=== PATIENT | female | born 1950 | race Caucasian/White ===

== ENCOUNTER 2022-03-30 19:01 | Emergency (ER) | payer MEDICARE, MEDICAID, SELFPAY ==
[2022-03-30] VITALS (11 sets, daily range): BP systolic 102–116; BP diastolic 63–74; PULSE 84–96; RESP 12–20; TEMP 36.5; O2SAT 94–96
--- NOTE | ~2022-03-30 | XR_ITS ---
EXAMINATION: XR chest 1V portable Exam Date/Time: 03/30/2022 19:50 CUSTOMER SERVICE SECURITY OFFICER HISTORY: weakness, seizure Comparison: None available. RESULT: Lines, tubes, and devices: Intact DIRECTOR INSTRUCTIONAL MATERIAL shunt tubing. Lumbar fusion hardware. Surgical clips over the G E junction. Loop recorder. An external electronic device projects over the left chest. Lungs and pleura: Moderate left costophrenic angle blunting with hazy graded left lower lobe opacity . Cardiomediastinal silhouette: Unremarkable. Other: No acute osseous or upper abdominal finding. IMPRESSION: Moderate left pleural effusion with adjacent compressive atelectasis. Infection is not excluded. Reviewed, dictated and finalized at location K. OMER SERVICE SECURITY OFFICER
--- NOTE | ~2022-03-30 | CT_ITS ---
EXAMINATION: CT brain wo con DATE: 03/30/2022 19:54 INDICATION: seizure . TECHNIQUE: Computed tomography (CT) of the head was performed without intravenous contrast. The mA wa s adjusted according to patient size. Iterative reconstruction technique was employed. The dose-lengt h product was 529.67 mGy-cm. COMPARISON: None FINDINGS: No acute intracranial hemorrhage or extra-axial fluid collection. No hydrocephalus, mass, or herniation. No acute ischemic infarct. Unremarkable dural venous sinus attenuation. No acute osseous abnormality. Multiple brennen holes. Prior left frontotemporal craniotomy with fixation hardware. No osseous fusion along the posterior margin of the craniotomy flap. Left parietal approac h INDEPENDENT TRADER shunt, terminating in the left lateral ventricle. The aerated spaces are clear. Moderate atrophy and chronic white matter change. Right frontotemporal encephalomalacia. Mild ex vacu o dilation of the right lateral ventricle. 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 Atheroscl erotic intracranial calcification. IMPRESSION: No definite acute intracranial process. Subtle change in ventricular dilation or early infarct change s within the areas of the right frontotemporal encephalomalacia cannot be excluded without comparison studies. Reviewed, dictated and finalized at location K. PRESIDENT OF NEWS IMPRESSION: No definite acute intracranial process. Subtle change in ventricular dilation o r early infarct changes within the areas of the right frontotemporal encephalom alacia cannot be excluded without comparison studies.
--- NOTE | ~2022-03-30 | US_ITS ---
EXAMINATION: US venous doppler [facility] DATE: 03/30/2022 20:37 INDICATION: pain and swelling . TECHNIQUE: Grayscale images without and with compression and Doppler images of the left lower extremi ty veins were obtained. COMPARISON: None FINDINGS: Acute thrombosis in the left common femoral vein The left profunda femoral vein, femoral vein, poplit eal vein, peroneal vein, posterior tibial veins, gastrocnemius vein, and greater saphenous vein are p atent. IMPRESSION: Acute left common femoral vein thrombosis. Results reported telephonically to Dr. Rivera by Dr. Kern at 9:07 PM on 03/30/2022. Reviewed, dictated and finalized at location K. CARE ASSISTANT IMPRESSION: Acute left common femoral vein thrombosis. Results reported telephonically to Dr. Rivera by Dr. Kern at 9:07 PM on .
--- NOTE | 2022-03-30 19:18 | ECG_ITS ---
Measurements Intervals [place] Rate: 92 P: MS: 0 QRS: 15 QRSD: 90 T: 77 QT: 326 QTc: 405 Interpretive Statements LIKELY SINUS RHYTHM LOW QRS VOLTAGE IN EXTREMITY LEADS [QRS DEFLECTION < 0.5 mV IN LIMB LEADS] ABNORMAL RHYTHM ECG NO PREVIOUS ECG AVAILABLE FOR COMPARISON Electronically Signed On 03-31-2022 14:51:45 ASSEMBLY LINE WORKER by Lucy Posadas M.D.
--- NOTE | 2022-03-30 19:54 | PC.NURSE ---
Pt to U/S and XRAY via stretcher at this time.
[2022-03-30 21:10] LABS: Appearance Urine Clear (Clear); Bilirubin Urine Negative (Negative); Blood Urine Negative (Negative); Color Urine Yellow (Yellow); Glucose Urine UA Negative (Negative); Ketones Urine Negative (Negative); Leukocyte Esterase Ur Negative LEU/UL (Negative); Nitrate Urine Negative (Negative); Protein Urine Negative (Negative); Specific Grav Ur 1.015 (1.001-1.035); Urobilinogen Urine 0.2 mg/dL (<2.0); pH Urine 5.5 (5.0-9.0)
[2022-03-30 21:11] LABS: Basophils Percent Auto 0.3 % (0.2-1.2); Eosinophils Percent Auto 0.1 % (0-4.4); Hematocrit 31.4 % (37.0-47.0); Hemoglobin 10.1 g/dL (12.0-15.0); Immature Granulocyte Absolute 0.05 K/mm3 (0.00-0.031); Immature Granulocyte Percent A 0.7 % (0-0.5); Immature Platelet Fraction Pct 6.7 % (0.9-11.2); Lymphocytes Absolute Auto 1.19 K/mm3 (0.9-3.2); Lymphocytes Percent Auto 15.5 % (18.3-44.2); Mean Corpuscular HGB Conc 32.2 g/dl (32-36); Mean Corpuscular Hemoglobin 29.6 pg (26-34); Mean Corpuscular Volume 92.1 fl (80-100); Monocytes Absolute Auto 0.6 K/mm3 (0.1-0.6); Monocytes Percent Auto 7.4 % (2.6-8.5); Neutrophils Absolute Auto 5.8 K/mm3 (1.3-6.7); Platelet Count Result 192 k/mm3 (150-375); Red Blood Count 3.41 M/mm3 (4.2-5.4); Red Cell Distribution Width 16.6 % (11.5-14.5); White Blood Count 7.7 K/mm3 (4.5-10.0)
[2022-03-30 21:16] LABS: Add Urine Microscopic? NO
[2022-03-30 21:19] LABS: Alanine Aminotransferase 21 U/L (6-35); Albumin Level 2.2 g/dL (3.5-5.1); Alkaline Phosphatase 165 U/L (38-126); Anion Gap 0 mmol/L (8-16); Aspartate Amino Transferase 28 U/L (14-36); Bilirubin,Total 0.3 mg/dL (0.2-1.3); Blood Urea Nitrogen 25 mg/dL (7-17); Calcium 7.3 mg/dL (8.4-10.2); Carbon Dioxide 33 mmol/L (22-30); Chloride 104 mmol/L (98-107); Estimated CRCL calculation 49 ml/min; Estimated Glomerular Filt Rate > 60; Glucose 97 mg/dL (65-110); Lipase 16 U/L (23-300); Potassium 3.1 mmol/L (3.4-5.0); Sodium 137 mmol/L (137-145)
[2022-03-30 21:31] LABS: NT Pro B Type Natriuretic Pept 1070 pg/mL (5-100); Ovalocytes 1+ (NORMAL); Platelet Estimate Adequate (Adequate); Schistocytes None Seen (NORMAL); Troponin I < 0.012 ng/mL (0.000-0.034)
[2022-03-30 21:44] LABS: Influenza A QL RT-PCR Negative (Negative); Influenza B QL RT-PCR Negative (Negative); SARS-CoV-2 RNA PCR Negative
[2022-03-30 22:36] LABS: Procalcitonin 0.1 ng/mL
[2022-03-30 23:17] LABS: Lactic Acid Reflex 1.2 mmol/L (0.7-2.0)
[2022-03-30 23:28] LABS: Troponin I < 0.012 ng/mL (0.000-0.034)
--- NOTE | 2022-03-30 23:48 | ED.GENADULT ---
HPI - General Adult General Chief complaint: Seizure Stated complaint: AMS, POSS SEIZURE ACTIVITY Time Seen by Provider: 03/30/22 19:18 History of Present Illness HPI narrative: Patient is 71-year-old female that presents the emergency department with chief complaint of possible seizure. Patient has prior history of seizures and takes Keppra was recently discharged from [facility] after she had had a stroke and also had electrolyte abnormalities. Per the retirement staff she possibly had a seizure but they are not too familiar with her. The patient currently has no complaints Related Data Allergies Allergy/AdvReac Type Severity Reaction Status Date / Time No Known Allergies Allergy Mild Unverified 01/01/13 07:30 Review of Systems Review of Systems: A 10 system review of systems was completed on the patient and is negative except for what is stated in the HPI. Nursing and ancillary documentation was reviewed. Exam Narrative: GENERAL: Well-appearing, well-nourished, and in no acute distress. HEAD: Normocephalic, atraumatic. EYES: PERRLA and EOMI. ENT: Nares clear, no rhinorrhea or epistaxis. Mucous membranes moist. NECK: Supple. CHEST: Clear to auscultation. No respiratory distress. HEART: Regular rate and rhythm. No murmur heard. Normal peripheral pulses. ABDOMEN: Soft, nontender, nondistended, normal active bowel sounds. EXTREMITIES: Normal range of motion. No edema. SKIN: Warm, dry, no rash. NEURO: No focal deficits. Alert and oriented x2. PSYCH: Normal mood and affect. Course Course Emergency Course: CT head showed evidence of no acute intercranial pathology. The patient does have evidence of a DVT in her left lower extremity but is currently already on anticoagulants. Chest x-ray showed evidence of a pleural effusion patient is currently not hypoxic and not showing signs of infectious pathology. Vital Signs Vital signs: Vital Signs Temperature 36.5 C 03/30/22 19:06 Pulse Rate 96 03/30/22 19:06 Respiratory Rate 20 03/30/22 19:06 Blood Pressure 102/63 03/30/22 19:06 Pulse Oximetry 96 03/30/22 19:06 Oxygen Delivery Room Air 03/30/22 19:06 Temperature 36.5 C 03/30/22 19:06 Pulse Rate 85 03/30/22 22:30 Respiratory Rate 17 03/30/22 22:30 Blood Pressure 115/73 03/30/22 22:30 Pulse Oximetry 95 03/30/22 22:30 Oxygen Delivery Room Air 03/30/22 19:06 Medical Decision Making Vital Signs Vital Signs: Vital Signs Temperature 36.5 C 03/30/22 19:06 Pulse Rate 96 03/30/22 19:06 Respiratory Rate 20 03/30/22 19:06 Blood Pressure 102/63 03/30/22 19:06 Pulse Oximetry 96 03/30/22 19:06 Oxygen Delivery Room Air 03/30/22 19:06 Temperature 36.5 C 03/30/22 19:06 Pulse Rate 85 03/30/22 22:30 Respiratory Rate 17 03/30/22 22:30 Blood Pressure 115/73 03/30/22 22:30 Pulse Oximetry 95 03/30/22 22:30 Oxygen Delivery Room Air 03/30/22 19:06 Lab Data 03/30/22 20:59 03/30/22 20:59 Labs: Lab Results 03/30/22 03/30/22 03/30/22 Range/Units 20:59 20:59 20:59 WBC 7.7 (4.5-10.0) K/mm3 RBC 3.41 L (4.2-5.4) M/mm3 Hgb 10.1 L (12.0-15.0) g/dL Hct 31.4 L (37.0-47.0) % MCV 92.1 (80-100) fl MCH 29.6 (26-34) pg MCHC 32.2 (32-36) g/dl RDW 16.6 H (11.5-14.5) % Plt Count 192 (150-375) k/mm3 MPV 11.0 H (7.4-10.4) fl Immature Gran % (Auto) 0.7 H (0-0.5) % Neut % (Auto) 76.0 H (45.5-73.1) % Lymph % (Auto) 15.5 L (18.3-44.2) % [place] % (Auto) 7.4 (2.6-8.5) % Eos % (Auto) 0.1 (0-4.4) % Baso % (Auto) 0.3 (0.2-1.2) % Lymph # (Auto) 1.19 (0.9-3.2) K/mm3 [place] # (Auto) 0.6 (0.1-0.6) K/mm3 Eos # (Auto) 0.0 (0-0.3) K/mm3 Baso # (Auto) 0.0 (0.0-0.1) K/mm3 Abs Immat Gran (auto) 0.05 H (0.00-0.031) K/mm3 Absolute Neuts (auto) 5.8 (1.3-6.7) K/mm3 Absolute Nucleated RBC 0.0 (0.0-0.012) K/mm3 Nucleated R
[2022-03-31] VITALS (9 sets, daily range): BP systolic 114–123; BP diastolic 62–73; PULSE 84–86; RESP 13–21; O2SAT 94–96
== END 2022-03-31 01:28 ==
PROVIDERS: Emergency Medicine; Emergency Provider Emergency Medicine
DX: R56.9 Unspecified convulsions (principal); I82.412 Acute embolism and thrombosis of left femoral vein; Z20.822 Contact with and (suspected) exposure to COVID-19; Z86.73 Personal history of transient ischemic attack (TIA), and cerebral infarction without residual deficits; Z79.01 Long term (current) use of anticoagulants; R91.8 Other nonspecific abnormal finding of lung field; R94.31 Abnormal electrocardiogram [ECG] [EKG]
CPT/HCPCS: 36415; 51701; 70450; 71045; 80053; 81003; 83605; 83690; 83735; 83880; 84145; 84484; 85025; 85055; 87636; 93005; 93971; 99284

== ENCOUNTER 2022-03-31 18:38 | Inpatient (IN) | payer MEDICARE, MEDICAID, SELFPAY ==
--- NOTE | ~2022-03-31 | XR_ITS ---
EXAMINATION: XR chest 1V portable Exam Date/Time: 03/31/2022 19:50 ANESTHESIOLOGY MEDICAL DOCTOR HISTORY: Weakness, HX OF SEIZURES Comparison: 03/30/2022. RESULT: Lines, tubes, and devices: Unchanged Loop recorder, left upper quadrant surgical clips, IMMIGRATION INVESTIGATOR shunt tub ing, and spinal fusion hardware. Lungs and pleura: Stable moderate left angle blunting and left lower lung opacity. Cardiomediastinal silhouette: Stable. Other: No acute osseous or upper abdominal finding. IMPRESSION: Moderate left pleural effusion with adjacent compressive atelectasis. No significant interval change. Reviewed, dictated and finalized at location K. THESIOLOGY MEDICAL DOCTOR IMPRESSION: Moderate left pleural effusion with adjacent compressive atelectasis. No signif icant interval change.
--- NOTE | ~2022-03-31 | CT_ITS ---
EXAMINATION: CT brain wo con DATE: 03/31/2022 20:08 INDICATION: AMS . TECHNIQUE: Computed tomography (CT) of the head was performed without intravenous contrast. The mA wa s adjusted according to patient size. Iterative reconstruction technique was employed. The dose-lengt h product was 681.00 mGy-cm. COMPARISON: 03/30/2022 FINDINGS: No acute intracranial hemorrhage or extra-axial fluid collection. No hydrocephalus, mass, or herniation. No acute ischemic infarct. Unremarkable dural venous sinus attenuation. No acute osseous abnormality. The aerated spaces are clear. Right frontotemporal craniotomy. Left parietal approach PRIMARY SCHOOL TEACHER shunt terminating in the left lateral vent ricle. Right frontotemporal encephalomalacia and ex vacuo dilation of the right lateral ventricle. An eurysm clips. Bilateral prominent extra-axial spaces as can be seen with chronic subdurals and cystic hygromas. Moderate atrophy and chronic white matter change. Atherosclerotic intracranial calcificati ons. IMPRESSION: No acute intracranial process. Reviewed, dictated and finalized at location K. E STOCK ASSOCIATE
--- NOTE | ~2022-03-31 | XR_ITS ---
XR chest 2V 04/02/2022 16:00 Indication: Shortness of breath Procedure: 2 view chest Comparison: 03/31/2022 Findings: There is a left-sided catheter, likely ventriculoperitoneal shunt. There are bilateral pleu ral effusions, left greater than right. There is left basilar compressive atelectasis. No pneumothora x. Osteopenia. No acute osseous abnormality. Impression: 1: Bilateral pleural effusions, left greater than right. No significant change from prior study allow ing for differences of technique. Reviewed, dictated and finalized at location A. RNATIONAL STUDENT ADVISOR Impression: 1: Bilateral pleural effusions, left greater than right. No significant change from prior study allowing for differences of technique.
[2022-03-31 18:43] VITALS: BP 112/60; PULSE 85; RESP 14; TEMP 37.2; O2SAT 95
[2022-03-31 18:56] VITALS: O2SAT 95
--- NOTE | 2022-03-31 19:40 | ED.GENADULT ---
HPI - General Adult General Chief complaint: Seizure Stated complaint: focal sz? Time Seen by Provider: 03/31/22 19:00 History of Present Illness HPI narrative: This is a 71-year-old female who is A&O x1 at baseline who [facility]. Patient herself can tell me her name can provide no other information. She has no complaints at this time. Per provider reports the patient has been having focal seizures where she stares off into space. She has not been feeding herself. She has had decreased urine output. Patient has been receiving her daily Keppra dose. I spoke with the patient's daughter and the patient typically can tell you her name and social security number and address and have some sort of interaction with you. She is not able to do that at this time. PADMINI (Daughter) [phone] Related Data Allergies Allergy/AdvReac Type Severity Reaction Status Date / Time No Known Allergies Allergy Mild Unverified 01/01/13 07:30 Review of Systems Review of Systems: ROS unobtainable: Yes unobtainable due to medical condition [facility] Past Medical History Medical History (Updated 03/31/22 @ 23:56 by Aashish Prabhakar MD) Seizure Exam Narrative: APPEARANCE: Patient appears chronically unwell and older than her stated age. A&Ox1 Head: Temporal wasting EYES: EOMI, NOSE: Atraumatic NECK: Trachea midline RESPIRATORY: No increased rate of breathing, clear to auscultation CARDIOVASCULAR: regular rate, ABDOMINAL: Non-distended, no guarding or rebound MUSCULOSKELETAl: No obvious deformities NEURO: Alert. Moving 4/4 extremities SKIN:: Warm, dry. Normal color PSYCHIATRIC: patient is A&O x1 and essentially nonverbal Course Vital Signs Vital signs: Vital Signs Temperature 99 F 03/31/22 18:43 Pulse Rate 85 03/31/22 18:43 Respiratory Rate 14 03/31/22 18:43 Blood Pressure 112/60 03/31/22 18:43 Pulse Oximetry 95 03/31/22 18:43 Oxygen Delivery Room Air 03/31/22 18:43 Temperature 99 F 03/31/22 18:43 Pulse Rate 82 03/31/22 22:56 Respiratory Rate 16 03/31/22 22:56 Blood Pressure 113/59 L 03/31/22 22:56 Pulse Oximetry 98 03/31/22 22:56 Oxygen Delivery Room Air 12/07/22 18:56 Medical Decision Making MDM Narrative Medical decision making narrative: This is a 71-year-old female presenting ED for possibly focal seizures but also decreased appetite and decreased urine output. differential includes sepsis, subclinical seizures, viral syndrome, dehydration. Since it sounds like patient has failure to thrive. A broad workup has been pursued. Labwork, Urine, EKG, Chest xray and CT head have been ordered. Patient will be given a dose of keppra and 1 L of fluid. EKG interpretation: Rhythm svt, Rate 83, [place] -[normal], [place] -unable to see due to poor baseline, QRS [narrow], QTC [normal], T waves -[negative for concerning inversions], ST Segments - [Negative for concerning elevations] Final interpretations: normal sinus rhytm lab works within normal limits no significant changes from her workup yesterday. Fluid COVID were negative. Chest x-ray shows the pleural effusion. Head CT does not show any acute findings. I spoke with the patient's daughter over the phone who says that the patient can typically hold a conversation with you at her baseline. She is unable to do that at this time. Patient will be admitted for further evaluation and neurology consult. Vital Signs Vital Signs: Vital Signs Temperature 99 F 03/31/22 18:43 Pulse Rate 85 03/31/22 18:43 Respiratory Rate 14 03/31/22 18:43 Blood Pressure 112/60 03/31/22 18:43 Pulse Oximetry 95 03/31/22 18:43 Oxygen Delivery Room Air 03/31/22 18:43 Temperature 99 F 03/31/22 18:43 Pulse Rate 82 03/31/22 22:56 Respiratory Rate 16 03/31/22 22:56 Blood Pressure 113/59 L 03/31/22 22:56 Pulse Oximetry 98 03/31/22 22:56 Oxygen Delivery Room Air
--- NOTE | 2022-03-31 19:49 | ECG_ITS ---
Measurements Intervals [place] Rate: 83 P: [place]: 0 QRS: 42 QRSD: 96 T: -33 QT: 364 QTc: 428 Interpretive Statements REDUCED ECG QUALITY BECAUSE OF BASELINE ARTIFACT SUPRAVENTRICULAR RHYTHM LOW QRS VOLTAGE IN EXTREMITY LEADS [QRS DEFLECTION < 0.5 mV IN LIMB LEADS] COMPARED TO ECG 03/30/2022 19:20:53 NO SIGNIFICANT CHANGE Electronically Signed On 04-02-2022 7:21:31 YARD CRANE OPERATOR by Jose Thomas M.D.
[2022-03-31] MEDS: SODIUM CHLORIDE 0.9% IV 1,000 ML 999 ML IV CONT (21:14)
[2022-03-31 21:52] LABS: Influenza A QL RT-PCR Negative (Negative); Influenza B QL RT-PCR Negative (Negative); SARS-CoV-2 RNA PCR Negative
[2022-03-31 22:03] LABS: Basophils Percent Auto 0.4 % (0.2-1.2); Eosinophils Percent Auto 0.2 % (0-4.4); Hematocrit 26.8 % (37.0-47.0); Hemoglobin 8.3 g/dL (12.0-15.0); Immature Granulocyte Absolute 0.03 K/mm3 (0.00-0.031); Immature Granulocyte Percent A 0.4 % (0-0.5); Lymphocytes Absolute Auto 1.38 K/mm3 (0.9-3.2); Lymphocytes Percent Auto 17.1 % (18.3-44.2); Mean Corpuscular Hemoglobin 29.4 pg (26-34); Mean Platelet Volume 10.5 fl (7.4-10.4); Monocytes Absolute Auto 0.7 K/mm3 (0.1-0.6); Monocytes Percent Auto 8.8 % (2.6-8.5); Neutrophils Absolute Auto 5.9 K/mm3 (1.3-6.7); Neutrophils Percent Auto 73.1 % (45.5-73.1); Platelet Count Result 402 k/mm3 (150-375); Red Blood Count 2.82 M/mm3 (4.2-5.4); Red Cell Distribution Width 16.6 % (11.5-14.5); White Blood Count 8.1 K/mm3 (4.5-10.0)
[2022-03-31 22:14] LABS: INR 2.7; Prothrombin Time 27.4 Seconds (11.1-14.7)
[2022-03-31 22:15] LABS: Partial Thromboplastin Time 47.9 SECONDS (22.3-36.8)
[2022-03-31 22:22] LABS: Alanine Aminotransferase 21 U/L (6-35); Albumin Level 2.3 g/dL (3.5-5.1); Alkaline Phosphatase 157 U/L (38-126); Anion Gap -1 mmol/L (8-16); Aspartate Amino Transferase 39 U/L (14-36); Bilirubin,Total 0.7 mg/dL (0.2-1.3); Blood Urea Nitrogen 26 mg/dL (7-17); Calcium 7.3 mg/dL (8.4-10.2); Carbon Dioxide 36 mmol/L (22-30); Chloride 104 mmol/L (98-107); Estimated Glomerular Filt Rate > 60; Glucose 106 mg/dL (65-110); Phosphorus 3.7 mg/dL (2.5-4.5); Potassium 3.7 mmol/L (3.4-5.0); Sodium 139 mmol/L (137-145)
[2022-03-31 22:24] LABS: Troponin I < 0.012 ng/mL (0.000-0.034)
[2022-03-31 22:56] VITALS: BP 113/59; PULSE 82; RESP 16; O2SAT 98
[2022-03-31 22:56] LABS: Lipase < 10 U/L (23-300)
[2022-04-01] VITALS (8 sets, daily range): BP systolic 103–122; BP diastolic 43–72; PULSE 79–85; RESP 12–18; TEMP 36.3–36.7; O2SAT 94–100; BMI 18.3
[2022-04-01] MEDS: LACTATED RINGERS 1,000 ML 125 ML IV CONT ×3 (00:45→16:53)
--- NOTE | 2022-04-01 01:23 | PM.IMHP ---
H&P: HPI History of Present Illness Date/Time: 04/01/22 01:23 Chief Complaint: altered mental status Narrative: This is a 71-year-old female with past medical history significant for atrial fibrillation rate controlled anticoagulated, seizure disorder. patient is brought for a 2nd time to the emergency room for evaluation of altered mental status has been staring into a space and nonresponsive or minimally responsive at the time of my visit patient was awake and alert staring into the space oriented times once to person, according to records she is oriented x 1-2. patient was loaded with Keppra and a sepsis workup was done which was low yielding, a TSH was elevated at 16,300, tested negative for influenza A and B and COVID-19. Patient is been admitted for further evaluation management and treatment. Review of Systems Review of Systems: ROS unobtainable: Yes unobtainable due to mental status ( Dementia) PMFSH Past Medical History Medical History (Updated 04/01/22 @ 04:16 by Mario Nolasco MD) Seizure Family History Family History (Updated 04/01/22 @ 03:20 by Anastasiya Branham RN) Other Unknown family medical history Social History Social History Smoking status: Unknown if ever smoked Alcohol intake: unknown Spiritual care concerns: No Meds Home Medications and Allergies Home Medications Medication Instructions Recorded Confirmed Type Adults Multivitamin 1 tablet PO DAILY 04/01/22 04/01/22 History acetaminophen 650 mg tablet 650 mg PO Q6H PRN Pain (Scale 04/01/22 04/01/22 History Score 1-3) albuterol sulfate 90 mcg/actuation 2 puff inhalation Q6H PRN 04/01/22 04/01/22 History aerosol inhaler Shortness Of Breath amiodarone 200 mg tablet 200 mg PO DAILY 04/01/22 04/01/22 History apixaban 5 mg tablet (Eliquis) 5 mg PO BID 04/01/22 04/01/22 History ascorbic acid (vitamin C) 500 mg PO DAILY 04/01/22 04/01/22 History bisacodyl 10 mg rectal suppository 10 mg RECTAL DAILY PRN Constipation 04/01/22 04/01/22 History calcium carbonate 600 mg PO BID 04/01/22 04/01/22 History collagenase clostridium histo. 250 1 applic topical DAILY 04/01/22 04/01/22 History unit/gram topical ointment (Santyl) ergocalciferol (vitamin D2) 1,250 mcg PO WEEKLY 04/01/22 04/01/22 History famotidine 20 mg PO DAILY 04/01/22 04/01/22 History furosemide 20 mg PO BID 04/01/22 04/01/22 History gabapentin 100 mg capsule 100 mg PO TID 04/01/22 04/01/22 History latanoprost 0.005 % eye drops 1 drp EACH EYE HS 04/01/22 04/01/22 History levetiracetam 750 mg tablet 750 mg PO BID 04/01/22 04/01/22 History mirtazapine 15 mg tablet 15 mg PO HS 04/01/22 04/01/22 History pantoprazole 40 mg tablet,delayed 40 mg PO DAILY 04/01/22 04/01/22 History release polyethylene glycol 3350 17 17 g PO DAILY 04/01/22 04/01/22 History gram/dose oral powder (Miralax) Allergies Allergy/AdvReac Type Severity Reaction Status Date / Time No Known Allergies Allergy Mild Verified 04/01/22 02:47 Vital Signs Vital Signs - 24 hr 03/31/22 18:43 03/31/22 18:56 03/31/22 22:56 Temperature 99 F Pulse Rate 85 82 Respiratory Rate 14 16 Blood Pressure 112/60 113/59 L Pulse Oximetry 95 95 98 Oxygen Delivery Room Air Room Air 04/01/22 00:22 Temperature Pulse Rate 79 Respiratory Rate 18 Blood Pressure 103/72 Pulse Oximetry 100 Oxygen Delivery Exam Narrative: patient is laying in a stretcher Const: General: comfortable, no acute distress, well developed, alert, awake and average body habitus Nutritional Appearance: average body habitus Orientation/consciousness: oriented to person and Other orientation findings ( patient is staring into space, does not follow commands) Limitations: altered mental status HENMT: Head: normal to inspection, normocephalic and atraumatic Ears: hearing grossly normal bilaterally Face/Nose/Sinus: normal facial exam Face and sinus: norm
--- NOTE | 2022-04-01 01:41 | PC.NURSE ---
patient turned, cleaned and changed depends at 0125
--- NOTE | 2022-04-01 02:35 | ADMGEN ---
This patient, Babs Felton, was admitted to 3 [facility] Surg Room 317-01. Patient/family oriented to hospital policies and general routines including ID bracelet, bed and alarms, visiting hours, pain management, procedures, bathroom and other care routines, personal items, smoking policy, room service/diet, and visiting hours. Information on how to activate the Rapid Response Team has been discussed. Patient/Family are encouraged to report perceived risks to care and to ask questions if they do not understand what they are told or what they should do.
[2022-04-01 03:47] LABS: Free T4 Free Thyroxine Reflex 2.46 ng/dL (0.78-2.19)
--- NOTE | 2022-04-01 08:41 | PM.IMPN ---
Progress Note: A&P Assessment and Plan (1) Altered mental status: Code(s): R41.82 - Altered mental status, unspecified Status: Acute Assessment and Plan: Neurology consult pending, brain MRI ordered, likely multifactorial Could be secondary to elevated TSH? Levothyroxine ordered Will check B12, folate, homocystine, and vitamin D (2) Elevated TSH: Code(s): R79.89 - Other specified abnormal findings of blood chemistry Status: Acute Assessment and Plan: Hold amiodarone for now, start levothyroxine (3) Focal seizure: Code(s): R56.9 - Unspecified convulsions Status: Acute Assessment and Plan: Continue Keppra, received IV loading dose in the ER, transitioned to IV patient does not pass swallow study today (4) Anemia: Code(s): D64.9 - Anemia, unspecified Status: Acute Assessment and Plan: Check fecal occult, continue to monitor (5) Atrial fibrillation: Code(s): I48.91 - Unspecified atrial fibrillation Status: Acute Assessment and Plan: Continue Eliquis for now, if hemoglobin drops again would discontinue Monitor rate closely as amiodarone is being held (6) Dementia: Code(s): F03.90 - Unspecified dementia, unspecified severity, without behavioral disturbance, psychotic disturbance, mood disturbance, and anxiety Status: Acute Assessment and Plan: continue mirtazapine (7) Hypothyroid: Code(s): E03.9 - Hypothyroidism, unspecified Status: Acute Assessment and Plan: Start levothyroxine 25 mcg IV Plan DVT prophylaxis with Eliquis GI prophylaxis with PPI Code status full code Subjective Date/time seen: 04/01/22 08:41 Interval history: No overnight events noted. No chest pain or shortness of breath. No nausea, vomiting or diarrhea. No fevers or chills. 95% on room air Review of Systems Review of Systems: 12 point review of systems was assessed and was negative except as noted in the HPI Exam Narrative: General: No acute distress, alert and oriented per baseline HEENT: Atraumatic, normocephalic, mucous membranes moist CV: Regular rate and rhythm, S1, S2 Lungs: Clear to auscultation bilaterally, no rales or crackles noted, no wheezes, good air entry Abdomen: Soft, nontender, nondistended Extremities: Normal to inspection Skin: No rashes noted, no lesions or wounds seen Psych: Euthymic, normal affect Objective Data Vital Signs Vital Signs: Vital Signs - 24 hr 03/31/22 18:43 03/31/22 18:56 03/31/22 22:56 Temperature 99 F Pulse Rate 85 82 Respiratory Rate 14 16 Blood Pressure 112/60 113/59 L Pulse Oximetry 95 95 98 Oxygen Delivery Room Air Room Air 04/01/22 00:22 04/01/22 01:44 04/01/22 03:09 Temperature 97.6 F Pulse Rate 79 85 82 Respiratory Rate 18 16 14 Blood Pressure 103/72 111/43 L 112/51 L Pulse Oximetry 100 96 95 Oxygen Delivery 04/01/22 05:32 04/01/22 06:00 Temperature 97.3 F L Pulse Rate 82 79 Respiratory Rate 14 14 Blood Pressure 114/67 Pulse Oximetry 95 94 Oxygen Delivery Room Air Intake/Output Intake/Output: Intake & Output 03/29/22 03/30/22 03/31/22 04/01/22 23:59 23:59 23:59 23:59 Intake Total 1115 Balance 1115 Meds/Results Medications: Active Medications Generic Name Dose Route Start Last Admin Trade Name Freq PRN Reason Stop Dose Admin Acetaminophen 650 mg 04/01/22 04:12 Acetaminophen 325 Mg Tablet PO Q6H PRN Pain (Scale Score 1-3) Albuterol 2 puff 04/01/22 04:12 Albuterol Sulfate (*Sp) Aerosol 1 Puff INHALATION Q6H PRN Shortness Of Breath Apixaban 5 mg 04/01/22 09:00 Apixaban 5 Mg Tablet PO BID [facility] Ascorbic Acid 500 mg 04/01/22 09:00 Ascorbic Acid 500 Mg Tablet PO QAM [facility] Bisacodyl 10 mg 04/01/22 04:12 Bisacodyl 10 Mg Suppository RECTAL DAILY PRN Constipation Calcium Carbonate 500 mg 04/01/22 09:00 Calci
[2022-04-01] MEDS: COLLAGENASE OINT 30 GM TUBE 1 APPLIC TOPICAL (09:45)
--- NOTE | 2022-04-01 09:50 | WPDNEURCNPN ---
Assessment and Plan Assessment and plan (1) Altered mental status: Code(s): R41.82 - Altered mental status, unspecified Status: Acute (2) Elevated TSH: Code(s): R79.89 - Other specified abnormal findings of blood chemistry Status: Acute (3) Seizure: Code(s): R56.9 - Unspecified convulsions Status: Acute (4) Dementia: Code(s): F03.90 - Unspecified dementia, unspecified severity, without behavioral disturbance, psychotic disturbance, mood disturbance, and anxiety Status: Acute (5) Atrial fibrillation: Code(s): I48.91 - Unspecified atrial fibrillation Status: Acute Plan Ms. Felton is a 71 year old female with a history of seizure disorder, dementia, and atrial fibrillation presenting due to altered mental status. Concern for occult seizures. Altered mentation could also be related to hypothyroidism. - MRI brain w/o contrast - Obtain routine EEG - Continue Keppra 750mg BID Consult date: 04/01/22 HPI: Babs Felton is a 71 year old female with a history of seizures, dementia, atrial fibrillation who presented from a her alf due to altered mental status. Patient is unable to provide history and is AOx1 at baseline. jail staff report that patient stares off at times. She was recently evaluated at [facility] for stroke (records not available). Per patient's daughter patient can tell her name, social security number, and address, but presently she is non-verbal. She had a CT head done in the ED which was unremarkable. Labs were mostly reassuring except for elevated TSH (16.3). She was not on levothyroxine. Her UA was normal. Vitamin B12, folate, and homocysteine levels were ordered and are pending. Patient reportedly has a history of seizures, but further details regarding this is not available. She does take Keppra 750mg BID. She received a dose while in the ED. She also takes Eliquis for atrial fibrillation. Patient was admitted for further work-up of encephalopathy. Review of Systems Review of Systems: ROS unobtainable: Yes unobtainable due to medical condition and unobtainable due to mental status PMFSH Past Medical History Medical History Seizure Family History Family History Other Unknown family medical history Social History Social History Smoking status: Unknown if ever smoked Alcohol intake: unknown Spiritual care concerns: No Meds Home Medications and Allergies Home Medications Medication Instructions Recorded Confirmed Type Adults Multivitamin 1 tablet PO DAILY 04/01/22 04/01/22 History acetaminophen 650 mg tablet 650 mg PO Q6H PRN Pain (Scale 04/01/22 04/01/22 History Score 1-3) albuterol sulfate 90 mcg/actuation 2 puff inhalation Q6H PRN 04/01/22 04/01/22 History aerosol inhaler Shortness Of Breath amiodarone 200 mg tablet 200 mg PO DAILY 04/01/22 04/01/22 History apixaban 5 mg tablet (Eliquis) 5 mg PO BID 04/01/22 04/01/22 History ascorbic acid (vitamin C) 500 mg PO DAILY 04/01/22 04/01/22 History bisacodyl 10 mg rectal suppository 10 mg RECTAL DAILY PRN Constipation 04/01/22 04/01/22 History calcium carbonate 600 mg PO BID 04/01/22 04/01/22 History collagenase clostridium histo. 250 1 applic topical DAILY 04/01/22 04/01/22 History unit/gram topical ointment (Santyl) ergocalciferol (vitamin D2) 1,250 mcg PO WEEKLY 04/01/22 04/01/22 History famotidine 20 mg PO DAILY 04/01/22 04/01/22 History furosemide 20 mg PO BID 04/01/22 04/01/22 History gabapentin 100 mg capsule 100 mg PO TID 04/01/22 04/01/22 History latanoprost 0.005 % eye drops 1 drp EACH EYE HS 04/01/22 04/01/22 History levetiracetam 750 mg tablet 750 mg PO BID 04/01/22 04/01/22 History mirtazapine 15 mg tablet 15 mg PO HS 04/01/22 04/01/22 History pantoprazole 40 mg tablet,delayed 40 mg PO ANGI
--- NOTE | 2022-04-01 10:09 | PCSTNOTE ---
Please refer to the Bedside Swallow Evaluation in the EMR. Please note, silent aspiration cannot be ruled out at bedside.
[2022-04-01 10:46] LABS: Vitamin D 25 Hydroxy 19.9 ng/mL
[2022-04-01 11:13] LABS: Folic Acid 6.5 ng/mL (2.76->20)
[2022-04-01 12:18] LABS: IFOB Positive Control Positive; Immunochemical Fecal Occult Bl Positive (N)
[2022-04-01] MEDS: LEVOTHYROXINE SODIUM INJ 100 MCG/5 ML VIAL 25 MCG IV PUSH (14:00)
[2022-04-01] MEDS: CALCIUM CARBONATE (OSCAL) 500 MG TABLET PO (16:55)
[2022-04-01] MEDS: levETIRAcetam 250 MG TABLET 750 MG PO (16:55)
[2022-04-01] MEDS: GABAPENTIN 100 MG CAPSULE PO (16:55)
[2022-04-01] MEDS: APIXABAN 5 MG TABLET PO (16:55)
[2022-04-01] MEDS: FUROSEMIDE 20 MG TABLET PO (16:55)
[2022-04-01] MEDS: LATANOPROST 0.005% OP SOLN 2.5 ML BTL 1 DROP EACH EYE (21:01)
[2022-04-01] MEDS: MIRTAZAPINE 15 MG TABLET PO (21:01)
[2022-04-02] MEDS: LACTATED RINGERS 1,000 ML 125 ML IV CONT ×3 (00:41→17:22)
[2022-04-02 06:00] VITALS: BP 114/60; PULSE 87; RESP 13; TEMP 36.6; O2SAT 91
[2022-04-02] MEDS: LEVOTHYROXINE SODIUM INJ 100 MCG/5 ML VIAL 25 MCG IV PUSH (06:23)
[2022-04-02 07:11] LABS: Basophils Percent Auto 0.3 % (0.2-1.2); Eosinophils Absolute Auto 0.1 K/mm3 (0-0.3); Eosinophils Percent Auto 0.9 % (0-4.4); Hemoglobin 8.4 g/dL (12.0-15.0); Immature Granulocyte Absolute 0.06 K/mm3 (0.00-0.031); Immature Granulocyte Percent A 0.5 % (0-0.5); Lymphocytes Absolute Auto 1.06 K/mm3 (0.9-3.2); Lymphocytes Percent Auto 9.5 % (18.3-44.2); Mean Corpuscular HGB Conc 31.1 g/dl (32-36); Mean Corpuscular Hemoglobin 29.9 pg (26-34); Mean Corpuscular Volume 96.1 fl (80-100); Mean Platelet Volume 10.4 fl (7.4-10.4); Monocytes Absolute Auto 0.8 K/mm3 (0.1-0.6); Monocytes Percent Auto 7.2 % (2.6-8.5); Neutrophils Absolute Auto 9.1 K/mm3 (1.3-6.7); Neutrophils Percent Auto 81.6 % (45.5-73.1); Platelet Count Result 421 k/mm3 (150-375); Red Blood Count 2.81 M/mm3 (4.2-5.4); Red Cell Distribution Width 16.2 % (11.5-14.5); White Blood Count 11.2 K/mm3 (4.5-10.0)
[2022-04-02 07:39] LABS: Alanine Aminotransferase 16 U/L (6-35); Albumin Level 1.9 g/dL (3.5-5.1); Alkaline Phosphatase 136 U/L (38-126); Anion Gap -1 mmol/L (8-16); Aspartate Amino Transferase 22 U/L (14-36); Bilirubin,Total 0.3 mg/dL (0.2-1.3); Blood Urea Nitrogen 15 mg/dL (7-17); Carbon Dioxide 35 mmol/L (22-30); Chloride 101 mmol/L (98-107); Estimated CRCL calculation 69 ml/min; Estimated Glomerular Filt Rate > 60; Glucose 74 mg/dL (65-110); Potassium 2.8 mmol/L (3.4-5.0); Sodium 135 mmol/L (137-145)
--- NOTE | 2022-04-02 08:19 | PM.IMPN ---
Progress Note: A&P Assessment and Plan (1) Altered mental status: Code(s): R41.82 - Altered mental status, unspecified Status: Acute Assessment and Plan: MRI pending, appreciate neuro consult, concern for breakthrough seizures, keppra increased Appears post ictal today, much more somnolent and confused B12, folate WNL Vit D somewhat low, will replace over the next few days, then weekly F/u homocysteine F/u TSH 4-6 weeks outpatient (2) Elevated TSH: Code(s): R79.89 - Other specified abnormal findings of blood chemistry Status: Acute Assessment and Plan: Hold amiodarone for now Levothyroxine started (3) Leukocytosis: Code(s): D72.829 - Elevated white blood cell count, unspecified Status: Acute Assessment and Plan: Leukocytosis noted of uncertain significance Check blood, urinalysis WNL Check CXR Hold off on abx as no source noted, AFVSS, could be reactive? (4) Focal seizure: Code(s): R56.9 - Unspecified convulsions Status: Acute Assessment and Plan: Continue Keppra, received IV loading dose in the ER, transitioned to IV, increased dose today per neuro for suspected breakthrough seizure activity (5) Anemia: Code(s): D64.9 - Anemia, unspecified Status: Acute Assessment and Plan: FOBT+, hgb stable, hold eliquis, monitor (6) Atrial fibrillation: Code(s): I48.91 - Unspecified atrial fibrillation Status: Acute Assessment and Plan: Hold eliquis, FOBT+ Monitor heart rate closely as amiodarone is being held (7) Dementia: Code(s): F03.90 - Unspecified dementia, unspecified severity, without behavioral disturbance, psychotic disturbance, mood disturbance, and anxiety Status: Acute Assessment and Plan: continue mirtazapine (8) Hypothyroid: Code(s): E03.9 - Hypothyroidism, unspecified Status: Acute Assessment and Plan: Start levothyroxine 25 mcg IV Plan DVT prophylaxis with Eliquis GI prophylaxis with PPI Code status full code Subjective Date/time seen: 04/02/22 08:19 Interval history: Much more somnolent today, confused, uncommunicative. No overnight events. 95% on room air Exam Narrative: General: Uncommunicative, somnolent, post ictal? HEENT: Atraumatic, normocephalic, mucous membranes moist CV: Regular rate and rhythm, S1, S2 Lungs: Clear to auscultation bilaterally, no rales or crackles noted, no wheezes, good air entry Abdomen: Soft, nontender, nondistended Extremities: Normal to inspection Psych: unable to assess Objective Data Vital Signs Vital Signs: Vital Signs - 24 hr 04/01/22 14:00 04/01/22 20:00 04/01/22 21:35 Temperature 97.3 F L 98.1 F Pulse Rate 85 83 Respiratory Rate 16 12 Blood Pressure 122/48 L 114/68 Pulse Oximetry 96 96 95 Oxygen Delivery Room Air 04/02/22 06:00 Temperature 97.9 F Pulse Rate 87 Respiratory Rate 13 Blood Pressure 114/60 Pulse Oximetry 91 Oxygen Delivery Intake/Output Intake/Output: Intake & Output 03/30/22 03/31/22 04/01/22 04/02/22 23:59 23:59 23:59 23:59 Intake Total 1115 2200 1000 Balance 1115 2200 1000 Meds/Results Medications: Active Medications Generic Name Dose Route Start Last Admin Trade Name Freq PRN Reason Stop Dose Admin Acetaminophen 650 mg 04/01/22 04:12 Acetaminophen 325 Mg Tablet PO Q6H PRN Pain (Scale Score 1-3) Albuterol 2 puff 04/01/22 04:12 Albuterol Sulfate (*Sp) Aerosol 1 Puff INHALATION Q6H PRN Shortness Of Breath Apixaban 5 mg 04/01/22 09:00 04/01/22 16:55 Apixaban 5 Mg Tablet PO 5 mg BID RAFAT Administration Ascorbic Acid 500 mg 04/01/22 09:00 04/01/22 09:00 Ascorbic Acid 500 Mg Tablet PO Not Given QAM RAFAT Bisacodyl 10 mg 04/01/22 04:12 Bisacodyl 10 Mg Suppository RECTAL DAILY PRN Constipation Calcium Carbonate 500 mg 04/01/22 09:00 04/01/22 16:55 Calcium Car
[2022-04-02] MEDS: PANTOPRAZOLE 40 MG TABLET PO (08:58)
[2022-04-02] MEDS: FAMOTIDINE 20 MG TABLET PO (08:58)
[2022-04-02] MEDS: CALCIUM CARBONATE (OSCAL) 500 MG TABLET PO ×2 (08:58→17:24)
[2022-04-02] MEDS: MULTIVITAMINS THERAPEUTIC TAB (*BKC) 1 TABLET PO (08:58)
[2022-04-02] MEDS: FUROSEMIDE 20 MG TABLET PO ×2 (08:58→17:24)
[2022-04-02] MEDS: APIXABAN 5 MG TABLET PO (08:58)
[2022-04-02] MEDS: levETIRAcetam 250 MG TABLET 750 MG PO (08:58)
[2022-04-02] MEDS: ASCORBIC ACID 500 MG TABLET PO (08:58)
[2022-04-02] MEDS: GABAPENTIN 100 MG CAPSULE PO ×3 (08:59→17:24)
[2022-04-02] MEDS: polyethylene glycoL 3350 17 GM POWD.PACK PO (08:59)
[2022-04-02] MEDS: COLLAGENASE OINT 30 GM TUBE 1 APPLIC TOPICAL (08:59)
--- NOTE | 2022-04-02 09:03 | WPDNEUROLOGY ---
Neurology EEG Report General Information Date of Study: 04/01/22 TEST Routine EEG DIAGNOSIS Concern for seizure-like activity CONDITION OF RECORDING Encephalopathic. Significant muscle artifact. EEG NUMBER [id number] CLINICAL HISTORY Patient had a reported seizure while at long term, described as staring off''. She has a history of dementia. EEG DESCRIPTION The recording is continuous. The background consists of mostly theta range activity without any clear posterior dominant rhythm. There is no anterior posterior gradient. The right frontotemporal region consists of slower, delta range activity. Occasional sharp transients noted on the right anterior temporal region (F8). No electrographic seizures were noted. Normal sleep architecture is not observed. Activation procedures were not done. IMPRESSION This is an abnormal EEG due to the presence of: 1. Diffuse slowing, with more pronounced slowing over the right frontotemporal region. This is suggestive of focal superimposed on generalized cerebral dysfunction. 2. Occasional sharp transients over the right anterior temporal region suggestive of a decreased threshold to have seizure from a focal onset mechanism. Clinical correlation recommended
--- NOTE | 2022-04-02 10:47 | WPDNEUROPN ---
Progress Note: A&P Assessment and Plan (1) Altered mental status: Code(s): R41.82 - Altered mental status, unspecified Status: Acute (2) Seizure: Code(s): R56.9 - Unspecified convulsions Status: Acute (3) Elevated TSH: Code(s): R79.89 - Other specified abnormal findings of blood chemistry Status: Acute (4) Atrial fibrillation: Code(s): I48.91 - Unspecified atrial fibrillation Status: Acute (5) Dementia: Code(s): F03.90 - Unspecified dementia, unspecified severity, without behavioral disturbance, psychotic disturbance, mood disturbance, and anxiety Status: Acute Plan Ms. Felton is a 71 year old female with a history of seizure disorder, dementia, and atrial fibrillation presenting due to altered mental status. Concern for breakthrough seizures. EEG is abnormal with sharp transients noted in the R frontotemporal region, as expected given CT findings of encephalomalacia in that distribution. Altered mentation could also be related to hypothyroidism. - MRI brain w/o contrast pending - Increase Keppra to 1000mg BID Subjective Date/time seen: 04/02/22 10:47 Interval history: Babs Felton is a 71 year old female with a history of seizures, dementia, atrial fibrillation who presented from a her shelter due to altered mental status. Patient is unable to provide history and is AOx1 at baseline. skilled nursing staff report that patient stares off at times. She was recently evaluated at [facility] for stroke (records not available). Per patient's daughter patient can tell her name, social security number, and address, but presently she is non-verbal. She had a CT head done in the ED which showed R frontotemporal encephalomalacia. Labs were mostly reassuring except for elevated TSH (16.3). She was not on levothyroxine. Her UA was normal. Vitamin B12, folate, and homocysteine levels were ordered and are pending. Patient reportedly has a history of seizures, but further details regarding this is not available. She does take Keppra 750mg BID. She received a dose while in the ED. She also takes Eliquis for atrial fibrillation. Patient was admitted for further work-up of encephalopathy. EEG done yesterday -- abnormal - focal on generalized slowing in the R frontotemporal region as well as sharp transients in the right anterior temporal region. Review of Systems Review of Systems: ROS unobtainable: Yes unobtainable due to medical condition and unobtainable due to mental status Exam Const: General: comfortable and no acute distress HENMT: Mouth: Yes moist mucous membranes Eyes: Pupils: Equal, round and reactive pupils present Resp: Effort & Inspection: normal respiratory effort Auscultation: clear to auscultation bilaterally Cardio: Rate: regular rate Rhythm: regular rhythm GI: GI Palp: Yes Soft to palpation Auscultation: normal bowel sounds Skin: Other: Bruising of bilateral upper extremities Neuro: Other: awake but did not answer any questions or make any vocalizations, unable to answer any other question, but did follow simple commands. Has antigravity movement with bilateral upper extremities but left hand is notably weaker than the right. No antigravity movement of lower extremities, but able to wiggle toes on the right, but not on the left. Possible left facial droop. Extrem: General: normal to inspection Objective Data Vital Signs Vital Signs: Vital Signs - 24 hr 04/01/22 14:00 04/01/22 20:00 04/01/22 21:35 Temperature 36.3 C L 36.7 C Pulse Rate 85 83 Respiratory Rate 16 12 Blood Pressure 122/48 L 114/68 Pulse Oximetry 96 96 95 Oxygen Delivery Room Air 04/02/22 06:00 Temperature 36.6 C Pulse Rate 87 Respiratory Rate 13 Blood Pressure 114/60 Pulse Oximetry 91 Oxygen Delivery Intake/Output Intake/Output: Intake & Output 03/30/22 03/31/22 04/01/22 04/02/22 23:59 23:59 23:59 23:59 Intake Total 1113 2200 3450 Isak
[2022-04-02 11:46] VITALS: BMI 18.3
[2022-04-02] MEDS: ACETAMINOPHEN 325 MG TABLET 650 MG PO (13:09)
[2022-04-02] MEDS: ERGOCALCIFEROL 50,000 UNITS CAPSULE 50000 UNITS PO (13:10)
[2022-04-02 14:00] VITALS: BP 105/64; PULSE 85; RESP 16; TEMP 36.1; O2SAT 97
[2022-04-02] MEDS: levETIRAcetam 500 MG TABLET 1000 MG PO (17:24)
[2022-04-02] MEDS: POTASSIUM CHLORIDE 20 MEQ TABLET 80 MEQ PO (19:41)
[2022-04-02 20:00] VITALS: PULSE 86; RESP 12; O2SAT 96
[2022-04-02 21:41] VITALS: BP 110/71; PULSE 86; RESP 12; TEMP 36.4; O2SAT 96
[2022-04-02] MEDS: MIRTAZAPINE 15 MG TABLET PO (21:43)
[2022-04-02] MEDS: LATANOPROST 0.005% OP SOLN 2.5 ML BTL 1 DROP EACH EYE (21:43)
[2022-04-03] MEDS: LACTATED RINGERS 1,000 ML 125 ML IV CONT ×3 (00:21→17:24)
[2022-04-03 05:41] VITALS: BP 125/76; PULSE 91; RESP 12; TEMP 36.4; O2SAT 96
[2022-04-03] MEDS: LEVOTHYROXINE SODIUM INJ 100 MCG/5 ML VIAL 25 MCG IV PUSH (05:50)
[2022-04-03 08:38] LABS: Basophils Percent Auto 0.2 % (0.2-1.2); Eosinophils Percent Auto 0.3 % (0-4.4); Hematocrit 31.4 % (37.0-47.0); Hemoglobin 9.7 g/dL (12.0-15.0); Immature Granulocyte Absolute 0.09 K/mm3 (0.00-0.031); Immature Granulocyte Percent A 0.6 % (0-0.5); Lymphocytes Absolute Auto 1.29 K/mm3 (0.9-3.2); Lymphocytes Percent Auto 9.2 % (18.3-44.2); Mean Corpuscular HGB Conc 30.9 g/dl (32-36); Mean Corpuscular Hemoglobin 29.8 pg (26-34); Mean Corpuscular Volume 96.6 fl (80-100); Mean Platelet Volume 10.6 fl (7.4-10.4); Monocytes Absolute Auto 1.1 K/mm3 (0.1-0.6); Monocytes Percent Auto 8.2 % (2.6-8.5); Neutrophils Absolute Auto 11.4 K/mm3 (1.3-6.7); Neutrophils Percent Auto 81.5 % (45.5-73.1); Platelet Count Result 520 k/mm3 (150-375); Red Blood Count 3.25 M/mm3 (4.2-5.4); Red Cell Distribution Width 16.8 % (11.5-14.5)
[2022-04-03 09:04] LABS: Alanine Aminotransferase 18 U/L (6-35); Albumin Level 2.2 g/dL (3.5-5.1); Alkaline Phosphatase 170 U/L (38-126); Anion Gap 0 mmol/L (8-16); Aspartate Amino Transferase 24 U/L (14-36); Bilirubin,Total 0.4 mg/dL (0.2-1.3); Blood Urea Nitrogen 11 mg/dL (7-17); Calcium 7.2 mg/dL (8.4-10.2); Carbon Dioxide 35 mmol/L (22-30); Chloride 105 mmol/L (98-107); Estimated CRCL calculation 69 ml/min; Estimated Glomerular Filt Rate > 60; Glucose 76 mg/dL (65-110); Potassium 4.1 mmol/L (3.4-5.0); Sodium 140 mmol/L (137-145)
[2022-04-03] MEDS: polyethylene glycoL 3350 17 GM POWD.PACK PO (09:31)
[2022-04-03] MEDS: PANTOPRAZOLE 40 MG TABLET PO (09:31)
[2022-04-03] MEDS: GABAPENTIN 100 MG CAPSULE PO ×3 (09:31→16:55)
[2022-04-03] MEDS: CALCIUM CARBONATE (OSCAL) 500 MG TABLET PO ×2 (09:31→16:55)
[2022-04-03] MEDS: levETIRAcetam 500 MG TABLET 1000 MG PO ×2 (09:31→16:55)
[2022-04-03] MEDS: FUROSEMIDE 20 MG TABLET PO ×2 (09:31→16:55)
[2022-04-03] MEDS: MULTIVITAMINS THERAPEUTIC TAB (*BKC) 1 TABLET PO (09:32)
[2022-04-03] MEDS: ASCORBIC ACID 500 MG TABLET PO (09:32)
[2022-04-03] MEDS: COLLAGENASE OINT 30 GM TUBE 1 APPLIC TOPICAL (09:32)
[2022-04-03] MEDS: FAMOTIDINE 20 MG TABLET PO (09:32)
[2022-04-03 13:39] VITALS: BP 118/72; PULSE 93; RESP 20; TEMP 36.2; O2SAT 96
--- NOTE | 2022-04-03 14:31 | PM.IMPN ---
Progress Note: A&P Assessment and Plan (1) Altered mental status: Code(s): R41.82 - Altered mental status, unspecified Status: Acute Assessment and Plan: MRI pending, appreciate neuro consult, concern for breakthrough seizures, keppra increased B12, folate WNL Vit D somewhat low, will replace over the next few days, then weekly F/u homocysteine (2) Leukocytosis: Code(s): D72.829 - Elevated white blood cell count, unspecified Status: Acute Assessment and Plan: Leukocytosis noted of uncertain significance Check blood, urinalysis WNL Check CXR Hold off on abx as no source noted, AFVSS, could be reactive? (3) Focal seizure: Code(s): R56.9 - Unspecified convulsions Status: Acute Assessment and Plan: Continue Keppra, received IV loading dose in the ER, transitioned to IV, increased dose today per neuro for suspected breakthrough seizure activity (4) Anemia: Code(s): D64.9 - Anemia, unspecified Status: Acute Assessment and Plan: FOBT+, hgb stable, hold eliquis, monitor Restart Eliquis in am if h/h stable (5) Atrial fibrillation: Code(s): I48.91 - Unspecified atrial fibrillation Status: Acute Assessment and Plan: Hold eliquis, FOBT+ Monitor heart rate closely as amiodarone is being held (6) Dementia: Code(s): F03.90 - Unspecified dementia, unspecified severity, without behavioral disturbance, psychotic disturbance, mood disturbance, and anxiety Status: Acute Assessment and Plan: continue mirtazapine (7) Hypothyroid: Code(s): E03.9 - Hypothyroidism, unspecified Status: Acute Assessment and Plan: Start levothyroxine 25 mcg IV Plan DVT prophylaxis with Eliquis GI prophylaxis with PPI Code status full code Time Spent With Patient Time with patient: 15 - 25 minutes Subjective Date/time seen: 04/03/22 14:31 Interval history: no new complaint Review of Systems Review of Systems: All systems reviewed & are unremarkable except as noted in HPI and below Exam Narrative: GENERAL: Well appearing, well-nourished, non-toxic, in no acute distress. HEAD: Normocephalic, atraumatic. NECK: Supple. No adenopathy, no masses. RESPIRATORY: Airway patent, respirations nonlabored. Clear to auscultation bilaterally, no rales, rhonchi, wheezing. CARDIOVASCULAR: Regular rate and rhythm without murmurs, rubs, or gallops. Peripheral pulses 2+ and equal bilaterally. ABDOMINAL: Soft, nontender, nondistended, no hepatosplenomegaly. Normoactive BS. MUSCULOSKELETAL: no Epigastric and no hypochondrial tenderness SKIN: Warm, dry, normal color. No rashes. NEURO: A&O X3. Moves all extremities PSYCHIATRIC: Appropriate mood and affect. Normal interaction. Objective Data Vital Signs Vital Signs: Vital Signs - 24 hr 04/02/22 21:41 04/02/22 20:00 04/03/22 05:41 Temperature 36.4 C 36.4 C L Pulse Rate 86 86 91 Respiratory Rate 12 12 Blood Pressure 110/71 125/76 Pulse Oximetry 96 96 96 Oxygen Delivery Room Air 04/03/22 13:39 Temperature 36.2 C L Pulse Rate 93 Respiratory Rate 20 Blood Pressure 118/72 Pulse Oximetry 96 Oxygen Delivery Intake/Output Intake/Output: Intake & Output 03/31/22 04/01/22 04/02/22 04/03/22 23:59 23:59 23:59 23:59 Intake Total 1115 2200 3480 2220 Balance 1115 2200 3480 2220 Meds/Results Medications: Active Medications Generic Name Dose Route Start Last Admin Trade Name Freq PRN Reason Stop Dose Admin Acetaminophen 650 mg 04/01/22 04:12 04/02/22 13:09 Acetaminophen 325 Mg Tablet PO 650 mg Q6H PRN Administration Pain (Scale Score 1-3) Albuterol 2 puff 04/01/22 04:12 Albuterol Sulfate (*Sp) Aerosol 1 Puff INHALATION Q6H PRN Shortness Of Breath Apixaban 5 mg 04/01/22 09:00 04/02/22 08:58 Apixaban 5 Mg Tablet PO 5 mg BID RAFAT Administration Ascorbic Acid 500 mg 04/01/22 09:00 04/03/22 09:32 Ascor
[2022-04-03 20:40] VITALS: PULSE 93; RESP 20; O2SAT 96
[2022-04-03] MEDS: LATANOPROST 0.005% OP SOLN 2.5 ML BTL 1 DROP EACH EYE (21:14)
[2022-04-03] MEDS: MIRTAZAPINE 15 MG TABLET PO (21:14)
[2022-04-03 22:00] VITALS: BP 112/57; PULSE 65; RESP 18; TEMP 36.7; O2SAT 97
[2022-04-04] MEDS: LACTATED RINGERS 1,000 ML 125 ML IV CONT (01:30)
[2022-04-04 06:00] VITALS: BP 139/83; PULSE 85; RESP 20; TEMP 36.1; O2SAT 99
[2022-04-04] MEDS: LEVOTHYROXINE SODIUM INJ 100 MCG/5 ML VIAL 25 MCG IV PUSH (06:52)
[2022-04-04 07:49] LABS: Basophils Percent Auto 0.3 % (0.2-1.2); Eosinophils Absolute Auto 0.1 K/mm3 (0-0.3); Eosinophils Percent Auto 0.6 % (0-4.4); Hematocrit 29.8 % (37.0-47.0); Hemoglobin 9.2 g/dL (12.0-15.0); Immature Granulocyte Percent A 0.7 % (0-0.5); Lymphocytes Absolute Auto 1.61 K/mm3 (0.9-3.2); Lymphocytes Percent Auto 11.1 % (18.3-44.2); Mean Corpuscular HGB Conc 30.9 g/dl (32-36); Mean Corpuscular Hemoglobin 30.1 pg (26-34); Mean Corpuscular Volume 97.4 fl (80-100); Mean Platelet Volume 10.6 fl (7.4-10.4); Monocytes Absolute Auto 1.2 K/mm3 (0.1-0.6); Monocytes Percent Auto 8.3 % (2.6-8.5); Neutrophils Absolute Auto 11.4 K/mm3 (1.3-6.7); Platelet Count Result 486 k/mm3 (150-375); Red Blood Count 3.06 M/mm3 (4.2-5.4); Red Cell Distribution Width 16.9 % (11.5-14.5); White Blood Count 14.5 K/mm3 (4.5-10.0)
[2022-04-04 08:03] LABS: Alanine Aminotransferase 19 U/L (6-35); Alkaline Phosphatase 137 U/L (38-126); Anion Gap -3 mmol/L (8-16); Aspartate Amino Transferase 47 U/L (14-36); Bilirubin,Total 0.8 mg/dL (0.2-1.3); Blood Urea Nitrogen 9 mg/dL (7-17); Calcium 7.1 mg/dL (8.4-10.2); Carbon Dioxide 34 mmol/L (22-30); Chloride 103 mmol/L (98-107); Estimated CRCL calculation 107 ml/min; Estimated Glomerular Filt Rate > 60; Glucose 70 mg/dL (65-110); Potassium 4.2 mmol/L (3.4-5.0); Sodium 134 mmol/L (137-145)
[2022-04-04] MEDS: FAMOTIDINE 20 MG TABLET PO (08:35)
[2022-04-04] MEDS: GABAPENTIN 100 MG CAPSULE PO ×3 (08:35→17:55)
[2022-04-04] MEDS: CALCIUM CARBONATE (OSCAL) 500 MG TABLET PO ×2 (08:35→17:55)
[2022-04-04] MEDS: ASCORBIC ACID 500 MG TABLET PO (08:35)
[2022-04-04] MEDS: polyethylene glycoL 3350 17 GM POWD.PACK PO (08:35)
[2022-04-04] MEDS: FUROSEMIDE 20 MG TABLET PO ×2 (08:35→17:55)
[2022-04-04] MEDS: PANTOPRAZOLE 40 MG TABLET PO (08:35)
[2022-04-04] MEDS: MULTIVITAMINS THERAPEUTIC TAB (*BKC) 1 TABLET PO (08:35)
[2022-04-04] MEDS: levETIRAcetam 500 MG TABLET 1000 MG PO ×2 (08:35→17:55)
[2022-04-04] MEDS: COLLAGENASE OINT 30 GM TUBE 1 APPLIC TOPICAL (08:36)
[2022-04-04 13:45] VITALS: BP 123/87; PULSE 89; RESP 16; TEMP 36.3; O2SAT 94
--- NOTE | 2022-04-04 14:02 | PM.IMPN ---
Progress Note: A&P Assessment and Plan (1) Altered mental status: Code(s): R41.82 - Altered mental status, unspecified Status: Acute Assessment and Plan: MRI pending, appreciate neuro consult, concern for breakthrough seizures, keppra increased B12, folate WNL Vit D somewhat low, will replace over the next few days, then weekly F/u homocysteine (2) Leukocytosis: Code(s): D72.829 - Elevated white blood cell count, unspecified Status: Acute Assessment and Plan: Leukocytosis noted of uncertain significance Check blood, urinalysis WNL Check CXR Hold off on abx as no source noted, AFVSS, could be reactive? (3) Focal seizure: Code(s): R56.9 - Unspecified convulsions Status: Acute Assessment and Plan: Continue Keppra, received IV loading dose in the ER, transitioned to IV, increased dose today per neuro for suspected breakthrough seizure activity (4) Anemia: Code(s): D64.9 - Anemia, unspecified Status: Acute Assessment and Plan: FOBT+, hgb stable, current hemoglobin is 9 2 which is much improved 8.4 Restart Eliquis (5) Atrial fibrillation: Code(s): I48.91 - Unspecified atrial fibrillation Status: Acute Assessment and Plan: eliquis restarted, FOBT+ will monitor H&H Monitor heart rate closely as amiodarone is being held (6) Dementia: Code(s): F03.90 - Unspecified dementia, unspecified severity, without behavioral disturbance, psychotic disturbance, mood disturbance, and anxiety Status: Acute Assessment and Plan: continue mirtazapine (7) Hypothyroid: Code(s): E03.9 - Hypothyroidism, unspecified Status: Acute Assessment and Plan: Start levothyroxine 25 mcg IV Plan DVT prophylaxis with Eliquis GI prophylaxis with PPI Code status full code Time Spent With Patient Time with patient: 15 - 25 minutes Subjective Date/time seen: 04/04/22 14:02 Interval history: no new complaints Review of Systems Review of Systems: All systems reviewed & are unremarkable except as noted in HPI and below Exam Narrative: GENERAL: Well appearing, well-nourished, non-toxic, in no acute distress. HEAD: Normocephalic, atraumatic. NECK: Supple. No adenopathy, no masses. RESPIRATORY: Airway patent, respirations nonlabored. Clear to auscultation bilaterally, no rales, rhonchi, wheezing. CARDIOVASCULAR: Regular rate and rhythm without murmurs, rubs, or gallops. Peripheral pulses 2+ and equal bilaterally. ABDOMINAL: Soft, nontender, nondistended, no hepatosplenomegaly. Normoactive BS. MUSCULOSKELETAL: no Epigastric and no hypochondrial tenderness SKIN: Warm, dry, normal color. No rashes. NEURO: A&O X3. Moves all extremities PSYCHIATRIC: Appropriate mood and affect. Normal interaction. Objective Data Vital Signs Vital Signs: Vital Signs - 24 hr 04/03/22 20:40 04/03/22 22:00 04/04/22 06:00 Temperature 36.7 C 36.1 C L Pulse Rate 93 65 85 Respiratory Rate 20 18 20 Blood Pressure 112/57 L 139/83 Pulse Oximetry 96 97 99 Oxygen Delivery Room Air 04/04/22 08:30 Temperature Pulse Rate Respiratory Rate Blood Pressure Pulse Oximetry Oxygen Delivery Room Air Intake/Output Intake/Output: Intake & Output 04/01/22 04/02/22 04/03/22 04/04/22 23:59 23:59 23:59 23:59 Intake Total 2200 3480 3220 1120 Balance 2200 3480 3220 1120 Meds/Results Medications: Active Medications Generic Name Dose Route Start Last Admin Trade Name Freq PRN Reason Stop Dose Admin Acetaminophen 650 mg 04/01/22 04:12 04/02/22 13:09 Acetaminophen 325 Mg Tablet PO 650 mg Q6H PRN Administration Pain (Scale Score 1-3) Albuterol 2 puff 04/01/22 04:12 Albuterol Sulfate (*Sp) Aerosol 1 Puff INHALATION Q6H PRN Shortness Of Breath Apixaban 5 mg 04/01/22 09:00 04/02/22 08:58 Apixaban 5 Mg Tablet PO 5 mg BID RAFAT Administration Ascorbic Acid 500 mg 04/01/22 09:0
[2022-04-04 15:17] LABS: Hematocrit 30.2 % (37.0-47.0); Hemoglobin 9.4 g/dL (12.0-15.0); Mean Corpuscular HGB Conc 31.1 g/dl (32-36); Mean Corpuscular Hemoglobin 29.4 pg (26-34); Mean Corpuscular Volume 94.4 fl (80-100); Mean Platelet Volume 10.6 fl (7.4-10.4); Platelet Count Result 532 k/mm3 (150-375); Red Cell Distribution Width 16.6 % (11.5-14.5)
[2022-04-04 15:29] LABS: Alanine Aminotransferase 21 U/L (6-35); Albumin Level 2.2 g/dL (3.5-5.1); Alkaline Phosphatase 172 U/L (38-126); Anion Gap 0 mmol/L (8-16); Aspartate Amino Transferase 28 U/L (14-36); Bilirubin,Total 0.4 mg/dL (0.2-1.3); Blood Urea Nitrogen 9 mg/dL (7-17); Calcium 7.2 mg/dL (8.4-10.2); Carbon Dioxide 31 mmol/L (22-30); Chloride 105 mmol/L (98-107); Estimated CRCL calculation 69 ml/min; Estimated Glomerular Filt Rate > 60; Glucose 121 mg/dL (65-110); Potassium 3.6 mmol/L (3.4-5.0); Sodium 136 mmol/L (137-145)
[2022-04-04 20:40] VITALS: PULSE 94; RESP 16; O2SAT 94
[2022-04-04 21:38] VITALS: BP 124/71; PULSE 94; RESP 16; TEMP 36.6; O2SAT 94
[2022-04-04] MEDS: APIXABAN 5 MG TABLET PO (21:39)
[2022-04-04] MEDS: LATANOPROST 0.005% OP SOLN 2.5 ML BTL 1 DROP EACH EYE (21:39)
[2022-04-04] MEDS: MIRTAZAPINE 15 MG TABLET PO (21:41)
[2022-04-05 05:53] VITALS: BP 122/78; PULSE 79; RESP 18; TEMP 36.3; O2SAT 95
[2022-04-05] MEDS: LACTATED RINGERS 1,000 ML 125 ML IV CONT (05:55)
[2022-04-05] MEDS: LEVOTHYROXINE SODIUM INJ 100 MCG/5 ML VIAL 25 MCG IV PUSH (05:57)
[2022-04-05 07:02] LABS: Basophils Absolute Auto 0.1 K/mm3 (0.0-0.1); Basophils Percent Auto 0.4 % (0.2-1.2); Eosinophils Absolute Auto 0.1 K/mm3 (0-0.3); Eosinophils Percent Auto 0.8 % (0-4.4); Hematocrit 27.7 % (37.0-47.0); Hemoglobin 8.5 g/dL (12.0-15.0); Immature Granulocyte Absolute 0.11 K/mm3 (0.00-0.031); Immature Granulocyte Percent A 0.8 % (0-0.5); Lymphocytes Absolute Auto 1.33 K/mm3 (0.9-3.2); Mean Corpuscular HGB Conc 30.7 g/dl (32-36); Mean Corpuscular Hemoglobin 29.9 pg (26-34); Mean Corpuscular Volume 97.5 fl (80-100); Mean Platelet Volume 10.4 fl (7.4-10.4); Monocytes Absolute Auto 1.2 K/mm3 (0.1-0.6); Monocytes Percent Auto 8.7 % (2.6-8.5); Neutrophils Absolute Auto 10.5 K/mm3 (1.3-6.7); Neutrophils Percent Auto 79.3 % (45.5-73.1); Platelet Count Result 474 k/mm3 (150-375); Red Blood Count 2.84 M/mm3 (4.2-5.4); Red Cell Distribution Width 16.6 % (11.5-14.5); White Blood Count 13.3 K/mm3 (4.5-10.0)
[2022-04-05 07:06] LABS: Alanine Aminotransferase 17 U/L (6-35); Albumin Level 1.9 g/dL (3.5-5.1); Alkaline Phosphatase 137 U/L (38-126); Anion Gap -1 mmol/L (8-16); Aspartate Amino Transferase 22 U/L (14-36); Bilirubin,Total 0.3 mg/dL (0.2-1.3); Blood Urea Nitrogen 10 mg/dL (7-17); Calcium 7.2 mg/dL (8.4-10.2); Carbon Dioxide 34 mmol/L (22-30); Chloride 102 mmol/L (98-107); Estimated CRCL calculation 69 ml/min; Estimated Glomerular Filt Rate > 60; Glucose 75 mg/dL (65-110); Potassium 3.1 mmol/L (3.4-5.0); Sodium 135 mmol/L (137-145)
[2022-04-05 10:44] VITALS: BP 119/92; PULSE 86; RESP 14; TEMP 36.4; O2SAT 92
--- NOTE | 2022-04-05 11:25 | PC.NURSE ---
10:38 DR ESTRELLA NOTIFIED THAT PATIENT IS NON VERBAL, DROWSY AND SLEEPY, DIFFICULT TO AROUSE, AROUSE WITH VERBAL STIMULI(OPEN EYES). PO MEDS HOLD RISK OF ASPIRATION AND NOT FOLLOW COMMANDS.
[2022-04-05 11:27] LABS: Appearance Urine Clear (Clear); Bilirubin Urine Negative (Negative); Glucose Urine UA Negative (Negative); Ketones Urine Negative (Negative); Leukocyte Esterase Ur 3+ LEU/UL (NEGATIVE); Nitrate Urine Negative (Negative); Protein Urine Negative (Negative); Urobilinogen Urine 0.2 mg/dL (<2.0); pH Urine 7.5 (5.0-9.0)
[2022-04-05 11:29] LABS: Add Urine Microscopic? YES; Blood Urine Trace-Intact (Negative); Color Urine Light Yellow (Yellow)
[2022-04-05 12:20] LABS: Bacteria Urine Trace /hpf; Mucus Urine Rare /lpf; RBC Urine 0-2 /hpf (0-2); Squamous Epithelial Cell Urine Moderate /hpf (Few); Transitional Epi Cells Urine Rare /hpf (None Seen); WBC Clumps Urine Present /HPF; WBC Urine >75 /hpf (0-3)
--- NOTE | 2022-04-05 13:44 | PM.DS ---
DS: Admitting Diagnosis Discharge Date 04/05/22 Admitting Diagnosis Seizures DS: Discharge Diagnosis Discharge Diagnosis (1) Seizure: Code(s): R56.9 - Unspecified convulsions Status: Acute (2) Elevated TSH: Code(s): R79.89 - Other specified abnormal findings of blood chemistry Status: Acute (3) Altered mental status: Code(s): R41.82 - Altered mental status, unspecified Status: Acute (4) Anemia: Code(s): D64.9 - Anemia, unspecified Status: Acute (5) Cerebral aneurysm: Code(s): I67.1 - Cerebral aneurysm, nonruptured Status: Acute (6) Atrial fibrillation: Code(s): I48.91 - Unspecified atrial fibrillation Status: Acute (7) Dementia: Code(s): F03.90 - Unspecified dementia, unspecified severity, without behavioral disturbance, psychotic disturbance, mood disturbance, and anxiety Status: Acute (8) Hypothyroid: Code(s): E03.9 - Hypothyroidism, unspecified Status: Acute DS: Summary Hospital Course Hospital Course: patient is 71-year-old female with past medical history of atrial fibrillation, seizure disorder. Brought to the emergency room with altered mental status with initial diagnosis of focal seizures. Patient was awake but staring at the ceiling at the time of admission patient was loaded with Keppra patient's TSH was checked which showed 16 patient was negative for flu and COVID. The patient is a poor historian family has been on bedside. Neurology was consulted possible cause of altered mental status workup was noted to be metabolic encephalopathy MRI of the brain was ordered which was not done because of patient's condition patient's amiodarone was hold which could be the cause of thyroid dysfunction. During the hospital stay patient's mental status has improved but patient is more sleepy and poor intake as per family and the nursing staff. Patient was also noted to have a guaiac-positive stool for which Eliquis was held hemoglobin has been stable without that. Had extensive discussion with the daughter and the son Kolby for 35 minutes impression and discussed all options. Family decided to make patient DNR DNI with only medical management also to discontinue Keppra and I will request and also to discontinue Eliquis. Family understands agrees the risks and benefits. Patient high risk for fall. Patient has been on gabapentin before and will stay on that all the home medicines are continue levothyroxine has been started advised to check TSH in about 4-6 weeks. Follow up with Neurology as an outpatient. Patient and family has declined MRI. Patient ready for transfer to a shelter facility today Time spent discussing smoking cessation with patient: more than 10 minutes Status at Discharge Functional status at discharge: bed bound Time Spent with Patient Time attestation: Total time spent providing and/or coordinating discharge services: Time spent: Greater than 30 minutes Exam Const: General: comfortable HENMT: Mouth: Yes moist mucous membranes Eyes: General: appearance normal, both eyes and all related structures Pupils: Equal, round and reactive pupils present Neck: Neck: supple Resp: Effort & Inspection: normal respiratory effort Cardio: Rate: regular rate Rhythm: regular rhythm GI: GI Palp: Yes Soft to palpation Auscultation: normal bowel sounds Skin: General skin exam: normal color Extrem: General: normal to inspection DS: Data Data Completed and Pending Labs on day of discharge: Labs from last 24 hours 04/05/22 04/05/22 04/05/22 09:14 06:29 06:29 WBC 13.3 H RBC 2.84 L Hgb 8.5 L Hct 27.7 L MCV 97.5 MCH 29.9 MCHC 30.7 L RDW 16.6 H Plt Count 474 H MPV 10.4 Immature Gran % (Auto) 0.8 H Neut % (Auto) 79.3 H Lymph % (Auto) 10.0 L [place]erry % (Auto) 8.7 H Eos % (Auto) 0.8 Baso % (Auto) 0.4 Lymph # (Auto) 1.33 Ferry # (Auto) 1.2 H
[2022-04-05 14:00] VITALS: BP 105/40; PULSE 87; RESP 16; TEMP 36.1; O2SAT 93
[2022-04-05 16:53] LABS: EDCOVIDSCREEN Negative (Negative)
[2022-04-06 20:28] LABS: Homocysteine 6.3 umol/L (<10.4)
== END 2022-04-05 19:16 | DRG 100 ==
LOC: ANHED 23:56 → ANH3MEDSUR 04-01 01:39
PROVIDERS: Student in an Organized Health Care Education/Training Program; Admitting Provider Internal Medicine; Emergency Provider Emergency Medicine; PCP Family Medicine; Visit Provider Internal Medicine
DX: G40.909 Epilepsy, unspecified, not intractable, without status epilepticus (principal); G93.41 Metabolic encephalopathy; I48.91 Unspecified atrial fibrillation; D64.9 Anemia, unspecified; F03.90 Unspecified dementia, unspecified severity, without behavioral disturbance, psychotic disturbance, mood disturbance, and anxiety; E03.9 Hypothyroidism, unspecified; Z66 Do not resuscitate; Z20.822 Contact with and (suspected) exposure to COVID-19; Z91.81 History of falling; Z79.01 Long term (current) use of anticoagulants; Z79.51 Long term (current) use of inhaled steroids; Z79.899 Other long term (current) drug therapy
CPT/HCPCS: 36415; 51701; 70450; 71045; 71046; 80053; 81001; 81003; 82274; 82306; 82607; 82746; 83090; 83605; 83690; 83735; 83880; 84100; 84145; 84439; 84443; 84484; 85025; 85027; 85055; 85610; 85730; 87040; 87086; 87088; 87426; 87636; 92610; 93005; 93971; 95816; 96361; 96365; 96375; 99284; 99285; A9270; C9803; G0378; J1953; J7030; J7120

== ENCOUNTER 2022-04-21 12:20 | Inpatient (IN) | payer MEDICARE, MEDICAID, SELFPAY ==
[2022-04-21] VITALS (9 sets, daily range): BP systolic 91–121; BP diastolic 58–73; PULSE 71–98; RESP 13–20; TEMP 36.1–36.6; O2SAT 87–99; BMI 18.8
--- NOTE | ~2022-04-21 | US_ITS ---
EXAMINATION: US thoracentesis DATE: 04/25/2022 15:03 INDICATION: pleural effusion TECHNIQUE: The procedure and its risks, benefits, and alternatives were discussed with the patient's daughter. Potential risks discussed included bleeding, infection, and pneumothorax. She understood th e risks and agreed to proceed. The skin was prepped and draped in sterile fashion. 1% lidocaine was u sed for local anesthesia. Under ultrasound guidance, a 5 Fr catheter with trochar was advanced into t he left pleural effusion. Fluid was aspirated. The catheter was removed, and a dressing was applied. There were no immediate complications. FINDINGS: Ultrasound images demonstrate a left pleural effusion and the catheter within the fluid. The pleural effusion is extensively loculated. IMPRESSION: 1. Successful ultrasound-guided thoracentesis of an extensively loculated left pleural effusion yiel ding 50 mL of turbid, orange-red fluid. Reviewed, dictated and finalized at location E. Y REPAIRER IMPRESSION: 1. Successful ultrasound-guided thoracentesis of an extensively loculated left pleural effusion yielding 50 mL of turbid, orange-red fluid.
--- NOTE | ~2022-04-21 | CT_ITS ---
EXAMINATION:CT diagnostic chest wo con DATE: 04/27/2022 14:39 INDICATION: Left-sided empyema. TECHNIQUE: Computed tomography (CT) of the chest was performed without intravenous contrast. Automate d exposure control and iterative reconstruction technique were employed. The dose-length product (DLP ) was 172.18 mGy-cm. COMPARISON: CT abdomen and pelvis 04/21/2022 FINDINGS: There are groundglass opacities and crazy paving in right upper lobe, right middle lobe, an d superior segment right lower lobe. There are dependent airspace opacities in the lungs bilaterally. Calcified left lung nodules and calcified left hilar lymph nodes are consistent with old granulomato us disease. There are moderate-sized right and large left pleural effusions. The left pleural effusio n is loculated. The heart size is normal. No pericardial effusion. A left upper extremity peripherall y inserted central venous catheter (PICC) is seen with tip in the superior vena cava. There is electr onic implant in left anterior chest wall. There is a small volume of perihepatic ascites. There are c hanges of posterior fusion procedure in thoracic lumbar spine. There is a chronic compression fractur e of T12. There is moderate thoracic spondylosis. There is dextrocurvature of upper thoracic spine. IMPRESSION: 1. Worsened moderate-sized right pleural effusion. Worsened large loculated left pleural effusion. 2. Groundglass opacities and crazy paving in right lung, consistent with pulmonary edema versus pneum onia. Dependent airspace opacities with volume loss in both lungs, consistent with atelectasis. 3. Small volume of perihepatic ascites. Reviewed, dictated and finalized at location A. SYSTEMS ARCHITECT IMPRESSION: 1. Worsened moderate-sized right pleural effusion. Worsened large loculated lef t pleural effusion. 2. Groundglass opacities and crazy paving in right lung, consistent with pulmon sienna edema versus pneumonia. Dependent airspace opacities with volume loss in kedar th lungs, consistent with atelectasis. 3. Small volume of perihepatic ascites.
--- NOTE | ~2022-04-21 | XR_ITS ---
EXAMINATION: XR barium swallow modified DATE: 04/23/2022 09:39 INDICATION: On mechanical soft diet at intermediate TECHNIQUE: The patient was given barium-containing material of multiple consistencies to swallow by lucita kwok speech pathologist while I performed fluoroscopy. Dose-area product was [id number] Gy-cm2. FINDINGS: Oral Stage: Within functional limits Pharyngeal Phase: Reduced laryngeal elevation, reduced tongue base retraction Vallecular residue and piriform sinus residue Pharyngeal wall residue Mild laryngeal penetration with nectar thick fluid with cup Cervical/Esophageal Stage: Within functional limits IMPRESSION: Modified esophagram findings as above. Please refer to the speech therapy report for [facility]. Reviewed, dictated and finalized at Location A. Reviewed, dictated and finalized at location A. OMER SERVICE REP IMPRESSION: Modified esophagram findings as above. Please refer to the speech t herapy report for specific recommendations.
--- NOTE | ~2022-04-21 | XR_ITS ---
EXAMINATION: XR chest 1V portable DATE: 04/26/2022 08:15 INDICATION: Left pleural effusion. TECHNIQUE: A single frontal view of the chest was obtained. COMPARISON: Chest single view 04/25/2022 FINDINGS: There is a large loculated left pleural effusion. Calcified left lung nodules and calcified left hilar lymph nodes are consistent with old granulomatous disease. There are airspace opacities i n all right lung zones with a perihilar predominance. No pneumothorax. The heart size is obscured. Th ere is an electronic implant in left anterior chest wall. A left upper extremity peripherally inserte d central venous catheter (PICC) is seen with tip in the superior vena cava. A ventriculoperitoneal s curtis is noted. There are changes of posterior fusion procedure in thoracolumbar spine. There is a sut ure anchor in left humeral head. IMPRESSION: 1. Stable large loculated left pleural effusion. 2. Stable airspace opacities in right lung with a perihilar predominance, consistent with pulmonary e brandi versus pneumonia. Reviewed, dictated and finalized at location A. POLISHER IMPRESSION: 1. Stable large loculated left pleural effusion. 2. Stable airspace opacities in right lung with a perihilar predominance, consi stent with pulmonary edema versus pneumonia.
--- NOTE | ~2022-04-21 | XR_ITS ---
EXAMINATION: XR chest 1V portable DATE: 04/25/2022 08:06 INDICATION: Left pleural effusion. TECHNIQUE: A single frontal view of the chest was obtained. COMPARISON: Chest single view 04/24/2022, CT abdomen and pelvis 04/21/2022 FINDINGS: There is complete opacification of left hemithorax. Skinfolds overlie right chest. There ar e airspace opacities in right lower lung zone. No right-sided pleural effusion. No pneumothorax. The heart size is obscured. There is an electronic implant in left anterior chest wall. A ventriculoperit koehler shunt is noted. There is a suture anchor in left humeral head. There are changes of posterior f usion procedure in thoracolumbar spine. IMPRESSION: 1. Worsened complete opacification of left hemithorax, likely a combination of large pleural effusion and atelectasis without or with pneumonia. Consider thoracentesis. 2. Airspace opacities in right lower lung zone, consistent with atelectasis versus pneumonia. Reviewed, dictated and finalized at location A. ORT ERECTOR IMPRESSION: 1. Worsened complete opacification of left hemithorax, likely a combination of large pleural effusion and atelectasis without or with pneumonia. Consider thor acentesis. 2. Airspace opacities in right lower lung zone, consistent with atelectasis oxana josey pneumonia.
--- NOTE | ~2022-04-21 | CT_ITS ---
EXAMINATION: CT abdomen pelvis w con DATE: 04/21/2022 16:33 INDICATION: abdominal pain - epigastric/LUQ TECHNIQUE: Computed tomography (CT) of the abdomen and pelvis was performed with 100 mL Omnipaque-350 intravenous contrast. Automated exposure control and iterative reconstruction technique were employe d. The dose-length product was 323.72 mGy-cm. COMPARISON: CT abdomen 03/24/2011. FINDINGS: Exam limited by beam hardening artifact from spinal and left hip hardware and arm positioning. Lower thorax: Homogenously enhancing left lower lobe consolidation, with volume loss. Calcified left lower lobe granuloma. Moderate left pleural fluid collection with pleural enhancement. Small hiatal h ernia. Liver: Normal. Biliary/Gallbladder: Gallbladder is absent. No concerning bile duct dilation. Pancreas: No mass or duct dilation. Fatty infiltration. Spleen: Normal. Adrenals:No mass. Kidneys: No mass, stone, or hydronephrosis. GI tract: Distal esophageal and gastric wall edema. Prior gastric bypass surgery. The rectum is mildl y distended by formed stool. Mild diffuse small bowel and large bowel wall edema. The appendix is not visualized. Diverticulosis without diverticulitis. Mesentery/Peritoneum: No ascites or free air. 4.7 cm circumscribed fluid density structure in the rig ht lower quadrant closely associated with the tip of the cecum and a loop of adjacent sigmoid, possib ly representing an enteric duplication cyst. Retroperitoneum: No mass. Atherosclerotic abdominal aortic and/or arterial calcifications. Pelvis: The bladder is decompressed by a Manzanares catheter. Surgically absent uterus. Intact DENTURE FINISHER shunt tu isra terminates in the left lower quadrant. Soft Tissues: Diffuse body wall edema. Bones: Sacral decubitus ulcer, with fluid and gas contacting the eroded coccyx. Uncomplicated thorac olumbar posterior fusion hardware. Partially visualized uncomplicated left hip arthroplasty. IMPRESSION: Limited exam, as detailed above. 1. Moderate left pleural effusion with pleural enhancement as can be seen with empyema. Left lower lo be atelectasis. 2. Esophagitis/gastritis. 3. Diffuse small and large bowel wall edema as can be seen with enteritis. 4. 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 5. Sacral decub ulcer with coccygeal osteomyelitis. 6. Diffuse body wall edema. Reviewed, dictated and finalized at location K. TMENT GROUNDSKEEPER IMPRESSION: Limited exam, as detailed above. 1. Moderate left pleural effusion with pleural enhancement as can be seen with empyema. Left lower lobe atelectasis. 2. Esophagitis/gastritis. 3. Diffuse small and large bowel wall edema as can be seen with enteritis. 4. 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 5. Sacral decub ulcer with coccygeal osteomyelitis. 6. Diffuse body wall edema.
--- NOTE | ~2022-04-21 | XR_ITS ---
EXAMINATION: XR chest PICC line DATE: 04/25/2022 12:20 INDICATION: Central line placement. TECHNIQUE: A single frontal view of the chest was obtained. COMPARISON: Chest single view at 7:49 AM, 04/24/2022 FINDINGS: There is a large left pleural effusion. Calcified left lung nodules and calcified left hernandez r lymph nodes are consistent with old granulomatous disease. Skinfolds overlie right hemithorax. Ther e are airspace opacities at the lung bases. No pneumothorax. The heart size is obscured. There is an electronic implant in left anterior chest wall. A left upper extremity peripherally inserted central venous catheter (PICC) is seen with tip in the superior vena cava. A ventriculoperitoneal shunt is no kacie. There are changes of posterior fusion procedure in thoracolumbar spine. There are surgical clips in the abdomen. There is a suture anchor in left humeral head. IMPRESSION: 1. PICC tip in superior vena cava. 2. Large left pleural effusion, worsened from 04/24/2022. 3. Improved airspace opacities at the lung bases, likely atelectasis. Reviewed, dictated and finalized at location A. ER BELT SPLICER
--- NOTE | ~2022-04-21 | XR_ITS ---
Portable chest x-ray Comparison: 04/02/2022 Clinical History: Aspiration Findings: Moderate to large left pleural effusion is present. Stable calcified left basilar granulom as noted. Right lung is clear. BONE CHAR OPERATOR shunt present. Cardiomediastinal silhouette is stable. Stable card iac monitoring device. Bones and soft tissues are unremarkable. Impression: Moderate to large left pleural effusion. No definite aspiration of hyperdense oral contrast material identified. Stable cardiac monitoring device and BONE CHAR OPERATOR shunt. Reviewed, dictated and finalized at location . IANCE FIXER Impression: Moderate to large left pleural effusion. No definite aspiration of hyperdense oral contrast material identified. Stable cardiac monitoring device and BONE CHAR OPERATOR shunt.
--- NOTE | ~2022-04-21 | XR_ITS ---
EXAMINATION: XR chest 1V portable DATE: 04/24/2022 06:35 INDICATION: Septic shock. TECHNIQUE: A single frontal view of the chest was obtained. COMPARISON: Chest single view 04/23/2022, CT abdomen and pelvis 04/21/2022 FINDINGS: There is a moderate-sized left pleural effusion. There are airspace opacities in the lungs with a basilar predominance. No pneumothorax. The heart size is normal. A ventriculoperitoneal shunt is noted. There is an electronic implant in left anterior chest wall. There are changes of posterior fusion procedure in thoracic and lumbar spine. There is a suture anchor in left humeral head. IMPRESSION: 1. Stable moderate-sized left pleural effusion. 2. Airspace opacities in the lungs with a basilar predominance with worsening on the right, consisten t with atelectasis or less likely pneumonia. Reviewed, dictated and finalized at location A. FINDER FORMING DEPARTMENT IMPRESSION: 1. Stable moderate-sized left pleural effusion. 2. Airspace opacities in the lungs with a basilar predominance with worsening o n the right, consistent with atelectasis or less likely pneumonia.
--- NOTE | ~2022-04-21 | XR_ITS ---
IMPRESSION: No pneumothorax. Decreased size of the left pleural effusion. Pulmonary opaciti es may reflect increasing pulmonary edema given the short interval change. EXAMINATION: [id number] Exam Date/Time: 04/25/2022 15:50 ANVIL WORKER HISTORY: post thoracentesis Comparison: Same date at 12:13 PM. RESULT: Lines, tubes, and devices: Left upper extremity PICC terminating in the distal SVC. Loop recorder. S lyla fusion hardware. Intact, partially visualized RENEWALS SPECIALIST shunt tubing. Cholecystectomy clips. Left uppe r quadrant surgical clips. Lungs and pleura: Increased hazy bilateral pulmonary opacities. Slightly decreased left pleural effu alfie. Cardiomediastinal silhouette: Stable. Other: No acute osseous or upper abdominal finding. IMPRESSION: No pneumothorax. Decreased size of the left pleural effusion. Pulmonary opacities may reflect increas ing pulmonary edema given the short interval change. Reviewed, dictated and finalized at location K. L WORKER
--- NOTE | 2022-04-21 13:27 | ED.GENADULT ---
HPI - General Adult General Chief complaint: Wound/Laceration Stated complaint: coccyx wound Time Seen by Provider: 04/21/22 12:47 History of Present Illness HPI narrative: Patient is a 71-year-old female with a history of A. fib on Eliquis, hypothyroidism, dementia presenting with sacral wound. Patient was recently discharged from here to a nursing facility several weeks ago. She was noted to have a large sacral wound today so she was brought in for evaluation. Patient is a poor historian due to baseline dementia. She complains that she has a mild headache as well as diffuse abdominal pain. She otherwise denies pain anywhere else. Denies shortness of breath. Related Data Home Medications Medication Instructions Recorded Confirmed Adults Multivitamin 1 tablet PO DAILY 04/01/22 04/21/22 acetaminophen 650 mg tablet 650 mg PO Q6H PRN Pain (Scale 04/01/22 04/21/22 Score 1-3) albuterol sulfate 90 mcg/actuation 2 puff inhalation Q6H PRN 04/01/22 04/21/22 aerosol inhaler Shortness Of Breath amiodarone 200 mg tablet 200 mg PO DAILY 04/01/22 04/21/22 ascorbic acid (vitamin C) 500 mg PO DAILY 04/01/22 04/21/22 bisacodyl 10 mg rectal suppository 10 mg RECTAL DAILY PRN Constipation 04/01/22 04/21/22 calcium carbonate 600 mg PO BID 04/01/22 04/21/22 collagenase clostridium histo. 250 1 applic topical DAILY 04/01/22 04/21/22 unit/gram topical ointment (Santyl) ergocalciferol (vitamin D2) 1,250 mcg PO WEEKLY 04/01/22 04/21/22 famotidine 20 mg PO DAILY 04/01/22 04/21/22 furosemide 20 mg PO BID 04/01/22 04/21/22 gabapentin 100 mg capsule 100 mg PO TID 04/01/22 04/21/22 latanoprost 0.005 % eye drops 1 drp EACH EYE HS 04/01/22 04/21/22 mirtazapine 15 mg tablet 15 mg PO HS 04/01/22 04/21/22 pantoprazole 40 mg tablet,delayed 40 mg PO DAILY 04/01/22 04/21/22 release polyethylene glycol 3350 17 17 g PO DAILY 04/01/22 04/21/22 gram/dose oral powder (Miralax) Allergies Allergy/AdvReac Type Severity Reaction Status Date / Time No Known Allergies Allergy Mild Verified 04/01/22 02:47 Review of Systems Review of Systems: All systems reviewed & are unremarkable except as noted in HPI and below PMFSH Past Medical History Medical History Atrial fibrillation Cerebral aneurysm Dementia DVT (deep venous thrombosis) Hypothyroid Seizure Surgical History Surgical History H/O gastric bypass H/O hand surgery H/O rectocele repair H/O repair of left rotator cuff H/O Spinal surgery H/O: hysterectomy History of bladder surgery Bladder suspension History of tonsillectomy and adenoidectomy S/P COASTAL AND ESTUARY SPECIALIST shunt Family History Family History Other Unknown family medical history Social History Social History Social History: The patient is from [facility]. She is listed as a DNR. The patient tells me that she had 3 children and 1 has . She is . 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 She is listed as . Code status DNR Smoking status: Unknown if ever smoked Alcohol intake: unknown Substance use: never Spiritual care concerns: No Exam Narrative: GENERAL: Frail-appearing elderly female laying in bed HEAD: Normocephalic, atraumatic. EYES: PERRLA and EOMI. ENT: Nares clear, no rhinorrhea or epistaxis. Mucous membranes dry NECK: Supple. CHEST: Clear to auscultation. No respiratory distress. HEART: Regular rate and rhythm. No murmur heard. Normal peripheral pulses. ABDOMEN: Soft, nontender, nondistended, normal active bowel sounds. EXTREMITIES: Normal range of motion. No edema. SKIN: Large necrotic sacral wound, very foul-smelling with evidence of purulence NEURO: Moves all extremities spontaneously PSYCH: Normal mood and affect. Course Vital Signs Vital signs: Suri
--- NOTE | 2022-04-21 14:19 | PC.NURSE ---
Called Pamella for IV placement. Unsuccessful attempt X3 in the ED.
[2022-04-21 14:47] LABS: Influenza A QL RT-PCR Negative (Negative); Influenza B QL RT-PCR Negative (Negative); SARS-CoV-2 RNA PCR Negative
--- NOTE | 2022-04-21 15:09 | PC.NURSE ---
Provider at bedside for femoral central line placement
[2022-04-21] MEDS: SODIUM CHLORIDE 0.9% IV 1,000 ML 999 ML IV CONT ×2 (15:32→17:00)
[2022-04-21 15:48] LABS: Basophils Percent Auto 0.1 % (0.2-1.2); Hematocrit 25.3 % (37.0-47.0); Hemoglobin 7.8 g/dL (12.0-15.0); Immature Granulocyte Absolute 0.18 K/mm3 (0.00-0.031); Immature Granulocyte Percent A 0.8 % (0-0.5); Lymphocytes Absolute Auto 1.46 K/mm3 (0.9-3.2); Lymphocytes Percent Auto 6.6 % (18.3-44.2); Mean Corpuscular HGB Conc 30.8 g/dl (32-36); Mean Corpuscular Hemoglobin 29.2 pg (26-34); Mean Corpuscular Volume 94.8 fl (80-100); Mean Platelet Volume 10.9 fl (7.4-10.4); Monocytes Absolute Auto 0.7 K/mm3 (0.1-0.6); Neutrophils Absolute Auto 19.6 K/mm3 (1.3-6.7); Neutrophils Percent Auto 89.5 % (45.5-73.1); Platelet Count Result 365 k/mm3 (150-375); Red Blood Count 2.67 M/mm3 (4.2-5.4); Red Cell Distribution Width 18.2 % (11.5-14.5)
[2022-04-21] MEDS: FAMOTIDINE 20 MG/2 ML VIAL IV PUSH (15:51)
[2022-04-21 16:03] LABS: Lactic Acid Reflex 1.5 mmol/L (0.7-2.0)
[2022-04-21 16:04] LABS: INR 1.7; Prothrombin Time 19.3 Seconds (11.1-14.7)
[2022-04-21 16:07] LABS: Alanine Aminotransferase 16 U/L (6-35); Alkaline Phosphatase 186 U/L (38-126); Anion Gap 1 mmol/L (8-16); Aspartate Amino Transferase 21 U/L (14-36); Bilirubin,Total 0.5 mg/dL (0.2-1.3); Blood Urea Nitrogen 33 mg/dL (7-17); Calcium 6.7 mg/dL (8.4-10.2); Carbon Dioxide 37 mmol/L (22-30); Chloride 113 mmol/L (98-107); Estimated CRCL calculation 45 ml/min; Estimated Glomerular Filt Rate > 60; Glucose 102 mg/dL (65-110); Potassium < 2.0 mmol/L (3.4-5.0); Sodium 151 mmol/L (137-145)
[2022-04-21 16:14] LABS: Lipase < 10 U/L (23-300)
[2022-04-21 16:32] LABS: Ovalocytes 1+ (NORMAL); Platelet Estimate Adequate (Adequate); Schistocytes None Seen (NORMAL); Target Cells 1+ (NORMAL)
[2022-04-21 16:43] LABS: Add Urine Microscopic? YES; Appearance Urine Cloudy (Clear); Bilirubin Urine Negative (Negative); Blood Urine Trace-Intact (Negative); Color Urine Yellow (Yellow); Glucose Urine UA Negative (Negative); Ketones Urine Trace mg/dL (Negative); Leukocyte Esterase Ur 2+ LEU/UL (Negative); Nitrate Urine Negative (Negative); Protein Urine Trace mg/dL (Negative); Urobilinogen Urine 0.2 mg/dL (<2.0); pH Urine 5.5 (5.0-9.0)
[2022-04-21 16:57] LABS: Bacteria Urine 2+ /hpf; Hyaline Casts Urine 20-29 /lpf; Mucus Urine Heavy /lpf; Squamous Epithelial Cell Urine Moderate /hpf (Few); WBC Clumps Urine Present /HPF; WBC Urine 51-75 /hpf
[2022-04-21] MEDS: KCL 40 MEQ/WATER 100 ML 100 ML 25 ML IVPB ×2 (17:01→21:15)
[2022-04-21 18:18] LABS: Glucose Point of Care 108 mg/dl (65-105)
--- NOTE | 2022-04-21 19:41 | PM.IMHP ---
H&P: HPI History of Present Illness Date/Time: 04/21/22 19:41 Chief Complaint: Coccyx wound Narrative: This is a 71-year-old female patient who has dementia and resides at [facility]. She has a history of AFib and is on Eliquis. The patient presented to the emergency room due to sacral wound. The patient recently was discharged from here to [facility] several weeks ago. She is a poor historian due to her dementia. Her white count was noted to be 22.0. H&H is 7.8 and 25.3. Patient's potassium was less than 2. Sodium was listed at 1:51 a.m. her lactic acid is normal. Magnesium is borderline at 1.6. The patient was positive for UTI. Patient was negative for influenza a B and COVID. The patient was given IV Tylenol, normal saline, Pepcid, Zosyn vancomycin, and IV potassium. Abdominal pelvis CT was read as . Moderate left pleural effusion with pleural enhancement as can be seen with empyema. Left lower lobe atelectasis. 2. Esophagitis/gastritis. 3. Diffuse small and large bowel wall edema as can be seen with enteritis. 4. 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 5. Sacral decub ulcer with coccygeal osteomyelitis. 6. Diffuse body wall edema. The patient is being admitted to inpatient services on the date of service of 04/21/2022 Review of Systems Review of Systems: See HPI All systems reviewed & are unremarkable except as noted in HPI and below Constitutional: Constitutional: Reports as per HPI and Reports no additional constitutional complaints Eyes: Eyes: Reports as per HPI and Reports no additional eye complaints ENT: Reports system reviewed and no additional complaints, except as documented and Reports Normal hearing present Cardiovascular: Cardiovascular: Reports no additional cardiovascular complaints Respiratory: Respiratory: Reports no additional respiratory complaints and Reports no additional respiratory complaints Gastrointestinal: Gastrointestinal: Reports as per HPI and Reports no additional gastrointestinal complaints Musculoskeletal: Musculoskeletal: Reports no additional musculoskeletal complaints Integumentary/Breasts: Skin/Breast: Reports system reviewed and no additional complaints, except as docu and Reports as per HPI Neurologic: Reports system reviewed and no additional complaints, except as documented, Reports as per HPI and Reports Normal hearing present Psychiatric: Psychiatric: Reports no additional psychiatric complaints and Reports as per HPI Endocrine: Endocrine: Reports no additional endocrine complaints Hematologic/Lymphatic: Hematologic/Lymphatic: Reports no additional hematologic/lymphatic complaints Allergic/Immunologic: Allergic/Immunologic: Reports no additional allergic/immunologic complaints [facility] Past Medical History Medical History Atrial fibrillation Cerebral aneurysm Dementia Hypothyroid Seizure Surgical History Surgical History H/O hand surgery H/O rectocele repair H/O repair of left rotator cuff H/O Spinal surgery H/O: hysterectomy History of bladder surgery Bladder suspension History of tonsillectomy and adenoidectomy Family History Family History Other Unknown family medical history Social History Social History (Updated 04/21/22 @ 23:33 by Kamini Fischer NP) Social History: The patient is from [facility]. She is listed as a DNR. The patient tells me that she had 3 children and 1 has . She is . 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 She is listed as . Code status DNR Smoking status: Unknown if ever smoked Alcohol intake: unknown Substance use: never Spiritual care concerns: No Meds Home Medications and Allergies Home Medications Medication Instructions Recorded Confirmed Type Adults Multivitamin 1 tab
[2022-04-21 19:42] LABS: Magnesium 1.6 mg/dL (1.6-2.3)
--- NOTE | 2022-04-21 19:49 | ADMGEN ---
This patient, Babs Felton, was admitted to IMU Room 203-01 at 1916. Patient/family oriented to hospital policies and general routines including ID bracelet, bed and alarms, visiting hours, pain management, procedures, bathroom and other care routines, personal items, smoking policy, room service/diet, and visiting hours. Information on how to activate the Rapid Response Team has been discussed. Patient/Family are encouraged to report perceived risks to care and to ask questions if they do not understand what they are told or what they should do.
[2022-04-21 23:58] LABS: Anion Gap 0 mmol/L (8-16); Blood Urea Nitrogen 27 mg/dL (7-17); Calcium 6.3 mg/dL (8.4-10.2); Carbon Dioxide 33 mmol/L (22-30); Chloride 115 mmol/L (98-107); Estimated CRCL calculation 51 ml/min; Estimated Glomerular Filt Rate > 60; Glucose 80 mg/dL (65-110); Potassium 2.4 mmol/L (3.4-5.0); Sodium 148 mmol/L (137-145)
[2022-04-22] VITALS (32 sets, daily range): BP systolic 76–120; BP diastolic 47–95; PULSE 67–87; RESP 12–26; TEMP 36.1–36.8; O2SAT 94–100
[2022-04-22] MEDS: DEXTROSE 5%/0.45% SOD CHL 1,000 ML 100 ML IV CONT ×3 (00:35→22:17)
[2022-04-22] MEDS: LATANOPROST 0.005% OP SOLN 2.5 ML BTL 1 DROP EACH EYE ×2 (00:36→20:02)
[2022-04-22] MEDS: MAGNESIUM SULF 2 GM/WATER 50ML 2 GM/50 ML BAG IVPB (00:39)
[2022-04-22 06:10] LABS: Basophils Percent Auto 0.1 % (0.2-1.2); Eosinophils Absolute Auto 0.1 K/mm3 (0-0.3); Eosinophils Percent Auto 0.3 % (0-4.4); Immature Granulocyte Percent A 0.5 % (0-0.5); Lymphocytes Absolute Auto 0.88 K/mm3 (0.9-3.2); Lymphocytes Percent Auto 4.8 % (18.3-44.2); Mean Corpuscular Hemoglobin 29.7 pg (26-34); Mean Corpuscular Volume 95.8 fl (80-100); Mean Platelet Volume 11.3 fl (7.4-10.4); Monocytes Absolute Auto 0.5 K/mm3 (0.1-0.6); Monocytes Percent Auto 2.7 % (2.6-8.5); Neutrophils Absolute Auto 16.8 K/mm3 (1.3-6.7); Neutrophils Percent Auto 91.6 % (45.5-73.1); Platelet Count Result 295 k/mm3 (150-375); Red Blood Count 2.12 M/mm3 (4.2-5.4); Red Cell Distribution Width 18.1 % (11.5-14.5); White Blood Count 18.4 K/mm3 (4.5-10.0)
[2022-04-22 06:19] LABS: Lactic Acid Reflex 1.2 mmol/L (0.7-2.0)
[2022-04-22 06:21] LABS: Phosphorus 2.3 mg/dL (2.5-4.5)
[2022-04-22 07:26] LABS: Hematocrit 20.3 % (37.0-47.0); Hemoglobin 6.3 g/dL (12.0-15.0)
[2022-04-22 07:48] LABS: Free T4 Free Thyroxine Reflex 1.33 ng/dL (0.78-2.19)
[2022-04-22 08:31] LABS: Anion Gap 1 mmol/L (8-16); Blood Urea Nitrogen 24 mg/dL (7-17); Calcium 6.3 mg/dL (8.4-10.2); Carbon Dioxide 33 mmol/L (22-30); Chloride 117 mmol/L (98-107); Estimated CRCL calculation 53 ml/min; Estimated Glomerular Filt Rate > 60; Glucose 125 mg/dL (65-110); Sodium 151 mmol/L (137-145)
--- NOTE | 2022-04-22 08:41 | PC.NURSE ---
multiple attempts to call both contact numbers listed. Gena's number goes directly to voice mail for a different number than what we call and [facility] says the number is no longer in service. [facility] verifies that gena's number is the one they have been calling.
[2022-04-22 08:50] LABS: Total Triiodothyronine (T3) 0.39 NG/ML (0.97-1.69)
[2022-04-22] MEDS: ACETAMINOPHEN 325 MG TABLET 650 MG BY MOUTH ×3 (08:50→17:03)
[2022-04-22] MEDS: AMIODARONE HCL 200 MG TABLET PO (08:51)
[2022-04-22] MEDS: GABAPENTIN 100 MG CAPSULE PO ×2 (08:51→13:16)
[2022-04-22] MEDS: PANTOPRAZOLE 40 MG TABLET PO (08:51)
[2022-04-22] MEDS: NEOMYCIN/POLYMYXIN/BACITRACIN OINTMENT 15 GM TUBE 1 APPLIC TOPICAL (09:15)
[2022-04-22] MEDS: POTASSIUM PHOS,M-BASIC-D-BASIC 20 MMOL in SODIUM CHLORIDE 0.9% IV 250 ML 64.17 MMOL IVPB (09:15)
[2022-04-22] MEDS: SOD HYPOCHLORITE 1/4 STRENGTH 473 ML 1 APPLIC TOPICAL ×2 (09:16→20:02)
[2022-04-22] MEDS: SODIUM CHLORIDE 0.9% IV 250 ML 30 ML IV CONT ×2 (10:41→22:17)
[2022-04-22] MEDS: TUBING, BLOOD PLUM PUMP TUBING 1 EACH XX (10:55)
--- NOTE | 2022-04-22 11:46 | PCSTNOTE ---
MBS orders received. On hold due to BP issues.
[2022-04-22] MEDS: SODIUM CHLORIDE 0.9% IV 250 ML 999 ML IV CONT ×2 (11:59→14:18)
--- NOTE | 2022-04-22 12:52 | PM.CNGS ---
Assessment and Plan Assessment and plan (1) Sacral decubitus ulcer, stage IV: Code(s): L89.154 - Pressure ulcer of sacral region, stage 4 Status: Acute Assessment and Plan: Necrotic stage IV sacral decubitus ulcer with bone exposed and evidence of osteomyelitis of the coccyx on CT. There is no purulent drainage or crepitus on exam. Agree with starting local wound care with Dakin's dressing changes and continuing broad-spectrum IV antibiotics. I discussed with the family that this may eventually need surgical debridement depending on how she progresses. This is not urgent and would be more ideal when she is medically optimized. Recommend frequent turning and will order a specialty mattress for pressure reduction. Family has discussed wishes with the patient and together, and currently they are still wanting to continue with full medical treatment. The patient is also incontinent of stool, and we discussed that if she has continued issues with this then they may eventually need to consider a diverting colostomy. Regardless, given the extent of this wound with now osteomyelitis, even under the best circumstances with the best wound care and nutrition, this wound would take at least months to a year or longer to eventually heal if it ever completely heals. (2) Osteomyelitis of coccyx: Code(s): M86.9 - Osteomyelitis, unspecified Status: Acute Assessment and Plan: Continue broad-spectrum IV antibiotics. Trend labs. Discussed with the family that this would likely require at least a 6-week course of IV antibiotics for the osteomyelitis. (3) Leukocytosis: Code(s): D72.829 - Elevated white blood cell count, unspecified Status: Acute Assessment and Plan: WBC 22,000 on admission and down to 18,400 today. She has multiple possible sources of infection, such as the osteomyelitis and sacral decubitus ulcer, urinary source, or GI source. Continue with broad-spectrum IV antibiotics. See plan above for sacral ulcer. She did have blood cx drawn although did not appear septic initially. (4) Esophagitis with gastritis: Code(s): K29.70 - Gastritis, unspecified, without bleeding; K20.90 - Esophagitis, unspecified without bleeding Status: Acute Assessment and Plan: Noted on CT scan. No abdominal pain or tenderness on exam noted. She is currently on IV Protonix daily. Management per Hospitalist. (5) Anemia: Code(s): D64.9 - Anemia, unspecified Status: Acute Assessment and Plan: Hgb 8.5 on discharge on 04/05/22 and was down to 7.8 when admitted. Hgb dropped to 6.3 this morning and she is receiving 1 unit PRBCs now. No melena or hematochezia, positive iFOB earlier this month. Per her son/daughter, her hemoglobin was consistently in the 7's when she was [facility] few months ago. She did receive a blood transfusion at that time but they are not aware of any history of GI bleed. (6) Hypokalemia: Code(s): E87.6 - Hypokalemia Status: Acute Assessment and Plan: Potassium <2.0 on admission and up to 3.0 today after supplementation. Continue to supplement as needed, monitor labs. Being monitored on telemetry in IMU. 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 Per her daughter, this was not the reason for her anticoagulation. (8) DVT (deep venous thrombosis): Code(s): I82.409 - Acute embolism and thrombosis of unspecified deep veins of unspecified lower extremity Status: Acute Assessment and Plan: Hx DVT earlier this year and was placed on Eliquis. Recent Lt lower ext venous doppler on 03/30/22 that showed acute left common femoral vein thrombosis. Eliquis held since her last hospitalization earlier this month due to anemia. (9) Hypernatremia: Code(s): E87.0 - Hyperosmol
[2022-04-22] MEDS: CENTRAL LINE FLUSH 10 ML IV PUSH ×2 (14:18→22:18)
[2022-04-22] MEDS: SODIUM CHLORIDE 0.9% IV 1,000 ML 999 ML IV CONT (14:40)
[2022-04-22] MEDS: ALBUMIN HUMAN 25% 25 GM/100 ML 100 ML IVPB ×2 (15:10→18:11)
[2022-04-22 15:30] LABS: Hemoglobin 7.3 g/dL (12.0-15.0); Mean Corpuscular HGB Conc 31.7 g/dl (32-36); Mean Corpuscular Hemoglobin 29.7 pg (26-34); Mean Corpuscular Volume 93.5 fl (80-100); Mean Platelet Volume 11.2 fl (7.4-10.4); Platelet Count Result 235 k/mm3 (150-375); Red Blood Count 2.46 M/mm3 (4.2-5.4); Red Cell Distribution Width 17.4 % (11.5-14.5); White Blood Count 14.7 K/mm3 (4.5-10.0)
[2022-04-22 15:50] LABS: Anion Gap -1 mmol/L (8-16); Blood Urea Nitrogen 20 mg/dL (7-17); Calcium 5.6 mg/dL (8.4-10.2); Carbon Dioxide 29 mmol/L (22-30); Chloride 119 mmol/L (98-107); Estimated CRCL calculation 63 ml/min; Estimated Glomerular Filt Rate > 60; Glucose 151 mg/dL (65-110); Magnesium 1.8 mg/dL (1.6-2.3); Potassium 2.7 mmol/L (3.4-5.0); Sodium 147 mmol/L (137-145)
[2022-04-22] MEDS: POTASSIUM CHLORIDE INJ 40 MEQ in SODIUM CHLORIDE 0.9% IV 500 ML 130 MEQ IVPB (16:29)
[2022-04-22] MEDS: POTASSIUM CHLORIDE 20 MEQ PACKET (FOR LIQUID) 40 MEQ PO (17:02)
--- NOTE | 2022-04-22 17:16 | WPDGICN ---
Assessment and Plan Assessment and plan (1) Anemia: Code(s): D64.9 - Anemia, unspecified Status: Acute Assessment and Plan: Patient with chronic anemia. Experiences slight decline in hemoglobin this morning. The etiology of this includes the possibility of bleeding. If so the gastritis and esophagitis suggested by CT scan is likely. Stress gastritis suggested. Plan for or patient to be on pantoprazole. Will continue monitor hemoglobin. She is in overall poor condition and endoscopy should be deferred if at all possible. Will would suggest EGD only if active bleeding identified. Additionally decline in hemoglobin potentially related anticoagulation which should be held. She patient does concomitant [place] have a sacral decubitus which could contribute to chronic anemia as well as some acute blood loss and her fluid bolus may contribute to hemodilution and some decline of her hemoglobin. In the interim we will monitor hemoglobin closely maintain her on PPI therapy for now. (2) Esophagitis with gastritis: Code(s): K29.70 - Gastritis, unspecified, without bleeding; K20.90 - Esophagitis, unspecified without bleeding Status: Acute Assessment and Plan: Pantoprazole will be started for potential gastritis and esophagitis as suggested by imaging studies. (3) Osteomyelitis of coccyx: Code(s): M86.9 - Osteomyelitis, unspecified Status: Acute (4) Sacral decubitus ulcer, stage IV: Code(s): L89.154 - Pressure ulcer of sacral region, stage 4 Status: Acute (5) Atrial fibrillation: Code(s): I48.91 - Unspecified atrial fibrillation Status: Acute Assessment and Plan: Hold anticoagulation for now given decline in hemoglobin. (6) Dementia: Code(s): F03.90 - Unspecified dementia, unspecified severity, without behavioral disturbance, psychotic disturbance, mood disturbance, and anxiety Status: Acute GI Consult Note Consult date/time: 04/22/22 17:16 Reason for consult: CT scan results HPI: Babs Felton is a 71 year old female I am asked to see patient consultation is request of the hospitalist service because of unspecified CT scan results. These results apparently show evidence for esophagitis and gastritis. Patient is 71 years old. She has dementia and resides at a [facility]. Patient has a history of atrial fibrillation for which she has been on Eliquis anticoagulation. Patient noted to have decreased potassium level as well as worsening sacral decubitus ulcer and for this reason sent to the hospital. She was identified as having chronic osteomyelitis in the area of the sacral decubitus. Patient has a history of chronic anemia. Today her hemoglobin was noted to be somewhat declined. She received 1unit of blood. Initial hemoglobin is 7.8 decline to approximately 6 3 and improved to 7.3 after transfusion. Patient's IFOB was noted to be positive. Patient also received a significant fluid bolus during the night to raise her blood pressure. Patient is unable to add any useful history given her dementia. A CT scan suggest she may have esophagitis, gastritis. Nursing service reports normal brown stools with no evidence of bleeding evident. She denies abdominal pain. Review of Systems Review of Systems: Review of systems is noncontributory. [facility] Past Medical History Medical History Atrial fibrillation Cerebral aneurysm Dementia DVT (deep venous thrombosis) Hypothyroid Seizure Surgical History Surgical History H/O gastric bypass H/O hand surgery H/O rectocele repair H/O repair of left rotator cuff H/O Spinal surgery H/O: hysterectomy History of bladder surgery Bladder suspension History of tonsillectomy and adenoidectomy S/P [employer]ICK[employer] shunt Family History Family History (Reviewed 04/22/22 @ 13:08 by Ashleigh Ann
--- NOTE | 2022-04-22 18:44 | PM.IMPN ---
Progress Note: A&P Assessment and Plan (1) Osteomyelitis of sacrum: Code(s): M46.28 - Osteomyelitis of vertebra, sacral and sacrococcygeal region Status: Deleted Assessment and Plan: -the patient was started on vancomycin and Zosyn. -patient CT scan shows osteomyelitis of the sacrum -the patient has leukocytosis with white count being 22. -tailor antibiotics to results of cultures. -wound care consult was placed as well. -continue with dressings as per Wound Care nurse. -infectious disease pharmacist has been consulted. 04/22/2022 interval history: patient continue to have low blood pressure patient was given bolus 250 time 2 with continue IV fluid however there was no improvement in the blood pressure discussed with account officer we give the patient 30 mL kg IV fluid and albumin 25 mg IV q.6, patient received 1 L of IV fluid and 2 times albumin without significant improved and the blood pressure, patient also had low hemoglobin and was given 1 unit of pack RBC, discussed with account officer will transfer the patient to ICU start the patient on Levophed and will monitor, appreciate account officer. patient with significant large decubitus ulcer suspicious for osteomyelitis is seen by surgery service patient treated with vancomycin will follow-up wound and blood culture further recommendation to follow. (2) Hypokalemia: Code(s): E87.6 - Hypokalemia Status: Acute Assessment and Plan: -patient's potassium was listen 2. Her magnesium was 1.6. Both potassium and magnesium have been replaced. -hold Lasix for now. (3) Hypernatremia: Code(s): E87.0 - Hyperosmolality and hypernatremia Status: Acute Assessment and Plan: -patient's IV fluids were changed to D5 half-normal saline. -the patient appears to be dehydrated. -a swallow study has been ordered for the patient tomorrow. The patient is typically on a mechanical soft diet and has been eating poorly lately. The patient has a history of dementia. They feel that is appropriate to perform a swallow study. (4) Seizure: Code(s): R56.9 - Unspecified convulsions Status: Acute Assessment and Plan: -continue with home medications. According to her discharge summary her Keppra has been discontinued. (5) Atrial fibrillation: Code(s): I48.91 - Unspecified atrial fibrillation Status: Acute Assessment and Plan: -patient's heart rate is regular at this time. -the patient had been on Eliquis but was on hold due to a GI bleed. (6) Dementia: Code(s): F03.90 - Unspecified dementia, unspecified severity, without behavioral disturbance, psychotic disturbance, mood disturbance, and anxiety Status: Acute Assessment and Plan: -the patient was answering some questions but I am question her clarity and accuracy. (7) Hypothyroid: Code(s): E03.9 - Hypothyroidism, unspecified Status: Acute Assessment and Plan: -most likely secondary to amiodarone usage. -check thyroid level -continue levothyroxine. Subjective Date/time seen: 04/22/22 18:44 Chief Complaint: Coccyx wound HPI-Narrative: This is a 71-year-old female patient who has dementia and resides at [facility].? She has a history of AFib and is on Eliquis.? The patient presented to the emergency room due to sacral wound.? The patient recently was discharged from here to [facility] several weeks ago.? She is a poor historian due to her dementia.? Her white count was noted to be 22.0.? H&H is 7.8 and 25.3.? Patient's potassium was less than 2.? Sodium was listed at 1:51 a.m. her lactic acid is normal.? Magnesium is borderline at 1.6.? The patient was positive for UTI.? Patient was negative for influenza a B and COVID.? The patient was given IV Tylenol, normal saline, Pepcid, Zosyn vancomycin, and IV potassium.? Abdominal pelvis CT was read as?. Moderate left pleural effusion with pleural enhancement as can be seen with empyema. Left l
[2022-04-22] MEDS: NOREPINEPHRINE 8 MG/D5W 250 ML 8 MG/250 ML BAG 9.38 MG IV CONT (19:51)
[2022-04-22] MEDS: HYDROmorphone HCL INJ (*CRX) 1 MG/ML SYR 0.5 MG IV PUSH (19:58)
[2022-04-22] MEDS: MIRTAZAPINE 15 MG TABLET PO (20:02)
[2022-04-22 21:09] LABS: Hematocrit 21.8 % (37.0-47.0); Mean Corpuscular HGB Conc 32.1 g/dl (32-36); Mean Corpuscular Hemoglobin 29.9 pg (26-34); Mean Corpuscular Volume 93.2 fl (80-100); Mean Platelet Volume 11.1 fl (7.4-10.4); Platelet Count Result 221 k/mm3 (150-375); Red Blood Count 2.34 M/mm3 (4.2-5.4); Red Cell Distribution Width 18.2 % (11.5-14.5); White Blood Count 15.2 K/mm3 (4.5-10.0)
[2022-04-22 21:24] LABS: Anion Gap 1 mmol/L (8-16); Blood Urea Nitrogen 18 mg/dL (7-17); Calcium 6.1 mg/dL (8.4-10.2); Carbon Dioxide 28 mmol/L (22-30); Chloride 120 mmol/L (98-107); Estimated CRCL calculation 63 ml/min; Estimated Glomerular Filt Rate > 60; Glucose 149 mg/dL (65-110); Potassium 3.8 mmol/L (3.4-5.0); Sodium 149 mmol/L (137-145)
[2022-04-23] VITALS (29 sets, daily range): BP systolic 75–125; BP diastolic 58–97; PULSE 68–111; RESP 13–21; TEMP 36.3–36.8; O2SAT 81–100; BMI 19.8
--- NOTE | 2022-04-23 | ECHO_ITS ---
Patient Info Name: Babs Felton Age: 71 years : 1950 Gender: Female Ht: 60 in Wt: 101 lbs BSA: 1.39 m2 HR: 80 bpm BP: 125 / 93 mmHg Heart Rhythm: Sinus Rhythm Technical Quality: Good Exam Date: 04/23/2022 12:11 PM Exam Location: [facility] Pulmonary Patient Status: Inpatient Admit Date: 04/21/2022 Staff Ordering Physician: Elicia Doan MD [employer] Reports Developer: Lara Schwartz RDCS Attending Provider: Kerrie Gutiérrez MD Referring Physician: Olimpia ANNE; Exam Type: CA echo doppler color flow Study Info Indications - SEPTIC SHOCK Complete two-dimensional, color flow and Doppler transthoracic echocardiogram is performed. Summary 1. Complete two-dimensional, color flow and Doppler transthoracic echocardiogram is performed. 2. Normal left ventricular size and systolic function. 3. Trivial amount of mitral valve regurgitation. 4. Mildly enlarged aortic root. 5. Mildly sclerotic aortic valve which is not stenotic or regurgitant. Left Ventricle Left ventricular chamber dimension is normal. Left ventricular systolic function is normal, estimated at 60-65%. The left ventricular diastolic function is normal. Right Ventricle Right ventricular chamber dimension is normal. Left Atria Left atrial chamber dimension is normal. Right Atria Right atrial chamber dimension is normal. Aortic Valve The aortic valve is trileaflet. There is mild aortic valve sclerosis. Pulmonic Valve The pulmonic valve is normal. Mitral Valve The mitral valve has normal leaflets. There is trace mitral valve regurgitation. Tricuspid Valve The tricuspid valve leaflets are normal. There is trace tricuspid valve regurgitation. Pericardium/Pleural The pericardium appears normal. Aorta The aortic root size at the sinus of Valsalva is mildly dilated. Left Ventricular Outflow Tract Name Value Normal LVOT 2D LVOT Diameter 2.0 cm Pulmonic Valve Name Value Normal PV Doppler PV Peak Gradient 1 mmHg Mitral Valve Name Value Normal MV Doppler MV Decel Stephenson 444 cm/s2 MV PHT 45 ms MV Area (PHT) 4.9 cm2 4.0-5.0 MV Diastolic Function MV E Peak Velocity 69 cm/s MV A Peak Velocity 47 cm/s MV E/A 1.5 MV Decel Time 156 ms Tricuspid Valve Name Value Normal
[2022-04-23] MEDS: ALBUMIN HUMAN 25% 25 GM/100 ML 100 ML IVPB ×6 (00:01→23:15)
[2022-04-23] MEDS: CENTRAL LINE FLUSH 10 ML IV PUSH ×3 (05:15→23:11)
[2022-04-23] MEDS: LEVOTHYROXINE SODIUM 50 MCG TABLET PO (05:15)
[2022-04-23 06:36] LABS: Hematocrit 25.3 % (37.0-47.0); Mean Corpuscular HGB Conc 31.6 g/dl (32-36); Mean Corpuscular Hemoglobin 28.6 pg (26-34); Mean Corpuscular Volume 90.4 fl (80-100); Mean Platelet Volume 11.1 fl (7.4-10.4); Platelet Count Result 170 k/mm3 (150-375); Red Cell Distribution Width 17.5 % (11.5-14.5); White Blood Count 12.2 K/mm3 (4.5-10.0)
[2022-04-23 06:54] LABS: Anion Gap 3 mmol/L (8-16); Blood Urea Nitrogen 15 mg/dL (7-17); Calcium 6.2 mg/dL (8.4-10.2); Carbon Dioxide 27 mmol/L (22-30); Chloride 114 mmol/L (98-107); Estimated CRCL calculation 76 ml/min; Estimated Glomerular Filt Rate > 60; Glucose 143 mg/dL (65-110); Magnesium 1.6 mg/dL (1.6-2.3); Potassium 3.3 mmol/L (3.4-5.0); Sodium 144 mmol/L (137-145)
[2022-04-23 08:40] LABS: Glucose Point of Care 117 mg/dl (65-105)
[2022-04-23] MEDS: DEXTROSE 5%/0.45% SOD CHL 1,000 ML 75 ML IV CONT (08:40)
[2022-04-23] MEDS: MAGNESIUM SULF 2 GM/WATER 50ML 2 GM/50 ML BAG IVPB (08:42)
[2022-04-23] MEDS: KCL 40 MEQ/WATER 100 ML 100 ML 25 ML IVPB (08:42)
[2022-04-23] MEDS: CALCIUM GLUC 2,000 MG/NS 100ML 2,000 MG/100 ML BAG 100 MG IVPB (08:48)
--- NOTE | 2022-04-23 08:58 | WPDCNINT ---
Assessment and Plan Assessment and plan (1) Septic shock: Code(s): A41.9 - Sepsis, unspecified organism; R65.21 - Severe sepsis with septic shock Status: Acute Assessment and Plan: Patient presented the ED on 04/21 with large sacral decubitus ulcer, CT scan shows osteomyelitis of the coccyx -on 04/22 patient dropped her blood pressures could be related to anemia and hemoglobin dropped and for septic shock from infection -patient was given IV fluid bolus and PRBCs x2 units -was transferred to the ICU on 04/22 and started on Levophed -this morning patient is off Levophed -urine output has been adequate, renal functions are normal, lactic acid is normal -04/21 urine culture: No growth so far -04/21 blood cultures negative x2 so far -will obtain wound culture -continue vancomycin and Zosyn, (04/21) -leukocytosis improving (2) Osteomyelitis of coccyx: Code(s): M86.9 - Osteomyelitis, unspecified Status: Acute Assessment and Plan: Patient has a large sacral decubitus ulcer 9.5 x 9.5 cm 2.5 cm depth with undermining and necrotic tissue -wound care following the patient -appreciate surgery evaluation also CT scan of the abdomen and pelvis on 04/21: moderate left pleural effusion with pleural enhancement as can be seen with empyema, left lower lobe atelectasis. Esophagitis/gastritis, diffuse small and large bowel wall edema as can be seen with enteritis. 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 (3) Sacral decubitus ulcer, stage IV: Code(s): L89.154 - Pressure ulcer of sacral region, stage 4 Status: Acute Assessment and Plan: As above (4) Anemia: Code(s): D64.9 - Anemia, unspecified Status: Acute Assessment and Plan: Patient dropped hemoglobin to 6.3 on 04/22/2022 -was transfused 2 units packed RBCs -hemoglobin has been stable since -will continue to monitor -will switch Protonix to IV q.12 hours -appreciate GI evaluation and recommendations CT scan of the abdomen and pelvis did show esophagitis and gastritis which could be a cause of the anemia (5) Esophagitis with gastritis: Code(s): K29.70 - Gastritis, unspecified, without bleeding; K20.90 - Esophagitis, unspecified without bleeding Status: Acute Assessment and Plan: As above (6) Atrial fibrillation: Code(s): I48.91 - Unspecified atrial fibrillation Status: Acute Assessment and Plan: Patient with history of atrial fibrillation, amiodarone, currently in sinus rhythm -patient was on Eliquis but that has been on hold due to anemia and possible GI bleed (7) Hypothyroid: Code(s): E03.9 - Hypothyroidism, unspecified Status: Acute Assessment and Plan: Continue levothyroxine (8) Electrolyte imbalance: Code(s): E87.8 - Other disorders of electrolyte and fluid balance, not elsewhere classified Status: Acute Assessment and Plan: Will replace potassium, magnesium and calcium -hypernatremia has resolved, most likely related to hypovolemia/dehydration (9) Failure to thrive: Status: Acute Assessment and Plan: Patient failure to thrive, is cachectic, decreased p.o. intake -modified barium swallow test today -if she passes and is able to take oral diet, will add supplements Plan DVT prophylaxis: SCDs Stress ulcer prophylaxis: Protonix IV q.12 hours Nutrition: Modified barium swallow today Code Status: No CPR but okay for intubation and medication Critical Care Time Spent: 48 minutes Due to a high probability of clinically significant, life threatening deterioration, the patient required my highest level of preparedness to intervene emergently and I personally spent this critical care time directly and personally managing the patient. This critical care time included obtaining a history; examining the patient; pulse oximetry;
--- NOTE | 2022-04-23 09:05 | WPDGIPROGNO ---
Progress Note: A&P Assessment and Plan (1) Anemia: Code(s): D64.9 - Anemia, unspecified Status: Acute Assessment and Plan: Patient with chronic anemia. Slight decline noted during hospital stay. no active bleeding noted but stool was occult blood positive. Imaging studies suggest she may have gastritis and esophagitis. Plan to monitor hemoglobin. Would avoid invasive testing at this time. Treat for gastritis and esophagitis as suggested by imaging studies. Follow hemoglobin conservatively. Avoid anticoagulation because of concern over potential blood loss. (2) Esophagitis with gastritis: Code(s): K29.70 - Gastritis, unspecified, without bleeding; K20.90 - Esophagitis, unspecified without bleeding Status: Acute Assessment and Plan: Imaging studies suggest esophagitis and gastritis. Plan for pantoprazole. Avoid invasive testing at this time. No significant active bleeding at this time. (3) Osteomyelitis of coccyx: Code(s): M86.9 - Osteomyelitis, unspecified Status: Acute (4) Sacral decubitus ulcer, stage IV: Code(s): L89.154 - Pressure ulcer of sacral region, stage 4 Status: Acute (5) Atrial fibrillation: Code(s): I48.91 - Unspecified atrial fibrillation Status: Acute Assessment and Plan: Would hold anticoagulation given concern over blood loss. (6) Dementia: Code(s): F03.90 - Unspecified dementia, unspecified severity, without behavioral disturbance, psychotic disturbance, mood disturbance, and anxiety Status: Acute Subjective Date/time seen: 04/23/22 09:05 Patient frail in appearance offers no complaints. No obvious bleeding reported by patient or from nursing service. Exam Narrative: Physical exam reveals patient be frail in appearance. Lying in bed. Currently in the intensive care unit. HEENT exam anicteric. Lungs are clear. Heart without murmur. Abdomen bowel sounds present soft nontender with no organomegaly. She does have a very large decubitus ulcer. Objective Data Vital Signs Vital Signs: Vital Signs - 24 hr 04/22/22 10:46 04/22/22 11:49 04/22/22 11:05 Temperature 97.7 F 98 F 98 F Pulse Rate 86 83 85 Respiratory Rate 16 20 18 Blood Pressure 103/58 L 80/47 L 88/68 L Pulse Oximetry 96 100 98 Oxygen Delivery Oxygen Flow Rate 04/22/22 12:05 04/22/22 11:40 04/22/22 13:05 Temperature 97.6 F 97.7 F Pulse Rate 81 79 Respiratory Rate 13 20 Blood Pressure 102/59 L 76/55 L 101/61 Pulse Oximetry 97 98 Oxygen Delivery Oxygen Flow Rate 04/22/22 13:45 04/22/22 16:00 04/22/22 12:00 Temperature 98 F 96.9 F L Pulse Rate 76 72 83 Respiratory Rate 16 16 Blood Pressure 86/56 L 85/65 L Pulse Oximetry 96 96 Oxygen Delivery Oxygen Flow Rate 04/22/22 16:00 04/22/22 10:00 04/22/22 12:00 Temperature Pulse Rate 72 84 Respiratory Rate Blood Pressure Pulse Oximetry Oxygen Delivery Room Air Oxygen Flow Rate 04/22/22 16:00 04/22/22 14:00 04/22/22 18:00 Temperature Pulse Rate 74 78 Respiratory Rate Blood Pressure Pulse Oximetry Oxygen Delivery Room Air Oxygen Flow Rate 04/22/22 19:51 04/22/22 20:00 04/22/22 20:16 Temperature 97.5 F L Pulse Rate 75 72 71 Respiratory Rate 13 Blood Pressure 79/58 L 96/76 L 108/79 Pulse Oximetry 95 Oxygen Delivery Oxygen Flow Rate 04/22/22 20:00 04/22/22 20:00 04/22/22 20:54 Temperature Pulse Rate 71 67 70 Respiratory Rate 13 Blood Pressure 84/63 L Pulse Oximetry 95 Oxygen Delivery Room Air Oxygen Flow Rate 04/22/22 22:00 04/22/22 22:00 04/22/22 22:24 Temperature 97.2 F L Pulse Rate 83 83 83 Respiratory Rate 12 12 Blood Pressure 110/73 120/85 Pulse Oximetry 96 96 Oxygen Delivery Oxygen Flow Rate 04/22/22 22:16 04/22/22 22:31 04/22/22 22:30 Temperature 97.7 F Pulse Rate 81 84 85 Respiratory Rate 12 Blood Pressure 120/85 1
[2022-04-23] MEDS: PANTOPRAZOLE SODIUM IV 40 MG VIAL IV PUSH ×2 (09:41→20:18)
[2022-04-23] MEDS: NEOMYCIN/POLYMYXIN/BACITRACIN OINTMENT 15 GM TUBE 1 APPLIC TOPICAL (09:42)
[2022-04-23] MEDS: SOD HYPOCHLORITE 1/4 STRENGTH 473 ML 1 APPLIC TOPICAL ×2 (09:42→20:18)
--- NOTE | 2022-04-23 10:28 | PCSTNOTE ---
Please refer to the Modified Barium Swallow Evaluation in the EMR.
[2022-04-23] MEDS: polyethylene glycoL 3350 17 GM POWD.PACK PO (10:55)
[2022-04-23] MEDS: AMIODARONE HCL 200 MG TABLET PO (10:55)
[2022-04-23] MEDS: GABAPENTIN 100 MG CAPSULE PO ×3 (10:55→16:05)
[2022-04-23 11:52] LABS: Glucose Point of Care 87 mg/dl (65-105)
--- NOTE | 2022-04-23 13:17 | PM.PNGS ---
Progress Note: A&P Assessment and Plan (1) Sacral decubitus ulcer, stage IV: Code(s): L89.154 - Pressure ulcer of sacral region, stage 4 Status: Acute Assessment and Plan: no tunneling, drainable pockets, cont local wound care c Dakins' solution (2) Osteomyelitis of coccyx: Code(s): M86.9 - Osteomyelitis, unspecified Status: Acute Assessment and Plan: cont IV abx Subjective Subjective Date/Time Seen: 04/23/22 13:17 transferred to ICU for worsening sepsis, somewhat better today and off pressors Review of Systems Review of Systems: ROS unobtainable: Yes unobtainable due to medical condition and unobtainable due to mental status Exam Const: General: cooperative, no acute distress, ill appearing, cachectic and malnourished Resp: Auscultation: diminished lung sounds Cardio: Rate: regular rate Rhythm: regular rhythm GI: Inspection: normal to inspection Back/Spine/Pelvis: Other: stage 4 sacral ulcer - necrotic bone, tissue at base, no drainage Objective Data Vital Signs Vital Signs: Vital Signs - 24 hr 04/22/22 13:45 04/22/22 16:00 04/22/22 16:00 Temperature 36.6 C 36.1 C L Pulse Rate 76 72 72 Respiratory Rate 16 16 Blood Pressure 86/56 L 85/65 L Pulse Oximetry 96 96 Oxygen Delivery Oxygen Flow Rate 04/22/22 16:00 04/22/22 14:00 04/22/22 18:00 Temperature Pulse Rate 74 78 Respiratory Rate Blood Pressure Pulse Oximetry Oxygen Delivery Room Air Oxygen Flow Rate 04/22/22 19:51 04/22/22 20:00 04/22/22 20:16 Temperature 36.4 C L Pulse Rate 75 72 71 Respiratory Rate 13 Blood Pressure 79/58 L 96/76 L 108/79 Pulse Oximetry 95 Oxygen Delivery Oxygen Flow Rate 04/22/22 20:00 04/22/22 20:00 04/22/22 20:54 Temperature Pulse Rate 71 67 70 Respiratory Rate 13 Blood Pressure 84/63 L Pulse Oximetry 95 Oxygen Delivery Room Air Oxygen Flow Rate 04/22/22 22:00 04/22/22 22:00 04/22/22 22:24 Temperature 36.2 C L Pulse Rate 83 83 83 Respiratory Rate 12 12 Blood Pressure 110/73 120/85 Pulse Oximetry 96 96 Oxygen Delivery Oxygen Flow Rate 04/22/22 22:16 04/22/22 22:31 04/22/22 22:30 Temperature 36.5 C Pulse Rate 81 84 85 Respiratory Rate 12 Blood Pressure 120/85 117/86 117/86 Pulse Oximetry 97 Oxygen Delivery Oxygen Flow Rate 04/22/22 22:45 04/22/22 22:45 04/22/22 23:23 Temperature 36.5 C 36.5 C Pulse Rate 74 75 74 Respiratory Rate 14 15 Blood Pressure 116/90 116/90 112/95 H Pulse Oximetry 98 99 Oxygen Delivery Oxygen Flow Rate 04/22/22 23:24 04/22/22 23:45 04/23/22 00:03 Temperature 36.6 C Pulse Rate 73 72 74 Respiratory Rate 12 Blood Pressure 118/90 111/90 111/97 H Pulse Oximetry 98 Oxygen Delivery Oxygen Flow Rate 04/23/22 00:00 04/23/22 00:00 04/23/22 00:16 Temperature 36.6 C Pulse Rate 74 74 74 Respiratory Rate 14 14 Blood Pressure 111/97 H 106/73 Pulse Oximetry 100 100 Oxygen Delivery Room Air Oxygen Flow Rate 04/23/22 00:30 04/23/22 00:30 04/23/22 00:00 Temperature 36.4 C 36.4 C Pulse Rate 73 74 72 Respiratory Rate 14 14 Blood Pressure 102/85 102/85 Pulse Oximetry 99 97 Oxygen Delivery Oxygen Flow Rate 04/23/22 02:00 04/23/22 02:00 04/23/22 04:00 Temperature 36.4 C Pulse Rate 68 68 68 Respiratory Rate 13 13 Blood Pressure 125/75 Pulse Oximetry 98 98 Oxygen Delivery Room Air Oxygen Flow Rate 04/23/22 04:00 04/23/22 04:00 04/23/22 06:00 Temperature 36.4 C 36.5 C Pulse Rate 71 72 76 Respiratory Rate 16 15 Blood Pressure 101/80 105/70 Pulse Oximetry 100 98 Oxygen Delivery Oxygen Flow Rate 04/23/22 06:00 04/23/22 07:00 04/23/22 07:29 Temperature Pulse Rate 78 68 Respiratory Rate Blood Pressure 75/68 L Pulse Oximetry 81 L Oxygen Delivery Nasal Cannula Oxygen Flow Rate 2 04/23/22 07:01 04/23/22 07:14 04/23/22 07:30 Temper
--- NOTE | 2022-04-23 14:16 | PC.NURSE ---
IV fluids D5 with 1/2 NS stopped at 1033 per MD order.
[2022-04-23] MEDS: ACETAMINOPHEN 325 MG TABLET 650 MG BY MOUTH (15:49)
--- NOTE | 2022-04-23 17:16 | PM.IMPN ---
Progress Note: A&P Assessment and Plan (1) Osteomyelitis of sacrum: Code(s): M46.28 - Osteomyelitis of vertebra, sacral and sacrococcygeal region Status: Deleted Assessment and Plan: -the patient was started on vancomycin and Zosyn. -patient CT scan shows osteomyelitis of the sacrum -the patient has leukocytosis with white count being 22. -tailor antibiotics to results of cultures. -wound care consult was placed as well. -continue with dressings as per Wound Care nurse. -infectious disease pharmacist has been consulted. 04/23/22 17:16 04/23/2022 interval history: on 04/22 patient continued to have low blood pressure patient was given bolus 250 time 2 with continue IV fluid however there was no improvement in the blood pressure discussed with boiler service technician we gave the patient 30 mL kg IV fluid and albumin 25 mg IV q.6, patient received 1 L of IV fluid and 2 times albumin without significant improved and the blood pressure, patient also had low hemoglobin and was given 2 unit of pack RBC, discussed with boiler service technician transferred the patient to ICU started the patient on Levophed and will monitor, today patient is more awake off Levophed her blood pressure is soft but study, patient with significant large decubitus ulcer suspicious for osteomyelitis is seen by surgery service patient treated with vancomycin will follow-up wound and blood culture further recommendation to follow. (2) Hypokalemia: Code(s): E87.6 - Hypokalemia Status: Acute Assessment and Plan: -patient's potassium was listen 2. Her magnesium was 1.6. Both potassium and magnesium have been replaced. -hold Lasix for now. (3) Hypernatremia: Code(s): E87.0 - Hyperosmolality and hypernatremia Status: Acute Assessment and Plan: -patient's IV fluids were changed to D5 half-normal saline. -the patient appears to be dehydrated. -a swallow study has been ordered for the patient tomorrow. The patient is typically on a mechanical soft diet and has been eating poorly lately. The patient has a history of dementia. They feel that is appropriate to perform a swallow study. (4) Seizure: Code(s): R56.9 - Unspecified convulsions Status: Acute Assessment and Plan: -continue with home medications. According to her discharge summary her Keppra has been discontinued. (5) Atrial fibrillation: Code(s): I48.91 - Unspecified atrial fibrillation Status: Acute Assessment and Plan: -patient's heart rate is regular at this time. -the patient had been on Eliquis but was on hold due to a GI bleed. (6) Dementia: Code(s): F03.90 - Unspecified dementia, unspecified severity, without behavioral disturbance, psychotic disturbance, mood disturbance, and anxiety Status: Acute Assessment and Plan: -the patient was answering some questions but I am question her clarity and accuracy. (7) Hypothyroid: Code(s): E03.9 - Hypothyroidism, unspecified Status: Acute Assessment and Plan: -most likely secondary to amiodarone usage. -check thyroid level -continue levothyroxine. Subjective Date/time seen: 04/23/22 17:16 04/23/2022 interval history: on 04/22 patient continued to have low blood pressure patient was given bolus 250 time 2 with continue IV fluid however there was no improvement in the blood pressure discussed with boiler service technician we gave the patient 30 mL kg IV fluid and albumin 25 mg IV q.6, patient received 1 L of IV fluid and 2 times albumin without significant improved and the blood pressure, patient also had low hemoglobin and was given 2 unit of pack RBC, discussed with boiler service technician transferred the patient to ICU started the patient on Levophed and will monitor, today patient is more awake off Levophed her blood pressure is soft but study, patient with significant large decubitus ulcer suspicious for osteomyelitis is seen by surgery service patient treated with vancomycin w
[2022-04-23 19:07] LABS: Glucose Point of Care 91 mg/dl (65-105)
[2022-04-23] MEDS: MORPHINE SULFATE (*CRX) 2 MG/ML INJ 1 MG IV PUSH ×2 (20:17→23:47)
[2022-04-23] MEDS: LATANOPROST 0.005% OP SOLN 2.5 ML BTL 1 DROP EACH EYE (20:18)
[2022-04-23] MEDS: MIRTAZAPINE 15 MG TABLET PO (20:18)
[2022-04-23 21:11] LABS: Vancomycin Trough 11.9 ug/mL (10.0-20.0)
[2022-04-23 21:31] LABS: Toxigenic C. Diff NEGATIVE (NEGATIVE)
[2022-04-24] VITALS (19 sets, daily range): BP systolic 87–117; BP diastolic 62–91; PULSE 75–95; RESP 13–18; TEMP 36.4–37.7; O2SAT 89–100
[2022-04-24 00:21] LABS: Glucose Point of Care 88 mg/dl (65-105)
[2022-04-24] MEDS: MORPHINE SULFATE (*CRX) 2 MG/ML INJ 1 MG IV PUSH ×2 (05:02→09:36)
[2022-04-24] MEDS: CENTRAL LINE FLUSH 10 ML IV PUSH ×3 (05:03→20:32)
[2022-04-24 06:03] LABS: Basophils Percent Auto 0.2 % (0.2-1.2); Eosinophils Absolute Auto 0.1 K/mm3 (0-0.3); Hematocrit 25.7 % (37.0-47.0); Hemoglobin 8.5 g/dL (12.0-15.0); Immature Granulocyte Absolute 0.11 K/mm3 (0.00-0.031); Immature Granulocyte Percent A 0.8 % (0-0.5); Lymphocytes Absolute Auto 1.65 K/mm3 (0.9-3.2); Lymphocytes Percent Auto 12.7 % (18.3-44.2); Mean Corpuscular HGB Conc 33.1 g/dl (32-36); Mean Corpuscular Hemoglobin 29.7 pg (26-34); Mean Corpuscular Volume 89.9 fl (80-100); Mean Platelet Volume 10.9 fl (7.4-10.4); Monocytes Absolute Auto 0.3 K/mm3 (0.1-0.6); Monocytes Percent Auto 2.2 % (2.6-8.5); Neutrophils Absolute Auto 10.8 K/mm3 (1.3-6.7); Neutrophils Percent Auto 83.1 % (45.5-73.1); Platelet Count Result 170 k/mm3 (150-375); Red Blood Count 2.86 M/mm3 (4.2-5.4)
[2022-04-24 06:16] LABS: Lactic Acid Reflex 1.1 mmol/L (0.7-2.0)
[2022-04-24 06:21] LABS: Alanine Aminotransferase 12 U/L (6-35); Albumin Level 3.1 g/dL (3.5-5.1); Alkaline Phosphatase 72 U/L (38-126); Anion Gap 3 mmol/L (8-16); Aspartate Amino Transferase 22 U/L (14-36); Bilirubin,Total 1.8 mg/dL (0.2-1.3); Blood Urea Nitrogen 11 mg/dL (7-17); CRP 6.2 mg/dL (<1.0); Calcium 7.9 mg/dL (8.4-10.2); Carbon Dioxide 26 mmol/L (22-30); Chloride 119 mmol/L (98-107); Estimated CRCL calculation 76 ml/min; Estimated Glomerular Filt Rate > 60; Glucose 79 mg/dL (65-110); Magnesium 2.1 mg/dL (1.6-2.3); Potassium 3.7 mmol/L (3.4-5.0); Sodium 148 mmol/L (137-145)
[2022-04-24 07:05] LABS: Prothrombin Time 30.1 Seconds (11.1-14.7)
[2022-04-24 07:06] LABS: Partial Thromboplastin Time 55.2 SECONDS (22.3-36.8)
[2022-04-24] MEDS: DEXTROSE 50% 25 GM/50 ML SYRINGE IV PUSH ×2 (08:20→16:32)
[2022-04-24] MEDS: NEOMYCIN/POLYMYXIN/BACITRACIN OINTMENT 15 GM TUBE 1 APPLIC TOPICAL (08:40)
[2022-04-24] MEDS: GABAPENTIN 100 MG CAPSULE PO ×3 (08:40→16:57)
[2022-04-24] MEDS: AMIODARONE HCL 200 MG TABLET PO (08:40)
[2022-04-24] MEDS: SOD HYPOCHLORITE 1/4 STRENGTH 473 ML 1 APPLIC TOPICAL ×2 (08:41→20:32)
[2022-04-24] MEDS: POTASSIUM/PHOSPHORUS/SODIUM 1.5 GM PACKET 1 PACKET PO (08:54)
[2022-04-24 12:13] LABS: Glucose Point of Care 74 mg/dl (65-105)
--- NOTE | 2022-04-24 12:48 | WPDINTPN ---
Progress Note: A&P Assessment and Plan (1) Septic shock: Code(s): A41.9 - Sepsis, unspecified organism; R65.21 - Severe sepsis with septic shock Status: Acute Assessment and Plan: Patient presented the ED on 04/21 with large sacral decubitus ulcer, CT scan shows osteomyelitis of the coccyx -on 04/22 patient dropped her blood pressures could be related to anemia and hemoglobin dropped and for septic shock from infection -UTI, pneumonia, empyema -patient was given IV fluid bolus and PRBCs x2 units -was transferred to the ICU on 04/22 and started on Levophed -patient has been off Levophed since 04/23 -urine output has been adequate, renal functions are normal, lactic acid is normal -04/21 urine culture: No growth so far -04/21 blood cultures negative x2 so far -04/23 wound culture growing gram-positive cocci in chains -continue vancomycin and Zosyn, (04/21) -leukocytosis stable (2) Osteomyelitis of coccyx: Code(s): M86.9 - Osteomyelitis, unspecified Status: Acute Assessment and Plan: Patient has a large sacral decubitus ulcer 9.5 x 9.5 cm 2.5 cm depth with undermining and necrotic tissue -wound care following the patient -appreciate surgery evaluation also CT scan of the abdomen and pelvis on 04/21: moderate left pleural effusion with pleural enhancement as can be seen with empyema, left lower lobe atelectasis. Esophagitis/gastritis, diffuse small and large bowel wall edema as can be seen with enteritis. 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 -patient will require thoracentesis on the left side, INR is 3.0 on 04/24, will give 1 unit of FFP and recheck INR in the morning (3) Sacral decubitus ulcer, stage IV: Code(s): L89.154 - Pressure ulcer of sacral region, stage 4 Status: Acute Assessment and Plan: As above (4) Anemia: Code(s): D64.9 - Anemia, unspecified Status: Acute Assessment and Plan: Patient dropped hemoglobin to 6.3 on 04/22/2022 -was transfused 2 units packed RBCs -hemoglobin has been stable since -will continue to monitor -will switch Protonix to IV q.12 hours -appreciate GI evaluation and recommendations CT scan of the abdomen and pelvis did show esophagitis and gastritis which could be a cause of the anemia (5) Esophagitis with gastritis: Code(s): K29.70 - Gastritis, unspecified, without bleeding; K20.90 - Esophagitis, unspecified without bleeding Status: Acute Assessment and Plan: As above (6) Atrial fibrillation: Code(s): I48.91 - Unspecified atrial fibrillation Status: Acute Assessment and Plan: Patient with history of atrial fibrillation, on p.o. amiodarone, currently in sinus rhythm -patient was on Eliquis but that has been on hold due to anemia and possible GI bleed -hemoglobin is stable, if it remains stable tomorrow we may restart Eliquis (7) Hypothyroid: Code(s): E03.9 - Hypothyroidism, unspecified Status: Acute Assessment and Plan: Continue levothyroxine (8) Electrolyte imbalance: Code(s): E87.8 - Other disorders of electrolyte and fluid balance, not elsewhere classified Status: Acute Assessment and Plan: Potassium magnesium and calcium are within normal limits (9) Failure to thrive: Status: Acute Assessment and Plan: Patient failure to thrive, is cachectic, decreased p.o. intake -modified barium swallow test today Patient is on modified diet, pureed with thickened liquids Plan DVT prophylaxis: SCDs Stress ulcer prophylaxis: Protonix IV q.12 hours Nutrition: Continue modified diet as 04/24: Discussed with daughter, updated her with patient's condition and plan of care. Daughter was very adamant about pain medications, there was also discussion overnight with patient's son and daughter regarding transferring patient to an outside hosp
[2022-04-24 14:52] LABS: Glucose Point of Care 46 mg/dl (65-105)
[2022-04-24 14:52] LABS: Glucose Point of Care 81 mg/dl (65-105)
[2022-04-24 14:52] LABS: Glucose Point of Care 96 mg/dl (65-105)
[2022-04-24] MEDS: fentaNYL (*CRX) 12 MCG PATCH TRANSDERM (14:56)
[2022-04-24] MEDS: PANTOPRAZOLE SODIUM IV 40 MG VIAL IV PUSH ×2 (14:59→20:31)
[2022-04-24 17:23] LABS: Glucose Point of Care 62 mg/dl (65-105)
[2022-04-24 17:23] LABS: Glucose Point of Care 105 mg/dl (65-105)
--- NOTE | 2022-04-24 18:21 | PM.IMPN ---
Progress Note: A&P Assessment and Plan (1) Osteomyelitis of sacrum: Code(s): M46.28 - Osteomyelitis of vertebra, sacral and sacrococcygeal region Status: Deleted Assessment and Plan: -the patient was started on vancomycin and Zosyn. -patient CT scan shows osteomyelitis of the sacrum -the patient has leukocytosis with white count being 22. -tailor antibiotics to results of cultures. -wound care consult was placed as well. -continue with dressings as per Wound Care nurse. -infectious disease pharmacist has been consulted. 04/24/2022 interval history: on 04/22 patient continued to have low blood pressure patient was given bolus 250 time 2 with continue IV fluid however there was no improvement in the blood pressure discussed with manager investment banking we gave the patient 30 mL kg IV fluid and albumin 25 mg IV q.6, patient received 1 L of IV fluid and 2 times albumin without significant improved and the blood pressure, patient also had low hemoglobin and was given 2 unit of pack RBC, discussed with manager investment banking transferred the patient to ICU started the patient on Levophed and will monitor, today patient is more awake off Levophed her blood pressure is soft but study, patient with significant large decubitus ulcer suspicious for osteomyelitis is seen by surgery service patient treated with vancomycin will follow-up wound and blood culture further recommendation to follow. today patient loose bowel more C diff is negative and fecal management system is in placed, discussed with manager investment banking will continue present management and monitor appreciate (2) Hypokalemia: Code(s): E87.6 - Hypokalemia Status: Acute Assessment and Plan: -patient's potassium was listen 2. Her magnesium was 1.6. Both potassium and magnesium have been replaced. -hold Lasix for now. (3) Hypernatremia: Code(s): E87.0 - Hyperosmolality and hypernatremia Status: Acute Assessment and Plan: -patient's IV fluids were changed to D5 half-normal saline. -the patient appears to be dehydrated. -a swallow study has been ordered for the patient tomorrow. The patient is typically on a mechanical soft diet and has been eating poorly lately. The patient has a history of dementia. They feel that is appropriate to perform a swallow study. (4) Seizure: Code(s): R56.9 - Unspecified convulsions Status: Acute Assessment and Plan: -continue with home medications. According to her discharge summary her Keppra has been discontinued. (5) Atrial fibrillation: Code(s): I48.91 - Unspecified atrial fibrillation Status: Acute Assessment and Plan: -patient's heart rate is regular at this time. -the patient had been on Eliquis but was on hold due to a GI bleed. (6) Dementia: Code(s): F03.90 - Unspecified dementia, unspecified severity, without behavioral disturbance, psychotic disturbance, mood disturbance, and anxiety Status: Acute Assessment and Plan: -the patient was answering some questions but I am question her clarity and accuracy. (7) Hypothyroid: Code(s): E03.9 - Hypothyroidism, unspecified Status: Acute Assessment and Plan: -most likely secondary to amiodarone usage. -check thyroid level -continue levothyroxine. (8) Anemia: Code(s): D64.9 - Anemia, unspecified Status: Acute (9) Sacral decubitus ulcer, stage IV: Code(s): L89.154 - Pressure ulcer of sacral region, stage 4 Status: Acute (10) Osteomyelitis of coccyx: Code(s): M86.9 - Osteomyelitis, unspecified Status: Acute (11) Esophagitis with gastritis: Code(s): K29.70 - Gastritis, unspecified, without bleeding; K20.90 - Esophagitis, unspecified without bleeding Status: Acute (12) Septic shock: Code(s): A41.9 - Sepsis, unspecified organism; R65.21 - Severe sepsis with septic shock Status: Acute (13) Electrolyte imbalance: Code(s): E87.8 -
[2022-04-24] MEDS: LATANOPROST 0.005% OP SOLN 2.5 ML BTL 1 DROP EACH EYE (20:31)
[2022-04-24] MEDS: MIRTAZAPINE 15 MG TABLET PO (20:31)
[2022-04-24] MEDS: ACETAMINOPHEN 325 MG TABLET 650 MG BY MOUTH (20:41)
[2022-04-25] VITALS (28 sets, daily range): BP systolic 89–145; BP diastolic 65–99; PULSE 70–96; RESP 14–22; TEMP 36.4–37.2; O2SAT 94–100
[2022-04-25] MEDS: CENTRAL LINE FLUSH 10 ML IV PUSH ×5 (03:32→20:41)
[2022-04-25] MEDS: LEVOTHYROXINE SODIUM 50 MCG TABLET PO (03:32)
[2022-04-25] MEDS: MORPHINE SULFATE (*CRX) 2 MG/ML INJ 1 MG IV PUSH (03:32)
[2022-04-25 03:56] LABS: Basophils Percent Auto 0.2 % (0.2-1.2); Eosinophils Absolute Auto 0.1 K/mm3 (0-0.3); Eosinophils Percent Auto 0.6 % (0-4.4); Immature Granulocyte Absolute 0.08 K/mm3 (0.00-0.031); Immature Granulocyte Percent A 0.6 % (0-0.5); Lymphocytes Absolute Auto 1.82 K/mm3 (0.9-3.2); Lymphocytes Percent Auto 13.1 % (18.3-44.2); Mean Corpuscular HGB Conc 32.1 g/dl (32-36); Mean Corpuscular Hemoglobin 28.8 pg (26-34); Mean Corpuscular Volume 89.7 fl (80-100); Mean Platelet Volume 11.4 fl (7.4-10.4); Monocytes Absolute Auto 0.4 K/mm3 (0.1-0.6); Monocytes Percent Auto 2.7 % (2.6-8.5); Neutrophils Absolute Auto 11.5 K/mm3 (1.3-6.7); Neutrophils Percent Auto 82.8 % (45.5-73.1); Platelet Count Result 172 k/mm3 (150-375); Red Blood Count 3.12 M/mm3 (4.2-5.4); Red Cell Distribution Width 17.5 % (11.5-14.5); White Blood Count 13.9 K/mm3 (4.5-10.0)
[2022-04-25 04:10] LABS: Partial Thromboplastin Time 42.8 SECONDS (22.3-36.8)
[2022-04-25 04:17] LABS: Lactic Acid Reflex 1.2 mmol/L (0.7-2.0)
[2022-04-25 04:18] LABS: Alanine Aminotransferase 15 U/L (6-35); Albumin Level 2.8 g/dL (3.5-5.1); Alkaline Phosphatase 93 U/L (38-126); Anion Gap 1 mmol/L (8-16); Aspartate Amino Transferase 19 U/L (14-36); Bilirubin,Total 1.6 mg/dL (0.2-1.3); Blood Urea Nitrogen 9 mg/dL (7-17); Calcium 7.9 mg/dL (8.4-10.2); Carbon Dioxide 27 mmol/L (22-30); Chloride 114 mmol/L (98-107); Estimated CRCL calculation 63 ml/min; Estimated Glomerular Filt Rate > 60; Glucose 71 mg/dL (65-110); Phosphorus 2.7 mg/dL (2.5-4.5); Potassium 3.2 mmol/L (3.4-5.0); Sodium 142 mmol/L (137-145)
[2022-04-25 04:28] LABS: Glucose Point of Care 72 mg/dl (65-105)
[2022-04-25] MEDS: DEXTROSE 50% 25 GM/50 ML SYRINGE IV PUSH (07:32)
[2022-04-25] MEDS: AMIODARONE HCL 200 MG TABLET PO (07:42)
--- NOTE | 2022-04-25 07:53 | PM.IMPN ---
Progress Note: A&P Assessment and Plan (1) Osteomyelitis of sacrum: Code(s): M46.28 - Osteomyelitis of vertebra, sacral and sacrococcygeal region Status: Deleted Assessment and Plan: cont abx, appreciate wound care and ID pharamcist and critical care management pain control is difficult due to hypotension, recently weaned off pressors patient is hospice appropriate, would recommend hospice for better pain control (2) Hypokalemia: Code(s): E87.6 - Hypokalemia Status: Acute Assessment and Plan: still low, replete and recheck, monitor (3) Hypernatremia: Code(s): E87.0 - Hyperosmolality and hypernatremia Status: Acute Assessment and Plan: resolved (4) Seizure: Code(s): R56.9 - Unspecified convulsions Status: Acute Assessment and Plan: monitor, no recent seizures (5) Atrial fibrillation: Code(s): I48.91 - Unspecified atrial fibrillation Status: Acute Assessment and Plan: in sinus, monitor telemetry (6) Dementia: Code(s): F03.90 - Unspecified dementia, unspecified severity, without behavioral disturbance, psychotic disturbance, mood disturbance, and anxiety Status: Acute Assessment and Plan: likely at baseline, discuss with family (7) Hypothyroid: Code(s): E03.9 - Hypothyroidism, unspecified Status: Acute Assessment and Plan: elevated TSH, unsure if she was compliant with levothyroxine, will cont here, would consider increasing the dose and rechecking in 4-6 weeks if she was compliant with current dose at home (8) Anemia: Code(s): D64.9 - Anemia, unspecified Status: Acute Assessment and Plan: monitor, stable, hgb 9 today (9) Sacral decubitus ulcer, stage IV: Code(s): L89.154 - Pressure ulcer of sacral region, stage 4 Status: Acute Assessment and Plan: per wound care and crit care (10) Osteomyelitis of coccyx: Code(s): M86.9 - Osteomyelitis, unspecified Status: Acute Assessment and Plan: as above (11) Esophagitis with gastritis: Code(s): K29.70 - Gastritis, unspecified, without bleeding; K20.90 - Esophagitis, unspecified without bleeding Status: Acute Assessment and Plan: resolved, monitor (12) Septic shock: Code(s): A41.9 - Sepsis, unspecified organism; R65.21 - Severe sepsis with septic shock Status: Acute (13) Electrolyte imbalance: Code(s): E87.8 - Other disorders of electrolyte and fluid balance, not elsewhere classified Status: Acute (14) Failure to thrive: Status: Acute Assessment and Plan: hospice appropriate Plan DVT prophylaxis with SCDs GI prophylaxis with PPI Code status modified, no CPR, okay with intubation Subjective Date/time seen: 04/25/22 07:53 Interval history: patient's eyes track the examiner, but she does not answer questions. no overnight events noted. still hypotensive, off pressors. Review of Systems Review of Systems: ROS unobtainable: Yes unobtainable due to mental status Exam Narrative: General: No acute distress, alert and oriented per baseline HEENT: Atraumatic, normocephalic, mucous membranes dry CV: Regular rate and rhythm, S1, S2 Lungs: Coarse BS throughout, no wheeze or rhonchi noted, moderate air entry Abdomen: Soft, nontender, nondistended Extremities: Normal to inspection, cachectic Objective Data Vital Signs Vital Signs: Vital Signs - 24 hr 04/24/22 08:00 04/24/22 08:40 04/24/22 10:00 Temperature 99.1 F 98.2 F Pulse Rate 87 86 88 Respiratory Rate 17 14 Blood Pressure 98/72 L 87/65 L Pulse Oximetry 96 98 Oxygen Delivery Oxygen Flow Rate 04/24/22 12:48 04/24/22 12:55 04/24/22 12:00 Temperature 99 F 97.6 F 98.8 F Pulse Rate 79 80 80 Respiratory Rate 13 15 13 Blood Pressure 95/74 L 103/66 95/74 L Pulse Oximetry 95 95 91 Oxygen Delivery Oxygen Flow Rate 04/24/22 13:0
[2022-04-25] MEDS: ALBUTEROL SULFATE NEB 2.5 MG/3 ML INH 5 MG INHALATION ×3 (09:17→20:45)
[2022-04-25] MEDS: IPRATROPIUM BR 0.02% INH SOLN 0.5 MG/2.5 ML VIAL INHALATION ×3 (09:17→20:45)
[2022-04-25] MEDS: POTASSIUM CHLORIDE 20 MEQ PACKET (FOR LIQUID) 40 MEQ FEED TUBE (09:43)
[2022-04-25] MEDS: DEXTROSE 10% 1,000 ML 30 ML IV CONT (09:43)
[2022-04-25] MEDS: GABAPENTIN 100 MG CAPSULE PO ×3 (09:44→17:00)
[2022-04-25] MEDS: NEOMYCIN/POLYMYXIN/BACITRACIN OINTMENT 15 GM TUBE 1 APPLIC TOPICAL (09:44)
--- NOTE | 2022-04-25 09:55 | WPDINTPN ---
Progress Note: A&P Assessment and Plan (1) Pleural effusion, left: Code(s): J90 - Pleural effusion, not elsewhere classified Status: Acute Assessment and Plan: 04/24: Moderate left pleural effusion on chest x-ray. -patient's INR was 3.0 so was given 1 unit of FFP -04/25/22: INR is 2.0 -chest x-ray this morning showed complete opacification of left hemithorax -Discussed with radiologist regarding thoracentesis, recommended IV vitamin K, and he will possibly do the thoracentesis today, once vitamin K has been infused -placed orders for ultrasound-guided thoracentesis with pertinent labs on the pleural fluid -started patient on Mucomyst, -added albuterol and Atrovent -will give guaifenesin as a decongestant -CPT with percussion or vest per respiratory therapist -will place and place patient on her right side which is the good lung, to optimize V/Q mismatch (2) Septic shock: Code(s): A41.9 - Sepsis, unspecified organism; R65.21 - Severe sepsis with septic shock Status: Acute Assessment and Plan: Patient presented the ED on 04/21 with large sacral decubitus ulcer, CT scan shows osteomyelitis of the coccyx -on 04/22 patient dropped her blood pressures could be related to anemia and hemoglobin dropped and for septic shock from infection -UTI, pneumonia, empyema -patient was given IV fluid bolus and PRBCs x2 units -was transferred to the ICU on 04/22 and started on Levophed -patient has been off Levophed since 04/23 -urine output has been adequate, renal functions are normal, -04/21 urine culture: No growth so far -04/21 blood cultures negative x2 so far -04/23 wound culture growing gram-positive cocci in chains -continue vancomycin and Zosyn, (04/21) -04/25/2022 leukocytosis increased likely due to complete opacification of the left lung (3) Osteomyelitis of coccyx: Code(s): M86.9 - Osteomyelitis, unspecified Status: Acute Assessment and Plan: Patient has a large sacral decubitus ulcer 9.5 x 9.5 cm 2.5 cm depth with undermining and necrotic tissue -wound care following the patient -appreciate surgery evaluation also CT scan of the abdomen and pelvis on 04/21: moderate left pleural effusion with pleural enhancement as can be seen with empyema, left lower lobe atelectasis. Esophagitis/gastritis, diffuse small and large bowel wall edema as can be seen with enteritis. 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 (4) Sacral decubitus ulcer, stage IV: Code(s): L89.154 - Pressure ulcer of sacral region, stage 4 Status: Acute Assessment and Plan: As above (5) Anemia: Code(s): D64.9 - Anemia, unspecified Status: Acute Assessment and Plan: Patient dropped hemoglobin to 6.3 on 04/22/2022 -was transfused 2 units packed RBCs -hemoglobin has been stable since -will continue to monitor -continue Protonix to IV q.12 hours -appreciate GI evaluation and recommendations CT scan of the abdomen and pelvis did show esophagitis and gastritis which could be a cause of the anemia (6) Esophagitis with gastritis: Code(s): K29.70 - Gastritis, unspecified, without bleeding; K20.90 - Esophagitis, unspecified without bleeding Status: Acute Assessment and Plan: As above (7) Atrial fibrillation: Code(s): I48.91 - Unspecified atrial fibrillation Status: Acute Assessment and Plan: Patient with history of atrial fibrillation, on p.o. amiodarone, currently in sinus rhythm -patient was on Eliquis but that has been on hold due to anemia and possible GI bleed -hemoglobin is stable -will add aspirin ER (8) Hypothyroid: Code(s): E03.9 - Hypothyroidism, unspecified Status: Acute Assessment and Plan: Continue levothyroxine (9) Electrolyte imbalance: Code(s): E87.8 - Other disorders of electrolyte and fluid balance,
[2022-04-25 10:14] LABS: Hematocrit 28.7 % (37.0-47.0); Hemoglobin 9.3 g/dL (12.0-15.0); Mean Corpuscular HGB Conc 32.4 g/dl (32-36); Mean Corpuscular Hemoglobin 29.2 pg (26-34); Mean Corpuscular Volume 90.3 fl (80-100); Mean Platelet Volume 11.7 fl (7.4-10.4); Platelet Count Result 152 k/mm3 (150-375); Red Blood Count 3.18 M/mm3 (4.2-5.4); Red Cell Distribution Width 17.7 % (11.5-14.5); White Blood Count 14.7 K/mm3 (4.5-10.0)
[2022-04-25 10:24] LABS: Anion Gap 4 mmol/L (8-16); Blood Urea Nitrogen 9 mg/dL (7-17); Calcium 7.9 mg/dL (8.4-10.2); Carbon Dioxide 26 mmol/L (22-30); Chloride 113 mmol/L (98-107); Estimated CRCL calculation 76 ml/min; Estimated Glomerular Filt Rate > 60; Glucose 99 mg/dL (65-110); Magnesium 1.9 mg/dL (1.6-2.3); Potassium 3.3 mmol/L (3.4-5.0); Sodium 143 mmol/L (137-145)
[2022-04-25 10:40] LABS: Glucose Point of Care 87 mg/dl (65-105)
[2022-04-25] MEDS: PHYTONADIONE ADULT INJ 10 MG in DEXTROSE 5% IN WATER 50 ML 64 MG IVPB (11:24)
[2022-04-25] MEDS: SOD HYPOCHLORITE 1/4 STRENGTH 473 ML 1 APPLIC TOPICAL ×2 (11:25→20:41)
[2022-04-25] MEDS: PANTOPRAZOLE SODIUM IV 40 MG VIAL IV PUSH ×2 (11:25→20:41)
[2022-04-25 12:27] LABS: Glucose Point of Care 114 mg/dl (65-105)
[2022-04-25] MEDS: guaiFENesin 200 MG/10 ML UDC PO (12:37)
[2022-04-25 13:25] LABS: Glucose Point of Care 132 mg/dl (65-105)
[2022-04-25 13:25] LABS: Glucose Point of Care 58 mg/dl (65-105)
[2022-04-25] MEDS: ACETYLCYSTEINE 20% INHAL SOLN 800 MG/4 ML VIAL 200 MG INHALATION ×2 (14:28→20:52)
[2022-04-25 15:31] LABS: Glucose Point of Care 153 mg/dl (65-105)
[2022-04-25 15:42] LABS: pH Pleural Fluid > 7.500 (7.210-7.500)
[2022-04-25 17:30] LABS: Appearance Pleural Fluid Cloudy (Clear); Color Pleural Fluid Other (Colorless); Pleural fluid source Pleural fluid
[2022-04-25 17:31] LABS: Lymphocytes Pleural Fluid 6 %; Macrophages Pleural Fluid 6 %; Neutrophils Pleural Fluid 88 % (0-25); Nucleated Cell Pleural Fluid 2934 /uL (0-1000); RBC Pleural Fluid 11357 /uL (0-0)
[2022-04-25 18:06] LABS: Glucose Point of Care 123 mg/dl (65-105)
[2022-04-25] MEDS: LATANOPROST 0.005% OP SOLN 2.5 ML BTL 1 DROP EACH EYE (20:41)
[2022-04-25] MEDS: MIRTAZAPINE 15 MG TABLET PO (20:41)
[2022-04-25 21:31] LABS: Glucose Point of Care 94 mg/dl (65-105)
[2022-04-26] VITALS (25 sets, daily range): BP systolic 86–119; BP diastolic 59–87; PULSE 74–99; RESP 13–22; TEMP 35.5–37.1; O2SAT 95–100
[2022-04-26 00:10] LABS: Glucose Point of Care 80 mg/dl (65-105)
[2022-04-26] MEDS: IPRATROPIUM BR 0.02% INH SOLN 0.5 MG/2.5 ML VIAL INHALATION ×3 (02:51→21:02)
[2022-04-26] MEDS: ALBUTEROL SULFATE NEB 2.5 MG/3 ML INH 5 MG INHALATION ×3 (02:52→21:01)
[2022-04-26] MEDS: ACETYLCYSTEINE 20% INHAL SOLN 800 MG/4 ML VIAL 200 MG INHALATION ×3 (02:52→21:02)
[2022-04-26] MEDS: CENTRAL LINE FLUSH 10 ML IV PUSH ×6 (04:34→21:23)
[2022-04-26] MEDS: LEVOTHYROXINE SODIUM 50 MCG TABLET PO (04:34)
[2022-04-26 04:54] LABS: Basophils Percent Auto 0.2 % (0.2-1.2); Eosinophils Absolute Auto 0.1 K/mm3 (0-0.3); Eosinophils Percent Auto 0.6 % (0-4.4); Hematocrit 22.9 % (37.0-47.0); Hemoglobin 7.3 g/dL (12.0-15.0); Immature Granulocyte Absolute 0.07 K/mm3 (0.00-0.031); Immature Granulocyte Percent A 0.6 % (0-0.5); Lymphocytes Absolute Auto 1.17 K/mm3 (0.9-3.2); Lymphocytes Percent Auto 10.4 % (18.3-44.2); Mean Corpuscular HGB Conc 31.9 g/dl (32-36); Mean Corpuscular Hemoglobin 29.2 pg (26-34); Mean Corpuscular Volume 91.6 fl (80-100); Mean Platelet Volume 12.1 fl (7.4-10.4); Monocytes Absolute Auto 0.4 K/mm3 (0.1-0.6); Monocytes Percent Auto 3.2 % (2.6-8.5); Neutrophils Absolute Auto 9.5 K/mm3 (1.3-6.7); Platelet Count Result 132 k/mm3 (150-375); Red Cell Distribution Width 17.4 % (11.5-14.5); White Blood Count 11.2 K/mm3 (4.5-10.0)
[2022-04-26 05:07] LABS: Alanine Aminotransferase 14 U/L (6-35); Albumin Level 2.2 g/dL (3.5-5.1); Alkaline Phosphatase 74 U/L (38-126); Anion Gap 2 mmol/L (8-16); Aspartate Amino Transferase 15 U/L (14-36); Bilirubin,Total 1.3 mg/dL (0.2-1.3); Blood Urea Nitrogen 9 mg/dL (7-17); Calcium 7.3 mg/dL (8.4-10.2); Carbon Dioxide 26 mmol/L (22-30); Chloride 116 mmol/L (98-107); Estimated CRCL calculation 76 ml/min; Estimated Glomerular Filt Rate > 60; Glucose 83 mg/dL (65-110); Magnesium 1.8 mg/dL (1.6-2.3); Phosphorus 2.9 mg/dL (2.5-4.5); Potassium 3.5 mmol/L (3.4-5.0); Sodium 144 mmol/L (137-145)
[2022-04-26 08:13] LABS: Lactate Dehydrogenase 163 U/L (120-246)
[2022-04-26] MEDS: ASPIRIN 325 MG TABLET PO (08:36)
[2022-04-26] MEDS: AMIODARONE HCL 200 MG TABLET PO (08:36)
[2022-04-26] MEDS: PANTOPRAZOLE SODIUM IV 40 MG VIAL IV PUSH ×2 (08:36→21:22)
[2022-04-26] MEDS: GABAPENTIN 100 MG CAPSULE PO ×2 (08:37→17:32)
[2022-04-26] MEDS: guaiFENesin 200 MG/10 ML UDC PO (08:37)
[2022-04-26] MEDS: NEOMYCIN/POLYMYXIN/BACITRACIN OINTMENT 15 GM TUBE 1 APPLIC TOPICAL (08:38)
[2022-04-26] MEDS: SOD HYPOCHLORITE 1/4 STRENGTH 473 ML 1 APPLIC TOPICAL ×2 (08:39→21:23)
--- NOTE | 2022-04-26 09:05 | PM.IMPN ---
Progress Note: A&P Assessment and Plan (1) Osteomyelitis of sacrum: Code(s): M46.28 - Osteomyelitis of vertebra, sacral and sacrococcygeal region Status: Deleted Assessment and Plan: cont abx, appreciate wound care and ID pharamcist and critical care management pain controlled at this time (2) Hypokalemia: Code(s): E87.6 - Hypokalemia Status: Acute Assessment and Plan: resolved, monitor (3) Hypernatremia: Code(s): E87.0 - Hyperosmolality and hypernatremia Status: Acute Assessment and Plan: resolved, monitor (4) Seizure: Code(s): R56.9 - Unspecified convulsions Status: Acute Assessment and Plan: monitor, no recent seizures (5) Atrial fibrillation: Code(s): I48.91 - Unspecified atrial fibrillation Status: Acute Assessment and Plan: in sinus, monitor telemetry (6) Dementia: Code(s): F03.90 - Unspecified dementia, unspecified severity, without behavioral disturbance, psychotic disturbance, mood disturbance, and anxiety Status: Acute Assessment and Plan: at baseline mentation (7) Hypothyroid: Code(s): E03.9 - Hypothyroidism, unspecified Status: Acute Assessment and Plan: elevated TSH, unsure if she was compliant with levothyroxine, will cont here, would consider increasing the dose and rechecking in 4-6 weeks if she was compliant with current dose at home (8) Anemia: Code(s): D64.9 - Anemia, unspecified Status: Acute Assessment and Plan: monitor, stable, hgb 7.3 (9) Sacral decubitus ulcer, stage IV: Code(s): L89.154 - Pressure ulcer of sacral region, stage 4 Status: Acute Assessment and Plan: per wound care and crit care (10) Osteomyelitis of coccyx: Code(s): M86.9 - Osteomyelitis, unspecified Status: Acute Assessment and Plan: as above (11) Esophagitis with gastritis: Code(s): K29.70 - Gastritis, unspecified, without bleeding; K20.90 - Esophagitis, unspecified without bleeding Status: Acute Assessment and Plan: resolved, monitor (12) Septic shock: Code(s): A41.9 - Sepsis, unspecified organism; R65.21 - Severe sepsis with septic shock Status: Acute Assessment and Plan: resolved, cont abx (13) Failure to thrive: Status: Acute Assessment and Plan: hospice appropriate (14) Empyema: Code(s): J86.9 - Pyothorax without fistula Status: Acute Assessment and Plan: Would need to transfer to higher level of care for CT surgery support for possible pleurodesis as the empyema is likely contributing to patient's sepsis picture and cooperation with the osteomyelitis of the sacral decubitus ulcer In light of this worsening clinical picture, will discuss hospice with family today prior to arranging transfer Family interested in assessment by CT surgery for possible further interventions for the empyema and coccygeal osteomyelitis, patient placed on waiting list at [facility] and [facility], 1-2 week wait at both facilities noted (15) Malnourished: Code(s): E46 - Unspecified protein-calorie malnutrition Status: Acute Assessment and Plan: albumin 2.2 Plan 04/26/22: Discussed with family. Patient is on a waiting list at [facility] and [facility]. Empyema has high mortality/morbidity rate, especially left untreated and with comorbid malnutrition and osteomyelitis. Hospice care would be appropriate for the highest quality of life at this time as opposed to transferring for pleuredesis/chest tube/decortication/VATS. DVT prophylaxis with SCDs GI prophylaxis with PPI Code status modified, no CPR, okay with intubation Subjective Date/time seen: 04/26/22 09:05 Interval history: No overnight events, off pressors, resting more comfortably than yesterday without any new complaints. No fevers, chills. No NVD. Review of Systems Review of Systems: ROS unobtainable: Yes unobtain
--- NOTE | 2022-04-26 10:56 | PM.CNPUL ---
Assessment and Plan Assessment and plan (1) Empyema: Code(s): J86.9 - Pyothorax without fistula Status: Acute Assessment and Plan: 04/25/2022 patient had a left ultrasound-guided thoracentesis and the ultrasound demonstrated extensive loculations, 50 mL of turbid orange to red fluid was removed and the Gram stain showed many white blood cells and gram-negative bacilli. The white blood cell count was 2934, neutrophils 88%, lymphocytes 6%, macrophages 6%, pH was greater than 7.50. Of note the patient had a moderate left pleural effusion on 03/30/2022 and on 04/23/2022 her chest x-ray demonstrated a moderate to large left pleural effusion. Prior chest imaging from a thoracic spine CT scan on 01/25/2019 demonstrated no pleural effusions. The patient has a left empyema and will require transfer to higher level of care facility for evaluation by thoracic surgery (not available at [place]) for chest tube placement and or possible VATS unless the family wishes to pursue hospice care. It appears her septic shock has resolved as she is now off Levophed for 2 days and I would continue vancomycin and Zosyn at this time pending trasnfer. Her leukocytosis has improved. Await cultures from the pleural fluid to guide antibiotics. Discussed with Dr. Anaya. Will follow with you History of Present Illness History of Present Illness Consult date: 04/26/22 Chief complaint: Hypokalemia Narrative: 04/26/2022: This is a new pulmonary consultation for empyema. 71-year-old woman with dementia, AFib on Eliquis, cachexia who lives at [facility]. The patient presented to the emergency department on 04/21/2022 with a sacral decubitus and osteomyelitis, UTI, leukocytosis at 22.0, and a CT of the abdomen that demonstrated left pleural effusion with pleural enhancement. Patient was admitted to the hospital and then developed septic shock requiring transfer to the ICU for Levophed. Patient was started on vancomycin and Zosyn. The patient came off of Levophed on 04/23. urine, blood cultures negative. Of note the patient had a moderate left pleural effusion on 03/30/2022 and on 04/23/2022 her chest x-ray demonstrated a moderate to large left pleural effusion. Prior chest imaging from a thoracic spine CT scan on 01/25/2019 demonstrated no pleural effusions. On 04/25/2022 the patient had complete opacification of the left hemithorax with deviation of the trachea to the left and later in the day had a post PICC chest x-ray demonstrating aeration of the upper 40% of the left hemithorax with relief of the tracheal deviation. Later in the day on 04/25/2022 patient had a left ultrasound-guided thoracentesis and the ultrasound demonstrated extensive loculations, 50 mL of turbid orange to red fluid was removed and the Gram stain showed many white blood cells and gram-negative bacilli. The white blood cell count was 2934, neutrophils 88%, lymphocytes 6%, macrophages 6%, pH was greater than 7.50. 04/26/2022 today the patient tells me her name, states she is in [facility], states 1950, is able to name an ink pen, calls the cap the stopper and calls the clip on the cap the thing for your shirt pocket . States that Elbert Cosby is the president. She denies any shortness of breath or cough. She is on 2 L nasal cannula saturations 94%. Her white blood cell count is 11.2, decreased from 14.7 on 04/25/2022. she is frail and cachectic and when I asked her to cough she has an extremely poor cough. Review of Systems Review of Systems: ROS unobtainable: Yes unobtainable due to medical condition and unobtainable due to mental status PMFSH Past Medical History Medical History Atrial fibrillation Cerebral aneurysm Dementia DVT (deep venous thrombosis) Hypothyroid Seizure Surgical History Surgical History H/O gastric bypass
--- NOTE | 2022-04-26 11:29 | PCFNICU ---
ICU Rounding Note: Pt current nutrition is Pureed, level 4, level 3 liquids. Nutrition recommendation: Continue with current plan of care. Last recorded weight is 57.2 kg. Bowel Motility: +BM 04/23 Labs Reviewed: hgb:7.3, HCT:22.9, Alb:2.2, Cr:0.4 Meds Noted: protonix, remeron Skin: stage IV to sacrum Additional Notes: Pt is on a pureed diet, nutritional ice cream, ensure pudding, ensure compact all ordered TID for increased nutrient intake. Intake remains poor. Pt is moved down to IMU status. Recommend BRENNAN BID for wound healing. Monitor intakes, weights, labs, plan of care, wound healing Follow up in 5 days.
--- NOTE | 2022-04-26 11:33 | PCNFU ---
Nutrition Follow-Up Complete: Severe malnutrition related to poor intake and increased needs from sacral pressure injury as evidenced by wound report and pt's family oal:Meet estimated nutritional needs to support wound healing Pt current nutrition is Pureed level 4, level 3 liquids. Nutrition recommendation: Add BRENNAN BID for wound healing Last recorded weight is 57.2 kg. Bowel Motility: +BM 04/23 Labs Reviewed: hgb:7.3, HCT:22.9, Alb:2.2, Cr:0.4 Meds Noted: protonix, remeron Skin: stage IV to sacrum Additional Notes: pt advanced to pureed diet, level 3 liquids. Nutritional ice cream, ensure pudding, ensure compact all in place for additional nutrient intake, pt intake remains poor overall. Pt is now IMU status. Recommend to restart BRENNAN BID for wound healing. Monitor intakes, weights, labs, plan of care, wound healing Follow up in 5 days.
[2022-04-26 11:59] LABS: Glucose Point of Care 110 mg/dl (65-105)
[2022-04-26] MEDS: polyethylene glycoL 3350 17 GM POWD.PACK PO (12:54)
--- NOTE | 2022-04-26 15:47 | PCRCNOTE ---
Window of time for administration has passed. See next scheduled administration.
[2022-04-26] MEDS: LATANOPROST 0.005% OP SOLN 2.5 ML BTL 1 DROP EACH EYE (21:22)
[2022-04-26] MEDS: MIRTAZAPINE 15 MG TABLET PO (21:22)
[2022-04-26] MEDS: SENNA/DOCUSATE SODIUM TABLET 1 TAB PO (21:22)
[2022-04-26 21:45] LABS: Glucose Point of Care 75 mg/dl (65-105)
--- NOTE | 2022-04-26 22:01 | PC.NURSE ---
This patient, Babs Felton, was received from [ICU 10] on 04/26/22 at 2201. Patient/family oriented to unit policies and routines
--- NOTE | 2022-04-26 22:30 | PC.NURSE ---
Addendum entered by Jb Pulido RN 04/26/22 22:31: Roxy Johnson RN receiving Nurse. All Medications including Fentanyl Patch given to Roxy CORDOVA. Report given, patient stable. Original Note: Patient and belongings transferred to room 210. Dorcas Johnson
[2022-04-27] VITALS (24 sets, daily range): BP systolic 90–116; BP diastolic 56–69; PULSE 79–116; RESP 16–22; TEMP 36.4–36.7; O2SAT 92–99
[2022-04-27] MEDS: DEXTROSE 50% 25 GM/50 ML SYRINGE IV PUSH (00:04)
[2022-04-27] MEDS: DEXTROSE 5% 1,000 ML 1,000 ML 100 ML IV CONT ×3 (00:23→22:58)
[2022-04-27 00:30] LABS: Glucose Point of Care 68 mg/dl (65-105)
[2022-04-27 00:31] LABS: Glucose Point of Care 128 mg/dl (65-105)
[2022-04-27 00:40] LABS: SARS-CoV-2 RNA PCR Negative
[2022-04-27] MEDS: ALBUTEROL SULFATE NEB 2.5 MG/3 ML INH 5 MG INHALATION ×4 (02:26→22:00)
[2022-04-27] MEDS: IPRATROPIUM BR 0.02% INH SOLN 0.5 MG/2.5 ML VIAL INHALATION ×4 (02:29→22:00)
[2022-04-27] MEDS: ACETYLCYSTEINE 20% INHAL SOLN 800 MG/4 ML VIAL 200 MG INHALATION ×4 (02:29→22:00)
[2022-04-27 04:43] LABS: Basophils Percent Auto 0.3 % (0.2-1.2); Eosinophils Absolute Auto 0.1 K/mm3 (0-0.3); Hematocrit 22.6 % (37.0-47.0); Hemoglobin 7.3 g/dL (12.0-15.0); Immature Granulocyte Absolute 0.05 K/mm3 (0.00-0.031); Immature Granulocyte Percent A 0.5 % (0-0.5); Lymphocytes Absolute Auto 1.07 K/mm3 (0.9-3.2); Lymphocytes Percent Auto 10.8 % (18.3-44.2); Mean Corpuscular HGB Conc 32.3 g/dl (32-36); Mean Corpuscular Hemoglobin 29.3 pg (26-34); Mean Corpuscular Volume 90.8 fl (80-100); Mean Platelet Volume 12.6 fl (7.4-10.4); Monocytes Absolute Auto 0.4 K/mm3 (0.1-0.6); Monocytes Percent Auto 3.6 % (2.6-8.5); Neutrophils Absolute Auto 8.3 K/mm3 (1.3-6.7); Neutrophils Percent Auto 83.8 % (45.5-73.1); Platelet Count Result 124 k/mm3 (150-375); Red Blood Count 2.49 M/mm3 (4.2-5.4); Red Cell Distribution Width 17.4 % (11.5-14.5); White Blood Count 9.9 K/mm3 (4.5-10.0)
[2022-04-27 04:52] LABS: Alanine Aminotransferase 14 U/L (6-35); Alkaline Phosphatase 80 U/L (38-126); Anion Gap 2 mmol/L (8-16); Aspartate Amino Transferase 16 U/L (14-36); Bilirubin,Total 1.1 mg/dL (0.2-1.3); Blood Urea Nitrogen 8 mg/dL (7-17); Calcium 6.9 mg/dL (8.4-10.2); Carbon Dioxide 26 mmol/L (22-30); Chloride 115 mmol/L (98-107); Estimated CRCL calculation 76 ml/min; Estimated Glomerular Filt Rate > 60; Glucose 104 mg/dL (65-110); Magnesium 1.9 mg/dL (1.6-2.3); Phosphorus 2.5 mg/dL (2.5-4.5); Potassium 2.8 mmol/L (3.4-5.0); Sodium 143 mmol/L (137-145)
[2022-04-27] MEDS: POTASSIUM CHLORIDE 20 MEQ PACKET (FOR LIQUID) 40 MEQ PO (06:05)
[2022-04-27] MEDS: KCL 20 MEQ/SW 100 ML 100 ML 50 MEQ IVPB (06:17)
[2022-04-27] MEDS: CENTRAL LINE FLUSH 10 ML IV PUSH ×5 (06:18→23:03)
[2022-04-27] MEDS: LEVOTHYROXINE SODIUM 50 MCG TABLET PO (06:37)
[2022-04-27 08:33] LABS: Glucose Point of Care 108 mg/dl (65-105)
[2022-04-27] MEDS: AMIODARONE HCL 200 MG TABLET PO (09:30)
[2022-04-27] MEDS: GABAPENTIN 100 MG CAPSULE PO ×3 (09:30→17:17)
[2022-04-27] MEDS: PANTOPRAZOLE SODIUM IV 40 MG VIAL IV PUSH ×2 (09:30→21:00)
[2022-04-27] MEDS: ASPIRIN 325 MG TABLET PO (09:30)
[2022-04-27] MEDS: fentaNYL (*CRX) 12 MCG PATCH TRANSDERM (09:31)
[2022-04-27] MEDS: NEOMYCIN/POLYMYXIN/BACITRACIN OINTMENT 15 GM TUBE 1 APPLIC TOPICAL (09:32)
[2022-04-27] MEDS: SOD HYPOCHLORITE 1/4 STRENGTH 473 ML 1 APPLIC TOPICAL ×2 (09:32→21:07)
[2022-04-27] MEDS: ACETAMINOPHEN 325 MG TABLET 650 MG BY MOUTH (09:41)
[2022-04-27] MEDS: polyethylene glycoL 3350 17 GM POWD.PACK PO (09:55)
--- NOTE | 2022-04-27 10:13 | PM.IMPN ---
Progress Note: A&P Assessment and Plan (1) Osteomyelitis of sacrum: Code(s): M46.28 - Osteomyelitis of vertebra, sacral and sacrococcygeal region Status: Acute Assessment and Plan: cont abx, cont vanc + zosyn, appreciate wound care and ID pharmacist consultations pain controlled at this time (2) Hypokalemia: Code(s): E87.6 - Hypokalemia Status: Acute Assessment and Plan: reurrent, mag 1.9, replete and recheck (3) Hypernatremia: Code(s): E87.0 - Hyperosmolality and hypernatremia Status: Acute Assessment and Plan: resolved, monitor (4) Seizure: Code(s): R56.9 - Unspecified convulsions Status: Acute Assessment and Plan: monitor, no recent seizures (5) Atrial fibrillation: Code(s): I48.91 - Unspecified atrial fibrillation Status: Acute Assessment and Plan: in sinus, monitor telemetry cont amio (6) Dementia: Code(s): F03.90 - Unspecified dementia, unspecified severity, without behavioral disturbance, psychotic disturbance, mood disturbance, and anxiety Status: Acute Assessment and Plan: at baseline mentation (7) Hypothyroid: Code(s): E03.9 - Hypothyroidism, unspecified Status: Acute Assessment and Plan: elevated TSH, unsure if she was compliant with levothyroxine, will cont here, would consider increasing the dose and rechecking in 4-6 weeks if she was compliant with current dose at home (8) Anemia: Code(s): D64.9 - Anemia, unspecified Status: Acute Assessment and Plan: monitor, stable, hgb 7.3 (9) Sacral decubitus ulcer, stage IV: Code(s): L89.154 - Pressure ulcer of sacral region, stage 4 Status: Acute Assessment and Plan: per wound care (10) Osteomyelitis of coccyx: Code(s): M86.9 - Osteomyelitis, unspecified Status: Acute Assessment and Plan: as above (11) Esophagitis with gastritis: Code(s): K29.70 - Gastritis, unspecified, without bleeding; K20.90 - Esophagitis, unspecified without bleeding Status: Acute Assessment and Plan: resolved, monitor (12) Septic shock: Code(s): A41.9 - Sepsis, unspecified organism; R65.21 - Severe sepsis with septic shock Status: Acute Assessment and Plan: resolved, cont abx (13) Failure to thrive: Status: Acute Assessment and Plan: hospice appropriate encourage po intake (14) Empyema: Code(s): J86.9 - Pyothorax without fistula Status: Acute Assessment and Plan: Would need to transfer to higher level of care for CT surgery support for CT placement, possible pleurodesis vs VATS with decortication as the empyema is likely contributing to the patient's original sepsis picture in addition to the osteomyelitis of the sacral decubitus ulcer 04/26/22: Family interested in assessment by CT surgery for possible further interventions for the empyema and continued treatment for the coccygeal osteomyelitis, patient placed on waiting list at [facility] and [facility], 1-2 week wait at both facilities noted. (15) Malnourished: Code(s): E46 - Unspecified protein-calorie malnutrition Status: Acute Assessment and Plan: albumin 2.2 Plan 04/26/22: Discussed with family. Patient is on a waiting list at [facility] and [facility]. Empyema has high mortality/morbidity rate, especially left untreated and with comorbid malnutrition and osteomyelitis. Hospice care would be appropriate for the highest quality of life at this time as opposed to transferring for pleuredesis/chest tube/decortication/VATS. DVT prophylaxis with SCDs GI prophylaxis with PPI Code status modified, no CPR, okay with intubation Subjective Date/time seen: 04/27/22 10:13 Interval history: No overnight events noted. No chest pain or shortness of breath. No nausea, vomiting or diarrhea. No fevers or chills. Patient states she feels better today than yesterday, more alert.
--- NOTE | 2022-04-27 10:21 | PM.PNPUL ---
Progress Note: A&P Assessment and Plan (1) Empyema: Code(s): J86.9 - Pyothorax without fistula Status: Acute Assessment and Plan: 04/25/2022 patient had a left ultrasound-guided thoracentesis and the ultrasound demonstrated extensive loculations, 50 mL of turbid orange to red fluid was removed and the Gram stain showed many white blood cells and gram-negative bacilli. The white blood cell count was 2934, neutrophils 88%, lymphocytes 6%, macrophages 6%, pH was greater than 7.50. Of note the patient had a moderate left pleural effusion on 03/30/2022 and on 04/23/2022 her chest x-ray demonstrated a moderate to large left pleural effusion. Prior chest imaging from a thoracic spine CT scan on 01/25/2019 demonstrated no pleural effusions. The patient has a left empyema and will require transfer to higher level of care facility for evaluation by thoracic surgery (not available at [place]) for chest tube placement and or possible VATS unless the family wishes to pursue hospice care. It appears her septic shock has resolved as she is now off Levophed for 2 days and I would continue vancomycin and Zosyn at this time pending trasnfer. Her leukocytosis has improved. Await cultures from the pleural fluid to guide antibiotics. 04/27/2022 Transferred out of the ICU now. Patient tells me she is not feeling as well as she did yesterday. She is on 1 L nasal cannula saturations 99%. Her white blood cell count is 9.9, creatinine is 0.4. Discussed with Dr. Anaya. Will follow with you Later in the day I had a discussion with the patient's daughter Cassie and the son by speaker phone named Kolby and explain to them that she has a left empyema and the recommended treatment is chest tube drainage and or a VATS procedure which cannot be performed at [facility]. They would like a thoracic surgery consultation rather than hospice care at this time. I explained to them that her treatment options may be limited due to her underlying dementia, debility, cachexia, inability to cough. 04/27/2022 Transferred out of the ICU now. Patient tells me she is not feeling as well as she did yesterday. She is on 1 L nasal cannula saturations 99%. Her white blood cell count is 9.9, creatinine is 0.4. Her white blood cell count has improved on day 7 of vancomycin and Zosyn. I will order CT scan of the chest as previously she only had a CT of the abdomen demonstrating the left empyema. Awaiting transfer to higher level of care facility for thoracic surgery consultation. Continue vancomycin and Zosyn while she is waiting for transfer to higher level of care facility. Discussed with Dr. Anaya, will sign off, call with questions. Subjective Date/time seen: 04/27/22 10:21 Interval history: 04/26/2022:? This is a new pulmonary consultation for empyema. ?71-year-old woman? with dementia, AFib on Eliquis, cachexia who lives at [facility].? The patient presented to the emergency department on 04/21/2022 with a sacral decubitus and osteomyelitis, UTI, leukocytosis at 22.0, and a CT of the abdomen that demonstrated left pleural effusion with pleural enhancement.? Patient was admitted to the hospital and then developed septic shock requiring transfer to the ICU for Levophed. ? Patient was started on vancomycin and Zosyn. ? The patient came off of Levophed on 04/23.? urine, blood cultures negative. Of note the patient had a moderate left pleural effusion on 03/30/2022 and on 04/23/2022 her chest x-ray demonstrated a moderate to large left pleural effusion. Prior chest imaging from a thoracic spine CT scan on 01/25/2019 demonstrated no pleural effusions. On 04/25/2022 the patient had? complete opacification of the left hemithorax with deviation of the trachea? to the left and later? in the day had a post PICC chest x-ray demonstrating aeration of the upper 40% of the left hemithorax with relief of the tracheal deviation. ? Later in the day on
[2022-04-27 11:55] LABS: Glucose Point of Care 96 mg/dl (65-105)
[2022-04-27] MEDS: TOLNAFTATE 1% POWDER 45 GM BTL 1 APPLIC TOPICAL ×2 (12:21→21:05)
[2022-04-27] MEDS: POTASSIUM CHLORIDE 20 MEQ TABLET 40 MEQ PO (12:24)
--- NOTE | 2022-04-27 12:42 | IDPHARM ---
Subjective Pharmacy was consulted by Benhoff. Velez regarding infectious diseases for Babs Felton. Babs Felton is a 71 year old F with concerns regarding osteomyelitis and pleural effusions. Background The patient is currently receiving Vancomycin and Zosyn (day ~7). The patient currently has preliminary pleural fluid cultures from the pleural effusions on 04/25 which are currently NGTD. Continue to follow. The patient also has sacral osteomyelitis which did not grow any specific pathogen, just GPC in chains and Gram-variable rods, and, per the report, did not grow any s. aureus, Beta-hemolytic streptococcus, P. aeruginosa. The patient's WBC is 9.9 and scr is 0.4. Assessment/Recommendation/Discussion Discussed current therapy with current provider. Currently the acuity of the pleural effusions is driving therapy choices. Follow all cultures and will continue to follow up regarding de-escalation. Thank you for the interesting consult. Russel Posadas, PharmD Infectious Disease/Antimicrobial Stewardship Pharmacist 04/27/22; 1815
[2022-04-27 16:19] LABS: Anion Gap 2 mmol/L (8-16); Blood Urea Nitrogen 7 mg/dL (7-17); Calcium 7.1 mg/dL (8.4-10.2); Carbon Dioxide 25 mmol/L (22-30); Chloride 113 mmol/L (98-107); Estimated CRCL calculation 76 ml/min; Estimated Glomerular Filt Rate > 60; Glucose 93 mg/dL (65-110); Potassium 3.8 mmol/L (3.4-5.0); Sodium 140 mmol/L (137-145)
[2022-04-27 16:47] LABS: Glucose Point of Care 123 mg/dl (65-105)
[2022-04-27 19:56] LABS: Glucose Point of Care 133 mg/dl (65-105)
[2022-04-27] MEDS: LATANOPROST 0.005% OP SOLN 2.5 ML BTL 1 DROP EACH EYE (20:58)
[2022-04-27] MEDS: MIRTAZAPINE 15 MG TABLET PO (20:59)
[2022-04-27] MEDS: SENNA/DOCUSATE SODIUM TABLET 1 TAB PO (20:59)
[2022-04-28] VITALS (15 sets, daily range): BP systolic 95–101; BP diastolic 45–53; PULSE 81–115; RESP 18–26; TEMP 35.8–36.6; O2SAT 96–100
[2022-04-28] MEDS: IPRATROPIUM BR 0.02% INH SOLN 0.5 MG/2.5 ML VIAL INHALATION ×3 (02:28→14:42)
[2022-04-28] MEDS: ALBUTEROL SULFATE NEB 2.5 MG/3 ML INH 5 MG INHALATION ×3 (02:28→14:42)
[2022-04-28] MEDS: ACETYLCYSTEINE 20% INHAL SOLN 800 MG/4 ML VIAL 200 MG INHALATION ×3 (02:28→14:42)
[2022-04-28] MEDS: CENTRAL LINE FLUSH 10 ML IV PUSH ×2 (06:21→06:25)
[2022-04-28] MEDS: LEVOTHYROXINE SODIUM 50 MCG TABLET PO (06:33)
[2022-04-28 07:02] LABS: Basophils Percent Auto 0.2 % (0.2-1.2); Eosinophils Absolute Auto 0.1 K/mm3 (0-0.3); Hematocrit 23.5 % (37.0-47.0); Hemoglobin 7.6 g/dL (12.0-15.0); Immature Granulocyte Absolute 0.08 K/mm3 (0.00-0.031); Immature Granulocyte Percent A 0.6 % (0-0.5); Lymphocytes Absolute Auto 1.08 K/mm3 (0.9-3.2); Lymphocytes Percent Auto 8.6 % (18.3-44.2); Mean Corpuscular HGB Conc 32.3 g/dl (32-36); Mean Corpuscular Hemoglobin 28.5 pg (26-34); Mean Platelet Volume 12.6 fl (7.4-10.4); Monocytes Absolute Auto 0.6 K/mm3 (0.1-0.6); Monocytes Percent Auto 4.4 % (2.6-8.5); Neutrophils Absolute Auto 10.7 K/mm3 (1.3-6.7); Neutrophils Percent Auto 85.2 % (45.5-73.1); Platelet Count Result 144 k/mm3 (150-375); Red Blood Count 2.67 M/mm3 (4.2-5.4); Red Cell Distribution Width 17.3 % (11.5-14.5); White Blood Count 12.6 K/mm3 (4.5-10.0)
[2022-04-28 07:16] LABS: Alanine Aminotransferase 16 U/L (6-35); Albumin Level 2.2 g/dL (3.5-5.1); Alkaline Phosphatase 93 U/L (38-126); Anion Gap 1 mmol/L (8-16); Aspartate Amino Transferase 18 U/L (14-36); Blood Urea Nitrogen 7 mg/dL (7-17); Calcium 7.2 mg/dL (8.4-10.2); Carbon Dioxide 24 mmol/L (22-30); Chloride 110 mmol/L (98-107); Estimated CRCL calculation 76 ml/min; Estimated Glomerular Filt Rate > 60; Glucose 88 mg/dL (65-110); Magnesium 1.8 mg/dL (1.6-2.3); Phosphorus 2.3 mg/dL (2.5-4.5); Potassium 3.7 mmol/L (3.4-5.0); Sodium 135 mmol/L (137-145)
[2022-04-28 07:20] LABS: Vancomycin Trough 21.6 ug/mL (10.0-20.0)
[2022-04-28 07:54] LABS: Glucose Point of Care 96 mg/dl (65-105)
[2022-04-28] MEDS: ASPIRIN 325 MG TABLET PO (09:03)
[2022-04-28] MEDS: AMIODARONE HCL 200 MG TABLET PO (09:03)
[2022-04-28] MEDS: GABAPENTIN 100 MG CAPSULE PO ×2 (09:04→12:23)
[2022-04-28] MEDS: PANTOPRAZOLE SODIUM IV 40 MG VIAL IV PUSH (09:04)
[2022-04-28] MEDS: TOLNAFTATE 1% POWDER 45 GM BTL 1 APPLIC TOPICAL (09:05)
[2022-04-28] MEDS: NEOMYCIN/POLYMYXIN/BACITRACIN OINTMENT 15 GM TUBE 1 APPLIC TOPICAL (11:30)
[2022-04-28 12:46] LABS: Glucose Point of Care 70 mg/dl (65-105)
--- NOTE | 2022-04-28 14:34 | PM.IMPN ---
Progress Note: A&P Assessment and Plan (1) Osteomyelitis of sacrum: Code(s): M46.28 - Osteomyelitis of vertebra, sacral and sacrococcygeal region Status: Acute Assessment and Plan: cont abx, cont vanc + zosyn, appreciate wound care and ID pharmacist consultations pain controlled at this time (2) Hypokalemia: Code(s): E87.6 - Hypokalemia Status: Acute Assessment and Plan: reurrent, mag 1.9, replete and recheck (3) Hypernatremia: Code(s): E87.0 - Hyperosmolality and hypernatremia Status: Acute Assessment and Plan: resolved, monitor (4) Seizure: Code(s): R56.9 - Unspecified convulsions Status: Acute Assessment and Plan: monitor, no recent seizures (5) Atrial fibrillation: Code(s): I48.91 - Unspecified atrial fibrillation Status: Acute Assessment and Plan: in sinus, monitor telemetry cont amio (6) Dementia: Code(s): F03.90 - Unspecified dementia, unspecified severity, without behavioral disturbance, psychotic disturbance, mood disturbance, and anxiety Status: Acute Assessment and Plan: at baseline mentation (7) Hypothyroid: Code(s): E03.9 - Hypothyroidism, unspecified Status: Acute Assessment and Plan: elevated TSH, unsure if she was compliant with levothyroxine, will cont here, would consider increasing the dose and rechecking in 4-6 weeks if she was compliant with current dose at home (8) Anemia: Code(s): D64.9 - Anemia, unspecified Status: Acute Assessment and Plan: monitor, stable, hgb 7.3 (9) Sacral decubitus ulcer, stage IV: Code(s): L89.154 - Pressure ulcer of sacral region, stage 4 Status: Acute Assessment and Plan: per wound care (10) Osteomyelitis of coccyx: Code(s): M86.9 - Osteomyelitis, unspecified Status: Acute Assessment and Plan: as above (11) Esophagitis with gastritis: Code(s): K29.70 - Gastritis, unspecified, without bleeding; K20.90 - Esophagitis, unspecified without bleeding Status: Acute Assessment and Plan: resolved, monitor (12) Septic shock: Code(s): A41.9 - Sepsis, unspecified organism; R65.21 - Severe sepsis with septic shock Status: Acute Assessment and Plan: resolved, cont abx (13) Failure to thrive: Status: Acute Assessment and Plan: hospice appropriate encourage po intake (14) Empyema: Code(s): J86.9 - Pyothorax without fistula Status: Acute Assessment and Plan: Would need to transfer to higher level of care for CT surgery support for CT placement, possible pleurodesis vs VATS with decortication as the empyema is likely contributing to the patient's original sepsis picture in addition to the osteomyelitis of the sacral decubitus ulcer 04/26/22: Family interested in assessment by CT surgery for possible further interventions for the empyema and continued treatment for the coccygeal osteomyelitis, patient placed on waiting list at [facility] and [facility], 1-2 week wait at both facilities noted. (15) Malnourished: Code(s): E46 - Unspecified protein-calorie malnutrition Status: Acute Assessment and Plan: albumin 2.2 Plan 04/26/22: Discussed with family. Patient is on a waiting list at [facility] and [facility]. Empyema has high mortality/morbidity rate, especially left untreated and with comorbid malnutrition and osteomyelitis. Hospice care would be appropriate for the highest quality of life at this time as opposed to transferring for pleuredesis/chest tube/decortication/VATS. DVT prophylaxis with SCDs GI prophylaxis with PPI Code status modified, no CPR, okay with intubation Subjective Date/time seen: 04/28/22 14:35 Interval history: No overnight events noted. No chest pain or shortness of breath. No nausea, vomiting or diarrhea. No fevers or chills. Patient states she feels better today than yesterday, more alert.
[2022-04-28 18:46] LABS: Amylase, Pleural Fluid <10 U/L
--- NOTE | 2022-04-28 19:48 | PM.TDS ---
Transfer Discharge Sum: Prov Provider Date of admission: 04/21/22 17:16 Primary care physician: Micheal Giordano MD Admitting clinician: Kerrie Gutiérrez MD Consults: 04/21/22 Wound/ET Consult Routine Reason for Consult:: large unstageable decub on buttock, with dried black gauze that we were unable to remove with saline. and on heels. 04/21/22 23:38 Consult Infectious Disease Pharmacist Routine Comment: 04/22/22 Consult to Physician Routine Comment: left message @[id number](ER,US) Consulting Provider: Dylon Basilio call center trainer/MD group to consult: Reason for consultation: CT results Has provider been notified: Yes Consult to Physician Routine Comment: spoke with office @[id number](ER,US) Consulting Provider: Malissa Dueñas Reason for consultation: decubitus ulcer Has provider been notified: Yes 04/22/22 18:45 Consult to Physician Routine Comment: Consulting Provider: Elicia Doan Reason for consultation: low bp Has provider been notified: Yes 04/25/22 08:12 Consult to Physician Routine Comment: Spoke with the Dr and notified him of consult Consulting Provider: Jose Antonio call center trainer/MD group to consult: Pulmonology Reason for consultation: Left lung collapse, Has provider been notified: Yes DS: Admitting Diagnosis Discharge Date 04/28/22 Admitting Diagnosis Coccyx wound DS: Discharge Diagnosis Discharge Diagnosis (1) Osteomyelitis of sacrum: Code(s): M46.28 - Osteomyelitis of vertebra, sacral and sacrococcygeal region Status: Acute (2) Hypokalemia: Code(s): E87.6 - Hypokalemia Status: Acute (3) Hypernatremia: Code(s): E87.0 - Hyperosmolality and hypernatremia Status: Acute (4) Seizure: Code(s): R56.9 - Unspecified convulsions Status: Acute (5) Atrial fibrillation: Code(s): I48.91 - Unspecified atrial fibrillation Status: Acute (6) Dementia: Code(s): F03.90 - Unspecified dementia, unspecified severity, without behavioral disturbance, psychotic disturbance, mood disturbance, and anxiety Status: Acute (7) Hypothyroid: Code(s): E03.9 - Hypothyroidism, unspecified Status: Acute (8) Anemia: Code(s): D64.9 - Anemia, unspecified Status: Acute (9) Sacral decubitus ulcer, stage IV: Code(s): L89.154 - Pressure ulcer of sacral region, stage 4 Status: Acute (10) Osteomyelitis of coccyx: Code(s): M86.9 - Osteomyelitis, unspecified Status: Acute (11) Esophagitis with gastritis: Code(s): K29.70 - Gastritis, unspecified, without bleeding; K20.90 - Esophagitis, unspecified without bleeding Status: Acute (12) Septic shock: Code(s): A41.9 - Sepsis, unspecified organism; R65.21 - Severe sepsis with septic shock Status: Acute (13) Failure to thrive: Status: Acute (14) Empyema: Code(s): J86.9 - Pyothorax without fistula Status: Acute (15) Malnourished: Code(s): E46 - Unspecified protein-calorie malnutrition Status: Acute Transfer Discharge Sum: Med Medications Active and Home Medications: Home Medications Adults Multivitamin 1 tablet PO DAILY 04/01/22 [History Confirmed 04/21/22] acetaminophen 650 mg tablet 650 mg PO Q6H PRN Pain (Scale Score 1-3) 04/01/22 [History Confirmed 04/21/22] albuterol sulfate 90 mcg/actuation aerosol inhaler 2 puff inhalation Q6H PRN Shortness Of Breath 04/01/22 [History Confirmed 04/21/22] amiodarone 200 mg tablet 200 mg PO DAILY 04/01/22 [History Confirmed 04/21/22] ascorbic acid (vitamin C) 500 mg PO DAILY 04/01/22 [History Confirmed 04/21/22] bisacodyl 10 mg rectal suppository 10 mg RECTAL DAILY PRN Constipation 04/01/22 [History Confirmed 04/21/22] calcium carbonate 600 mg PO BID 04/01/22 [History Confirmed 04/21/22] collagenase clostridium histo. 250 unit/gram topical ointment (Santyl) 1 applic topical DAILY 04/01/22 [History
[2022-04-29 17:11] LABS: LDH Pleural Fluid 1057 U/L; Total Protein Pleural Fluid <3.0 g/dL
[2022-04-29 17:11] LABS: Glucose Pleural Fluid 18 mg/dL
[2022-05-02 07:49] LABS: Albumin Pleural Fluid 0.8 g/dL
== END 2022-04-28 16:21 | disposition short-term general hospital (02) | DRG 871 ==
LOC: ANHED 12:54 → ANHIMU 18:44 → ANHICU 04-22 18:48 → ANHIMU 04-26 22:02
PROVIDERS: Internal Medicine; Nurse Practitioner; Student in an Organized Health Care Education/Training Program; Admitting Provider Family Medicine; Emergency Provider Emergency Medicine; PCP Family Medicine; Visit Provider Internal Medicine
DX: A41.9 Sepsis, unspecified organism (principal); J86.9 Pyothorax without fistula; L89.154 Pressure ulcer of sacral region, stage 4; R65.21 Severe sepsis with septic shock; M46.28 Osteomyelitis of vertebra, sacral and sacrococcygeal region; E46 Unspecified protein-calorie malnutrition; J90 Pleural effusion, not elsewhere classified; E87.0 Hyperosmolality and hypernatremia; I48.91 Unspecified atrial fibrillation; F03.90 Unspecified dementia, unspecified severity, without behavioral disturbance, psychotic disturbance, mood disturbance, and anxiety; E03.9 Hypothyroidism, unspecified; D64.9 Anemia, unspecified; K29.70 Gastritis, unspecified, without bleeding; Z20.822 Contact with and (suspected) exposure to COVID-19; Z79.51 Long term (current) use of inhaled steroids; Z79.899 Other long term (current) drug therapy; Z66 Do not resuscitate; R62.7 Adult failure to thrive; Z68.24 Body mass index [BMI] 24.0-24.9, adult; Z86.718 Personal history of other venous thrombosis and embolism; Z98.84 Bariatric surgery status; E87.6 Hypokalemia
CPT/HCPCS: 32555; 36415; 36430; 36556; 36569; 71045; 71250; 74177; 80048; 80053; 80202; 81001; 82042; 82150; 82945; 82948; 83605; 83615; 83690; 83735; 83986; 84100; 84157; 84311; 84439; 84443; 84478; 84480; 85025; 85027; 85610; 85730; 86140; 86850; 86900; 86901; 86920; 87015; 87040; 87070; 87075; 87077; 87086; 87088; 87102; 87116; 87186; 87205; 87206; 87493; 87636; 88108; 88184; 88305; 89051; 92611; 93306; 94640; 94669; 96365; 96367; 96375; 99285; A9270; C1751; C9113; J0131; J0610; J1170; J2270; J2543; J3370; J3430; J3475; J3480; J7030; J7040; J7050; J7070; P9016; P9017; P9047; Q9967; U0003; U0005

== ENCOUNTER 2023-10-03 10:26 | Emergency (ER) | payer MEDICARE, SELFPAY ==
--- NOTE | ~2023-10-03 | XR_ITS ---
EXAMINATION: XR abdomen gastric tube insert DATE: 10/03/2023 11:10 INDICATION: Gastrostomy tube placement TECHNIQUE: A supine view of the abdomen and lower chest was obtained for evaluation of feeding tube placement. COMPARISON: None. FINDINGS: Gastrostomy tube is outlined by some injected water-soluble contrast which is seen within the body th e stomach. No extraluminal contrast extravasation. Nonobstructive bowel gas pattern. Cholecystectomy clips in the right upper quadrant. Likely ventriculoperitoneal shunt catheter projects across the lef t abdomen with distal tip extending into the right hemipelvis. Additional surgical clips in the left upper quadrant. Likely atelectasis/scarring at the left lung base. Left pectoral implantable library monitor. Partially visualized bipolar type left hip hemiarthroplasty. Thoracolumbar instrumented post erior spinal fusion. IMPRESSION: 1. Percutaneous gastrostomy tube bulb and injected contrast in the body the stomach. Reviewed, dictated and finalized at location A. IMPRESSION: 1. Percutaneous gastrostomy tube bulb and injected contrast in the body the sto mach.
[2023-10-03 10:31] VITALS: BP 144/64; PULSE 91; RESP 16; TEMP 36.7; O2SAT 99
[2023-10-03 10:36] VITALS: RESP 16; O2SAT 100
--- NOTE | 2023-10-03 10:39 | PC.NURSE ---
Pt g-tube with splint in tube noted. Dressing to g-tube site dry & intact. Pt left side paralysis, contractures to left arm & bilateral foot drop.
--- NOTE | 2023-10-03 10:48 | ED.GENADULT ---
HPI - General Adult General Chief complaint: Recheck/Abnormal Lab/Rx Stated complaint: g tube tear Time Seen by Provider: 10/03/23 10:31 History of Present Illness HPI narrative: patient is a 72-year-old female who presents ER with palpation of her G-tube. It was found to be fractured this morning and she cannot receive feeds. No other issues. Related Data Home Medications Medication Instructions Recorded Confirmed Adults Multivitamin 1 tablet PO DAILY 04/01/22 04/21/22 acetaminophen 650 mg tablet 650 mg PO Q6H PRN Pain (Scale 04/01/22 04/21/22 Score 1-3) albuterol sulfate 90 mcg/actuation 2 puff inhalation Q6H PRN 04/01/22 04/21/22 aerosol inhaler Shortness Of Breath amiodarone 200 mg tablet 200 mg PO DAILY 04/01/22 04/21/22 ascorbic acid (vitamin C) 500 mg PO DAILY 04/01/22 04/21/22 bisacodyl 10 mg rectal suppository 10 mg RECTAL DAILY PRN Constipation 04/01/22 04/21/22 calcium carbonate 600 mg PO BID 04/01/22 04/21/22 collagenase clostridium histo. 250 1 applic topical DAILY 04/01/22 04/21/22 unit/gram topical ointment (Santyl) ergocalciferol (vitamin D2) 1,250 mcg PO WEEKLY 04/01/22 04/21/22 famotidine 20 mg PO DAILY 04/01/22 04/21/22 furosemide 20 mg PO BID 04/01/22 04/21/22 gabapentin 100 mg capsule 100 mg PO TID 04/01/22 04/21/22 latanoprost 0.005 % eye drops 1 drp EACH EYE HS 04/01/22 04/21/22 mirtazapine 15 mg tablet 15 mg PO HS 04/01/22 04/21/22 pantoprazole 40 mg tablet,delayed 40 mg PO DAILY 04/01/22 04/21/22 release polyethylene glycol 3350 17 17 g PO DAILY 04/01/22 04/21/22 gram/dose oral powder (Miralax) Allergies Allergy/AdvReac Type Severity Reaction Status Date / Time No Known Allergies Allergy Mild Verified 10/03/23 10:41 Review of Systems Constitutional: Constitutional: Reports no additional constitutional complaints Gastrointestinal: Gastrointestinal: Reports no additional gastrointestinal complaints [facility] Past Medical History Medical History Atrial fibrillation Cerebral aneurysm Dementia DVT (deep venous thrombosis) Hypothyroid Seizure Surgical History Surgical History H/O gastric bypass H/O hand surgery H/O rectocele repair H/O repair of left rotator cuff H/O Spinal surgery H/O: hysterectomy History of bladder surgery Bladder suspension History of tonsillectomy and adenoidectomy S/P ASH WORKER shunt Family History Family History Other Unknown family medical history Social History Social History Social History: The patient is from [facility]. She is listed as a DNR. The patient tells me that she had 3 children and 1 has . She is . 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 She is listed as . Code status DNR Smoking status: Unknown if ever smoked Alcohol intake: unknown Substance use: never Spiritual care concerns: No Exam Narrative: GENERAL: Well-appearing, well-nourished, and in no acute distress. HEAD: Normocephalic, atraumatic. CHEST: Clear to auscultation. No respiratory distress. HEART: Regular rate and rhythm. Normal peripheral pulses. ABDOMEN: Soft, nontender, nondistended. G-tube in left upper quadrant. SKIN: Warm, dry, no rash. NEURO: Alert and oriented x2. PSYCH: Normal mood and affect. Course Course Emergency Course: G-tube exchange. Placement confirmed with imaging. Discharge. Vital Signs Vital signs: Vital Signs Temperature 98.0 F 10/03/23 10:31 Pulse Rate 91 10/03/23 10:31 Respiratory Rate 16 10/03/23 10:31 Blood Pressure 144/64 H 10/03/23 10:31 Pulse Oximetry 99 10/03/23 10:31 Oxygen Delivery Room Air 10/03/23 10:31 Temperature 98.0 F 10/03/23 11:30 Pulse Rate 71 10/03/23 12:02 Respiratory Rate 16 10/03/23 12:02 Blood Pressure
--- NOTE | 2023-10-03 10:51 | PC.NURSE ---
Dr. Clay at bedside, removed damaged G-tube small amount bloody brown drainage noted around site. Dr. Clay replaced G-tube #20F EndoVive with 10ml saline balloon. Gauze dressing applied around site. Pt tolerated well.
[2023-10-03 11:00] VITALS: BP 120/52; PULSE 83; RESP 16; TEMP 36.7; O2SAT 100
[2023-10-03 11:30] VITALS: BP 103/62; PULSE 73; RESP 16; TEMP 36.7; O2SAT 100
[2023-10-03 12:02] VITALS: BP 114/55; PULSE 71; RESP 16; O2SAT 100
--- NOTE | 2023-10-03 12:05 | PC.NURSE ---
RN called Radiology concerning results of abd XR. Tech aware still needs read
== END 2023-10-03 13:16 ==
PROVIDERS: Emergency Provider Emergency Medicine; PCP Family Medicine
DX: K94.23 Gastrostomy malfunction (principal); F03.90 Unspecified dementia, unspecified severity, without behavioral disturbance, psychotic disturbance, mood disturbance, and anxiety; I48.91 Unspecified atrial fibrillation; E03.9 Hypothyroidism, unspecified; Z66 Do not resuscitate; Z98.2 Presence of cerebrospinal fluid drainage device; Z98.84 Bariatric surgery status; Z86.718 Personal history of other venous thrombosis and embolism; Z90.710 Acquired absence of both cervix and uterus; Z79.899 Other long term (current) drug therapy
CPT/HCPCS: 43762; 99283; Q9966

== ENCOUNTER 2023-12-15 16:17 | Inpatient (IN) | payer MEDICARE, SELFPAY ==
[2023-12-15] VITALS (10 sets, daily range): BP systolic 108–135; BP diastolic 69–83; PULSE 124–130; RESP 11–17; TEMP 36.8–37.2; O2SAT 93–100
--- NOTE | ~2023-12-15 | CT_ITS ---
EXAMINATION: CT brain wo con DATE: 12/15/2023 17:48 INDICATION: AMS, hx aneurysm . TECHNIQUE: Computed tomography (CT) of the head was performed without intravenous contrast. The mA wa s adjusted according to patient size. Iterative reconstruction technique was employed. The dose-lengt h product was 605.33 mGy-cm. COMPARISON: 03/31/2022. FINDINGS: No acute intracranial hemorrhage or extra-axial fluid collection. No hydrocephalus, mass, or herniation. No acute ischemic infarct. Unremarkable dural venous sinus attenuation. No acute osseous abnormality. The aerated spaces are clear. Right frontotemporal craniotomy. Left parietal approach REGIONAL CLINICAL DIRECTOR shunt, terminating in the left lateral rebeca tricle. Right frontotemporal encephalomalacia and ex vacuo dilatation of the right lateral ventricle. Aneurysm clips. Bilateral prominent extra-axial spaces, similar in thickness but with slightly incre ased density of the extra-axial collections, greater than CSF density but less dense than cerebral wh ite matter. Moderate atrophy and chronic white matter change. Atherosclerotic intracranial calcificat ions. IMPRESSION: Stable size but slightly increasing density of the bilateral extra-axial collections, suggesting inte rval subdural hemorrhage since the 2021 examination occurring within the existing chronic bilateral s ubdural hematomas/subdural hygromas. Density suggests late subacute or early chronic timing (roughly greater than one week to several weeks). Reviewed, dictated and finalized at location K. IMPRESSION: Stable size but slightly increasing density of the bilateral extra-axial collec tions, suggesting interval subdural hemorrhage since the 2021 examination occur ring within the existing chronic bilateral subdural hematomas/subdural hygromas . Density suggests late subacute or early chronic timing (roughly greater than one week to several weeks).
--- NOTE | ~2023-12-15 | XR_ITS ---
EXAMINATION: XR chest 2V Exam Date/Time: 12/15/2023 18:00 CDT HISTORY: ams, tachycardic Comparison: 04/26/2022, 04/02/2022. RESULT: Lines, tubes, and devices: Thoracolumbar fusion hardware. Cholecystectomy clips. Loop recorder. RIBBON HANKING MACHINE OPERATOR s curtis tubing traverses the left chest. Lungs and pleura: Left hemidiaphragm elevation, a chronic finding. Low volumes in the lateral view. Left basilar scar/atelectasis. No focal consolidation, large pleural effusion, or pneumothorax. Cardiomediastinal silhouette: Stable. Other: No acute osseous or upper abdominal finding. IMPRESSION: No acute cardiopulmonary process. Reviewed, dictated and finalized at location K.
--- NOTE | ~2023-12-15 | US_ITS ---
EXAMINATION: US venous doppler [facility] DATE: 12/19/2023 16:25 INDICATION: Lower limb edema. TECHNIQUE: Grayscale ultrasound images without and with compression and Doppler ultrasound images of the bilateral lower extremity veins were obtained. COMPARISON: None. FINDINGS: The visualized portions of right common femoral vein, profunda (deep) femoral vein, femoral vein, pop liteal vein, peroneal veins, posterior tibial veins, and greater saphenous vein outflow are patent. The visualized portions of left common femoral vein, profunda femoral vein, femoral vein, and greater saphenous vein outflow are patent. There is a left inguinal lymphadenopathy. A node measures 3.4 x 1 .7 cm. The popliteal vein was not evaluated. There is thrombus in left posterior tibial and peroneal veins. IMPRESSION: 1. Deep vein thrombosis involving left posterior tibial and peroneal veins. I called this result to Candelaria Mitchell. 2. Mild left inguinal lymphadenopathy. Reviewed, dictated and finalized at location A.
--- NOTE | ~2023-12-15 | XR_ITS ---
EXAMINATION: XR knee LT 3V DATE: 12/19/2023 15:42 INDICATION: Left knee joint effusion. TECHNIQUE: 4 views of left knee were obtained. COMPARISON: None. FINDINGS: Alignment is normal. No fracture. There is diffuse osteopenia. There is moderate osteoarthr itis of medial and lateral compartments. There is a moderate-sized knee joint effusion. IMPRESSION: 1. Moderate left knee osteoarthritis. 2. Osteopenia, which decreases sensitivity for fracture. 3. Moderate-sized left knee joint effusion. Reviewed, dictated and finalized at location A.
--- NOTE | ~2023-12-15 | CT_ITS ---
EXAMINATION: CT brain wo con DATE: 12/19/2023 21:34 INDICATION: Cerebral aneurysm. TECHNIQUE: Computed tomography (CT) of the head was performed without intravenous contrast. The mA wa s adjusted according to patient size. Iterative reconstruction technique was employed. The dose-lengt h product was 605.33 mGy-cm. COMPARISON: Head CT 12/15/2023 FINDINGS: There is chronic encephalomalacia involving the right frontal and temporal lobes and right insula and right basal ganglia. There is chronic encephalomalacia involving left frontal lobe. Again seen are chronic bilateral subdural hematomas overlying the right frontoparietal region and left fron totemporal parietal region that are hypodense to coates matter with maximum thickness of 5 mm on the ri ght and 5 mm on the left. There is no acute ischemic infarct or abnormal mass lesion. There is ex vac uo dilatation of right lateral ventricle. There is a left temporal parietal shunt catheter with tip i n body of left lateral ventricle. The orbits are normal. The paranasal sinuses are clear. There is a trace right mastoid effusion. There are changes of right-sided craniotomy. There is a aneurysm clip i n the suprasellar cistern on the right. There are old brennen holes in the skull bilaterally. IMPRESSION: 1. Chronic encephalomalacia involving the right frontotemporal region, right insula, right basal gang neyda, and left frontal lobe. 2. Stable chronic bilateral subdural hematomas. 3. Unchanged size of the ventricles with shunt in expected position. Reviewed, dictated and finalized at location A. IMPRESSION: 1. Chronic encephalomalacia involving the right frontotemporal region, right in sula, right basal ganglia, and left frontal lobe. 2. Stable chronic bilateral subdural hematomas. 3. Unchanged size of the ventricles with shunt in expected position.
--- NOTE | ~2023-12-15 | US_ITS ---
EXAMINATION: US soft tissue LE LT DATE: 12/17/2023 13:01 INDICATION: Left knee joint effusion. TECHNIQUE: Multiple grayscale and Doppler ultrasound images of the left lower limb were obtained. COMPARISON: None FINDINGS: There is a large left knee joint effusion. IMPRESSION: 1. Large left knee joint effusion. Reviewed, dictated and finalized at location A.
--- NOTE | 2023-12-15 16:35 | ECG_ITS ---
Test Date: 2023-12-15 16:50:45 Measurements Intervals Dawson Rate: 129 P: 0 MO: 0 QRS: -9 QRSD: 92 T: 58 QT: 306 QTc: 448 Interpretive Statements SUPRAVENTRICULAR TACHYCARDIA LOW QRS VOLTAGE IN EXTREMITY LEADS [QRS DEFLECTION < 0.5 mV IN LIMB LEADS] ABNORMAL RHYTHM ECG No previous ECG available for comparison Electronically Signed On 12-16-2023 12:42:39 CDT by Jose Thomas M.D.
--- NOTE | 2023-12-15 16:55 | ED.RECABL ---
HPI - Recheck/Abnormal Lab/Rx General Chief Complaint: Recheck/Abnormal Lab/Rx <ESA Wray Last Filed: 12/16/23 09:07> Stated Complaint: LOW O2 <ESA Wray Last Filed: 12/16/23 09:07> Time Seen by Provider: 12/15/23 16:37 <ESA Wray Last Filed: 12/16/23 09:07> Source: patient and family <ESA Wray Last Filed: 12/16/23 09:07> Mode of arrival: EMS <ESA Wray Last Filed: 12/16/23 09:07> Limitations: dementia <ESA Wray Last Filed: 12/16/23 09:07> History of Present Illness HPI narrative: Patient is a 73 y/o female, with PMH of aneurysm, G-tube, chronic sacral decubitus ulcer, Manzanares catheter with chronic UTIs, AFIB on eliquis and amiodarone, who presents to the ED via EMS with report of altered mental status. Daughter at bedside assisted in providing information. Patient is resident of [facility]. Is bedbound at baseline. Daughter reports she saw patient today and patient was noted to be confused, staring off into space. States she was not conversing like she normally would. Per records, A&OX2 at baseline. Patient is able to tell me her name in the ED. Denies any pain. Denies cough, nausea, chest pain, dizziness, abdominal pain. <ESA Wray Last Filed: 12/16/23 09:07> Related Data Home Medications: Home Medications Medication Instructions Recorded Confirmed Adults Multivitamin 1 tablet PO DAILY 04/01/22 12/16/23 acetaminophen 650 mg tablet 650 mg PO Q6H PRN TEMP 04/01/22 12/16/23 albuterol sulfate 90 mcg/actuation 2 puff inhalation Q6H PRN 04/01/22 12/16/23 aerosol inhaler Shortness Of Breath amiodarone 200 mg tablet 200 mg PO DAILY 04/01/22 12/16/23 collagenase clostridium histo. 250 1 applic topical DAILY 04/01/22 12/16/23 unit/gram topical ointment (Santyl) ergocalciferol (vitamin D2) 800 units G-tube DAILY 04/01/22 12/16/23 mirtazapine 15 mg tablet 15 mg PO HS 04/01/22 12/16/23 polyethylene glycol 3350 17 17 g PO DAILY PRN Constipation 04/01/22 12/16/23 gram/dose oral powder (Miralax) apixaban 5 mg tablet (Eliquis) 5 mg feeding tube BID 12/16/23 12/16/23 arginine 7 gram-glutamine 7 1 ea PO BID 12/16/23 12/16/23 gram-calcium HMB 1.5 gram oral powder pack (Jose) ferrous sulfate 325 mg (65 mg 325 mg feeding tube BID 12/16/23 12/16/23 iron) tablet hydrocodone 10 mg-acetaminophen 1 tablet feeding tube Q4H PRN Pain 12/16/23 12/16/23 325 mg tablet (Scale Score 4-6) hydrocodone 5 mg-acetaminophen 325 1 tablet feeding tube Q4H PRN Pain 12/16/23 12/16/23 mg tablet (Scale Score 1-3) levetiracetam 1,000 mg tablet 1,000 mg PO BID 12/16/23 12/16/23 lorazepam 0.5 mg tablet 0.5 mg feeding tube Q8H PRN Anxiety 12/16/23 12/16/23 morphine concentrate 5 mg/0.25 mL 5 mg PO Q2H PRN Pain (Scale Score 12/16/23 12/16/23 oral solution 7-10) sennosides 8.6 mg tablet (senna) 8.6 mg feeding tube BID 12/16/23 12/16/23 <Makayla Mccray PA-C - Last Filed: 12/16/23 09:07> Allergies/Adverse Reactions: Allergies Allergy/AdvReac Type Severity Reaction Status Date / Time No Known Allergies Allergy Mild Verified 10/03/23 10:41 <Makayla Mccray PA-C - Last Filed: 12/16/23 09:07> Review of Systems Review of Systems: All systems reviewed & are unremarkable except as noted in HPI. <Makayla Mccray PA-C - Last Filed: 12/16/23 09:07> All systems reviewed & are unremarkable except as noted in HPI and below <Makayla Mccray PA-C - Last Filed: 12/16/23 09:07> [facility] Past Medical History Medical History: Medical History Atrial fibrillation Cerebral aneurysm Dementia DVT (deep venous thrombosis) Hypothyroid Seizure <Makayla Mccray PA-C - Last Filed: 12/16/23 09:07> Surgical History Surgical History: Surgical History (Reviewed 11/24
[2023-12-15 17:42] LABS: Basophils Absolute Auto 0.1 K/mm3 (0.0-0.1); Basophils Percent Auto 0.5 % (0.2-1.2); Eosinophils Absolute Auto 0.3 K/mm3 (0-0.3); Immature Granulocyte Absolute 0.09 K/mm3 (0.00-0.031); Immature Granulocyte Percent A 0.7 % (0-0.5); Lymphocytes Absolute Auto 1.66 K/mm3 (0.9-3.2); Lymphocytes Percent Auto 12.5 % (18.3-44.2); Mean Corpuscular HGB Conc 27.7 g/dl (32-36); Mean Corpuscular Hemoglobin 24.6 pg (26-34); Mean Corpuscular Volume 88.8 fl (80-100); Mean Platelet Volume 9.5 fl (7.4-10.4); Monocytes Absolute Auto 1.3 K/mm3 (0.1-0.6); Monocytes Percent Auto 9.9 % (2.6-8.5); Neutrophils Absolute Auto 9.9 K/mm3 (1.3-6.7); Neutrophils Percent Auto 74.4 % (45.5-73.1); Red Blood Count 2.32 M/mm3 (4.2-5.4); Red Cell Distribution Width 18.2 % (11.5-14.5); White Blood Count 13.3 K/mm3 (4.5-10.0)
[2023-12-15] MEDS: SODIUM CHLORIDE 0.9% IV 1,000 ML 999 ML IV CONT ×2 (17:51→18:43)
[2023-12-15 17:58] LABS: Alanine Aminotransferase 11 U/L (6-35); Albumin Level 3.2 g/dL (3.5-5.1); Alkaline Phosphatase 171 U/L (38-126); Anion Gap 5 mmol/L (4-12); Aspartate Amino Transferase 17 U/L (14-36); Bilirubin,Total 0.2 mg/dL (0.2-1.3); Blood Urea Nitrogen 55 mg/dL (7-17); Calcium 8.6 mg/dL (8.4-10.2); Carbon Dioxide 32 mmol/L (22-30); Chloride 111 mmol/L (98-107); Estimated Glomerular Filt Rate > 60; Glucose 121 mg/dL (65-110); Potassium 4.8 mmol/L (3.4-5.0); Sodium 148 mmol/L (137-145)
[2023-12-15 18:01] LABS: Lactic Acid Reflex 1.5 mmol/L (0.7-2.0)
[2023-12-15 18:17] LABS: Influenza A QL RT-PCR Negative (Negative); Influenza B QL RT-PCR Negative (Negative); RSV RNA, RT-PCR Negative (Negative); SARS-CoV-2 RNA PCR Negative (Negative)
[2023-12-15 18:20] LABS: Hematocrit 20.6 % (37.0-47.0); Hemoglobin 5.7 g/dL (12.0-15.0); Platelet Count Result 1043 k/mm3 (150-375)
[2023-12-15 18:21] LABS: Anisocytosis 1+; Hypochromasia 2+; Macrocytosis 1+ (NORMAL); Platelet Estimate Increased (Adequate); Polychromasia 1+
[2023-12-15 18:22] LABS: Schistocytes None Seen
[2023-12-15 18:42] LABS: Add Urine Microscopic? YES; Appearance Urine Turbid (Clear); Bacteria Urine 4+ /hpf; Bilirubin Urine Negative (Negative); Blood Urine 1+ (Negative); Budding Yeast Urine Present /hpf; Color Urine Orange (Yellow); Glucose Urine UA Negative (Negative); Ketones Urine Negative (Negative); Leukocyte Esterase Ur 3+ LEU/UL (Negative); Mucus Urine Present /lpf; Need Manual Microscopic Reviewed; Nitrate Urine Positive (Negative); Protein Urine 3+ mg/dL (Negative); RBC Urine 51-100 /hpf (0-2); Specific Grav Ur 1.023 (1.001-1.035); Squamous Epithelial Cell Urine Occasional /hpf (Few); Triple Phosphate Crystal Urine Present /hpf; Urobilinogen Urine 0.2 mg/dL (<2.0); WBC Urine 21-50 /hpf (0-3); pH Urine >=9.0 (5.0-9.0)
[2023-12-15 18:47] LABS: Procalcitonin 0.2 ng/mL
--- NOTE | 2023-12-15 19:38 | PC.NURSE ---
Assumed care of pt after receiving bedside report from ART Hackett. [id number]
--- NOTE | 2023-12-15 20:11 | PM.IMHP ---
H&P: HPI History of Present Illness Date/Time: 12/15/23 20:11 Chief Complaint: ams Narrative: This is a 73-year-old female with past medical history significant for brain aneurysm, atrial fibrillation rate controlled deep vein thrombosis, dementia, seizure. Patient is a shelter resident. Brought to the emergency room due to altered mental status. History has been obtained from daughter who is at bedside and medical records. Preliminary workup was significant for CT of the head with subdural hematoma, a urinalysis was significant for numerous WBCs present, patient also found to have a hemoglobin of 5. EXAMINATION: CT brain wo con DATE: 12/15/2023 17:48 INDICATION: AMS, hx aneurysm . TECHNIQUE: Computed tomography (CT) of the head was performed without intravenous contrast. The mA was adjusted according to patient size. Iterative reconstruction technique was employed. The dose-length product was 605.33 mGy-cm. COMPARISON: 03/31/2022. FINDINGS: No acute intracranial hemorrhage or extra-axial fluid collection. No hydrocephalus, mass, or herniation. No acute ischemic infarct. Unremarkable dural venous sinus attenuation. No acute osseous abnormality. The aerated spaces are clear. Right frontotemporal craniotomy. Left parietal approach CERTIFIED DIETARY MANAGER shunt, terminating in the left lateral ventricle. Right frontotemporal encephalomalacia and ex vacuo dilatation of the right lateral ventricle. Aneurysm clips. Bilateral prominent extra-axial spaces, similar in thickness but with slightly increased density of the extra-axial collections, greater than CSF density but less dense than cerebral white matter. Moderate atrophy and chronic white matter change. Atherosclerotic intracranial calcifications. IMPRESSION: Stable size but slightly increasing density of the bilateral extra-axial collections, suggesting interval subdural hemorrhage since the 2021 examination occurring within the existing chronic bilateral subdural hematomas/subdural hygromas. Density suggests late subacute or early chronic timing (roughly greater than one week to several weeks). EXAMINATION: XR chest 2V Exam Date/Time: 12/15/2023 18:00 CDT HISTORY: ams, tachycardic Comparison: 04/26/2022, 04/02/2022. RESULT: Lines, tubes, and devices: Thoracolumbar fusion hardware. Cholecystectomy clips. Loop recorder. CERTIFIED DIETARY MANAGER shunt tubing traverses the left chest. Lungs and pleura: Left hemidiaphragm elevation, a chronic finding. Low volumes in the lateral view. Left basilar scar/atelectasis. No focal consolidation, large pleural effusion, or pneumothorax. Cardiomediastinal silhouette: Stable. Other: No acute osseous or upper abdominal finding. IMPRESSION: No acute cardiopulmonary process. [facility] Past Medical History Medical History Atrial fibrillation Cerebral aneurysm Dementia DVT (deep venous thrombosis) Hypothyroid Seizure Surgical History Surgical History H/O gastric bypass H/O hand surgery H/O rectocele repair H/O repair of left rotator cuff H/O Spinal surgery H/O: hysterectomy History of bladder surgery Bladder suspension History of tonsillectomy and adenoidectomy S/P CERTIFIED DIETARY MANAGER shunt Family History Family History Other Unknown family medical history Social History Social History Social History: The patient is from [facility]. She is listed as a DNR. The patient tells me that she had 3 children and 1 has . She is . 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 She is listed as . Code status DNR Smoking status: Unknown if ever smoked Alcohol intake: never Substance use: never Do You Feel Safe in your Home?: Yes Lack of Transportation: No Lack of Food:
[2023-12-15] MEDS: SODIUM CHLORIDE 0.9% IV 250 ML 30 ML IV CONT (20:59)
[2023-12-15] MEDS: TUBING, BLOOD SET 1 EACH XX (21:00)
[2023-12-15] MEDS: MEROPENEM 500 MG/NS 100 ML 500 MG/100 ML BAG 200 MG IVPB (23:15)
--- NOTE | 2023-12-15 23:26 | PC.NURSE ---
D[place]TON from Dr. Rivera, pt is to received 2nd unit of blood after admission.
[2023-12-16] VITALS (14 sets, daily range): BP systolic 116–143; BP diastolic 58–69; PULSE 79–126; RESP 16–20; TEMP 36.1–36.9; O2SAT 96–98; BMI 21.9
[2023-12-16] MEDS: SODIUM CHLORIDE 0.9% IV 250 ML 30 ML (00:30)
--- NOTE | 2023-12-16 00:32 | ADMGEN ---
This patient, Babs Felton, was admitted to Medical Room 248-01. Patient/family oriented to hospital policies and general routines including ID bracelet, bed and alarms, visiting hours, pain management, procedures, bathroom and other care routines, personal items, smoking policy, room service/diet, and visiting hours. Information on how to activate the Rapid Response Team has been discussed. Patient/Family are encouraged to report perceived risks to care and to ask questions if they do not understand what they are told or what they should do.
[2023-12-16] MEDS: ACETAMINOPHEN 325 MG TABLET 650 MG PO (00:49)
[2023-12-16] MEDS: MEROPENEM 500 MG/NS 100 ML 500 MG/100 ML BAG 200 MG IVPB ×3 (05:53→21:57)
[2023-12-16] MEDS: LEVOTHYROXINE SODIUM 50 MCG TABLET FEED TUBE (06:42)
--- NOTE | 2023-12-16 09:19 | PM.IMPN ---
Progress Note: A&P Assessment and Plan (1) Sepsis: Qualifiers: Sepsis acute organ dysfunction status: unspecified Sepsis type: sepsis due to unspecified organism Qualified Code(s): A41.9 - Sepsis, unspecified organism Code(s): A41.9 - Sepsis, unspecified organism Status: Acute Assessment and Plan: Meets SIRS criteria: WBC, HR, suspected source UTI vs possible ONLINE TRADER shunt infection - lactic acid: 1.5 - suspected source: urinary tract infection vs possible ONLINE TRADER shunt infection - antibiotics: meropenem - blood cultures drawn on 12/14: pending - UA: oragne color with turbid appearance, 3+ protein, 1+ blood, positive nitrates, 3+ leukocytes, 51-100 RBC, 21-50 WBC, triple phos crystals presents, 4+ bacteria, yeast present - Urine culture collected on 12/14: pending - Viral panel negative - CXR: no acute cardiopulmonary process - Head CT: Stable size but slightly increasing density of the bilateral extra-axial collections, suggesting interval subdural hemorrhage since the 2021 examination occurring within the existing chronic bilateral subdural hematomas/subdural hygromas. Density suggests late subacute or early chronic timing (roughly greater than one week to several weeks). - Neurology consulted (2) UTI (urinary tract infection): Qualifiers: Encounter type: initial encounter Indwelling urinary catheter type: indwelling urethral catheter Urinary tract infection type: catheter-associated UTI Qualified Code(s): T83.511A - Infection and inflammatory reaction due to indwelling urethral catheter, initial encounter; N39.0 - Urinary tract infection, site not specified Code(s): N39.0 - Urinary tract infection, site not specified Status: Acute Assessment and Plan: - UA: oragne color with turbid appearance, 3+ protein, 1+ blood, positive nitrates, 3+ leukocytes, 51-100 RBC, 21-50 WBC, triple phos crystals presents, 4+ bacteria, yeast present - Urine culture collected on 12/14: pending - No previous micro to be reviewed - started on meropenem (3) Hypernatremia: Code(s): E87.0 - Hyperosmolality and hypernatremia Status: Acute Assessment and Plan: Na 148 on admission. - Started on 100 ml q4 free water flushes - Monitor (4) Anemia: Code(s): D64.9 - Anemia, unspecified Status: Acute Assessment and Plan: H/H 5.7/20.6 on admission with platelet count of 1043. - s/p blood transfusion on 12/14 - occult negative, no hematuria - B12 and Folate WNL - Iron panel: 33 iron, 194 TIBC, 17% saturation - remains on iron supplementation Time Spent With Patient Time with patient: 25 - 35 minutes Subjective Date/time seen: 12/16/23 09:19 Interval history: 73 year old female with past medical history of aneurysm, G-tube, chronic sacral decubitus ulcer, Manzanares catheter with chronic UTIs, AFIB on eliquis and amiodarone, hypothyroidism, seizure history, dementia (baseline AOx2) presents to the hospital for altered mental status. Patient is pleasant lying in bed. She is AOx2 (person and place) on assessment but remains slow to answer questions. She denies pain, but then stopped replying to questions. Urine culture is pending. Patient has history of ONLINE TRADER shunt and CT is showing slightly increasing density of the bilateral extra-axial collections, suggesting interval subdural hemorrhage since the 2021 examination occurring within the existing chronic bilateral subdural hematomas/subdural hygromas. Neurology was consulted. She remains on meropenem at this time. Patient also has mild hypernatremia of 148. Started on free water flushes. Will continue to monitor. Patient was evaluated by wound care for a chronic pressure ulcer to her gluteal region. No recommendations at this time. Review of Systems Review of Systems: ROS unobtainable: Yes unobtainable due to mental status Exam Narrative: AF HR 94 RR 18 SpO2 97 BP 135/67 General: female in no acute respiratory di
[2023-12-16 10:11] LABS: Basophils Absolute Auto 0.1 K/mm3 (0.0-0.1); Basophils Percent Auto 0.5 % (0.2-1.2); Eosinophils Absolute Auto 0.2 K/mm3 (0-0.3); Eosinophils Percent Auto 1.2 % (0-4.4); Hematocrit 23.3 % (37.0-47.0); Hemoglobin 7.1 g/dL (12.0-15.0); Immature Granulocyte Absolute 0.09 K/mm3 (0.00-0.031); Immature Granulocyte Percent A 0.7 % (0-0.5); Lymphocytes Absolute Auto 1.42 K/mm3 (0.9-3.2); Mean Corpuscular HGB Conc 30.5 g/dl (32-36); Mean Corpuscular Hemoglobin 26.6 pg (26-34); Mean Corpuscular Volume 87.3 fl (80-100); Mean Platelet Volume 9.4 fl (7.4-10.4); Monocytes Percent Auto 7.6 % (2.6-8.5); Neutrophils Absolute Auto 10.2 K/mm3 (1.3-6.7); Platelet Count Result 789 k/mm3 (150-375); Red Blood Count 2.67 M/mm3 (4.2-5.4); White Blood Count 12.9 K/mm3 (4.5-10.0)
[2023-12-16 10:29] LABS: Chloride 118 mmol/L (98-107)
[2023-12-16 10:33] LABS: Alanine Aminotransferase 11 U/L (6-35); Albumin Level 2.9 g/dL (3.5-5.1); Alkaline Phosphatase 158 U/L (38-126); Anion Gap 7 mmol/L (4-12); Aspartate Amino Transferase 18 U/L (14-36); Bilirubin,Total 0.3 mg/dL (0.2-1.3); Blood Urea Nitrogen 39 mg/dL (7-17); Calcium 8.2 mg/dL (8.4-10.2); Carbon Dioxide 23 mmol/L (22-30); Estimated CRCL calculation 67 ml/min; Estimated Glomerular Filt Rate > 60; Glucose 143 mg/dL (65-110); Sodium 148 mmol/L (137-145)
[2023-12-16] MEDS: FERROUS SULFATE LIQUID 325 MG/7.4 ML ELIXIR 324 MG FEED TUBE ×2 (11:11→17:14)
[2023-12-16] MEDS: levETIRAcetam ORAL SOL 500 MG/5 ML UDC 1000 MG FEED TUBE ×2 (11:11→20:36)
[2023-12-16] MEDS: AMIODARONE HCL 200 MG TABLET FEED TUBE (11:12)
[2023-12-16] MEDS: CHOLECALCIFEROL 400 UNITS TABLET (VIT D) 800 UNITS FEED TUBE (11:12)
[2023-12-16] MEDS: SENNOSIDES 8.6 MG TABLET FEED TUBE ×2 (11:12→17:13)
[2023-12-16] MEDS: MULTIVITAMINS THERAPEUTIC TAB (*BKC) 1 TABLET FEED TUBE (11:13)
[2023-12-16] MEDS: COLLAGENASE OINT 30 GM TUBE 1 APPLIC TOPICAL (11:13)
[2023-12-16 11:37] LABS: Folic Acid 10.9 ng/mL (2.76->20); Vitamin B12 > 1000.0 pg/mL (239-931)
[2023-12-16 13:38] LABS: Iron 33 ug/dL (37-170)
[2023-12-16 13:47] LABS: Percent Iron Saturation 17 % (20-50)
[2023-12-16] MEDS: HYDROcodone/acetaminophen (*CRX) 5-325 MG TABLET 1 TAB FEED TUBE (14:29)
[2023-12-16] MEDS: polyethylene glycoL 3350 17 GM POWD.PACK FEED TUBE (17:13)
[2023-12-16] MEDS: ACETAMINOPHEN 325 MG TABLET 650 MG FEED TUBE (17:13)
[2023-12-16] MEDS: MIRTAZAPINE 15 MG TABLET FEED TUBE (20:36)
[2023-12-17] VITALS (18 sets, daily range): BP systolic 134–147; BP diastolic 65–92; PULSE 80–88; RESP 18–22; TEMP 35.8–36.8; O2SAT 96–100
[2023-12-17 05:40] LABS: Basophils Absolute Auto 0.1 K/mm3 (0.0-0.1); Basophils Percent Auto 0.5 % (0.2-1.2); Eosinophils Absolute Auto 0.3 K/mm3 (0-0.3); Eosinophils Percent Auto 2.9 % (0-4.4); Hematocrit 22.8 % (37.0-47.0); Immature Granulocyte Absolute 0.11 K/mm3 (0.00-0.031); Lymphocytes Absolute Auto 1.52 K/mm3 (0.9-3.2); Mean Corpuscular HGB Conc 28.9 g/dl (32-36); Mean Corpuscular Hemoglobin 25.5 pg (26-34); Mean Platelet Volume 9.4 fl (7.4-10.4); Monocytes Percent Auto 9.1 % (2.6-8.5); Neutrophils Absolute Auto 7.9 K/mm3 (1.3-6.7); Neutrophils Percent Auto 72.5 % (45.5-73.1); Platelet Count Result 713 k/mm3 (150-375); Red Blood Count 2.59 M/mm3 (4.2-5.4); Red Cell Distribution Width 17.5 % (11.5-14.5); White Blood Count 10.9 K/mm3 (4.5-10.0)
[2023-12-17 05:51] LABS: Alanine Aminotransferase 9 U/L (6-35); Albumin Level 2.6 g/dL (3.5-5.1); Alkaline Phosphatase 139 U/L (38-126); Anion Gap 6 mmol/L (4-12); Aspartate Amino Transferase 17 U/L (14-36); Bilirubin,Total 0.2 mg/dL (0.2-1.3); Blood Urea Nitrogen 35 mg/dL (7-17); Calcium 8.3 mg/dL (8.4-10.2); Carbon Dioxide 23 mmol/L (22-30); Chloride 114 mmol/L (98-107); Estimated CRCL calculation 79 ml/min; Estimated Glomerular Filt Rate > 60; Glucose 120 mg/dL (65-110); Potassium 3.7 mmol/L (3.4-5.0); Sodium 143 mmol/L (137-145)
[2023-12-17] MEDS: MEROPENEM 500 MG/NS 100 ML 500 MG/100 ML BAG 200 MG IVPB ×3 (05:53→21:34)
[2023-12-17] MEDS: LEVOTHYROXINE SODIUM 50 MCG TABLET FEED TUBE (05:54)
[2023-12-17 07:07] LABS: Hemoglobin 6.6 g/dL (12.0-15.0)
[2023-12-17 07:08] LABS: Anisocytosis 1+; Hypochromasia 1+; Platelet Estimate Increased (Adequate)
[2023-12-17 07:09] LABS: Schistocytes None Seen
--- NOTE | 2023-12-17 07:25 | PM.IMPN ---
Progress Note: A&P Assessment and Plan (1) Sepsis: Qualifiers: Sepsis acute organ dysfunction status: unspecified Sepsis type: sepsis due to unspecified organism Qualified Code(s): A41.9 - Sepsis, unspecified organism Code(s): A41.9 - Sepsis, unspecified organism Status: Acute Assessment and Plan: Meets SIRS criteria: WBC, HR, suspected source UTI vs possible TRUST OFFICER shunt infection - lactic acid: 1.5 - suspected source: urinary tract infection vs possible TRUST OFFICER shunt infection - antibiotics: meropenem - blood cultures drawn on 12/14: pending - UA: oragne color with turbid appearance, 3+ protein, 1+ blood, positive nitrates, 3+ leukocytes, 51-100 RBC, 21-50 WBC, triple phos crystals presents, 4+ bacteria, yeast present - Urine culture collected on 12/14: negative - Viral panel negative - CXR: no acute cardiopulmonary process - Head CT: Stable size but slightly increasing density of the bilateral extra-axial collections, suggesting interval subdural hemorrhage since the 2021 examination occurring within the existing chronic bilateral subdural hematomas/subdural hygromas. Density suggests late subacute or early chronic timing (roughly greater than one week to several weeks). - Neurology consulted (2) UTI (urinary tract infection): Qualifiers: Encounter type: initial encounter Indwelling urinary catheter type: indwelling urethral catheter Urinary tract infection type: catheter-associated UTI Qualified Code(s): T83.511A - Infection and inflammatory reaction due to indwelling urethral catheter, initial encounter; N39.0 - Urinary tract infection, site not specified Code(s): N39.0 - Urinary tract infection, site not specified Status: Acute Assessment and Plan: - UA: oragne color with turbid appearance, 3+ protein, 1+ blood, positive nitrates, 3+ leukocytes, 51-100 RBC, 21-50 WBC, triple phos crystals presents, 4+ bacteria, yeast present - Urine culture collected on 12/14: negative - No previous micro to be reviewed - started on meropenem (3) Anemia: Code(s): D64.9 - Anemia, unspecified Status: Acute Assessment and Plan: H/H 5.7/20.6 on admission with platelet count of 1043. - s/p blood transfusion on 12/14 - occult negative, no hematuria - B12 and Folate WNL - Iron panel: 33 iron, 194 TIBC, 17% saturation - remains on iron supplementation 12/16: H/H 6.6/22.8 on am labs. Platelets remain elevated at 713. - s/p pRBC transfusion on 12/16 - heme consulted (4) Hypernatremia: Code(s): E87.0 - Hyperosmolality and hypernatremia Status: Acute Assessment and Plan: Na 148 on admission. - Started on 100 ml q4 free water flushes - Monitor 12/16: Na 143 on am labs. Continue to monitor. (5) Atrial fibrillation: Code(s): I48.91 - Unspecified atrial fibrillation Status: Acute Assessment and Plan: Chronic, patients heart rate remains controlled at this time. - Continue amiodarone 200 mg daily - Holding eliquis at this time due to patients low hemoglobin and her requirement for blood transfusions (6) Hypothyroid: Code(s): E03.9 - Hypothyroidism, unspecified Status: Acute Assessment and Plan: Chronic, continue home medication. - Levothyroxine 50 mcg daily - TSH ordered Time Spent With Patient Time with patient: 25 - 35 minutes Subjective Date/time seen: 12/17/23 07:25 Interval history: 73 year old female with past medical history of aneurysm, G-tube, chronic sacral decubitus ulcer, Manzanares catheter with chronic UTIs, AFIB on eliquis and amiodarone, hypothyroidism, seizure history, dementia (baseline AOx2) presents to the hospital for altered mental status. Patient is pleasant lying comfortably in bed. She remains AOx2. Patient was noted to have a low H/H on am labs and receieved a unit of pRBC. There is no signs of active bleeding, no hematuria and per ER note the guiac was negative. Will order an
--- NOTE | 2023-12-17 07:53 | PC.NURSE ---
Blood transfusion ended on 0750, transfusion was started 35 hours ago on a prior shift. Amount given unknown, Vital signs at end of infusion unknown.
--- NOTE | 2023-12-17 09:35 | PC.NURSE ---
Ended/completed previous shift. unk end time and intake. Ended to start next unit. Provider updated.
[2023-12-17] MEDS: FERROUS SULFATE LIQUID 325 MG/7.4 ML ELIXIR 324 MG FEED TUBE ×2 (09:45→17:31)
[2023-12-17] MEDS: levETIRAcetam ORAL SOL 500 MG/5 ML UDC 1000 MG FEED TUBE (09:45)
[2023-12-17] MEDS: AMIODARONE HCL 200 MG TABLET FEED TUBE (09:46)
[2023-12-17] MEDS: SENNOSIDES 8.6 MG TABLET FEED TUBE ×2 (09:46→17:31)
[2023-12-17] MEDS: COLLAGENASE OINT 30 GM TUBE 1 APPLIC TOPICAL (09:47)
[2023-12-17] MEDS: CHOLECALCIFEROL 400 UNITS TABLET (VIT D) 800 UNITS FEED TUBE (09:47)
[2023-12-17] MEDS: MULTIVITAMINS THERAPEUTIC TAB (*BKC) 1 TABLET FEED TUBE (09:47)
[2023-12-17] MEDS: SODIUM CHLORIDE 0.9% IV 250 ML 30 ML IV CONT (09:48)
--- NOTE | 2023-12-17 16:33 | WPDNEURCNPN ---
Assessment and Plan Assessment and plan (1) Chronic subdural hematoma: Code(s): I62.03 - Nontraumatic chronic subdural hemorrhage Status: Acute (2) Atrial fibrillation: Code(s): I48.91 - Unspecified atrial fibrillation Status: Acute (3) Cerebral aneurysm: Code(s): I67.1 - Cerebral aneurysm, nonruptured Status: Acute (4) Complex partial seizures: Code(s): G40.209 - Localization-related (focal) (partial) symptomatic epilepsy and epileptic syndromes with complex partial seizures, not intractable, without status epilepticus Status: Acute Plan 1. With regard to the subdural hematoma and recent Bleeding and the fact that hemoglobin of 5.7 and she has a platelet count of 1047 on admission I agree with holding of anticoagulation. Have should also defer antiplatelets. I realize she has atrial fibrillation the does pose a risk of further stroke but given her overall quality of life, saving a from the complications of bleeding is a important. Hence I agree with her decision. 2. With regard to the staring spells it is possible that she might have had a few more seizures. Check her Keppra level. We should continue to monitor if she has any further spells of seizures. Increase the dose of Keppra further to 1250 mg twice a day. Of course if she has any metabolic problem or infection that can also be considered in the differential diagnosis of staring spells such as was described. These are being managed with antibiotics at this time. Hence at this time I would suggest continue follow-up. Consult date: 12/17/23 HPI: Babs Felton is a 73 year old female admitted to the hospital with a change in mental status and staring blankly. The patient has history of cerebral aneurysm and a shunt on the left side of the head and she has had surgery in relation to cerebral aneurysm in the past. I do not have the details of these however patient has been bed-bound. She has a very supportive family. She is currently on Keppra 2 g a day. Her CT scan of the brain has shown subdural hematoma with some increase in the size of the hematoma with recent bleed. White cell count was high and hemoglobin is low at 5.7 the platelet count was 1 3047. She was on Eliquis which has not been stopped. She is also thought to have urinary tract infection. The patient does talk and tells me that she came in because he was having some spells . CT scan of brain also shown some area of infarcts in the right frontal area besides subdural hematoma. The patient denies any headache nausea vomiting. She has not had any fever. it was noted that she has a craniotomy on the right side. She has a have a NANOTECHNOLOGY TECHNICIAN shunt on the left side. Review of Systems Review of Systems: All systems reviewed & are unremarkable except as noted in HPI and below PMFSH Past Medical History Medical History (Updated 12/17/23 @ 16:40 by Jordon Martinez MD) Atrial fibrillation Cerebral aneurysm Complex partial seizures Dementia DVT (deep venous thrombosis) Hypothyroid Seizure Surgical History Surgical History H/O gastric bypass H/O hand surgery H/O rectocele repair H/O repair of left rotator cuff H/O Spinal surgery H/O: hysterectomy History of bladder surgery Bladder suspension History of tonsillectomy and adenoidectomy S/P NANOTECHNOLOGY TECHNICIAN shunt Family History Family History Other Unknown family medical history Social History Social History Social History: The patient is from [facility]. She is listed as a DNR. The patient tells me that she had 3 children and 1 has . She is . 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 She is listed as . Code status DNR Smoking status: Unknown if ever smoked Alcohol intake: never Substance use: never Do You Feel
[2023-12-17 19:37] LABS: IFOB Positive Control Positive; Immunochemical Fecal Occult Bl Negative (N)
[2023-12-17] MEDS: levETIRAcetam ORAL SOL 500 MG/5 ML UDC 1250 MG FEED TUBE (21:33)
[2023-12-17] MEDS: MIRTAZAPINE 15 MG TABLET FEED TUBE (21:33)
[2023-12-18] VITALS (10 sets, daily range): BP systolic 136–151; BP diastolic 58–76; PULSE 77–91; RESP 14–24; TEMP 36.2–36.7; O2SAT 97–100
[2023-12-18 05:26] LABS: Basophils Percent Auto 0.4 % (0.2-1.2); Eosinophils Absolute Auto 0.2 K/mm3 (0-0.3); Eosinophils Percent Auto 1.3 % (0-4.4); Hematocrit 28.4 % (37.0-47.0); Hemoglobin 8.7 g/dL (12.0-15.0); Immature Granulocyte Absolute 0.08 K/mm3 (0.00-0.031); Immature Granulocyte Percent A 0.7 % (0-0.5); Lymphocytes Absolute Auto 1.35 K/mm3 (0.9-3.2); Mean Corpuscular HGB Conc 30.6 g/dl (32-36); Mean Corpuscular Volume 88.2 fl (80-100); Mean Platelet Volume 9.8 fl (7.4-10.4); Neutrophils Absolute Auto 8.6 K/mm3 (1.3-6.7); Neutrophils Percent Auto 76.6 % (45.5-73.1); Platelet Count Result 682 k/mm3 (150-375); Red Blood Count 3.22 M/mm3 (4.2-5.4); Red Cell Distribution Width 17.3 % (11.5-14.5); White Blood Count 11.2 K/mm3 (4.5-10.0)
[2023-12-18 05:40] LABS: Alanine Aminotransferase 10 U/L (6-35); Albumin Level 2.8 g/dL (3.5-5.1); Alkaline Phosphatase 135 U/L (38-126); Anion Gap 9 mmol/L (4-12); Aspartate Amino Transferase 20 U/L (14-36); Bilirubin,Total 0.3 mg/dL (0.2-1.3); Blood Urea Nitrogen 28 mg/dL (7-17); Calcium 8.2 mg/dL (8.4-10.2); Carbon Dioxide 23 mmol/L (22-30); Chloride 109 mmol/L (98-107); Estimated CRCL calculation 97 ml/min; Estimated Glomerular Filt Rate > 60; Glucose 119 mg/dL (65-110); Potassium 3.5 mmol/L (3.4-5.0); Sodium 141 mmol/L (137-145)
[2023-12-18] MEDS: MEROPENEM 500 MG/NS 100 ML 500 MG/100 ML BAG 100 MG IVPB ×3 (05:46→21:03)
[2023-12-18] MEDS: LEVOTHYROXINE SODIUM 50 MCG TABLET FEED TUBE (05:46)
[2023-12-18] MEDS: levETIRAcetam ORAL SOL 500 MG/5 ML UDC 1250 MG FEED TUBE ×2 (10:07→21:03)
[2023-12-18] MEDS: MULTIVITAMINS THERAPEUTIC TAB (*BKC) 1 TABLET FEED TUBE (10:07)
[2023-12-18] MEDS: CHOLECALCIFEROL 400 UNITS TABLET (VIT D) 800 UNITS FEED TUBE (10:07)
[2023-12-18] MEDS: COLLAGENASE OINT 30 GM TUBE 1 APPLIC TOPICAL (10:08)
[2023-12-18] MEDS: AMIODARONE HCL 200 MG TABLET FEED TUBE (10:08)
[2023-12-18] MEDS: FERROUS SULFATE LIQUID 325 MG/7.4 ML ELIXIR 324 MG FEED TUBE ×2 (10:08→18:39)
--- NOTE | 2023-12-18 12:09 | PM.IMPN ---
Progress Note: A&P Assessment and Plan (1) Sepsis: Qualifiers: Sepsis acute organ dysfunction status: unspecified Sepsis type: sepsis due to unspecified organism Qualified Code(s): A41.9 - Sepsis, unspecified organism Code(s): A41.9 - Sepsis, unspecified organism Status: Acute Assessment and Plan: Meets SIRS criteria: WBC, HR, suspected source UTI vs possible BUILDING CUSTODIAL SUPERVISOR shunt infection - lactic acid: 1.5 - suspected source: urinary tract infection vs possible BUILDING CUSTODIAL SUPERVISOR shunt infection - antibiotics: meropenem - blood cultures drawn on 12/14: pending - UA: oragne color with turbid appearance, 3+ protein, 1+ blood, positive nitrates, 3+ leukocytes, 51-100 RBC, 21-50 WBC, triple phos crystals presents, 4+ bacteria, yeast present - Urine culture collected on 12/14: negative - Viral panel negative - CXR: no acute cardiopulmonary process - Head CT: Stable size but slightly increasing density of the bilateral extra-axial collections, suggesting interval subdural hemorrhage since the 2021 examination occurring within the existing chronic bilateral subdural hematomas/subdural hygromas. Density suggests late subacute or early chronic timing (roughly greater than one week to several weeks). - Neurology consulted (2) UTI (urinary tract infection): Qualifiers: Encounter type: initial encounter Indwelling urinary catheter type: indwelling urethral catheter Urinary tract infection type: catheter-associated UTI Qualified Code(s): T83.511A - Infection and inflammatory reaction due to indwelling urethral catheter, initial encounter; N39.0 - Urinary tract infection, site not specified Code(s): N39.0 - Urinary tract infection, site not specified Status: Acute Assessment and Plan: - UA: oragne color with turbid appearance, 3+ protein, 1+ blood, positive nitrates, 3+ leukocytes, 51-100 RBC, 21-50 WBC, triple phos crystals presents, 4+ bacteria, yeast present - Urine culture collected on 12/14: negative - No previous micro to be reviewed - started on meropenem (3) Anemia: Code(s): D64.9 - Anemia, unspecified Status: Acute Assessment and Plan: H/H 5.7/20.6 on admission with platelet count of 1043. - s/p blood transfusion on 12/14 - occult negative, no hematuria - B12 and Folate WNL - Iron panel: 33 iron, 194 TIBC, 17% saturation - remains on iron supplementation 12/16: H/H 6.6/22.8 on am labs. Platelets remain elevated at 713. - s/p pRBC transfusion on 12/16 - heme consulted 12/17: H/H 8.7/28.4 on am labs. Platelets remain elevated at 682. - heme consulted (4) Hypernatremia: Code(s): E87.0 - Hyperosmolality and hypernatremia Status: Acute Assessment and Plan: Na 148 on admission. - Started on 100 ml q4 free water flushes - Monitor 12/16: Na 143 on am labs. Continue to monitor. 12/17: Na 141 on am labs. Continue to monitor. (5) Atrial fibrillation: Code(s): I48.91 - Unspecified atrial fibrillation Status: Acute Assessment and Plan: Chronic, patients heart rate remains controlled at this time. - Continue amiodarone 200 mg daily - Holding eliquis at this time due to patients low hemoglobin and her requirement for blood transfusions (6) Hypothyroid: Code(s): E03.9 - Hypothyroidism, unspecified Status: Acute Assessment and Plan: Chronic, continue home medication. - Levothyroxine 50 mcg daily, increased to 62.5 mcg daily on 12/17 - TSH 30.500 - T3 and T4 ordered Time Spent With Patient Time with patient: Greater than 35 minutes Subjective Date/time seen: 12/18/23 12:09 Interval history: 73 year old female with past medical history of aneurysm, G-tube, chronic sacral decubitus ulcer, Manzanares catheter with chronic UTIs, AFIB on eliquis and amiodarone, hypothyroidism, seizure history, dementia (baseline AOx2) presents to the hospital for altered mental status. Patient is lying in bed. On initial assessment pat
[2023-12-18 18:32] LABS: INR 1.5; Prothrombin Time 18.1 Seconds (11.1-14.7)
[2023-12-18 18:33] LABS: Fibrinogen 621 mg/dl (215-510)
[2023-12-18 18:34] LABS: Partial Thromboplastin Time 42.1 Seconds (22.3-36.8)
[2023-12-18] MEDS: MIRTAZAPINE 15 MG TABLET FEED TUBE (21:03)
[2023-12-19] VITALS (10 sets, daily range): BP systolic 132–149; BP diastolic 65–86; PULSE 76–85; RESP 14–16; TEMP 36.4–36.6; O2SAT 96–100
[2023-12-19 06:13] LABS: Basophils Percent Auto 0.4 % (0.2-1.2); Eosinophils Absolute Auto 0.3 K/mm3 (0-0.3); Eosinophils Percent Auto 2.9 % (0-4.4); Hematocrit 25.8 % (37.0-47.0); Hemoglobin 7.9 g/dL (12.0-15.0); Immature Granulocyte Absolute 0.06 K/mm3 (0.00-0.031); Immature Granulocyte Percent A 0.6 % (0-0.5); Lymphocytes Absolute Auto 1.59 K/mm3 (0.9-3.2); Lymphocytes Percent Auto 16.6 % (18.3-44.2); Mean Corpuscular HGB Conc 30.6 g/dl (32-36); Mean Corpuscular Hemoglobin 26.3 pg (26-34); Mean Platelet Volume 9.4 fl (7.4-10.4); Monocytes Absolute Auto 0.8 K/mm3 (0.1-0.6); Monocytes Percent Auto 8.4 % (2.6-8.5); Neutrophils Absolute Auto 6.8 K/mm3 (1.3-6.7); Neutrophils Percent Auto 71.1 % (45.5-73.1); Platelet Count Result 617 k/mm3 (150-375); Red Cell Distribution Width 17.5 % (11.5-14.5); White Blood Count 9.6 K/mm3 (4.5-10.0)
[2023-12-19] MEDS: LEVOTHYROXINE SODIUM 50 MCG TABLET FEED TUBE (06:15)
[2023-12-19] MEDS: MEROPENEM 500 MG/NS 100 ML 500 MG/100 ML BAG 100 MG IVPB (06:15)
[2023-12-19] MEDS: LEVOTHYROXINE SODIUM 12.5 MCG TABLET FEED TUBE (06:16)
[2023-12-19 06:35] LABS: Alanine Aminotransferase 9 U/L (6-35); Albumin Level 2.6 g/dL (3.5-5.1); Alkaline Phosphatase 125 U/L (38-126); Anion Gap 5 mmol/L (4-12); Aspartate Amino Transferase 18 U/L (14-36); Bilirubin,Total 0.2 mg/dL (0.2-1.3); Blood Urea Nitrogen 27 mg/dL (7-17); Calcium 8.2 mg/dL (8.4-10.2); Carbon Dioxide 27 mmol/L (22-30); Chloride 108 mmol/L (98-107); Estimated CRCL calculation 97 ml/min; Estimated Glomerular Filt Rate > 60; Glucose 134 mg/dL (65-110); Potassium 3.9 mmol/L (3.4-5.0); Sodium 140 mmol/L (137-145)
[2023-12-19 06:57] LABS: T4 Thyroxine 2.54 ug/dL (5.53-11.0)
--- NOTE | 2023-12-19 07:01 | PM.IMPN ---
Progress Note: A&P Assessment and Plan (1) Sepsis: Qualifiers: Sepsis acute organ dysfunction status: unspecified Sepsis type: sepsis due to unspecified organism Qualified Code(s): A41.9 - Sepsis, unspecified organism Code(s): A41.9 - Sepsis, unspecified organism Status: Acute Assessment and Plan: Meets SIRS criteria: WBC, HR, suspected source UTI vs possible CLINICAL SAFETY MANAGER shunt infection - lactic acid: 1.5 - suspected source: urinary tract infection vs possible CLINICAL SAFETY MANAGER shunt infection - antibiotics: meropenem - blood cultures drawn on 12/14: staph epidermidis in one bottle, likely a contaminant - UA: orange color with turbid appearance, 3+ protein, 1+ blood, positive nitrates, 3+ leukocytes, 51-100 RBC, 21-50 WBC, triple phos crystals presents, 4+ bacteria, yeast present - Urine culture collected on 12/14: negative - Viral panel negative - CXR: no acute cardiopulmonary process - Head CT: Stable size but slightly increasing density of the bilateral extra-axial collections, suggesting interval subdural hemorrhage since the 2021 examination occurring within the existing chronic bilateral subdural hematomas/subdural hygromas. Density suggests late subacute or early chronic timing (roughly greater than one week to several weeks). - Neurology consulted see #2 and 3 (2) Complex partial seizures: Code(s): G40.209 - Localization-related (focal) (partial) symptomatic epilepsy and epileptic syndromes with complex partial seizures, not intractable, without status epilepticus Status: Acute Assessment and Plan: Patient is having staring spells that are concerning for possible seizures. - Neurology consulted Keppra level pending Keppra dose increased to 1250 mg BID (3) Chronic subdural hematoma: Code(s): I62.03 - Nontraumatic chronic subdural hemorrhage Status: Acute Assessment and Plan: - Head CT: Stable size but slightly increasing density of the bilateral extra-axial collections, suggesting interval subdural hemorrhage since the 2021 examination occurring within the existing chronic bilateral subdural hematomas/subdural hygromas. Density suggests late subacute or early chronic timing (roughly greater than one week to several weeks). - Neurology consulted Continue holding anticoagulation (4) UTI (urinary tract infection): Qualifiers: Encounter type: initial encounter Indwelling urinary catheter type: indwelling urethral catheter Urinary tract infection type: catheter-associated UTI Qualified Code(s): T83.511A - Infection and inflammatory reaction due to indwelling urethral catheter, initial encounter; N39.0 - Urinary tract infection, site not specified Code(s): N39.0 - Urinary tract infection, site not specified Status: Acute Assessment and Plan: - UA: oragne color with turbid appearance, 3+ protein, 1+ blood, positive nitrates, 3+ leukocytes, 51-100 RBC, 21-50 WBC, triple phos crystals presents, 4+ bacteria, yeast present - Urine culture collected on 12/14: negative - No previous micro to be reviewed - started on meropenem, discontinued on 12/18 (5) Anemia: Code(s): D64.9 - Anemia, unspecified Status: Acute Assessment and Plan: H/H 5.7/20.6 on admission with platelet count of 1043. - s/p blood transfusion on 12/14 - occult negative, no hematuria - B12 and Folate WNL - Iron panel: 33 iron, 194 TIBC, 17% saturation - remains on iron supplementation 12/16: H/H 6.6/22.8 on am labs. Platelets remain elevated at 713. - s/p pRBC transfusion on 12/16 - heme consulted 12/17: H/H 8.7/28.4 on am labs. Platelets remain elevated at 682. - heme consulted 12/18: H/H 7.9/25.8 on am labs. Platelets 617. Fibrinogen 621 PTT 42.1 PT/INR 18.1/1.5 Factor VIII pending (6) Hypernatremia: Code(s): E87.0 - Hyperosmolality and hypernatremia Status: Acute Assessment and Plan: Na 148 on admission. - Started on 100 ml q4 free water flu
[2023-12-19] MEDS: MULTIVITAMINS THERAPEUTIC TAB (*BKC) 1 TABLET FEED TUBE (08:34)
[2023-12-19] MEDS: AMIODARONE HCL 200 MG TABLET FEED TUBE (08:34)
[2023-12-19] MEDS: CHOLECALCIFEROL 400 UNITS TABLET (VIT D) 800 UNITS FEED TUBE (08:34)
[2023-12-19] MEDS: levETIRAcetam ORAL SOL 500 MG/5 ML UDC 1250 MG FEED TUBE ×2 (08:35→21:34)
[2023-12-19] MEDS: FERROUS SULFATE LIQUID 325 MG/7.4 ML ELIXIR 324 MG FEED TUBE ×2 (08:36→17:31)
[2023-12-19] MEDS: COLLAGENASE OINT 30 GM TUBE 1 APPLIC TOPICAL (08:37)
[2023-12-19] MEDS: SULFAMETHOXAZOLE/TRIMETHOPRIM 800/160 MG DS TABLET 1 TAB PO ×2 (14:12→21:34)
[2023-12-19 14:59] LABS: Levetiracetam Keppra 34.4 mcg/mL (6.0-46.0)
--- NOTE | 2023-12-19 18:37 | PDONCCN ---
HPI - Date of Consult Date/Time: 12/19/23 18:37 Requesting Physician: Candelaria Mitchell PA-C Primary Care Provider: Andrew Kee, - Consult Narrative Reason for consult: Thrombocythemia Narrative: Babs Felton is a 73 year old female with history of brain aneurysm, stroke, atrial fibrillation, DVT, dementia and seizure who is a [place] resident brought into the ER with altered mental status. Patient is a poor historian. CT head showed no acute intracranial hemorrhage. No acute ischemic infarction. Stable slightly increased density of the bilateral extra-axial collection suggesting interval subdural hemorrhage since 2021 examination within existing chronic bilateral subdural hematoma and subdural hygromas. Density suggesting late subacute or early chronic timing. Doppler studies was performed due to lower limb edema showed DVT involving left posterior tibial and peroneal veins. There was mild left inguinal lymphadenopathy. Labs showed initial platelet count of with more than 1,000,000 with hemoglobin of 5.7. There was no evidence of bleeding. Iron was low at 33. Iron saturation was 17%. INR was 1.5 and PTT was 42.1. Factor 8 level is pending. Fibrinogen was 621. Eliquis was placed on hold. Patient was started on iron twice a day through the PEG tube. Review of Systems - Review of Systems All systems reviewed & are unremarkable except as noted in [facility] and [facility] Medical History: Medical History (Last Updated 12/17/23 @ 16:40 by Jordon Martinez MD) Atrial fibrillation Cerebral aneurysm Complex partial seizures Dementia DVT (deep venous thrombosis) Hypothyroid Seizure Surgical History: Surgical History (Last Reviewed 12/17/23 @ 16:35 by Jordon Martinez MD) H/O gastric bypass H/O hand surgery H/O rectocele repair H/O repair of left rotator cuff H/O Spinal surgery H/O: hysterectomy History of bladder surgery Bladder suspension History of tonsillectomy and adenoidectomy S/P AT RISK PARAPROFESSIONAL shunt Family History: Family History (Last Reviewed 12/17/23 @ 16:35 by Jordon Martinez MD) Other Unknown family medical history - Social History Social History: Social History (Last Reviewed 12/17/23 @ 16:35 by Jordon Martinez MD) Alcohol Use: Alcohol intake: never Substance Use: Substance use: never Others: Spiritual care concerns: No Smoking Status: Smoking status: Unknown if ever smoked Social Determinants of Health: Do You Feel Safe in your Home?: Yes Has the Lack of Transportation Kept You From Medical Appointments or From Getting Medications?: No Within the Past 12 Months, Were You Worried Whether Your Food Would Run Out Before You Got Money to Buy More?: Never True What is Your Housing Situation Today?: I Have Housing Are You Worried That in the Next 2 Months, You May Not Have Your Own Housing to Live In?: No Do You Have Trouble Paying Your Heating Or Electricity Bill?: No Do You Have Trouble Paying For Medicines?: No Are You Currently Unemployed and Looking for Work?: No Highest Level of Education Completed: High School Diploma/GED Do You Have Trouble With Childcare or the Care of a Family Member?: No Exam - Vital Signs Vital Signs - 24 hr 12/18/23 21:26 12/18/23 20:00 12/19/23 04:00 Temperature 36.4 C L Pulse Rate 78 77 85 Respiratory Rate 14 Blood Pressure 143/58 H Pulse Oximetry 100 Oxygen Delivery 12/19/23 06:59 12/19/23 08:32 12/19/23 08:34 Temperature 36.6 C Pulse Rate 80 77 77 Respiratory Rate 14 Blood Pressure 149/76 H 135/86 Pulse Oximetry 97 96 Oxygen Delivery 12/19/23 08:00 12/19/23 08:30 12/19/23 12:00 Temperature Pulse Rate 77 79 Respiratory Rate Blood Pressure Pulse Oximetry Oxygen Delivery Room Air 12/19/23 14:00 12/19/23 16:00 Temperature 36.4 C Pulse Rate 76 80 Respiratory Rate 16 Blood Pressure 132/82 Pulse O
[2023-12-19] MEDS: MIRTAZAPINE 15 MG TABLET FEED TUBE (21:34)
[2023-12-20] VITALS (10 sets, daily range): BP systolic 128–158; BP diastolic 58–86; PULSE 76–87; RESP 14–16; TEMP 36.6–36.8; O2SAT 94–99
[2023-12-20] MEDS: LEVOTHYROXINE SODIUM 50 MCG TABLET FEED TUBE (05:39)
[2023-12-20] MEDS: LEVOTHYROXINE SODIUM 12.5 MCG TABLET FEED TUBE (05:39)
[2023-12-20 06:02] LABS: Basophils Percent Auto 0.3 % (0.2-1.2); Eosinophils Absolute Auto 0.3 K/mm3 (0-0.3); Eosinophils Percent Auto 2.8 % (0-4.4); Hematocrit 26.3 % (37.0-47.0); Hemoglobin 8.2 g/dL (12.0-15.0); Immature Granulocyte Absolute 0.05 K/mm3 (0.00-0.031); Immature Granulocyte Percent A 0.5 % (0-0.5); Lymphocytes Percent Auto 14.4 % (18.3-44.2); Mean Corpuscular HGB Conc 31.2 g/dl (32-36); Mean Corpuscular Volume 86.5 fl (80-100); Mean Platelet Volume 9.1 fl (7.4-10.4); Monocytes Absolute Auto 0.9 K/mm3 (0.1-0.6); Monocytes Percent Auto 9.1 % (2.6-8.5); Neutrophils Absolute Auto 7.1 K/mm3 (1.3-6.7); Neutrophils Percent Auto 72.9 % (45.5-73.1); Platelet Count Result 552 k/mm3 (150-375); Red Blood Count 3.04 M/mm3 (4.2-5.4); Red Cell Distribution Width 17.3 % (11.5-14.5); White Blood Count 9.7 K/mm3 (4.5-10.0)
[2023-12-20 06:13] LABS: Iron 25 ug/dL (37-170)
[2023-12-20 06:14] LABS: Lactate Dehydrogenase 151 U/L (120-246)
[2023-12-20 06:15] LABS: Alanine Aminotransferase 11 U/L (6-35); Albumin Level 2.7 g/dL (3.5-5.1); Alkaline Phosphatase 124 U/L (38-126); Anion Gap 9 mmol/L (4-12); Aspartate Amino Transferase 20 U/L (14-36); Bilirubin,Total 0.2 mg/dL (0.2-1.3); Blood Urea Nitrogen 27 mg/dL (7-17); Calcium 8.1 mg/dL (8.4-10.2); Carbon Dioxide 26 mmol/L (22-30); Chloride 105 mmol/L (98-107); Estimated CRCL calculation 97 ml/min; Estimated Glomerular Filt Rate > 60; Glucose 117 mg/dL (65-110); Potassium 4.1 mmol/L (3.4-5.0); Sodium 140 mmol/L (137-145)
[2023-12-20 06:22] LABS: Percent Iron Saturation 13 % (20-50)
--- NOTE | 2023-12-20 07:40 | PM.IMPN ---
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 - lactic acid: 1.5 - suspected source: urinary tract infection vs possible SOLID WASTE [employer]ACILITY SUPERVISOR shunt infection - antibiotics: meropenem 12/14, transitioned to bactrim given that patient was septic on admission to complete the antibiotic course given that symptoms improved with treatment - blood cultures drawn on 12/14: staph epidermidis in one bottle, likely a contaminant - UA: orange color with turbid appearance, 3+ protein, 1+ blood, positive nitrates, 3+ leukocytes, 51-100 RBC, 21-50 WBC, triple phos crystals presents, 4+ bacteria, yeast present - Urine culture collected on 12/14: negative - Viral panel negative - CXR: no acute cardiopulmonary process - Head CT: Stable size but slightly increasing density of the bilateral extra-axial collections, suggesting interval subdural hemorrhage since the 2021 examination occurring within the existing chronic bilateral subdural hematomas/subdural hygromas. Density suggests late subacute or early chronic timing (roughly greater than one week to several weeks). - Neurology consulted see #2 and 3 (2) Complex partial seizures: Code(s): G40.209 - Localization-related (focal) (partial) symptomatic epilepsy and epileptic syndromes with complex partial seizures, not intractable, without status epilepticus Status: Acute Assessment and Plan: Patient is having staring spells that are concerning for possible seizures. - Neurology consulted Keppra level WNL Keppra dose increased to 1250 mg BID (3) Chronic subdural hematoma: Code(s): I62.03 - Nontraumatic chronic subdural hemorrhage Status: Acute Assessment and Plan: - Head CT 12/14: Stable size but slightly increasing density of the bilateral extra-axial collections, suggesting interval subdural hemorrhage since the 2021 examination occurring within the existing chronic bilateral subdural hematomas/subdural hygromas. Density suggests late subacute or early chronic timing (roughly greater than one week to several weeks). Head CT 12/18: Chronic encephalomalacia involving the right frontotemporal region, right insula, right basal ganglia, and left frontal lobe.Stable chronic bilateral subdural hematomas. Unchanged size of the ventricles with shunt in expected position. - Neurology consulted Continue holding anticoagulation (4) Anemia: Code(s): D64.9 - Anemia, unspecified Status: Acute Assessment and Plan: H/H 5.7/20.6 on admission with platelet count of 1043. - s/p blood transfusion on 12/14 - occult negative, no hematuria - B12 and Folate WNL - Iron panel: 33 iron, 194 TIBC, 17% saturation - remains on iron supplementation 12/16: H/H 6.6/22.8 on am labs. Platelets remain elevated at 713. - s/p pRBC transfusion on 12/16 - heme consulted 12/17: H/H 8.7/28.4 on am labs. Platelets remain elevated at 682. - heme consulted 12/18: H/H 7.9/25.8 on am labs. Platelets 617. Fibrinogen 621 PTT 42.1 PT/INR 18.1/1.5 Factor VIII pending 12/19: H/H 8.2/26.3 on am labs. Platelets improving at 552. - Iron replacement has been started. Continue oral iron supplements. - JAK2 mutation testing for essential thrombocythemia. - Per heme, patient is a poor candidate for bone marrow biopsy. (5) Effusion, left knee: Code(s): M25.462 - Effusion, left knee Status: Acute Assessment and Plan: Soft tissue US: Large left knee joint effusion. Knee XR: Moderate left knee osteoarthritis. Osteopenia, which decreases sensitivity for fracture. Moderate-sized left knee joint effusion. Patient reports pain with palpation, worse
[2023-12-20] MEDS: MULTIVITAMINS THERAPEUTIC TAB (*BKC) 1 TABLET FEED TUBE (10:37)
[2023-12-20] MEDS: SULFAMETHOXAZOLE/TRIMETHOPRIM 800/160 MG DS TABLET 1 TAB PO ×2 (10:37→20:15)
[2023-12-20] MEDS: AMIODARONE HCL 200 MG TABLET FEED TUBE (10:37)
[2023-12-20] MEDS: FERROUS SULFATE LIQUID 325 MG/7.4 ML ELIXIR 324 MG FEED TUBE ×2 (10:38→16:32)
[2023-12-20] MEDS: levETIRAcetam ORAL SOL 500 MG/5 ML UDC 1250 MG FEED TUBE ×2 (10:38→20:14)
[2023-12-20] MEDS: CHOLECALCIFEROL 400 UNITS TABLET (VIT D) 800 UNITS FEED TUBE (10:38)
[2023-12-20] MEDS: COLLAGENASE OINT 30 GM TUBE 1 APPLIC TOPICAL (10:39)
--- NOTE | 2023-12-20 11:01 | PCNFU ---
Nutrition Follow-Up Complete: Increased protein needs as related to wounds as evidenced by pressure ulcers reported. goal: Meet estimated nutritional needs. Patient is meeting goal. We will continue current goal. Pt current nutrition is Jevity 1.5 at 45 ml/hr with Pureed, Level 4/Mildly Thick,Level 2 diet. Last recorded weight is 61.5 kg, no new weight to report. Bowel Motility: Last reported BM 12/19 Labs Reviewed:Glu 117, Alb 2.7,Hct 26.3,Hgb 8.2 Meds Noted:Synthroid, Remeron, Miralax, Vit D Skin: Stage III-sacrum/ischium. Additional Notes: Patient is tolerating tube feedings well of Jevity 1.5 at 45 ml/hr, providing 1485 kcal/63 gm protein/752 ml water. Flush 100 ml q 4 hours. Oral intake 0-40% reported. Tube feedings are meeting caloric needs. Jose BID for wound healing being flushed for additional 160 kcals/5 gm protein/ 14 gm arginine and glutamine. Surgery consult for IVC filter. If surgery plans to proceed patient will be NPO after midnight. Agree with diet orders. Will monitor weight ,meds, labs, skin, oral intake and tube feeding tolerance every Tuesday and Tuesday.
--- NOTE | 2023-12-20 12:53 | PM.CNOR ---
Assessment and Plan Assessment and plan (1) Effusion, left knee: Code(s): M25.462 - Effusion, left knee Status: Acute Plan Left knee effusion. I attempted an aspiration but did not retrieve any fluid. The effusion appears to be quite small. Some of the fluid around the knee is in the soft tissues with edematous changes. No definite signs of joint sepsis. DVT discovered on ultrasound. No further treatment for the knee required. Thank you for the consultation. History of Present Illness HPI Consult date: 12/20/23 Chief complaint: Sepsis, Anemia, Hypernatremia, UTI Narrative: 73-year-old female with left leg swelling and pain. Fluid was noted on ultrasound of the lower extremity concern for significant knee effusion. The patient is nonambulatory and nonverbal. No recent history of trauma. 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 She is listed as a DNR. The patient tells me that she had 3 children and 1 has . She is . 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 She is listed as . Code status DNR Smoking status: Unknown if ever smoked Alcohol intake: never Substance use: never Do You Feel Safe in your Home?: Yes Lack of Transportation: No Lack of Food: Never True Current Housing: I Have Housing Concerned About Future Housing: No Difficulty Paying Gas/Electric Bills: No Difficulty Paying for Meds: No Currently Unemployed: No Education: High School Diploma/GED Difficulty w/ Childcare or Family Care: No Spiritual care concerns: No Meds Home Medications and Allergies Home Medications Medication Instructions Recorded Confirmed Type Adults Multivitamin 1 tablet PO DAILY 04/01/22 12/16/23 History acetaminophen 650 mg tablet 650 mg PO Q6H PRN TEMP 04/01/22 12/16/23 History albuterol sulfate 90 mcg/actuation 2 puff inhalation Q6H PRN 04/01/22 12/16/23 History aerosol inhaler Shortness Of Breath amiodarone 200 mg tablet 200 mg PO DAILY 04/01/22 12/16/23 History collagenase clostridium histo. 250 1 applic topical DAILY 04/01/22 12/16/23 History unit/gram topical ointment (Santyl) ergocalciferol (vitamin D2) 800 units G-tube DAILY 04/01/22 12/16/23 History mirtazapine 15 mg tablet 15 mg PO HS 04/01/22 12/16/23 History polyethylene glycol 3350 17 17 g PO DAILY PRN Constipation 04/01/22 12/16/23 History gram/dose oral powder (Miralax) levothyroxine 50 mcg capsule 50 mcg PO DAILY 30 days #30 caps 04/05/22 12/16/23 Rx apixaban 5 mg tablet (Eliquis) 5 mg feeding tube BID 12/16/23 12/16/23 History arginine 7 gram-glutamine 7 1 ea PO BID 12/16/23 12/16/23 History gram-calcium HMB 1.5 gram oral powder pack (Jose) ferrous sulfate 325 mg (65 mg 325 mg feeding tube BID 12/16/23 12/16/23 History iron) tablet hydrocodone 10 mg-acetaminophen 1 tablet feeding tube Q4H PRN Pain 12/16/23 12/16/23 History 325 mg tablet (Scale Score 4-6) hydrocodone 5 mg-acetaminophen 325 1 tablet feeding tube Q4H PRN Pain 12/16/23 12/16/23 History mg tablet (Scale Score 1-3) levetiracetam 1,000 mg tablet 1
--- NOTE | 2023-12-20 12:56 | W.PM.PROC2 ---
Procedure Note - Detailed Date of Procedure 12/19/23 Pre-op Diagnosis Sepsis, Anemia, Hypernatremia, UTI Post-op Diagnosis Same Procedure Performed Attempted aspiration at the bedside, left knee. Surgeon Orion Anaya MD Anesthesia None Indications Left knee effusion and pain. Findings A few drops of blood were obtained. No purulence or significant effusion identified. It was felt that the soft tissue swelling about the leg was edematous changes, possibly a Mcnair cyst, and not a significant collection of intra-articular fluid. Description of Procedure The knee was prepped and draped in the usual sterile fashion about the proximal lateral portion of the patella. Chlorhexidine and Betadine were used. An 18 gauge needle was inserted on a 60 mL syringe. A few drops of blood were obtained. Repeated attempts at moving the needle were performed but there did not appear to be any substantial fluid collection. The patient tolerated the procedure well. Adhesive bandage was placed. Estimated Blood Loss 1 Urine Output 500 Pathology None sent Complications None Condition Stable [facility] Billing Surgery - Charge Forward: Surgery Billing (aspiration. 1 mL sanguineous fluid.)
--- NOTE | 2023-12-20 17:32 | PM.CNGS ---
Assessment and Plan Assessment and plan (1) DVT (deep venous thrombosis): Qualifiers: DVT location: lower extremity Affected thrombotic vein of extremity: tibial Chronicity: acute Laterality: left Qualified Code(s): I82.442 - Acute embolism and thrombosis of left tibial vein Code(s): I82.409 - Acute embolism and thrombosis of unspecified deep veins of unspecified lower extremity Status: Acute (2) Atrial fibrillation: Code(s): I48.91 - Unspecified atrial fibrillation Status: Acute (3) Sacral decubitus ulcer, stage IV: Code(s): L89.154 - Pressure ulcer of sacral region, stage 4 Status: Acute (4) Chronic subdural hematoma: Code(s): I62.03 - Nontraumatic chronic subdural hemorrhage Status: Acute (5) Hypernatremia: Code(s): E87.0 - Hyperosmolality and hypernatremia Status: Acute (6) Anemia: Qualifiers: Anemia type: unspecified type Qualified Code(s): D64.9 - Anemia, unspecified Code(s): D64.9 - Anemia, unspecified Status: Acute Plan I have reviewed the imaging findings and had a thorough discussion with the patient's daughter over the phone. She has a left lower extremity DVT and is currently not a candidate for continued anticoagulation. She has been seen by Hematology and IVC filter placement was recommended. I have discussed the typical process for this procedure as well as some risks that can be associated with that including IVC thrombosis or other bleeding complications. I discussed that this is meant to prevent large clots from propagating to the heart and lungs but will not do anything to actually treat the current DVT. Patient's daughter would like to proceed with IVC filter placement to prevent any risk of clot propagation causing a pulmonary embolus. 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 History of Present Illness Consult details Consult date: 12/20/23 Reason for consult: other (DVT) Requesting physician: Aroldo Warren MD Narrative: This is a 73-year-old woman who I am asked to see for possible IVC filter placement. 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 She is able to answer some simple yes or no answers but it is difficult to obtain full history from the patient. History is obtained from the chart and from discussions with patient's daughter. She presented to the hospital with swelling of her left lower extremity and was found to have a left posterior tibial and peroneal DVT. She was also having some mental status changes and CT showed evidence of a subacute or chronic subdural hematoma. She was also noted to be very anemic when she 1st presented to the emergency department. Patient does not show any signs of active bleeding but has not undergone any further endoscopic workup to rule out any active bleeding. She was on Eliquis 5 mg twice daily prior to arriving here at the hospital. Patient is currently bed ridden and has a G-tube for enteral feedings. I had a thorough discussion with the patient's daughter and she stated multiple times that she wants to continue with treatment and does not want to risk her mother having a pulmonary embolus. Review of Systems Review of Systems: ROS unobtainable: Yes unobtainable due to medical condition and unobtainable due to mental status PMFSH Past Medical History Medical History Atrial fibrillation Cerebral aneurysm Complex partial seizures Dementia DVT (deep venous thrombosis) Hypothyroid Seizure Surgical History Surgical History H/O gastric bypass H/O hand surgery H/O rectocele repair H/O repair of left rotator cuff H/O Spinal surgery H/O: hysterectomy History of bladder surgery Bladder suspension History of tonsillectomy and estrella
[2023-12-20] MEDS: MIRTAZAPINE 15 MG TABLET FEED TUBE (20:15)
[2023-12-21] VITALS (8 sets, daily range): BP systolic 149–173; BP diastolic 72–89; PULSE 80–87; RESP 12–16; TEMP 36.3–37.1; O2SAT 97–98
[2023-12-21] MEDS: LEVOTHYROXINE SODIUM 50 MCG TABLET FEED TUBE (05:32)
[2023-12-21] MEDS: LEVOTHYROXINE SODIUM 12.5 MCG TABLET FEED TUBE (05:32)
[2023-12-21 05:48] LABS: Basophils Percent Auto 0.2 % (0.2-1.2); Eosinophils Absolute Auto 0.3 K/mm3 (0-0.3); Eosinophils Percent Auto 2.7 % (0-4.4); Hematocrit 28.4 % (37.0-47.0); Hemoglobin 8.5 g/dL (12.0-15.0); Immature Granulocyte Absolute 0.06 K/mm3 (0.00-0.031); Immature Granulocyte Percent A 0.5 % (0-0.5); Lymphocytes Absolute Auto 1.66 K/mm3 (0.9-3.2); Lymphocytes Percent Auto 13.6 % (18.3-44.2); Mean Corpuscular HGB Conc 29.9 g/dl (32-36); Mean Corpuscular Hemoglobin 25.9 pg (26-34); Mean Corpuscular Volume 86.6 fl (80-100); Mean Platelet Volume 9.5 fl (7.4-10.4); Monocytes Percent Auto 7.8 % (2.6-8.5); Neutrophils Absolute Auto 9.2 K/mm3 (1.3-6.7); Neutrophils Percent Auto 75.2 % (45.5-73.1); Platelet Count Result 601 k/mm3 (150-375); Red Blood Count 3.28 M/mm3 (4.2-5.4); Red Cell Distribution Width 17.4 % (11.5-14.5); White Blood Count 12.3 K/mm3 (4.5-10.0)
[2023-12-21 06:00] LABS: Alanine Aminotransferase 13 U/L (6-35); Albumin Level 2.9 g/dL (3.5-5.1); Alkaline Phosphatase 131 U/L (38-126); Anion Gap 9 mmol/L (4-12); Aspartate Amino Transferase 23 U/L (14-36); Bilirubin,Total 0.2 mg/dL (0.2-1.3); Blood Urea Nitrogen 28 mg/dL (7-17); Calcium 8.2 mg/dL (8.4-10.2); Carbon Dioxide 25 mmol/L (22-30); Chloride 102 mmol/L (98-107); Estimated CRCL calculation 79 ml/min; Estimated Glomerular Filt Rate > 60; Glucose 120 mg/dL (65-110); Potassium 4.5 mmol/L (3.4-5.0); Sodium 136 mmol/L (137-145)
[2023-12-21 06:31] LABS: Hypochromasia 1+; Platelet Estimate Increased (Adequate); Schistocytes None Seen
--- NOTE | 2023-12-21 08:57 | PM.IMPN ---
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 infection - lactic acid: 1.5 - suspected source: urinary tract infection vs possible ADULT BASIC EDUCATION INSTRUCTOR shunt infection - antibiotics: meropenem 12/14, transitioned to bactrim given that patient was septic on admission to complete the antibiotic course given that symptoms improved with treatment - blood cultures drawn on 12/14: staph epidermidis in one bottle, likely a contaminant - UA: orange color with turbid appearance, 3+ protein, 1+ blood, positive nitrates, 3+ leukocytes, 51-100 RBC, 21-50 WBC, triple phos crystals presents, 4+ bacteria, yeast present - Urine culture collected on 12/14: negative - Viral panel negative - CXR: no acute cardiopulmonary process - Head CT: Stable size but slightly increasing density of the bilateral extra-axial collections, suggesting interval subdural hemorrhage since the 2021 examination occurring within the existing chronic bilateral subdural hematomas/subdural hygromas. Density suggests late subacute or early chronic timing (roughly greater than one week to several weeks). - Neurology consulted see #2 and 3 (2) Complex partial seizures: Code(s): G40.209 - Localization-related (focal) (partial) symptomatic epilepsy and epileptic syndromes with complex partial seizures, not intractable, without status epilepticus Status: Acute Assessment and Plan: Patient is having staring spells that are concerning for possible seizures. - Neurology consulted Keppra level WNL Keppra dose increased to 1250 mg BID (3) Chronic subdural hematoma: Code(s): I62.03 - Nontraumatic chronic subdural hemorrhage Status: Acute Assessment and Plan: - Head CT 12/14: Stable size but slightly increasing density of the bilateral extra-axial collections, suggesting interval subdural hemorrhage since the 2021 examination occurring within the existing chronic bilateral subdural hematomas/subdural hygromas. Density suggests late subacute or early chronic timing (roughly greater than one week to several weeks). Head CT 12/18: Chronic encephalomalacia involving the right frontotemporal region, right insula, right basal ganglia, and left frontal lobe.Stable chronic bilateral subdural hematomas. Unchanged size of the ventricles with shunt in expected position. - Neurology consulted Continue holding anticoagulation (4) Anemia: Code(s): D64.9 - Anemia, unspecified Status: Acute Assessment and Plan: H/H 5.7/20.6 on admission with platelet count of 1043. - s/p blood transfusion on 12/14 - occult negative, no hematuria - B12 and Folate WNL - Iron panel: 33 iron, 194 TIBC, 17% saturation - remains on iron supplementation 12/16: H/H 6.6/22.8 on am labs. Platelets remain elevated at 713. - s/p pRBC transfusion on 12/16 - heme consulted 12/17: H/H 8.7/28.4 on am labs. Platelets remain elevated at 682. - heme consulted 12/18: H/H 7.9/25.8 on am labs. Platelets 617. Fibrinogen 621 PTT 42.1 PT/INR 18.1/1.5 Factor VIII pending 12/19: H/H 8.2/26.3 on am labs. Platelets improving at 552. - Iron replacement has been started. Continue oral iron supplements. - JAK2 mutation testing for essential thrombocythemia. - Per heme, patient is a poor candidate for bone marrow biopsy. 12/20- stable (5) Effusion, left knee: Code(s): M25.462 - Effusion, left knee Status: Acute Assessment and Plan: Soft tissue US: Large left knee joint effusion. Knee XR: Moderate left knee osteoarthritis. Osteopenia, which decreases sensitivity for fracture. Moderate-sized left knee joint effusion. Patient reports pain with
--- NOTE | 2023-12-21 12:02 | WPDNEUROPN ---
Subjective Date/time seen: 12/21/23 12:02 Interval history: 73 years old right-handed female admitted to the hospital for the complaints of change in the mental status with blank staring, in addition to the history of cerebral aneurysm and shunt on the left side of the head and with information that she had the surgery in relation to the cerebral aneurysm, at the time of initial evaluation she was taking Keppra 2g per day, CT of the brain was positive for subdural hematoma with some increase in size of the hematoma with recent bleed, patient had been on Eliquis in addition she was found to have UTI,CT scan of the head documented right frontal area infarct along with the subdural hematoma, patient also have a history of atrial fibrillation ,complex partial seizures, dementia ,hypothyroidism and has undergone multiple surgeries she was initially seen by 1 decision was made to hold the anticoagulation as well as antiplatelets because of the underlying concern about the quality of the life ,consideration was also given to the possibility of the partial seizures and Keppra was continued as such. she has remained unchanged no further neurological intervention is being done Objective Data Vital Signs Vital Signs: Vital Signs - 24 hr 12/20/23 14:00 12/20/23 16:00 12/20/23 20:19 Temperature 36.8 C 36.8 C Pulse Rate 84 84 85 Respiratory Rate 14 16 Blood Pressure 128/58 L 158/86 H Pulse Oximetry 94 99 12/20/23 20:00 12/21/23 00:00 12/21/23 04:00 Temperature Pulse Rate 82 82 87 Respiratory Rate Blood Pressure Pulse Oximetry 12/21/23 06:00 Temperature 37.1 C Pulse Rate 85 Respiratory Rate 16 Blood Pressure 163/81 H Pulse Oximetry 98 Intake/Output Intake/Output: Intake & Output 12/18/23 12/19/23 12/20/23 12/21/23 23:59 23:59 23:59 23:59 Intake Total 1605 280 940 Output Total 2550 9942 1150 1625 [facility]945 -1220 -210 -1600 Meds/Results Medications: Active Medications Generic Name Dose Route Start Last Admin Trade Name Freq PRN Reason Stop Dose Admin Acetaminophen 650 mg 12/16/23 09:01 12/16/23 17:13 Acetaminophen 325 Mg Tablet FEED TUBE 650 mg Q6H PRN Administration Fever > 100.4 Hydrocodone Bitart/Acetaminophen 1 tab 12/16/23 06:24 12/16/23 14:29 Hydrocodone/Acetaminophen (*Crx) 5-325 Mg Tablet FEED TUBE 1 tab Q4H PRN Administration Pain Rated 1-3 Hydrocodone Bitart/Acetaminophen 1 tab 12/16/23 06:25 Hydrocodone/Acetaminophen (*Crx) 10-325 Mg Tablet FEED TUBE Q4H PRN Pain Rated 4-6 Albuterol 2 puff 12/16/23 05:10 Albuterol Sulfate (*Sp) Aerosol 1 Puff INHALATION Q6H PRN Shortness Of Breath Amiodarone HCl 200 mg 12/16/23 09:05 12/20/23 10:37 Amiodarone Hcl 200 Mg Tablet FEED TUBE 200 mg DAILY@0800 RAFAT Administration Collagenase 1 applic 12/16/23 09:00 12/20/23 10:39 Collagenase Oint 30 Gm Tube TOPICAL 1 applic DAILY RAFAT Administration Ferrous Sulfate 324 mg 12/16/23 09:05 12/20/23 16:32 Ferrous Sulfate Liquid 325 Mg/7.4 Ml Elixir FEED TUBE 324 mg BID RAFAT Administration Levetiracetam 1,250 mg 12/17/23 21:00 12/20/23 20:14 Levetiracetam Oral Cammy 500 Mg/5 Ml Udc FEED TUBE 1,250 mg Q12HR RAFAT Administration Levothyroxine Sodium 50 mcg 12/16/23 06:35 12/21/23 05:32 Levothyroxine Sodium 50 Mcg Tablet FEED TUBE 01/17/24 23:59 50 mcg DAILY@0630 RAFAT Administration Levothyroxine Sodium 12.5 mcg 12/19/23 06:30 12/21/23 05:32 Levothyroxine Sodium 12.5 Mcg Tablet FEED TUBE 12.5 mcg DAILY@0630 RAFAT Administration Mirtazapine 15 mg 12/16/23 21:00 12/20/23 20:15 Mirtazapine 15 Mg Tablet FEED TUBE 15 mg HS RAFAT Administration Morphine Sulfate 5 mg 12/16/23 09:07 Morphine Sulfate Oral Conc Cammy (*Crx) 10 Mg/0.5 Ml Syringe FEED TUBE Q2H PRN Pain (Scale Score 7-10) Multivitamins Therapeutic 1 tablet 12/16/23 09:10 12/20/23 10:37 Multivi
--- NOTE | 2023-12-21 12:07 | P.OP_ITS ---
Procedure Note - Detailed Date of Procedure 12/21/23 Pre-op Diagnosis LLE DVT, Anemia, subdural hematoma Post-op Diagnosis Same Procedure Performed IVC filter placement using ultrasound and fluoroscopic guidance Surgeon Jose Stafford, DO Anesthesia Local (1% Lidocaine) Indications This is a 73-year-old woman who presented with left lower extremity swelling and was found to have a DVT. She also presented very anemic and was evaluated by Hematology. She is not a good candidate for anticoagulation therefore decision was made to proceed with IVC filter placement. Findings Sinosite ultrasound was used to identify the right femoral vein. This was visualized as a compressible vessel just medial to the pulsatile femoral artery. The 18 gauge introducer needle was advanced under ultrasound guidance. Fluoroscopy was then used to guide advancement of the guidewire followed by the dilator and sheath. Final fluoroscopic images demonstrated the filter in proper position at the level of the L3 vertebral body. Description of Procedure Patient was brought back to superintendent geophysical laboratory suite. She was placed supine superintendent geophysical laboratory table. Time-out was done to confirm patient procedure. her right groin was prepped and draped in sterile fashion using chlorhexidine prep. SonoSite ultrasound was used to identify the right femoral vein. This was visualized as a compressible vessel just medial to the right femoral artery. 1% lidocaine was infiltrated directly over this area. An 18 gauge introducer needle was then advanced under ultrasound guidance directly into the lumen of the right femoral vein. Dark nonpulsatile blood was aspirated. A 0.035 in guidewire was advanced through the needle under fluoroscopic guidance. The guidewire advanced smoothly and was visualized advancing up into the inferior vena cava. The needle was withdrawn leaving the guidewire in place. A small tamar incision was made at the insertion site using an 11 blade scalpel. The 8French dilator and sheath were then advanced over the guidewire under fluoroscopic guidance. The sheath was advanced up to the L3 vertebral body, and then once the sheath was at the upper portion of the L3 vertebral body, the dilator and guidewire were removed. The IVC filter was then inserted into the end of the sheath and then the plunger was used to carefully advanced the filter up the length of the sheath. Once the filter was visualized under fluoroscopy at the tip of the sheath, the sheath was slowly withdrawn to allow the filter to deploy. Once the filter was completely expanded, the sheath was removed and pressure was applied at the insertion site. One final fluoroscopic image was obtained visualizing the IVC filter and proper orientation overlying the L3 vertebral body. After holding pressure for 5 minutes, there is no further blood loss and a sterile dressing was applied. Implants [place] IVC Filter Estimated Blood Loss 1 Urine Output 1,600 Complications No immediate complications Condition Stable Disposition Floor [facility] Billing Surgery - Charge Forward: Surgery Billing
[2023-12-21] MEDS: levETIRAcetam ORAL SOL 500 MG/5 ML UDC 1250 MG FEED TUBE ×2 (12:38→20:16)
[2023-12-21] MEDS: FERROUS SULFATE LIQUID 325 MG/7.4 ML ELIXIR 324 MG FEED TUBE ×2 (12:38→18:09)
[2023-12-21] MEDS: AMIODARONE HCL 200 MG TABLET FEED TUBE (12:39)
[2023-12-21] MEDS: MULTIVITAMINS THERAPEUTIC TAB (*BKC) 1 TABLET FEED TUBE (12:39)
[2023-12-21] MEDS: SULFAMETHOXAZOLE/TRIMETHOPRIM 800/160 MG DS TABLET 1 TAB PO ×2 (12:39→20:17)
[2023-12-21] MEDS: CHOLECALCIFEROL 400 UNITS TABLET (VIT D) 800 UNITS FEED TUBE (12:39)
[2023-12-21] MEDS: SENNOSIDES 8.6 MG TABLET FEED TUBE ×2 (12:39→18:10)
[2023-12-21] MEDS: COLLAGENASE OINT 30 GM TUBE 1 APPLIC TOPICAL (12:40)
[2023-12-21 18:54] LABS: Factor VIII Activity 48 % normal (50-180)
[2023-12-21] MEDS: MIRTAZAPINE 15 MG TABLET FEED TUBE (20:17)
[2023-12-22] VITALS (10 sets, daily range): BP systolic 126–163; BP diastolic 64–85; PULSE 83–90; RESP 16; TEMP 36.4–37.4; O2SAT 92–97
[2023-12-22] MEDS: LEVOTHYROXINE SODIUM 50 MCG TABLET FEED TUBE (05:31)
[2023-12-22] MEDS: LEVOTHYROXINE SODIUM 12.5 MCG TABLET FEED TUBE (05:31)
[2023-12-22 05:47] LABS: Basophils Percent Auto 0.3 % (0.2-1.2); Eosinophils Absolute Auto 0.4 K/mm3 (0-0.3); Eosinophils Percent Auto 3.2 % (0-4.4); Hematocrit 28.1 % (37.0-47.0); Hemoglobin 8.7 g/dL (12.0-15.0); Immature Granulocyte Absolute 0.07 K/mm3 (0.00-0.031); Immature Granulocyte Percent A 0.6 % (0-0.5); Lymphocytes Absolute Auto 1.63 K/mm3 (0.9-3.2); Lymphocytes Percent Auto 14.9 % (18.3-44.2); Mean Corpuscular Hemoglobin 26.4 pg (26-34); Mean Corpuscular Volume 85.4 fl (80-100); Mean Platelet Volume 9.7 fl (7.4-10.4); Monocytes Percent Auto 9.3 % (2.6-8.5); Neutrophils Absolute Auto 7.8 K/mm3 (1.3-6.7); Neutrophils Percent Auto 71.7 % (45.5-73.1); Platelet Count Result 568 k/mm3 (150-375); Red Blood Count 3.29 M/mm3 (4.2-5.4); Red Cell Distribution Width 17.5 % (11.5-14.5); White Blood Count 10.9 K/mm3 (4.5-10.0)
[2023-12-22 06:02] LABS: Alanine Aminotransferase 15 U/L (6-35); Alkaline Phosphatase 150 U/L (38-126); Anion Gap 9 mmol/L (4-12); Aspartate Amino Transferase 25 U/L (14-36); Bilirubin,Total 0.2 mg/dL (0.2-1.3); Blood Urea Nitrogen 22 mg/dL (7-17); Calcium 8.4 mg/dL (8.4-10.2); Carbon Dioxide 25 mmol/L (22-30); Chloride 102 mmol/L (98-107); Estimated CRCL calculation 67 ml/min; Estimated Glomerular Filt Rate > 60; Glucose 103 mg/dL (65-110); Potassium 4.8 mmol/L (3.4-5.0); Sodium 136 mmol/L (137-145)
--- NOTE | 2023-12-22 08:31 | PM.IMPN ---
Progress Note: A&P Assessment and Plan (1) Sepsis: Qualifiers: Sepsis acute organ dysfunction status: unspecified Sepsis type: sepsis due to unspecified organism Qualified Code(s): A41.9 - Sepsis, unspecified organism Code(s): A41.9 - Sepsis, unspecified organism Status: Acute Assessment and Plan: Meets SIRS criteria: WBC, HR, suspected source UTI vs possible RESIDENCE MANAGER shunt infection - lactic acid: 1.5 - suspected source: urinary tract infection vs possible RESIDENCE MANAGER shunt infection - antibiotics: meropenem 12/14, transitioned to bactrim given that patient was septic on admission to complete the antibiotic course given that symptoms improved with treatment - blood cultures drawn on 12/14: staph epidermidis in one bottle, likely a contaminant - UA: orange color with turbid appearance, 3+ protein, 1+ blood, positive nitrates, 3+ leukocytes, 51-100 RBC, 21-50 WBC, triple phos crystals presents, 4+ bacteria, yeast present - Urine culture collected on 12/14: negative - Viral panel negative - CXR: no acute cardiopulmonary process - Head CT: Stable size but slightly increasing density of the bilateral extra-axial collections, suggesting interval subdural hemorrhage since the 2021 examination occurring within the existing chronic bilateral subdural hematomas/subdural hygromas. Density suggests late subacute or early chronic timing (roughly greater than one week to several weeks). - Neurology consulted see #2 and 3 (2) Complex partial seizures: Code(s): G40.209 - Localization-related (focal) (partial) symptomatic epilepsy and epileptic syndromes with complex partial seizures, not intractable, without status epilepticus Status: Acute Assessment and Plan: Patient is having staring spells that are concerning for possible seizures. - Neurology consulted Keppra level WNL Keppra dose increased to 1250 mg BID (3) Chronic subdural hematoma: Code(s): I62.03 - Nontraumatic chronic subdural hemorrhage Status: Acute Assessment and Plan: - Head CT 12/14: Stable size but slightly increasing density of the bilateral extra-axial collections, suggesting interval subdural hemorrhage since the 2021 examination occurring within the existing chronic bilateral subdural hematomas/subdural hygromas. Density suggests late subacute or early chronic timing (roughly greater than one week to several weeks). Head CT 12/18: Chronic encephalomalacia involving the right frontotemporal region, right insula, right basal ganglia, and left frontal lobe.Stable chronic bilateral subdural hematomas. Unchanged size of the ventricles with shunt in expected position. - Neurology consulted Continue holding anticoagulation (4) Anemia: Code(s): D64.9 - Anemia, unspecified Status: Acute Assessment and Plan: H/H 5.7/20.6 on admission with platelet count of 1043. - s/p blood transfusion on 12/14 - occult negative, no hematuria - B12 and Folate WNL - Iron panel: 33 iron, 194 TIBC, 17% saturation - remains on iron supplementation 12/16: H/H 6.6/22.8 on am labs. Platelets remain elevated at 713. - s/p pRBC transfusion on 12/16 - heme consulted 12/17: H/H 8.7/28.4 on am labs. Platelets remain elevated at 682. - heme consulted 12/18: H/H 7.9/25.8 on am labs. Platelets 617. Fibrinogen 621 PTT 42.1 PT/INR 18.1/1.5 Factor VIII pending 12/19: H/H 8.2/26.3 on am labs. Platelets improving at 552. - Iron replacement has been started. Continue oral iron supplements. - JAK2 mutation testing for essential thrombocythemia. - Per heme, patient is a poor candidate for bone marrow biopsy. 12/20- stable 12/21- hg/hct 8.7/28.1 today- stable recheck tomorrow- if stable will discuss with family about eliquis if stable overnight and hg remains stable and improving- will anticipate discharge tomorrow (5) Effusion, left knee: Code(s): M25.462 - Effusion, left knee Status: Acute Assessment and Plan: Soft tissue US: L
[2023-12-22] MEDS: SULFAMETHOXAZOLE/TRIMETHOPRIM 800/160 MG DS TABLET 1 TAB PO ×2 (08:45→21:45)
[2023-12-22] MEDS: AMIODARONE HCL 200 MG TABLET FEED TUBE (08:46)
[2023-12-22] MEDS: CHOLECALCIFEROL 400 UNITS TABLET (VIT D) 800 UNITS FEED TUBE (08:46)
[2023-12-22] MEDS: MULTIVITAMINS THERAPEUTIC TAB (*BKC) 1 TABLET FEED TUBE (08:50)
[2023-12-22] MEDS: FERROUS SULFATE LIQUID 325 MG/7.4 ML ELIXIR 324 MG FEED TUBE ×2 (08:50→17:10)
[2023-12-22] MEDS: levETIRAcetam ORAL SOL 500 MG/5 ML UDC 1250 MG FEED TUBE ×2 (08:51→21:44)
[2023-12-22] MEDS: COLLAGENASE OINT 30 GM TUBE 1 APPLIC TOPICAL (08:52)
[2023-12-22 11:59] LABS: Haptoglobin 474 mg/dL (43-212)
[2023-12-22] MEDS: TOLNAFTATE 1% POWDER 45 GM BTL 1 APPLIC TOPICAL ×2 (17:10→21:45)
[2023-12-22] MEDS: MIRTAZAPINE 15 MG TABLET FEED TUBE (21:45)
[2023-12-23] VITALS (11 sets, daily range): BP systolic 117–155; BP diastolic 72–81; PULSE 82–88; RESP 12–16; TEMP 36.5–37.1; O2SAT 92–98
[2023-12-23] MEDS: LEVOTHYROXINE SODIUM 50 MCG TABLET FEED TUBE (05:33)
[2023-12-23] MEDS: LEVOTHYROXINE SODIUM 12.5 MCG TABLET FEED TUBE (05:33)
--- NOTE | 2023-12-23 08:15 | PM.IMPN ---
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 TESTER HELPER shunt infection - lactic acid: 1.5 - suspected source: urinary tract infection vs possible ELECTRIC METER TESTER HELPER shunt infection - antibiotics: meropenem 12/14, transitioned to bactrim given that patient was septic on admission to complete the antibiotic course given that symptoms improved with treatment - blood cultures drawn on 12/14: staph epidermidis in one bottle, likely a contaminant - UA: orange color with turbid appearance, 3+ protein, 1+ blood, positive nitrates, 3+ leukocytes, 51-100 RBC, 21-50 WBC, triple phos crystals presents, 4+ bacteria, yeast present - Urine culture collected on 12/14: negative - Viral panel negative - CXR: no acute cardiopulmonary process - Head CT: Stable size but slightly increasing density of the bilateral extra-axial collections, suggesting interval subdural hemorrhage since the 2021 examination occurring within the existing chronic bilateral subdural hematomas/subdural hygromas. Density suggests late subacute or early chronic timing (roughly greater than one week to several weeks). - Neurology consulted see #2 and 3 (2) Complex partial seizures: Code(s): G40.209 - Localization-related (focal) (partial) symptomatic epilepsy and epileptic syndromes with complex partial seizures, not intractable, without status epilepticus Status: Acute Assessment and Plan: Patient is having staring spells that are concerning for possible seizures. - Neurology consulted Keppra level WNL Keppra dose increased to 1250 mg BID (3) Chronic subdural hematoma: Code(s): I62.03 - Nontraumatic chronic subdural hemorrhage Status: Acute Assessment and Plan: - Head CT 12/14: Stable size but slightly increasing density of the bilateral extra-axial collections, suggesting interval subdural hemorrhage since the 2021 examination occurring within the existing chronic bilateral subdural hematomas/subdural hygromas. Density suggests late subacute or early chronic timing (roughly greater than one week to several weeks). Head CT 12/18: Chronic encephalomalacia involving the right frontotemporal region, right insula, right basal ganglia, and left frontal lobe.Stable chronic bilateral subdural hematomas. Unchanged size of the ventricles with shunt in expected position. - Neurology consulted Continue holding anticoagulation (4) Anemia: Code(s): D64.9 - Anemia, unspecified Status: Acute Assessment and Plan: H/H 5.7/20.6 on admission with platelet count of 1043. - s/p blood transfusion on 12/14 - occult negative, no hematuria - B12 and Folate WNL - Iron panel: 33 iron, 194 TIBC, 17% saturation - remains on iron supplementation 12/16: H/H 6.6/22.8 on am labs. Platelets remain elevated at 713. - s/p pRBC transfusion on 12/16 - heme consulted 12/17: H/H 8.7/28.4 on am labs. Platelets remain elevated at 682. - heme consulted 12/18: H/H 7.9/25.8 on am labs. Platelets 617. Fibrinogen 621 PTT 42.1 PT/INR 18.1/1.5 Factor VIII pending 12/19: H/H 8.2/26.3 on am labs. Platelets improving at 552. - Iron replacement has been started. Continue oral iron supplements. - JAK2 mutation testing for essential thrombocythemia. - Per heme, patient is a poor candidate for bone marrow biopsy. 12/20- stable 12/21- hg/hct 8.7/28.1 today- stable recheck tomorrow- if stable will discuss with family about eliquis if stable overnight and hg remains stable and improving- will anticipate discharge tomorrow - postpone discharge til Tuesday for daughter to talk to hematology and neurology as she wants to hear their opinions about eliquis befor
[2023-12-23 08:57] LABS: Hematocrit 27.8 % (37.0-47.0); Hemoglobin 8.4 g/dL (12.0-15.0); Mean Corpuscular HGB Conc 30.2 g/dl (32-36); Mean Corpuscular Volume 86.1 fl (80-100); Mean Platelet Volume 9.7 fl (7.4-10.4); Platelet Count Result 549 k/mm3 (150-375); Red Blood Count 3.23 M/mm3 (4.2-5.4); Red Cell Distribution Width 17.4 % (11.5-14.5); White Blood Count 10.7 K/mm3 (4.5-10.0)
[2023-12-23 09:31] LABS: Anion Gap 8 mmol/L (4-12); Blood Urea Nitrogen 29 mg/dL (7-17); Calcium 8.4 mg/dL (8.4-10.2); Carbon Dioxide 25 mmol/L (22-30); Chloride 100 mmol/L (98-107); Estimated CRCL calculation 67 ml/min; Estimated Glomerular Filt Rate > 60; Glucose 117 mg/dL (65-110); Potassium 5.2 mmol/L (3.4-5.0); Sodium 133 mmol/L (137-145)
[2023-12-23] MEDS: CHOLECALCIFEROL 400 UNITS TABLET (VIT D) 800 UNITS FEED TUBE (09:45)
[2023-12-23] MEDS: levETIRAcetam ORAL SOL 500 MG/5 ML UDC 1250 MG FEED TUBE ×2 (09:46→22:29)
[2023-12-23] MEDS: MULTIVITAMINS THERAPEUTIC TAB (*BKC) 1 TABLET FEED TUBE (09:46)
[2023-12-23] MEDS: SENNOSIDES 8.6 MG TABLET FEED TUBE ×2 (09:46→17:44)
[2023-12-23] MEDS: AMIODARONE HCL 200 MG TABLET FEED TUBE (09:46)
[2023-12-23] MEDS: FERROUS SULFATE LIQUID 325 MG/7.4 ML ELIXIR 324 MG FEED TUBE ×2 (09:47→17:44)
[2023-12-23] MEDS: COLLAGENASE OINT 30 GM TUBE 1 APPLIC TOPICAL (09:47)
[2023-12-23] MEDS: TOLNAFTATE 1% POWDER 45 GM BTL 1 APPLIC TOPICAL ×2 (09:47→22:29)
--- NOTE | 2023-12-23 11:09 | PCNFU ---
Nutrition Follow-Up Complete: Increased protein needs as related to wounds as evidenced by pressure ulcers reported. Goal: Meet estimated nutritional needs. Patient is meeting goal. No new goal. Pt current nutrition is Pureed, Level 4 with Mild Thick liquids, Level 2 with G tube feedings of Jevity 1.5 at 45 ml/hr. Last recorded weight is 61.5 kg, no new weight to report. Recommend new weight. Bowel Motility: +BM reported 12/21 Labs Reviewed:Cr 0.6,BUN 22, Na 136, Hct 28.1,Hgb 8.7 Meds Noted:Remeron, Keppra, Miralax, Vit D Skin:Stage III-sacrum/ischium. Additional Notes: Patient remains on G tube feedings of Jevity 1.5 at 45 ml/hr. Tolerating per nursing. Tube feedings providing 1485 kcal/63 gm protein/752 ml water. Flush 100 ml q 4 hours. Protein Modular of Jose BID being flush providing an additional 160 kcal/ 14 gm glutamine/14 gm arginine/ 5 gm protein. Patient is able to eat oral diet of Pureed, Level 4 with Mild Thick liquids, Level 2. Oral Intake has been minimal. Agree with diet orders. Will monitor weight ,meds, labs, skin, oral intake and tube feeding tolerance every Tuesday and Tuesday
--- NOTE | 2023-12-23 17:49 | PC.NURSE ---
Tube feeding volume cumulative from several shifts. Pump cleared @ 1742.
[2023-12-23] MEDS: MIRTAZAPINE 15 MG TABLET FEED TUBE (22:29)
[2023-12-24] VITALS (11 sets, daily range): BP systolic 131–154; BP diastolic 70–79; PULSE 75–91; RESP 14–20; TEMP 36.7–36.9; O2SAT 96–98
[2023-12-24] MEDS: LEVOTHYROXINE SODIUM 50 MCG TABLET FEED TUBE (05:45)
[2023-12-24] MEDS: LEVOTHYROXINE SODIUM 12.5 MCG TABLET FEED TUBE (05:45)
--- NOTE | 2023-12-24 08:12 | PM.IMPN ---
Progress Note: A&P Assessment and Plan (1) Sepsis: Qualifiers: Sepsis acute organ dysfunction status: unspecified Sepsis type: sepsis due to unspecified organism Qualified Code(s): A41.9 - Sepsis, unspecified organism Code(s): A41.9 - Sepsis, unspecified organism Status: Acute Assessment and Plan: Meets SIRS criteria: WBC, HR, suspected source UTI vs possible PHYSICALLY IMPAIRED TEACHER shunt infection - lactic acid: 1.5 - suspected source: urinary tract infection vs possible PHYSICALLY IMPAIRED TEACHER shunt infection - antibiotics: meropenem 12/14, transitioned to bactrim given that patient was septic on admission to complete the antibiotic course given that symptoms improved with treatment - blood cultures drawn on 12/14: staph epidermidis in one bottle, likely a contaminant - UA: orange color with turbid appearance, 3+ protein, 1+ blood, positive nitrates, 3+ leukocytes, 51-100 RBC, 21-50 WBC, triple phos crystals presents, 4+ bacteria, yeast present - Urine culture collected on 12/14: negative - Viral panel negative - CXR: no acute cardiopulmonary process - Head CT: Stable size but slightly increasing density of the bilateral extra-axial collections, suggesting interval subdural hemorrhage since the 2021 examination occurring within the existing chronic bilateral subdural hematomas/subdural hygromas. Density suggests late subacute or early chronic timing (roughly greater than one week to several weeks). - Neurology consulted see #2 and 3 12/23 remains afebrile, WBC trending down (2) Complex partial seizures: Code(s): G40.209 - Localization-related (focal) (partial) symptomatic epilepsy and epileptic syndromes with complex partial seizures, not intractable, without status epilepticus Status: Acute Assessment and Plan: Patient is having staring spells that are concerning for possible seizures. - Neurology consulted Keppra level WNL Keppra dose increased to 1250 mg BID (3) Chronic subdural hematoma: Code(s): I62.03 - Nontraumatic chronic subdural hemorrhage Status: Acute Assessment and Plan: - Head CT 12/14: Stable size but slightly increasing density of the bilateral extra-axial collections, suggesting interval subdural hemorrhage since the 2021 examination occurring within the existing chronic bilateral subdural hematomas/subdural hygromas. Density suggests late subacute or early chronic timing (roughly greater than one week to several weeks). Head CT 12/18: Chronic encephalomalacia involving the right frontotemporal region, right insula, right basal ganglia, and left frontal lobe.Stable chronic bilateral subdural hematomas. Unchanged size of the ventricles with shunt in expected position. - Neurology consulted Continue holding anticoagulation (4) Anemia: Code(s): D64.9 - Anemia, unspecified Status: Acute Assessment and Plan: H/H 5.7/20.6 on admission with platelet count of 1043. - s/p blood transfusion on 12/14 - occult negative, no hematuria - B12 and Folate WNL - Iron panel: 33 iron, 194 TIBC, 17% saturation - remains on iron supplementation 12/16: H/H 6.6/22.8 on am labs. Platelets remain elevated at 713. - s/p pRBC transfusion on 12/16 - heme consulted 12/17: H/H 8.7/28.4 on am labs. Platelets remain elevated at 682. - heme consulted 12/18: H/H 7.9/25.8 on am labs. Platelets 617. Fibrinogen 621 PTT 42.1 PT/INR 18.1/1.5 Factor VIII pending 12/19: H/H 8.2/26.3 on am labs. Platelets improving at 552. - Iron replacement has been started. Continue oral iron supplements. - JAK2 mutation testing for essential thrombocythemia. - Per heme, patient is a poor candidate for bone marrow biopsy. 12/20- stable 12/21- hg/hct 8.7/28.1 today- stable recheck tomorrow- if stable will discuss with family about elisallieis if stable overnight and hg remains stable and improving- will anticipate discharge tomorrow - postpone discharge til Tuesday for daughter to talk to hematology and neurology as she want
[2023-12-24 09:04] LABS: Hematocrit 27.5 % (37.0-47.0); Hemoglobin 8.6 g/dL (12.0-15.0); Mean Corpuscular HGB Conc 31.3 g/dl (32-36); Mean Corpuscular Hemoglobin 27.1 pg (26-34); Mean Corpuscular Volume 86.8 fl (80-100); Mean Platelet Volume 9.8 fl (7.4-10.4); Platelet Count Result 538 k/mm3 (150-375); Red Blood Count 3.17 M/mm3 (4.2-5.4); Red Cell Distribution Width 17.5 % (11.5-14.5); White Blood Count 7.9 K/mm3 (4.5-10.0)
[2023-12-24 09:15] LABS: Anion Gap 7 mmol/L (4-12); Blood Urea Nitrogen 31 mg/dL (7-17); Calcium 8.3 mg/dL (8.4-10.2); Carbon Dioxide 23 mmol/L (22-30); Chloride 103 mmol/L (98-107); Estimated CRCL calculation 67 ml/min; Estimated Glomerular Filt Rate > 60; Glucose 118 mg/dL (65-110); Potassium 5.2 mmol/L (3.4-5.0); Sodium 133 mmol/L (137-145)
[2023-12-24] MEDS: levETIRAcetam ORAL SOL 500 MG/5 ML UDC 1250 MG FEED TUBE ×2 (09:40→21:43)
[2023-12-24] MEDS: FERROUS SULFATE LIQUID 325 MG/7.4 ML ELIXIR 324 MG FEED TUBE ×2 (09:40→16:49)
[2023-12-24] MEDS: AMIODARONE HCL 200 MG TABLET FEED TUBE (09:41)
[2023-12-24] MEDS: CHOLECALCIFEROL 400 UNITS TABLET (VIT D) 800 UNITS FEED TUBE (09:41)
[2023-12-24] MEDS: SENNOSIDES 8.6 MG TABLET FEED TUBE ×2 (09:41→16:49)
[2023-12-24] MEDS: COLLAGENASE OINT 30 GM TUBE 1 APPLIC TOPICAL (09:41)
[2023-12-24] MEDS: TOLNAFTATE 1% POWDER 45 GM BTL 1 APPLIC TOPICAL ×2 (15:37→21:43)
[2023-12-24] MEDS: MIRTAZAPINE 15 MG TABLET FEED TUBE (21:43)
[2023-12-25] VITALS (7 sets, daily range): BP systolic 134–151; BP diastolic 73–84; PULSE 81–95; RESP 12–20; TEMP 36.5–36.9; O2SAT 91–97
[2023-12-25 00:44] LABS: Glucose Point of Care 149 mg/dl (65-105)
[2023-12-25 05:39] LABS: Glucose Point of Care 124 mg/dl (65-105)
[2023-12-25] MEDS: LEVOTHYROXINE SODIUM 12.5 MCG TABLET FEED TUBE (06:18)
[2023-12-25] MEDS: LEVOTHYROXINE SODIUM 50 MCG TABLET FEED TUBE (06:19)
[2023-12-25 06:35] LABS: Hematocrit 27.9 % (37.0-47.0); Hemoglobin 8.5 g/dL (12.0-15.0); Mean Corpuscular HGB Conc 30.5 g/dl (32-36); Mean Corpuscular Hemoglobin 26.6 pg (26-34); Mean Corpuscular Volume 87.2 fl (80-100); Mean Platelet Volume 9.5 fl (7.4-10.4); Platelet Count Result 542 k/mm3 (150-375); Red Cell Distribution Width 17.4 % (11.5-14.5); White Blood Count 9.2 K/mm3 (4.5-10.0)
[2023-12-25 06:53] LABS: Anion Gap 10 mmol/L (4-12); Blood Urea Nitrogen 33 mg/dL (7-17); Calcium 8.4 mg/dL (8.4-10.2); Carbon Dioxide 22 mmol/L (22-30); Chloride 101 mmol/L (98-107); Estimated CRCL calculation 67 ml/min; Estimated Glomerular Filt Rate > 60; Glucose 130 mg/dL (65-110); Potassium 4.8 mmol/L (3.4-5.0); Sodium 133 mmol/L (137-145)
--- NOTE | 2023-12-25 08:19 | PM.IMPN ---
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 shunt infection - lactic acid: 1.5 - suspected source: urinary tract infection vs possible COMPOSITION ROLL MAKER AND CUTTER shunt infection - antibiotics: meropenem 12/14, transitioned to bactrim given that patient was septic on admission to complete the antibiotic course given that symptoms improved with treatment - blood cultures drawn on 12/14: staph epidermidis in one bottle, likely a contaminant - UA: orange color with turbid appearance, 3+ protein, 1+ blood, positive nitrates, 3+ leukocytes, 51-100 RBC, 21-50 WBC, triple phos crystals presents, 4+ bacteria, yeast present - Urine culture collected on 12/14: negative - Viral panel negative - CXR: no acute cardiopulmonary process - Head CT: Stable size but slightly increasing density of the bilateral extra-axial collections, suggesting interval subdural hemorrhage since the 2021 examination occurring within the existing chronic bilateral subdural hematomas/subdural hygromas. Density suggests late subacute or early chronic timing (roughly greater than one week to several weeks). - Neurology consulted see #2 and 3 12/23 remains afebrile, WBC trending down 12/24- WBC wnl today,afebrile, vs stable (2) Complex partial seizures: Code(s): G40.209 - Localization-related (focal) (partial) symptomatic epilepsy and epileptic syndromes with complex partial seizures, not intractable, without status epilepticus Status: Acute Assessment and Plan: Patient is having staring spells that are concerning for possible seizures. - Neurology consulted Keppra level WNL Keppra dose increased to 1250 mg BID - no seizure like activities- monitor - neurology is following (3) Chronic subdural hematoma: Code(s): I62.03 - Nontraumatic chronic subdural hemorrhage Status: Acute Assessment and Plan: - Head CT 12/14: Stable size but slightly increasing density of the bilateral extra-axial collections, suggesting interval subdural hemorrhage since the 2021 examination occurring within the existing chronic bilateral subdural hematomas/subdural hygromas. Density suggests late subacute or early chronic timing (roughly greater than one week to several weeks). Head CT 12/18: Chronic encephalomalacia involving the right frontotemporal region, right insula, right basal ganglia, and left frontal lobe.Stable chronic bilateral subdural hematomas. Unchanged size of the ventricles with shunt in expected position. - Neurology consulted Continue holding anticoagulation - stable- continue to monitor neuro status - neurology is following (4) Anemia: Code(s): D64.9 - Anemia, unspecified Status: Acute Assessment and Plan: H/H 5.7/20.6 on admission with platelet count of 1043. - s/p blood transfusion on 12/14 - occult negative, no hematuria - B12 and Folate WNL - Iron panel: 33 iron, 194 TIBC, 17% saturation - remains on iron supplementation 12/16: H/H 6.6/22.8 on am labs. Platelets remain elevated at 713. - s/p pRBC transfusion on 12/16 - heme consulted 12/17: H/H 8.7/28.4 on am labs. Platelets remain elevated at 682. - heme consulted 12/18: H/H 7.9/25.8 on am labs. Platelets 617. Fibrinogen 621 PTT 42.1 PT/INR 18.1/1.5 Factor VIII pending 12/19: H/H 8.2/26.3 on am labs. Platelets improving at 552. - Iron replacement has been started. Continue oral iron supplements. - JAK2 mutation testing for essential thrombocythemia. - Per heme, patient is a poor candidate for bone marrow biopsy. 12/20- stable 12/21- hg/hct 8.7/28.1 today- stable recheck tomorrow- if stable will discuss with family about eliquis if stable o
[2023-12-25] MEDS: SENNOSIDES 8.6 MG TABLET FEED TUBE ×2 (09:28→17:37)
[2023-12-25] MEDS: CHOLECALCIFEROL 400 UNITS TABLET (VIT D) 800 UNITS FEED TUBE (09:28)
[2023-12-25] MEDS: AMIODARONE HCL 200 MG TABLET FEED TUBE (09:28)
[2023-12-25] MEDS: FERROUS SULFATE LIQUID 325 MG/7.4 ML ELIXIR 324 MG FEED TUBE ×2 (09:29→17:37)
[2023-12-25] MEDS: COLLAGENASE OINT 30 GM TUBE 1 APPLIC TOPICAL (09:29)
[2023-12-25] MEDS: levETIRAcetam ORAL SOL 500 MG/5 ML UDC 1250 MG FEED TUBE ×2 (09:29→21:32)
[2023-12-25] MEDS: TOLNAFTATE 1% POWDER 45 GM BTL 1 APPLIC TOPICAL ×2 (09:29→21:44)
[2023-12-25] MEDS: MIRTAZAPINE 15 MG TABLET FEED TUBE (21:33)
[2023-12-26 00:04] LABS: Glucose Point of Care 116 mg/dl (65-105)
[2023-12-26 05:58] VITALS: BP 141/46; PULSE 91; RESP 20; TEMP 36.3; O2SAT 98
[2023-12-26 06:11] LABS: Glucose Point of Care 121 mg/dl (65-105)
[2023-12-26] MEDS: LEVOTHYROXINE SODIUM 50 MCG TABLET FEED TUBE (06:21)
[2023-12-26] MEDS: LEVOTHYROXINE SODIUM 12.5 MCG TABLET FEED TUBE (06:21)
[2023-12-26 07:15] LABS: Hematocrit 27.7 % (37.0-47.0); Hemoglobin 8.7 g/dL (12.0-15.0); Mean Corpuscular HGB Conc 31.4 g/dl (32-36); Mean Corpuscular Hemoglobin 26.9 pg (26-34); Mean Corpuscular Volume 85.5 fl (80-100); Mean Platelet Volume 9.4 fl (7.4-10.4); Platelet Count Result 510 k/mm3 (150-375); Red Blood Count 3.24 M/mm3 (4.2-5.4); Red Cell Distribution Width 17.4 % (11.5-14.5)
--- NOTE | 2023-12-26 07:16 | PM.IMPN ---
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 DESIGN INSTRUCTOR shunt infection - lactic acid: 1.5 - suspected source: urinary tract infection vs possible GAME DESIGN INSTRUCTOR shunt infection - antibiotics: meropenem 12/14, transitioned to bactrim given that patient was septic on admission to complete the antibiotic course given that symptoms improved with treatment - blood cultures drawn on 12/14: staph epidermidis in one bottle, likely a contaminant - UA: orange color with turbid appearance, 3+ protein, 1+ blood, positive nitrates, 3+ leukocytes, 51-100 RBC, 21-50 WBC, triple phos crystals presents, 4+ bacteria, yeast present - Urine culture collected on 12/14: negative - Viral panel negative - CXR: no acute cardiopulmonary process - Head CT: Stable size but slightly increasing density of the bilateral extra-axial collections, suggesting interval subdural hemorrhage since the 2021 examination occurring within the existing chronic bilateral subdural hematomas/subdural hygromas. Density suggests late subacute or early chronic timing (roughly greater than one week to several weeks). - Neurology consulted see #2 and 3 12/23 remains afebrile, WBC trending down 12/24- WBC wnl today,afebrile, vs stable 12/25- stable, monitor (2) Complex partial seizures: Code(s): G40.209 - Localization-related (focal) (partial) symptomatic epilepsy and epileptic syndromes with complex partial seizures, not intractable, without status epilepticus Status: Acute Assessment and Plan: Patient is having staring spells that are concerning for possible seizures. - Neurology consulted Keppra level WNL Keppra dose increased to 1250 mg BID - no seizure like activities- monitor - neurology is following (3) Chronic subdural hematoma: Code(s): I62.03 - Nontraumatic chronic subdural hemorrhage Status: Acute Assessment and Plan: - Head CT 12/14: Stable size but slightly increasing density of the bilateral extra-axial collections, suggesting interval subdural hemorrhage since the 2021 examination occurring within the existing chronic bilateral subdural hematomas/subdural hygromas. Density suggests late subacute or early chronic timing (roughly greater than one week to several weeks). Head CT 12/18: Chronic encephalomalacia involving the right frontotemporal region, right insula, right basal ganglia, and left frontal lobe.Stable chronic bilateral subdural hematomas. Unchanged size of the ventricles with shunt in expected position. - Neurology consulted Continue holding anticoagulation - stable- continue to monitor neuro status - neurology is following (4) Anemia: Code(s): D64.9 - Anemia, unspecified Status: Acute Assessment and Plan: H/H 5.7/20.6 on admission with platelet count of 1043. - s/p blood transfusion on 12/14 - occult negative, no hematuria - B12 and Folate WNL - Iron panel: 33 iron, 194 TIBC, 17% saturation - remains on iron supplementation 12/16: H/H 6.6/22.8 on am labs. Platelets remain elevated at 713. - s/p pRBC transfusion on 12/16 - heme consulted 12/17: H/H 8.7/28.4 on am labs. Platelets remain elevated at 682. - heme consulted 12/18: H/H 7.9/25.8 on am labs. Platelets 617. Fibrinogen 621 PTT 42.1 PT/INR 18.1/1.5 Factor VIII pending 12/19: H/H 8.2/26.3 on am labs. Platelets improving at 552. - Iron replacement has been started. Continue oral iron supplements. - JAK2 mutation testing for essential thrombocythemia. - Per heme, patient is a poor candidate for bone marrow biopsy. 12/20- stable 12/21- hg/hct 8.7/28.1 today- stable recheck tomorrow- if stable will discuss with family abou
[2023-12-26 07:22] LABS: Anion Gap 7 mmol/L (4-12); Blood Urea Nitrogen 39 mg/dL (7-17); Calcium 8.3 mg/dL (8.4-10.2); Carbon Dioxide 24 mmol/L (22-30); Chloride 102 mmol/L (98-107); Estimated CRCL calculation 67 ml/min; Estimated Glomerular Filt Rate > 60; Glucose 128 mg/dL (65-110); Potassium 4.5 mmol/L (3.4-5.0); Sodium 133 mmol/L (137-145)
[2023-12-26 08:58] VITALS: PULSE 86
[2023-12-26] MEDS: CHOLECALCIFEROL 400 UNITS TABLET (VIT D) 800 UNITS FEED TUBE (08:58)
[2023-12-26] MEDS: AMIODARONE HCL 200 MG TABLET FEED TUBE (08:58)
[2023-12-26] MEDS: levETIRAcetam ORAL SOL 500 MG/5 ML UDC 1250 MG FEED TUBE ×2 (09:00→21:59)
[2023-12-26] MEDS: TOLNAFTATE 1% POWDER 45 GM BTL 1 APPLIC TOPICAL ×2 (09:00→21:59)
[2023-12-26] MEDS: COLLAGENASE OINT 30 GM TUBE 1 APPLIC TOPICAL (09:00)
[2023-12-26] MEDS: FERROUS SULFATE LIQUID 325 MG/7.4 ML ELIXIR 324 MG FEED TUBE ×2 (09:00→16:51)
[2023-12-26 11:18] LABS: Soluble Transferrin Receptor 1.72 mg/L (0.76-1.76)
[2023-12-26 12:00] LABS: Glucose Point of Care 116 mg/dl (65-105)
[2023-12-26 14:00] VITALS: BP 129/66; PULSE 85; RESP 12; TEMP 36.3; O2SAT 95
[2023-12-26 17:31] LABS: Glucose Point of Care 126 mg/dl (65-105)
[2023-12-26 19:13] VITALS: BP 116/77; PULSE 86; RESP 18; TEMP 36.5; O2SAT 99
[2023-12-26] MEDS: MIRTAZAPINE 15 MG TABLET FEED TUBE (21:59)
[2023-12-27 01:05] LABS: Glucose Point of Care 113 mg/dl (65-105)
[2023-12-27 04:16] VITALS: BP 149/78; PULSE 76; RESP 18; TEMP 36.5; O2SAT 97
[2023-12-27] MEDS: LEVOTHYROXINE SODIUM 12.5 MCG TABLET FEED TUBE (05:48)
[2023-12-27] MEDS: LEVOTHYROXINE SODIUM 50 MCG TABLET FEED TUBE (05:48)
[2023-12-27 06:35] LABS: Glucose Point of Care 102 mg/dl (65-105)
[2023-12-27 06:42] LABS: Hematocrit 28.6 % (37.0-47.0); Hemoglobin 8.7 g/dL (12.0-15.0); Mean Corpuscular HGB Conc 30.4 g/dl (32-36); Mean Corpuscular Hemoglobin 26.8 pg (26-34); Mean Platelet Volume 10.4 fl (7.4-10.4); Platelet Count Result 481 k/mm3 (150-375); Red Blood Count 3.25 M/mm3 (4.2-5.4); Red Cell Distribution Width 17.4 % (11.5-14.5); White Blood Count 8.6 K/mm3 (4.5-10.0)
[2023-12-27 06:48] LABS: Anion Gap 9 mmol/L (4-12); Blood Urea Nitrogen 39 mg/dL (7-17); Calcium 8.3 mg/dL (8.4-10.2); Carbon Dioxide 26 mmol/L (22-30); Chloride 98 mmol/L (98-107); Estimated CRCL calculation 79 ml/min; Estimated Glomerular Filt Rate > 60; Glucose 124 mg/dL (65-110); Potassium 4.4 mmol/L (3.4-5.0); Sodium 133 mmol/L (137-145)
[2023-12-27 08:54] VITALS: PULSE 76
[2023-12-27] MEDS: levETIRAcetam ORAL SOL 500 MG/5 ML UDC 1250 MG FEED TUBE ×2 (08:54→20:42)
[2023-12-27] MEDS: SENNOSIDES 8.6 MG TABLET FEED TUBE ×2 (08:54→17:25)
[2023-12-27] MEDS: CHOLECALCIFEROL 400 UNITS TABLET (VIT D) 800 UNITS FEED TUBE (08:54)
[2023-12-27] MEDS: COLLAGENASE OINT 30 GM TUBE 1 APPLIC TOPICAL (08:54)
[2023-12-27] MEDS: FERROUS SULFATE LIQUID 325 MG/7.4 ML ELIXIR 324 MG FEED TUBE ×2 (08:54→17:25)
[2023-12-27] MEDS: AMIODARONE HCL 200 MG TABLET FEED TUBE (08:54)
[2023-12-27] MEDS: TOLNAFTATE 1% POWDER 45 GM BTL 1 APPLIC TOPICAL ×2 (08:55→20:42)
--- NOTE | 2023-12-27 11:13 | PCNFU ---
Nutrition Follow-Up Complete: Increased protein needs as related to wounds as evidenced by pressure ulcers reported. goal: Meet estimated nutritional needs. Patient is meeting goal. No new goal. Pt current nutrition is Jevity 1.5 at 45 ml/hr with Pureed,Level 4 diet with Mild Thick liquids, Level 2. Last recorded weight is 61.5 kg, no new weight to report. Recommend new weight. Bowel Motility: +BM reported 12/25 Labs Reviewed: Cr 0.6,BUN 22, Na 136, Hct 28.1,Hgb 8.7 Meds Noted: Keppra, Remeron, Miralax, Vit D, Senokot. Skin: Stage III pressure ulcer-sacrum and ischium. Additional Notes: Patient remains on G tube feedings of Jevity 1.5 at 45 ml/hr and tolerating per nursing. Tube feedings are providing 1485 kcal/63 gm protein/752 ml water. Flush 100 ml q 4 hours. Protein Modular of Jose BID providing an additional 160 kcal/5 gm protein/14 gm arginine/14 gm glutamine. Agree with diet orders. Will monitor weight ,meds, labs, skin, oral intake and tube feeding tolerance every Tuesday and Tuesday
[2023-12-27 11:50] LABS: Glucose Point of Care 121 mg/dl (65-105)
--- NOTE | 2023-12-27 12:49 | P.PNIM_ITS ---
Progress Note: A&P Assessment and Plan (1) Sepsis: Qualifiers: Sepsis acute organ dysfunction status: unspecified Sepsis type: sepsis due to unspecified organism Qualified Code(s): A41.9 - Sepsis, unspecified o rganism Code(s): A41.9 - Sepsis, unspecified organism Status: Acute Assessment and Plan: Meets SIRS criteria: WBC, HR, suspected source UTI vs possible RESEARCH AND EVALUATION ANALYST shunt infection - lactic acid: 1.5 - suspected source: urinary tract infection vs possible RESEARCH AND EVALUATION ANALYST shunt infection - antibiotics: meropenem 12/14, transitioned to bactrim given that patient was septic on admission to complete the antibiotic course given that symptoms improved with treatment - blood cultures drawn on 12/14: staph epidermidis in one bottle, likely a contaminant - UA: orange color with turbid appearance, 3+ protein, 1+ blood, positive nitrates, 3+ leukocytes, 51-100 RBC, 21-50 WBC, triple phos crystals presents, 4+ bacteria, yeast present - Urine culture collected on 12/14: negative - Viral panel negative - CXR: no acute cardiopulmonary process - Head CT: Stable size but slightly increasing density of the bilateral extra- axial collections, suggesting interval subdural hemorrhage since the 2021 examination occurring within the existing chronic bilateral subdural hematomas/subdural hygromas. Density suggests late subacute or early chronic timing (roughly greater than one week to several weeks). - Neurology consulted see #2 and 3 12/23 remains afebrile, WBC trending down 12/24- WBC wnl today,afebrile, vs stable 12/25- stable, monitor (2) Complex partial seizures: Code(s): G40.209 - Localization-related (focal) (partial) symptomatic epilepsy and epileptic syndromes with complex partial seizures, not intractable, without status epilepticus Status: Acute Assessment and Plan: Patient is having staring spells that are concerning for possible seizures. - Neurology consulted Keppra level WNL Keppra dose increased to 1250 mg BID - no seizure like activities- monitor - neurology is following (3) Chronic subdural hematoma: Code(s): I62.03 - Nontraumatic chronic subdural hemorrhage Status: Acute Assessment and Plan: - Head CT 12/14: Stable size but slightly increasing density of the bilateral extra-axial collections, suggesting interval subdural hemorrhage since the 2021 examination occurring within the existing chronic bilateral subdural hematomas /subdural hygromas. Density suggests late subacute or early chronic timing (roughly greater than one week to several weeks). Head CT 12/18: Chronic encephalomalacia involving the right frontotemporal r egion, right insula, right basal ganglia, and left frontal lobe.Stable chronic bilateral subdural hematomas. Unchanged size of the ventricles with shunt in expected position. - Neurology consulted Continue holding anticoagulation - stable- continue to monitor neuro status - neurology is following (4) Anemia: Code(s): D64.9 - Anemia, unspecified Status: Acute Assessment and Plan: H/H 5.7/20.6 on admission with platelet count of 1043. - s/p blood transfusion on 12/14 - occult negative, no hematuria - B12 and Folate WNL - Iron panel: 33 iron, 194 TIBC, 17% saturation - remains on iron supplementation 12/16: H/H 6.6/22.8 on am labs. Platelets remain elevated at 713. - s/p pRBC transfusion on 12/16 - heme consulted 12/17: H/H 8.7/28.4 on am labs. Platelets remain elevated at 682. - heme consulted 12/18: H/H 7.9/25.8 on am labs. Platelets 617. Fibrinogen 621 PTT 42.1 PT/INR 18.1/1.5 Factor
--- NOTE | 2023-12-27 13:28 | PM.DS ---
DS: Discharge Diagnosis Discharge Diagnosis (1) Sepsis: Qualifiers: Sepsis acute organ dysfunction status: unspecified Sepsis type: sepsis due to unspecified organism Qualified Code(s): A41.9 - Sepsis, unspecified organism Code(s): A41.9 - Sepsis, unspecified organism Status: Acute Assessment and Plan: Meets SIRS criteria: WBC, HR, suspected source UTI vs possible HOSPICE MANAGER shunt infection - lactic acid: 1.5 - suspected source: urinary tract infection vs possible HOSPICE MANAGER shunt infection - antibiotics: meropenem 12/14, transitioned to bactrim given that patient was septic on admission to complete the antibiotic course given that symptoms improved with treatment - blood cultures drawn on 12/14: staph epidermidis in one bottle, likely a contaminant - UA: orange color with turbid appearance, 3+ protein, 1+ blood, positive nitrates, 3+ leukocytes, 51-100 RBC, 21-50 WBC, triple phos crystals presents, 4+ bacteria, yeast present - Urine culture collected on 12/14: negative - Viral panel negative - CXR: no acute cardiopulmonary process - Head CT: Stable size but slightly increasing density of the bilateral extra-axial collections, suggesting interval subdural hemorrhage since the 2021 examination occurring within the existing chronic bilateral subdural hematomas/subdural hygromas. Density suggests late subacute or early chronic timing (roughly greater than one week to several weeks). - Neurology consulted see #2 and 3 12/23 remains afebrile, WBC trending down 12/24- WBC wnl today,afebrile, vs stable 12/25- stable, monitor (2) Complex partial seizures: Code(s): G40.209 - Localization-related (focal) (partial) symptomatic epilepsy and epileptic syndromes with complex partial seizures, not intractable, without status epilepticus Status: Acute Assessment and Plan: Patient is having staring spells that are concerning for possible seizures. - Neurology consulted Keppra level WNL Keppra dose increased to 1250 mg BID - no seizure like activities- monitor - neurology is following (3) Chronic subdural hematoma: Code(s): I62.03 - Nontraumatic chronic subdural hemorrhage Status: Acute Assessment and Plan: - Head CT 12/14: Stable size but slightly increasing density of the bilateral extra-axial collections, suggesting interval subdural hemorrhage since the 2021 examination occurring within the existing chronic bilateral subdural hematomas/subdural hygromas. Density suggests late subacute or early chronic timing (roughly greater than one week to several weeks). Head CT 12/18: Chronic encephalomalacia involving the right frontotemporal region, right insula, right basal ganglia, and left frontal lobe.Stable chronic bilateral subdural hematomas. Unchanged size of the ventricles with shunt in expected position. - Neurology consulted Continue holding anticoagulation - stable- continue to monitor neuro status - neurology is following (4) Anemia: Code(s): D64.9 - Anemia, unspecified Status: Acute Assessment and Plan: H/H 5.7/20.6 on admission with platelet count of 1043. - s/p blood transfusion on 12/14 - occult negative, no hematuria - B12 and Folate WNL - Iron panel: 33 iron, 194 TIBC, 17% saturation - remains on iron supplementation 12/16: H/H 6.6/22.8 on am labs. Platelets remain elevated at 713. - s/p pRBC transfusion on 12/16 - heme consulted 12/17: H/H 8.7/28.4 on am labs. Platelets remain elevated at 682. - heme consulted 12/18: H/H 7.9/25.8 on am labs. Platelets 617. Fibrinogen 621 PTT 42.1 PT/INR 18.1/1.5 Factor VIII pending 12/19: H/H 8.2/26.3 on am labs. Platelets improving at 552. - Iron replacement has been started. Continue oral iron supplements. - JAK2 mutation testing for essential thrombocythemia. - Per heme, patient is a poor candidate for bone marrow biopsy. 12/20- stable 12/21- hg/hct 8.7/28.1 today- stable recheck tomorrow- if stable will discuss with family
[2023-12-27 13:58] VITALS: BP 136/73; PULSE 87; RESP 22; TEMP 36.7; O2SAT 97
--- NOTE | 2023-12-27 15:16 | PC.NURSE ---
On 12/27/23, the student, [Flako Streeter], provided care and completed [facility] documentation on this patient. I have reviewed the student's documentation and agree with the findings.
[2023-12-27 17:47] LABS: Glucose Point of Care 124 mg/dl (65-105)
--- NOTE | 2023-12-27 18:41 | WPDONCPN ---
Progress Note: A/P - Additional Plan Reactive thrombocytosis. Platelet count has been improving. Iron deficiency anemia. Hemoglobin stable at 8.7. Continue iron replacement. We expect further improvement in platelet count with improvement in iron deficiency anemia. Left lower extremity DVT status post IVC filter placement. Nontraumatic chronic subdural hemorrhage. CT scan finding suggest late subacute or early chronic subdural hemorrhage. Given the risk of further thromboembolic events with elevated platelet count and recent DVT If okay with Neurology I would suggest low-dose Eliquis 2.5 mg twice a day with close monitoring of her neurological status and labs. Sepsis and UTI. Status post antibiotic treatment with improvement in her symptoms. - Time Spent With Patient Total time spent is greater than 50% in coordination of care (as documented) at patient's floor/unit and/or counseling patient: 15 - 25 minutes Subjective Interval history: Thrombocythemia Iron deficiency anemia Left lower extremity DVT History of stroke Review of Systems - Review of Systems Patient clinical status remains unchanged. She seems to be quite comfortable. - Neurologic Reports confusion Exam Vital signs: Temp Pulse Resp BP Pulse Ox O2 Del Method 36.7 C 87 22 H 136/73 97 Room Air 12/27/23 13:58 12/27/23 13:58 12/27/23 13:58 12/27/23 13:58 12/27/23 13:58 12/27/23 11:27 Narrative: Lungs are clear to auscultation bilaterally Cardiovascular regular rate rhythm no murmurs Abdomen soft nontender nondistended bowel sounds positive Extremities no edema PN: Objective Data - Labs CBC & Chem 7: 12/27/23 05:33 12/27/23 05:33 Labs: Laboratory Results - last 24 hr 12/26/23 12/27/23 12/27/23 23:54 05:33 06:22 WBC 8.6 RBC 3.25 L Hgb 8.7 L Hct 28.6 L MCV 88.0 MCH 26.8 MCHC 30.4 L RDW 17.4 H Plt Count 481 H MPV 10.4 Sodium 133 L Potassium 4.4 Chloride 98 Carbon Dioxide 26 Anion Gap 9 BUN 39 H Creatinine 0.50 L Estim Creat Clear Calc 79 Estimated GFR > 60 Glucose 124 H POC Capillary Glucose 113 H 102 Calcium 8.3 L 12/27/23 12/27/23 11:46 17:40 WBC RBC Hgb Hct MCV MCH MCHC RDW Plt Count MPV Sodium Potassium Chloride Carbon Dioxide Anion Gap BUN Creatinine Estim Creat Clear Calc Estimated GFR Glucose POC Capillary Glucose 121 H 124 H Calcium
[2023-12-27] MEDS: MIRTAZAPINE 15 MG TABLET FEED TUBE (20:42)
[2023-12-27 22:00] VITALS: BP 115/62; PULSE 87; RESP 18; TEMP 36.4; O2SAT 98
[2023-12-28 01:59] LABS: Glucose Point of Care 102 mg/dl (65-105)
[2023-12-28] MEDS: LEVOTHYROXINE SODIUM 50 MCG TABLET FEED TUBE (05:33)
[2023-12-28] MEDS: LEVOTHYROXINE SODIUM 12.5 MCG TABLET FEED TUBE (05:34)
[2023-12-28 06:00] VITALS: BP 112/62; PULSE 83; RESP 18; TEMP 36.7; O2SAT 99
[2023-12-28 06:59] LABS: Glucose Point of Care 110 mg/dl (65-105)
[2023-12-28 09:12] LABS: Basophils Absolute Auto 0.1 K/mm3 (0.0-0.1); Basophils Percent Auto 0.8 % (0.2-1.2); Eosinophils Absolute Auto 0.4 K/mm3 (0-0.3); Eosinophils Percent Auto 5.2 % (0-4.4); Hematocrit 26.7 % (37.0-47.0); Hemoglobin 8.2 g/dL (12.0-15.0); Immature Granulocyte Absolute 0.04 K/mm3 (0.00-0.031); Immature Granulocyte Percent A 0.5 % (0-0.5); Lymphocytes Absolute Auto 1.75 K/mm3 (0.9-3.2); Lymphocytes Percent Auto 22.6 % (18.3-44.2); Mean Corpuscular HGB Conc 30.7 g/dl (32-36); Mean Corpuscular Hemoglobin 26.6 pg (26-34); Mean Corpuscular Volume 86.7 fl (80-100); Mean Platelet Volume 9.2 fl (7.4-10.4); Monocytes Absolute Auto 0.9 K/mm3 (0.1-0.6); Monocytes Percent Auto 11.3 % (2.6-8.5); Neutrophils Absolute Auto 4.6 K/mm3 (1.3-6.7); Neutrophils Percent Auto 59.6 % (45.5-73.1); Platelet Count Result 501 k/mm3 (150-375); Red Blood Count 3.08 M/mm3 (4.2-5.4); Red Cell Distribution Width 17.8 % (11.5-14.5); White Blood Count 7.8 K/mm3 (4.5-10.0)
[2023-12-28 09:34] VITALS: PULSE 83
[2023-12-28] MEDS: AMIODARONE HCL 200 MG TABLET FEED TUBE (09:34)
[2023-12-28] MEDS: SENNOSIDES 8.6 MG TABLET FEED TUBE (09:34)
[2023-12-28] MEDS: CHOLECALCIFEROL 400 UNITS TABLET (VIT D) 800 UNITS FEED TUBE (09:34)
[2023-12-28 09:36] LABS: Alanine Aminotransferase 16 U/L (6-35); Alkaline Phosphatase 153 U/L (38-126); Anion Gap 8 mmol/L (4-12); Aspartate Amino Transferase 22 U/L (14-36); Bilirubin,Total 0.2 mg/dL (0.2-1.3); Blood Urea Nitrogen 41 mg/dL (7-17); Calcium 8.3 mg/dL (8.4-10.2); Carbon Dioxide 28 mmol/L (22-30); Chloride 98 mmol/L (98-107); Estimated CRCL calculation 67 ml/min; Estimated Glomerular Filt Rate > 60; Glucose 107 mg/dL (65-110); Potassium 4.6 mmol/L (3.4-5.0); Sodium 134 mmol/L (137-145)
[2023-12-28] MEDS: COLLAGENASE OINT 30 GM TUBE 1 APPLIC TOPICAL (09:37)
[2023-12-28] MEDS: FERROUS SULFATE LIQUID 325 MG/7.4 ML ELIXIR 324 MG FEED TUBE (09:37)
[2023-12-28] MEDS: TOLNAFTATE 1% POWDER 45 GM BTL 1 APPLIC TOPICAL (09:37)
[2023-12-28] MEDS: levETIRAcetam ORAL SOL 500 MG/5 ML UDC 1250 MG FEED TUBE (09:37)
[2023-12-28 12:31] LABS: Glucose Point of Care 117 mg/dl (65-105)
--- NOTE | 2023-12-28 13:37 | PM.DS ---
DS: Admitting Diagnosis Discharge Date 12/28/23 Admitting Diagnosis Altered mental status DS: Discharge Diagnosis Discharge Diagnosis (1) Sepsis: Qualifiers: Sepsis acute organ dysfunction status: unspecified Sepsis type: sepsis due to unspecified organism Qualified Code(s): A41.9 - Sepsis, unspecified organism Code(s): A41.9 - Sepsis, unspecified organism Status: Acute Assessment and Plan: Meets SIRS criteria: WBC, HR, suspected source UTI vs possible INSIDE WIREMAN shunt infection - lactic acid: 1.5 - suspected source: urinary tract infection vs possible INSIDE WIREMAN shunt infection - antibiotics: meropenem 12/14, transitioned to bactrim given that patient was septic on admission to complete the antibiotic course given that symptoms improved with treatment - blood cultures drawn on 12/14: staph epidermidis in one bottle, likely a contaminant - UA: orange color with turbid appearance, 3+ protein, 1+ blood, positive nitrates, 3+ leukocytes, 51-100 RBC, 21-50 WBC, triple phos crystals presents, 4+ bacteria, yeast present - Urine culture collected on 12/14: negative - Viral panel negative - CXR: no acute cardiopulmonary process - Head CT: Stable size but slightly increasing density of the bilateral extra-axial collections, suggesting interval subdural hemorrhage since the 2021 examination occurring within the existing chronic bilateral subdural hematomas/subdural hygromas. Density suggests late subacute or early chronic timing (roughly greater than one week to several weeks). - Neurology consulted see #2 and 3 12/23 remains afebrile, WBC trending down 12/24- WBC wnl today,afebrile, vs stable 12/25- stable, monitor (2) Complex partial seizures: Code(s): G40.209 - Localization-related (focal) (partial) symptomatic epilepsy and epileptic syndromes with complex partial seizures, not intractable, without status epilepticus Status: Acute Assessment and Plan: Patient is having staring spells that are concerning for possible seizures. - Neurology consulted Keppra level WNL Keppra dose increased to 1250 mg BID - no seizure like activities- monitor - neurology is following (3) Chronic subdural hematoma: Code(s): I62.03 - Nontraumatic chronic subdural hemorrhage Status: Acute Assessment and Plan: - Head CT 12/14: Stable size but slightly increasing density of the bilateral extra-axial collections, suggesting interval subdural hemorrhage since the 2021 examination occurring within the existing chronic bilateral subdural hematomas/subdural hygromas. Density suggests late subacute or early chronic timing (roughly greater than one week to several weeks). Head CT 12/18: Chronic encephalomalacia involving the right frontotemporal region, right insula, right basal ganglia, and left frontal lobe.Stable chronic bilateral subdural hematomas. Unchanged size of the ventricles with shunt in expected position. - Neurology consulted Continue holding anticoagulation - stable- continue to monitor neuro status - neurology is following (4) Anemia: Code(s): D64.9 - Anemia, unspecified Status: Acute Assessment and Plan: H/H 5.7/20.6 on admission with platelet count of 1043. - s/p blood transfusion on 12/14 - occult negative, no hematuria - B12 and Folate WNL - Iron panel: 33 iron, 194 TIBC, 17% saturation - remains on iron supplementation 12/16: H/H 6.6/22.8 on am labs. Platelets remain elevated at 713. - s/p pRBC transfusion on 12/16 - heme consulted 12/17: H/H 8.7/28.4 on am labs. Platelets remain elevated at 682. - heme consulted 12/18: H/H 7.9/25.8 on am labs. Platelets 617. Fibrinogen 621 PTT 42.1 PT/INR 18.1/1.5 Factor VIII pending 12/19: H/H 8.2/26.3 on am labs. Platelets improving at 552. - Iron replacement has been started. Continue oral iron supplements. - JAK2 mutation testing for essential thrombocythemia. - Per heme, patient is a poor candidate for bone marrow biopsy. 12/20- s
[2023-12-28 14:00] VITALS: BP 147/71; PULSE 83; RESP 16; TEMP 36.3; O2SAT 96
== END 2023-12-28 16:20 | DRG 698 ==
LOC: ANHED 19:24 → ANH2MED 23:36
PROVIDERS: Nurse Practitioner; Nurse Practitioner Family; Psychiatry & Neurology Neurology; Student in an Organized Health Care Education/Training Program; Surgery; Admitting Provider Internal Medicine; Emergency Provider Physician Assistant; PCP Internal Medicine; Visit Provider Nurse Practitioner Acute Care
PROC: 06H03DZ Insertion of Intraluminal Device into Inferior Vena Cava, Percutaneous Approach (ICD-10-PCS; principal; 2023-12-21 11:30)
DX: T83.511A Infection and inflammatory reaction due to indwelling urethral catheter, initial encounter (principal); A41.9 Sepsis, unspecified organism; L89.154 Pressure ulcer of sacral region, stage 4; I62.03 Nontraumatic chronic subdural hemorrhage; G40.209 Localization-related (focal) (partial) symptomatic epilepsy and epileptic syndromes with complex partial seizures, not intractable, without status epilepticus; E87.0 Hyperosmolality and hypernatremia; I82.452 Acute embolism and thrombosis of left peroneal vein; I82.442 Acute embolism and thrombosis of left tibial vein; N39.0 Urinary tract infection, site not specified; I48.91 Unspecified atrial fibrillation; I67.1 Cerebral aneurysm, nonruptured; F03.90 Unspecified dementia, unspecified severity, without behavioral disturbance, psychotic disturbance, mood disturbance, and anxiety; Y84.6 Urinary catheterization as the cause of abnormal reaction of the patient, or of later complication, without mention of misadventure at the time of the procedure; Z66 Do not resuscitate; E03.9 Hypothyroidism, unspecified; D64.9 Anemia, unspecified; M25.462 Effusion, left knee; D47.3 Essential (hemorrhagic) thrombocythemia; Z79.01 Long term (current) use of anticoagulants; Z86.718 Personal history of other venous thrombosis and embolism; Z93.1 Gastrostomy status; Z74.01 Bed confinement status; Z98.2 Presence of cerebrospinal fluid drainage device
CPT/HCPCS: 36415; 36430; 37191; 70450; 71046; 73562; 76882; 80048; 80053; 80177; 81001; 82274; 82607; 82728; 82746; 82948; 83010; 83540; 83550; 83605; 83615; 84145; 84238; 84436; 84439; 84443; 84480; 85025; 85027; 85240; 85384; 85610; 85730; 86850; 86880; 86900; 86901; 86923; 87040; 87077; 87086; 87088; 87181; 87637; 93005; 93970; 96361; 96365; 96367; 99285; A9270; C1880; G0378; J0696; J1644; J2185; J7030; J7050; P9016

== ENCOUNTER 2024-01-26 13:43 | Inpatient (IN) | payer MEDICARE, SELFPAY ==
[2024-01-26] VITALS (14 sets, daily range): BP systolic 98–131; BP diastolic 48–83; PULSE 89–98; RESP 17–22; TEMP 36.6–36.7; O2SAT 97–100; BMI 22.1
--- NOTE | ~2024-01-26 | XR_ITS ---
EXAMINATION: XR foot RT 2V DATE: 01/27/2024 15:01 INDICATION: Right foot ulcers. TECHNIQUE: 2 views of right foot were obtained. COMPARISON: None. FINDINGS: Pes cavus is noted. There is hyperextension of the ankle joint. No fracture. There is diffu se osteopenia. There is mild osteoarthritis of first metatarsophalangeal joint. IMPRESSION: 1. No evidence of osteomyelitis. Sensitivity is decreased by osteopenia and the small number of views . Reviewed, dictated and finalized at location A. IMPRESSION: 1. No evidence of osteomyelitis. Sensitivity is decreased by osteopenia and the small number of views.
--- NOTE | ~2024-01-26 | CT_ITS ---
EXAMINATION: CT hip LT w con DATE: 01/30/2024 09:23 INDICATION: Abscess of left hip adductor muscle. TECHNIQUE: Computed tomography (CT) of the left hip was performed with 100 mL Omnipaque 350 intraveno us contrast. Automated exposure control and iterative reconstruction technique were employed. The dos e-length product was 356.68 mGy-cm. COMPARISON: CT abdomen and pelvis 01/26/2024 FINDINGS: The bladder is decompressed by a Manzanares catheter. There are erosions of the pubic symphysis with soft tissue swelling. There is ill-defined low attenuation in the left hip adductor muscles luca uring 4.8 x 2.8 cm. There is a bipolar left hip hemiarthroplasty. There is sacral decubitus ulcers wi th chronic bone volume loss and sclerosis involving the sacrum and coccyx and left ischium. There is a ventriculoperitoneal shunt. There is mild left inguinal lymphadenopathy, likely reactive. Subcutane ous edema is noted. IMPRESSION: 1. Erosions of the pubic symphysis, likely osteomyelitis. 2. Ill-defined low attenuation in the left hip adductor muscles measuring 4.8 x 2.8 cm, consistent wi th abscess. It is not clear if this finding would be liquid enough to be drainable. 3. Chronic osteomyelitis involving the sacrum and coccyx and left ischium. 4. Mild left inguinal lymphadenopathy, likely reactive. Reviewed, dictated and finalized at location A. IMPRESSION: 1. Erosions of the pubic symphysis, likely osteomyelitis. 2. Ill-defined low attenuation in the left hip adductor muscles measuring 4.8 x 2.8 cm, consistent with abscess. It is not clear if this finding would be liqu id enough to be drainable. 3. Chronic osteomyelitis involving the sacrum and coccyx and left ischium. 4. Mild left inguinal lymphadenopathy, likely reactive.
--- NOTE | ~2024-01-26 | CT_ITS ---
EXAMINATION: 1. CT guide absc cath placement 2. CT guided needle placement DATE: 01/30/2024 14:54 INDICATION: Left hip adductor muscle abscess. TECHNIQUE: The skin overlying the left pelvis was prepped and draped in usual sterile fashion. Anest hetic was administered with 1% lidocaine subcutaneously. An 18 gauge trochar needle was inserted into the left hip adductor muscle abscess with CT guidance. The needle was exchanged over a wire for 6 Fr ench and 8 Slovak dilators and then for an 8.5 Slovak pigtail catheter. The catheter was stitched to the skin, and a sterile dressing was applied. The skin overlying the left hip was prepped and draped in usual sterile fashion. Anesthetic was admin istered with 1% lidocaine subcutaneously. An 18-gauge needle was inserted into the left hip joint und er CT guidance. No fluid could be aspirated. The mA was adjusted according to patient size. Iterative reconstruction technique was employed. The dose-length product was 227.39 mGy-cm. There were no imme diate complications. FINDINGS: CT images demonstrate the catheter within the left hip adductor muscle abscess. 22 mL opaqu e, edwards fluid was aspirated. CT images demonstrate the needle in the left hip joint. There is a bipola r left hip hemiarthroplasty. IMPRESSION: 1. Successful CT-guided left hip adductor muscle abscess drainage. 2. Opaque, edwards fluid was sent for aerobic and anaerobic cultures. 3. CT-guided left hip joint aspiration yielding no fluid. Reviewed, dictated and finalized at location A. IMPRESSION: 1. Successful CT-guided left hip adductor muscle abscess drainage. 2. Opaque, edwards fluid was sent for aerobic and anaerobic cultures. 3. CT-guided left hip joint aspiration yielding no fluid.
--- NOTE | ~2024-01-26 | CT_ITS ---
EXAMINATION: CT abdomen pelvis w con DATE: 01/26/2024 17:32 INDICATION: Hematuria. Chronic sacral wound. TECHNIQUE: Computed tomography (CT) of the abdomen and pelvis was performed with 100 mL Omnipaque 350 intravenous contrast. Automated exposure control and iterative reconstruction technique were employe d. The dose-length product was 500.77 mGy-cm. COMPARISON: CT abdomen and pelvis 04/13/2022 FINDINGS: The visualized portions of the lung bases demonstrate mild atelectasis. Calcified left lung nodules are consistent with old granulomatous disease. No pleural effusion. The heart size is normal . No pericardial effusion. There is a small sliding hiatal hernia. There are changes of gastric bypas s procedure. There is a gastrostomy tube in the body of the stomach. The liver is normal. Calcificati ons in the spleen are consistent with old granulomatous disease. The pancreas and adrenal glands are normal. There are cysts in the kidneys measuring up to 6 mm on the left. There is a filter in the inf erior vena cava. There is a ventriculoperitoneal shunt. The bladder is compressed by a Manzanares catheter . There is diverticulosis of the colon without evidence of diverticulitis. There is a chronic 4.1 cm cyst in right ovary. There are is a left hip arthroplasty. There are decubitus ulcers extending to th e ischia bilaterally. There is sclerosis of the ischia bilaterally. There is an old healed fracture o f left inferior pubic ramus. There are erosions of the pubic symphysis with soft tissue swelling. The re is enlargement and low-attenuation involving the left hip adductor muscles with adjacent fat stran ding. There is volume loss and sclerosis involving the sacrococcygeal region with overlying soft tiss ue thinning. There are changes of posterior fusion procedure from T11 to L1 with pedicle screws. Ther e is chronic height loss of multiple vertebral bodies. There is severe lumbar spondylosis. IMPRESSION: 1. Erosions of the pubic symphysis, likely osteomyelitis. Myositis involving the left hip adductor mu scles. 2. Chronic osteomyelitis involving the sacrum and coccyx and bilateral ischia. 3. Chronic 4.1 cm cyst in right ovary, likely benign. Pelvis ultrasound is recommended in one year. Reviewed, dictated and finalized at location A. IMPRESSION: 1. Erosions of the pubic symphysis, likely osteomyelitis. Myositis involving th e left hip adductor muscles. 2. Chronic osteomyelitis involving the sacrum and coccyx and bilateral ischia. 3. Chronic 4.1 cm cyst in right ovary, likely benign. Pelvis ultrasound is maddison mmended in one year.
--- NOTE | ~2024-01-26 | XR_ITS ---
EXAM: XR hip LT 2V w AP pelvis DATE: 01/29/2024 20:35 HISTORY: Osteomyelitis pubis, iisch tuberosity and poss hip . COMPARISON: CT abdomen and pelvis 01/26/2024. FINDINGS: Osteopenia. Lumbar degenerative disc disease. Partially visualized IVC filter. ANESTHESIOLOGY PHYSICIAN ASSISTANT shunt tu isra, terminating in the right lower quadrant. Partially visualized left hip bipolar arthroplasty. St able pubic symphysis diastases. Stable sclerosis on both sides of the pubic symphysis. Stable bilater al ischial tuberosity sclerosis with overlying soft tissue ulcers. IMPRESSION: Unchanged bilateral ischial tuberosity and pubic symphysis osteomyelitis. No definite abn ormality detected in the left hip or with the left hip hardware. Reviewed, dictated and finalized at location K. IMPRESSION: Unchanged bilateral ischial tuberosity and pubic symphysis osteomye litis. No definite abnormality detected in the left hip or with the left hip lyons rdware.
--- NOTE | ~2024-01-26 | XR_ITS ---
EXAMINATION: XR chest 1V DATE: 01/26/2024 15:40 INDICATION: Syncope. TECHNIQUE: A single frontal view of the chest was obtained. COMPARISON: Chest 2 views 12/15/2023 FINDINGS: There is no pneumonia, pleural effusion, or pneumothorax. The heart size is normal. A left- sided ventriculoperitoneal shunt is noted. There is an electronic implant overlying left chest wall. There are changes of posterior fusion procedure in thoracolumbar spine. There is a filter in the infe rior vena cava. There are surgical clips in the abdomen. There is a suture anchor in left humeral hea d. IMPRESSION: 1. No acute cardiopulmonary disease. Reviewed, dictated and finalized at location A.
--- NOTE | ~2024-01-26 | CT_ITS ---
EXAMINATION: CT brain wo con DATE: 01/26/2024 15:37 INDICATION: Syncope TECHNIQUE: Computed tomography (CT) of the head was performed without intravenous contrast. Sagittal and coronal reconstructions were performed. The mA was adjusted according to patient size. Iterative reconstruction technique was employed. The dose-length product was 832.33 mGy-cm. COMPARISON: head CT dated 12/19/2023 FINDINGS: Unchanged left ventricular drainage catheter extends through a left parieto-occipital brennen hole and w ith distal tip at the body of the left lateral ventricle. Chronic encephalomalacia involving the righ t frontal and temporal lobes in the intervening insula and portions of the right basal ganglia. There is associated ex vacuo dilation of the anterior and temporal horns of the right lateral ventricle. T here is underlying right frontotemporal craniotomy with plate and screw fixation. There is a second s mall region of encephalomalacia in the left frontal lobe underlying an additional brennen hole. In addit ion there are chronic brennen hole is at the right frontal and right parietal occipital regions. No sign ificant interval change in chronic bilateral subdural hematomas overlying the right frontoparietal re gion in the left frontal, temporal and parietal regions which are slightly higher attenuation in the underlying CSF space. The left subdural hematoma slightly larger measuring up to 11 mm thickness and measuring up to 8 mm in thickness on the right. No acute intracranial hemorrhage, or acute infarction . The ventricles are unchanged. No mass/mass effect. The visualized portion of the orbits, paranasal sinuses and mastoid air cells are normal. IMPRESSION: 1. Chronic encephalomalacia involving the right frontotemporal region, right insula, right basal gang neyda and left frontal lobe which could represent sequela of prior infarct or trauma. No acute intracra nial process. 2. Stable chronic bilateral subdural hematomas. 3. Stable size of the ventricles with expected dilation frontal and temporal horns of the ventricle a nd with unchanged ventricular drainage catheter in the left lateral ventricle. Reviewed, dictated and finalized at location A. IMPRESSION: 1. Chronic encephalomalacia involving the right frontotemporal region, right in sula, right basal ganglia and left frontal lobe which could represent sequela o f prior infarct or trauma. No acute intracranial process. 2. Stable chronic bilateral subdural hematomas. 3. Stable size of the ventricles with expected dilation frontal and temporal ho rns of the ventricle and with unchanged ventricular drainage catheter in the le ft lateral ventricle.
--- NOTE | 2024-01-26 14:34 | ECG_ITS ---
Test Date: 2024-01-26 16:22:26 Measurements Intervals [place] Rate: 92 P: 68 AK: 206 QRS: 25 QRSD: 92 T: 72 QT: 358 QTc: 444 Interpretive Statements SINUS RHYTHM ST ELEVATION, CONSIDER INFERIOR INJURY [MARKED ST ELEVATION W/O NORMALLY INFLECTED T WAVE IN II/aVF] ACUTE [place] Compared to ECG 12/15/2023 16:50:45 ST (T wave) deviation now present Myocardial infarct finding now present Supraventricular tachycardia no longer present Electronically Signed On 01-27-2024 10:36:55 CDT by Bladimir Ritchie M.D.
[2024-01-26 15:17] LABS: Fractional Inspired Oxygen 21 %; HCO3 VBG 29.3 mEq/l (24.0-30.0); PCO2 VBG 43.2 mmHg (42.0-48.0)
[2024-01-26 15:19] LABS: PO2 VBG < 27.0 mmHg (35.0-45.0); pH VBG 7.449 (7.300-7.400)
[2024-01-26 15:22] LABS: Device ROOM AIR
--- NOTE | 2024-01-26 15:22 | ED.GENADULT ---
HPI - General Adult General Chief complaint: Altered Mental Status <Aashish Prabhakar MD - Last Filed: 01/26/24 15:23> Stated complaint: AMS <Aashish Prabhakar MD - Last Filed: 01/26/24 15:23> Time Seen by Provider: 01/26/24 14:20 <Aashish Prabhakar MD - Last Filed: 01/26/24 15:23> History of Present Illness HPI narrative: This is a 73-year-old female presenting for a brief period of unresponsiveness. She was speaking with her daughter at the alf when she stopped talking. Her eyes rolled back into her head. They were unable to wake her by shaking her and they found her blood pressure to be 60/40. She eventually returned to her baseline mental status which is A&O x1. Patient can tell me her name but she cannot provide any information to help guide the workup. She denies any pain Daughter is at bedside. Patient is DNR DNI but medications are okay. <Aashish Prabhakar MD - Last Filed: 01/26/24 15:23> Related Data Home medications: Home Medications Medication Instructions Recorded Confirmed Adults Multivitamin 1 tablet feeding tube DAILY 04/01/22 01/26/24 acetaminophen 650 mg tablet 650 mg PO Q6H PRN Fever Or Pain 04/01/22 01/26/24 albuterol sulfate 90 mcg/actuation 2 puff inhalation Q6H 04/01/22 01/26/24 aerosol inhaler amiodarone 200 mg tablet 200 mg PO DAILY 04/01/22 01/26/24 collagenase clostridium histo. 250 1 applic topical DAILY 04/01/22 01/26/24 unit/gram topical ointment (Santyl) ergocalciferol (vitamin D2) 800 units G-tube DAILY 04/01/22 01/26/24 mirtazapine 15 mg tablet 15 mg PO HS 04/01/22 01/26/24 polyethylene glycol 3350 17 17 g PO DAILY PRN Constipation 04/01/22 01/26/24 gram/dose oral powder (Miralax) arginine 7 gram-glutamine 7 1 ea PO BID 12/16/23 01/26/24 gram-calcium HMB 1.5 gram oral powder pack (Jose) ferrous sulfate 325 mg (65 mg 325 mg feeding tube BID 12/16/23 01/26/24 iron) tablet povidone-iodine 10 % vaginal 15 ml vaginal DAILY 01/26/24 01/26/24 solution <Aashish Prabhakar MD - Last Filed: 01/26/24 15:23> Allergies/adverse reactions: Allergies Allergy/AdvReac Type Severity Reaction Status Date / Time No Known Allergies Allergy Mild Verified 10/03/23 10:41 <Aashish Prabhakar MD - Last Filed: 01/26/24 15:23> [facility] Past Medical History Medical History: Medical History Atrial fibrillation Cerebral aneurysm Complex partial seizures Dementia DVT (deep venous thrombosis) Hypothyroid Seizure <Aashish Prabhakar MD - Last Filed: 01/26/24 15:23> Surgical History Surgical History: Surgical History H/O gastric bypass H/O hand surgery H/O rectocele repair H/O repair of left rotator cuff H/O Spinal surgery H/O: hysterectomy History of bladder surgery Bladder suspension History of tonsillectomy and adenoidectomy S/P BILLING COLLECTIONS SPECIALIST shunt <Aashish Prabhakar MD - Last Filed: 01/26/24 15:23> Family History Family History: Family History Other Unknown family medical history <Aashish Prabhakar MD - Last Filed: 01/26/24 15:23> Social History Social History: Social History Social History: The patient is from [facility]. She is listed as a DNR. The patient tells me that she had 3 children and 1 has . She is . 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 She is listed as . Code status DNR Smoking status: Unknown if ever smoked Alcohol intake: never Substance use: never Do You Feel Safe in your Home?: Yes Lack of Transportation: No Lack of Food: Never True Current Housing: I Have Housing Concerned About Future Housing: No Difficulty Paying Gas/Electric Bills: No Difficulty Paying for Meds: No Currently Unemployed: No Education: High School Diploma
--- NOTE | 2024-01-26 15:24 | PCRCNOTE ---
HAD TO WAIT 25 MINUTES TO HAVE THE VBG DRAWN DUE TO DIFFICULT STICK.
[2024-01-26 15:26] LABS: Basophils Percent Auto 0.3 % (0.2-1.2); Eosinophils Absolute Auto 0.1 K/mm3 (0-0.3); Eosinophils Percent Auto 0.7 % (0-4.4); Hematocrit 23.7 % (37.0-47.0); Hemoglobin 7.3 g/dL (12.0-15.0); Immature Granulocyte Absolute 0.08 K/mm3 (0.00-0.031); Immature Granulocyte Percent A 0.6 % (0-0.5); Lymphocytes Absolute Auto 1.44 K/mm3 (0.9-3.2); Lymphocytes Percent Auto 10.7 % (18.3-44.2); Mean Corpuscular HGB Conc 30.8 g/dl (32-36); Mean Corpuscular Hemoglobin 26.7 pg (26-34); Mean Corpuscular Volume 86.8 fl (80-100); Mean Platelet Volume 9.4 fl (7.4-10.4); Monocytes Absolute Auto 1.2 K/mm3 (0.1-0.6); Monocytes Percent Auto 8.6 % (2.6-8.5); Neutrophils Absolute Auto 10.6 K/mm3 (1.3-6.7); Neutrophils Percent Auto 79.1 % (45.5-73.1); Platelet Count Result 490 k/mm3 (150-375); Red Blood Count 2.73 M/mm3 (4.2-5.4); Red Cell Distribution Width 18.3 % (11.5-14.5); White Blood Count 13.5 K/mm3 (4.5-10.0)
[2024-01-26] MEDS: SODIUM CHLORIDE 0.9% IV 2,000 ML 999 ML IV CONT (15:30)
[2024-01-26 15:36] LABS: Alanine Aminotransferase 26 U/L (6-35); Alkaline Phosphatase 299 U/L (38-126); Anion Gap 5 mmol/L (4-12); Aspartate Amino Transferase 28 U/L (14-36); Bilirubin,Total 0.3 mg/dL (0.2-1.3); Blood Urea Nitrogen 59 mg/dL (7-17); Calcium 8.2 mg/dL (8.4-10.2); Carbon Dioxide 32 mmol/L (22-30); Chloride 99 mmol/L (98-107); Estimated Glomerular Filt Rate > 60; Glucose 106 mg/dL (65-110); INR 1.5; Lipase 43 U/L (23-300); Magnesium 2.5 mg/dL (1.6-2.3); Phosphorus 2.2 mg/dL (2.5-4.5); Potassium 4.3 mmol/L (3.4-5.0); Prothrombin Time 18.8 Seconds (11.1-14.7); Sodium 136 mmol/L (137-145)
[2024-01-26 15:37] LABS: Partial Thromboplastin Time 34.1 Seconds (22.3-36.8)
[2024-01-26 15:44] LABS: NT Pro B Type Natriuretic Pept 1980 pg/mL (19.9-100)
[2024-01-26 15:47] LABS: Troponin I < 0.012 ng/mL (0.000-0.034)
[2024-01-26 16:04] LABS: Influenza A QL RT-PCR Negative (Negative); Influenza B QL RT-PCR Negative (Negative); RSV RNA, RT-PCR Negative (Negative); SARS-CoV-2 RNA PCR Positive (Negative)
--- NOTE | 2024-01-26 16:29 | ECG_ITS ---
Test Date: 2024-01-26 16:29:39 Measurements Intervals [place] Rate: 90 P: 40 ID: 185 QRS: 8 QRSD: 94 T: 64 QT: 373 QTc: 458 Interpretive Statements SINUS RHYTHM LOW QRS VOLTAGE IN EXTREMITY LEADS [QRS DEFLECTION < 0.5 mV IN LIMB LEADS] Compared to ECG 01/26/2024 16:22:26 Low QRS voltage now present ST (T wave) deviation no longer present Myocardial infarct finding no longer present Electronically Signed On 01-27-2024 13:13:32 CDT by Bladimir Ritchie M.D.
[2024-01-26 16:30] LABS: Bacteria Urine 4+ /hpf; Need Manual Microscopic Reviewed; Non Pathogenic Casts >20; Squamous Epithelial Cell Urine Few /hpf (Few); Triple Phosphate Crystal Urine Present /hpf
[2024-01-26 16:32] LABS: Add Urine Microscopic? YES; Appearance Urine Turbid (Clear); Bilirubin Urine Negative (Negative); Blood Urine Negative (Negative); Glucose Urine UA 1+ mg/dL (Negative); Ketones Urine Negative (Negative); Leukocyte Esterase Ur 2+ LEU/UL (Negative); Nitrate Urine Positive (Negative); Protein Urine 4+ mg/dL (Negative); Specific Grav Ur 1.016 (1.001-1.035); pH Urine >=9.0 (5.0-9.0)
[2024-01-26 16:33] LABS: Amorphous Sediment Urine Moderate; Color Urine Dark Yellow (Yellow)
--- NOTE | 2024-01-26 17:00 | PC.NURSE ---
Pt cleaned up and repositioned. Linens changed. Old soiled Mepilex removed from 3 sores. New Mepilex applied to all 3 sores. Pt daughter states she is treated by wound care nurse daily and was just seen today right prior to this event happening. 20F crump catheter with 30 ml bulb was removed. Lots of purulent drainage noted after removal of catheter. Blood noted prior to insertion of new catheter. EDP at bedside to assess bleeding. Watkins-sized area of chux pad saturated with blood and small clot noted upon log rolling patient. EDP at bedside and aware. EDP okay with new crump catheter being placed. After cleaning and changing chux pad no further bleeding noted. 16F catheter replaced by underwriting technician. Initially blood tinged urine returned. Urine then changed to yellow in color. no further bleeding noted.
[2024-01-26 17:06] LABS: Free T4 Free Thyroxine Reflex 0.92 ng/dL (0.78-2.19)
[2024-01-26 17:48] LABS: Total Triiodothyronine (T3) 1.05 NG/ML (0.97-1.69)
[2024-01-26] MEDS: SODIUM CHLORIDE 0.9% IV 1,000 ML 999 ML IV CONT (18:02)
[2024-01-26] MEDS: CEFEPIME 1 GM/NS 50 ML 1 GM/50 ML BAG IVPB (18:03)
--- NOTE | 2024-01-26 18:08 | PC.NURSE ---
This RN attempted x 2 to obtain outstanding labs without success. EDP Dr. Cerda aware
[2024-01-26] MEDS: VANCOMYCIN 1,500 MG/NS 500 ML 1,500 MG/500 ML BAG 250 MG IVPB (18:55)
--- NOTE | 2024-01-26 19:00 | PC.NURSE ---
Report given to ART Donohue
--- NOTE | 2024-01-26 20:05 | ADMGEN ---
This patient, Babs Felton, was admitted to 2 Medical Room 256-01. Patient/family oriented to hospital policies and general routines including ID bracelet, bed and alarms, visiting hours, pain management, procedures, bathroom and other care routines, personal items, smoking policy, room service/diet, and visiting hours. Information on how to activate the Rapid Response Team has been discussed. Patient/Family are encouraged to report perceived risks to care and to ask questions if they do not understand what they are told or what they should do.
--- NOTE | 2024-01-26 20:39 | PM.IMHP ---
H&P: HPI History of Present Illness Date/Time: 01/26/24 20:39 Chief Complaint: Altered mental status Narrative: This is a 73-year-old female [facility] resident, past medical history significant for atrial fibrillation, osteomyelitis of the pubis, chronic decubitus ulcer, DVT, dementia, seizure disorder. patient was brought to the emergency room for evaluation due to brief episode of unresponsiveness. Patient is unable to give any meaningful history. Has been placed in observation for further evaluation management and treatment. EXAMINATION: CT brain wo con DATE: 01/26/2024 15:37 INDICATION: Syncope TECHNIQUE: Computed tomography (CT) of the head was performed without intravenous contrast. Sagittal and coronal reconstructions were performed. The mA was adjusted according to patient size. Iterative reconstruction technique was employed. The dose-length product was 832.33 mGy-cm. COMPARISON: head CT dated 12/19/2023 FINDINGS: Unchanged left ventricular drainage catheter extends through a left parieto-occipital brennen hole and with distal tip at the body of the left lateral ventricle. Chronic encephalomalacia involving the right frontal and temporal lobes in the intervening insula and portions of the right basal ganglia. There is associated ex vacuo dilation of the anterior and temporal horns of the right lateral ventricle. There is underlying right frontotemporal craniotomy with plate and screw fixation. There is a second small region of encephalomalacia in the left frontal lobe underlying an additional brennen hole. In addition there are chronic brennen hole is at the right frontal and right parietal occipital regions. No significant interval change in chronic bilateral subdural hematomas overlying the right frontoparietal region in the left frontal, temporal and parietal regions which are slightly higher attenuation in the underlying CSF space. The left subdural hematoma slightly larger measuring up to 11 mm thickness and measuring up to 8 mm in thickness on the right. No acute intracranial hemorrhage, or acute infarction. The ventricles are unchanged. No mass/mass effect. The visualized portion of the orbits, paranasal sinuses and mastoid air cells are normal. IMPRESSION: 1. Chronic encephalomalacia involving the right frontotemporal region, right insula, right basal ganglia and left frontal lobe which could represent sequela of prior infarct or trauma. No acute intracranial process. 2. Stable chronic bilateral subdural hematomas. 3. Stable size of the ventricles with expected dilation frontal and temporal horns of the ventricle and with unchanged ventricular drainage catheter in the left lateral ventricle. EXAMINATION: XR chest 1V DATE: 01/26/2024 15:40 INDICATION: Syncope. TECHNIQUE: A single frontal view of the chest was obtained. COMPARISON: Chest 2 views 12/15/2023 FINDINGS: There is no pneumonia, pleural effusion, or pneumothorax. The heart size is normal. A left-sided ventriculoperitoneal shunt is noted. There is an electronic implant overlying left chest wall. There are changes of posterior fusion procedure in thoracolumbar spine. There is a filter in the inferior vena cava. There are surgical clips in the abdomen. There is a suture anchor in left humeral head. IMPRESSION: 1. No acute cardiopulmonary disease. EXAMINATION: CT abdomen pelvis w con DATE: 01/26/2024 17:32 INDICATION: Hematuria. Chronic sacral wound. TECHNIQUE: Computed tomography (CT) of the abdomen and pelvis was performed with 100 mL Omnipaque 350 intravenous contrast. Automated exposure control and iterative reconstruction technique were employed. The dose-length product was 500.77 mGy-cm. COMPARISON: CT abdomen and pelvis 04/13/2022 FINDINGS: The visualized portions of the lung bases demonstrate mild atelectasis. Calcified left lung nodules are consistent with old granulomatous disease. No pleural effusion. The heart size is normal. No pericardial effusion.
[2024-01-26 20:41] LABS: Lactic Acid Reflex 1.1 mmol/L (0.7-2.0)
[2024-01-26 20:58] LABS: Troponin I < 0.012 ng/mL (0.000-0.034)
--- NOTE | 2024-01-26 21:11 | PC.NURSE ---
Spoke with son Kolby who stated that pt had covid 2 and 1/2 weeks ago and was asymptomatic.
[2024-01-26] MEDS: metroNIDAZOLE 500 MG/ISO 100ML 500 MG/100 ML BAG 100 MG IVPB (21:43)
[2024-01-27] VITALS (14 sets, daily range): BP systolic 102–125; BP diastolic 52–78; PULSE 81–95; RESP 16–18; TEMP 36.1–36.6; O2SAT 97–99; BMI 22.1
[2024-01-27 05:39] LABS: Estimated CRCL calculation 93 ml/min; Estimated Glomerular Filt Rate > 60
[2024-01-27] MEDS: LEVOTHYROXINE SODIUM 50 MCG TABLET PO (06:15)
[2024-01-27] MEDS: VANCOMYCIN 1,250 MG/NS 250 ML 1,250 MG/250 ML BAG 166.67 MG IVPB ×2 (09:02→23:07)
[2024-01-27] MEDS: CHOLECALCIFEROL 400 UNITS TABLET (VIT D) 800 UNITS FEED TUBE (09:03)
[2024-01-27] MEDS: FERROUS SULFATE 325 MG TABLET DR XX ×2 (09:03→16:10)
[2024-01-27] MEDS: AMIODARONE HCL 200 MG TABLET PO (09:03)
[2024-01-27] MEDS: POVIDONE-IODINE 10% SOLUTION 118 ML BOTTLE 15 ML TOPICAL (09:04)
[2024-01-27] MEDS: COLLAGENASE OINT 30 GM TUBE 1 APPLIC TOPICAL (09:04)
--- NOTE | 2024-01-27 09:28 | PM.IMPN ---
Progress Note: A&P Assessment and Plan (1) Osteomyelitis of sacrum: Code(s): M46.28 - Osteomyelitis of vertebra, sacral and sacrococcygeal region Status: Acute Assessment and Plan: Patient has a chronic, known sacral pressure ulcer. CT abdomen and pelvis show erosions of the pubic symphysis, likely osteomyelitis and myositis involving the left hip and abductor muscles; chronic osteomyelitis involving the sacrum, coccyx, and bilateral ischia. Wound care consulted for local wound care, recs appreciated Looking at the photos taken on admission, wound does not appear acutely infected to me Continue with turning and repositioning every 2 hours, offloading bony prominences (2) Osteomyelitis of symphysis pubis: Code(s): M86.9 - Osteomyelitis, unspecified Status: Acute Assessment and Plan: CT imaging indicates a more acute osteomyelitis of symphysis pubis compared to her chronic sacral osteo. She does have a leukocytosis on arrival of 13.5, normal lactic 1.1. Blood pressures are soft but not hypotensive, no tachycardia, afebrile. Add ESR and CRP Started on Cefepime, Flagyl, and Vancomycin Blood cultures pending Tylenol as needed for fever greater than 101.4 Calcium 8.2, Phosphorus 2.2 Wound consulted. I spoke with Dr. Gonzalez with General surgery regarding chronic osteomyelitis of sacrum. Sacral wounds do not appear acutely infected. In regard to her erosion of the pubic symphysis (likely osteomyelitis) and myositis involving the left hip adductor muscle, I spoke with Dr. Hogue with orthopedics who feels that this could warrant aspiration (although no fluid collection noted on CT) and possible ID consult as outside facility. Shared decision making will be discussed with the patient's daughter as she is not a great candidate for surgery. This may be best managed with IV antibiotics. (3) UTI (urinary tract infection): Code(s): N39.0 - Urinary tract infection, site not specified Status: Acute Assessment and Plan: Patient with chronic Manzanares catheter given her sacral wounds and immobility. U/A on admission is concerning for infection. Ensure Manzanares catheter was exchanged in the ED Urine culture pending, blood culture pending Started on Cefepime, Vancomycin (4) Complex partial seizures: Code(s): G40.209 - Localization-related (focal) (partial) symptomatic epilepsy and epileptic syndromes with complex partial seizures, not intractable, without status epilepticus Status: Acute Assessment and Plan: History of complex seizure. Last admission was on Keppra 1250 mg per tube BID. Blank starring and AMS could be from partial seizure Resume Keppra. Patient was not receiving this at her outside facility for some reason. It was listed as a discharge medication when she discharged from this facility 12/27. Head CT showed chronic encephalomalacia involving the right frontotemporal region, right insulin, right basal ganglia, and left front lobe from previous stroke, stable chronic subdural hematomas (left subdural hemorrhage is slightly larger measuring up to 11 mm thickness, 8 mm in thickness on the right). Would continue to hold Eliquis. Seizure precautions (5) Atrial fibrillation: Code(s): I48.91 - Unspecified atrial fibrillation Status: Acute Assessment and Plan: History of a-fib on amiodarone 200 mg daily cardiac telemetry monitoring resume rate control agent not on anticoagulation after subdural hematoma last month. IVC filter was placed. Risks and benefits of anticoagulation were discussed with family and it was decided to for go Eliquis. SCD for DVT prophylaxis (6) Elevated TSH: Code(s): R79.89 - Other specified abnormal findings of blood chemistry Status: Acute Assessment and Plan: TSH 30.500, T4 2.54 on 12/18/23. Levothyroxine was increased to 25 mcg at that time. TSH on admission is 35.100. T4 pending Increased
[2024-01-27 10:09] LABS: Erythrocyte Sedimentation Rate > 140 mm/hr (0-20)
[2024-01-27] MEDS: CEFEPIME 2 GM/NS 50 ML 2 GM/50 ML BAG IVPB ×2 (10:46→22:18)
[2024-01-27 11:59] LABS: T4 Thyroxine 2.68 ug/dL (5.53-11.0)
[2024-01-27] MEDS: metroNIDAZOLE 500 MG TABLET PO ×2 (13:51→22:34)
[2024-01-27 19:05] LABS: Basophils Percent Auto 0.3 % (0.2-1.2); Eosinophils Absolute Auto 0.1 K/mm3 (0-0.3); Eosinophils Percent Auto 0.7 % (0-4.4); Hematocrit 21.7 % (37.0-47.0); Immature Granulocyte Absolute 0.11 K/mm3 (0.00-0.031); Immature Granulocyte Percent A 0.7 % (0-0.5); Lymphocytes Absolute Auto 1.11 K/mm3 (0.9-3.2); Lymphocytes Percent Auto 7.5 % (18.3-44.2); Mean Corpuscular HGB Conc 30.4 g/dl (32-36); Mean Corpuscular Hemoglobin 27.7 pg (26-34); Mean Corpuscular Volume 91.2 fl (80-100); Mean Platelet Volume 9.6 fl (7.4-10.4); Monocytes Percent Auto 6.9 % (2.6-8.5); Neutrophils Absolute Auto 12.5 K/mm3 (1.3-6.7); Neutrophils Percent Auto 83.9 % (45.5-73.1); Platelet Count Result 444 k/mm3 (150-375); Red Blood Count 2.38 M/mm3 (4.2-5.4); Red Cell Distribution Width 18.8 % (11.5-14.5); White Blood Count 14.8 K/mm3 (4.5-10.0)
[2024-01-27 19:10] LABS: Hemoglobin 6.6 g/dL (12.0-15.0)
[2024-01-27 19:11] LABS: Alanine Aminotransferase 19 U/L (6-35); Albumin Level 2.4 g/dL (3.5-5.1); Alkaline Phosphatase 212 U/L (38-126); Anion Gap 6 mmol/L (4-12); Aspartate Amino Transferase 32 U/L (14-36); Bilirubin,Total 0.3 mg/dL (0.2-1.3); Blood Urea Nitrogen 32 mg/dL (7-17); Calcium 7.8 mg/dL (8.4-10.2); Carbon Dioxide 22 mmol/L (22-30); Chloride 110 mmol/L (98-107); Estimated CRCL calculation 93 ml/min; Estimated Glomerular Filt Rate > 60; Glucose 84 mg/dL (65-110); Potassium 3.8 mmol/L (3.4-5.0); Sodium 138 mmol/L (137-145)
[2024-01-27] MEDS: levETIRAcetam ORAL SOL 500 MG/5 ML UDC 1250 MG FEED TUBE (22:33)
[2024-01-27] MEDS: MIRTAZAPINE 15 MG TABLET PO (22:34)
[2024-01-27] MEDS: SODIUM CHLORIDE 0.9% IV 250 ML 30 ML IV CONT (23:07)
[2024-01-28] VITALS (15 sets, daily range): BP systolic 122–135; BP diastolic 55–63; PULSE 82–94; RESP 16–20; TEMP 36.4–37; O2SAT 98–99
[2024-01-28 03:53] LABS: Hematocrit 27.2 % (37.0-47.0); Hemoglobin 8.5 g/dL (12.0-15.0); Mean Corpuscular HGB Conc 31.3 g/dl (32-36); Mean Corpuscular Hemoglobin 27.5 pg (26-34); Mean Platelet Volume 9.2 fl (7.4-10.4); Platelet Count Result 428 k/mm3 (150-375); Red Blood Count 3.09 M/mm3 (4.2-5.4); White Blood Count 13.5 K/mm3 (4.5-10.0)
[2024-01-28] MEDS: metroNIDAZOLE 500 MG TABLET PO (06:18)
[2024-01-28] MEDS: LEVOTHYROXINE SODIUM 75 MCG TABLET PO (06:18)
[2024-01-28 07:12] LABS: Basophils Absolute Auto 0.1 K/mm3 (0.0-0.1); Basophils Percent Auto 0.3 % (0.2-1.2); Eosinophils Absolute Auto 0.2 K/mm3 (0-0.3); Eosinophils Percent Auto 1.4 % (0-4.4); Hematocrit 25.3 % (37.0-47.0); Hemoglobin 7.8 g/dL (12.0-15.0); Immature Granulocyte Absolute 0.11 K/mm3 (0.00-0.031); Immature Granulocyte Percent A 0.7 % (0-0.5); Lymphocytes Absolute Auto 1.24 K/mm3 (0.9-3.2); Lymphocytes Percent Auto 7.9 % (18.3-44.2); Mean Corpuscular HGB Conc 30.8 g/dl (32-36); Mean Corpuscular Hemoglobin 26.8 pg (26-34); Mean Corpuscular Volume 86.9 fl (80-100); Mean Platelet Volume 9.4 fl (7.4-10.4); Monocytes Absolute Auto 1.3 K/mm3 (0.1-0.6); Monocytes Percent Auto 8.2 % (2.6-8.5); Neutrophils Absolute Auto 12.9 K/mm3 (1.3-6.7); Neutrophils Percent Auto 81.5 % (45.5-73.1); Platelet Count Result 437 k/mm3 (150-375); Red Blood Count 2.91 M/mm3 (4.2-5.4); White Blood Count 15.8 K/mm3 (4.5-10.0)
[2024-01-28 07:23] LABS: Alanine Aminotransferase 17 U/L (6-35); Albumin Level 2.5 g/dL (3.5-5.1); Alkaline Phosphatase 201 U/L (38-126); Anion Gap 7 mmol/L (4-12); Aspartate Amino Transferase 19 U/L (14-36); Bilirubin,Total 0.4 mg/dL (0.2-1.3); Blood Urea Nitrogen 24 mg/dL (7-17); Calcium 7.9 mg/dL (8.4-10.2); Carbon Dioxide 23 mmol/L (22-30); Chloride 110 mmol/L (98-107); Estimated CRCL calculation 93 ml/min; Estimated Glomerular Filt Rate > 60; Glucose 131 mg/dL (65-110); Potassium 3.7 mmol/L (3.4-5.0); Sodium 140 mmol/L (137-145)
[2024-01-28 07:47] LABS: Vancomycin Trough 21.2 ug/mL (10.0-20.0)
--- NOTE | 2024-01-28 08:14 | PM.IMPN ---
Progress Note: A&P Assessment and Plan (1) Osteomyelitis of symphysis pubis: Code(s): M86.9 - Osteomyelitis, unspecified Status: Acute (2) Osteomyelitis of sacrum: Code(s): M46.28 - Osteomyelitis of vertebra, sacral and sacrococcygeal region Status: Acute Plan This is a 73-year-old female [facility] resident, past medical history significant for atrial fibrillation, osteomyelitis of the pubis, chronic decubitus ulcer, DVT, dementia, seizure disorder. patient was brought to the emergency room for evaluation due to brief episode of unresponsiveness. Patient is unable to give any meaningful history. Has been placed in observation for further evaluation management and treatment. Osteomyelitis of sacrum: Code(s): M46.28 - Osteomyelitis of vertebra, sacral and sacrococcygeal region Status: Acute Assessment and Plan: Patient has a chronic, known sacral pressure ulcer. CT abdomen and pelvis show erosions of the pubic symphysis, likely osteomyelitis and myositis involving the left hip and abductor muscles; chronic osteomyelitis involving the sacrum, coccyx, and bilateral ischia. Wound care consulted for local wound care, recs appreciated Looking at the photos taken on admission, wound does not appear acutely infected to me Continue with turning and repositioning every 2 hours, offloading bony prominences Osteomyelitis of symphysis pubis, and .myositis involving the left hip adductor muscles. Code(s): M86.9 - Osteomyelitis, unspecified Status: Acute Assessment and Plan: CT imaging indicates a more acute osteomyelitis of symphysis pubis compared to her chronic sacral osteo. She does have a leukocytosis on arrival of 13.5, normal lactic 1.1. Blood pressures are soft but not hypotensive, no tachycardia, afebrile. Add ESR and CRP Started on Cefepime, Flagyl, and Vancomycin Blood cultures pending Tylenol as needed for fever greater than 101.4 Calcium 8.2, Phosphorus 2.[address] Gonzalez with General surgery regarding chronic osteomyelitis of sacrum. Sacral wounds do not appear acutely infected. In regard to her erosion of the pubic symphysis (likely osteomyelitis) and myositis involving the left hip adductor muscle, consulted Dr. Hogue with orthopedics who feels that this could warrant aspiration (although no fluid collection noted on CT) and possible ID consult as outside facility. Tiffany also shared decision making will be discussed with the patient's daughter as she is not a great candidate for surgery. they agress with abx managements leukocytosis is trending, patient is afebrile over the night, blood pressure stable, c/w with vancomycin, cefepime IV, switch from Flagyl p.o. to clindamycin IV 900 mg q.8 hour bacteremia 1 of the 2 tubes of blood culture on January 25 grows Gram-positive cocci repeat blood culture multiple chronic ulcers involving sacral, bilateral buttock, right back, toes of right foot consult wound care UTI (urinary tract infection): Code(s): N39.0 - Urinary tract infection, site not specified Status: Acute Assessment and Plan: Patient with chronic Manzanares catheter given her sacral wounds and immobility. U/A on admission is concerning for infection. Ensure Manzanares catheter was exchanged in the ED Urine culture: Mixed genital khoi isolated abx see above dehydration elevated BUN creatinine ratio 32/0.4, continue normal saline IV 100 mL/hour follow-up BMP Complex partial seizures: Code(s): G40.209 - Localization-related (focal) (partial) symptomatic epilepsy and epileptic syndromes with complex partial seizures, not intractable, without status epilepticus Status: Acute Assessment and Plan: History of complex seizure. Last admission was on Keppra 1250 mg per tube BID. Blank starring and AMS could be from partial seizure Resume Keppra. Patient was not recei
[2024-01-28] MEDS: AMIODARONE HCL 200 MG TABLET PO (09:43)
[2024-01-28] MEDS: FERROUS SULFATE 325 MG TABLET DR XX ×2 (09:43→18:03)
[2024-01-28] MEDS: CLINDAMYCIN 900 MG/D5W 50 ML 900 MG/50 ML PIGGYBACK 50 MG IVPB ×3 (09:44→22:35)
[2024-01-28] MEDS: CEFEPIME 2 GM/NS 50 ML 2 GM/50 ML BAG IVPB ×2 (09:44→21:41)
[2024-01-28] MEDS: CHOLECALCIFEROL 400 UNITS TABLET (VIT D) 800 UNITS FEED TUBE (09:44)
[2024-01-28] MEDS: levETIRAcetam ORAL SOL 500 MG/5 ML UDC 1250 MG FEED TUBE ×2 (09:45→21:40)
[2024-01-28] MEDS: SODIUM CHLORIDE 0.9% IV 1,000 ML 100 ML IV CONT ×2 (09:51→22:30)
[2024-01-28 20:49] LABS: Glucose Point of Care 128 mg/dl (65-105)
[2024-01-28] MEDS: MIRTAZAPINE 15 MG TABLET PO (21:41)
[2024-01-29] VITALS (12 sets, daily range): BP systolic 116–137; BP diastolic 53–66; PULSE 72–96; RESP 16–18; TEMP 36.6–36.8; O2SAT 96–98
[2024-01-29 03:14] LABS: Glucose Point of Care 126 mg/dl (65-105)
[2024-01-29 05:09] LABS: Basophils Absolute Auto 0.1 K/mm3 (0.0-0.1); Basophils Percent Auto 0.3 % (0.2-1.2); Eosinophils Absolute Auto 0.2 K/mm3 (0-0.3); Eosinophils Percent Auto 1.1 % (0-4.4); Hematocrit 25.9 % (37.0-47.0); Hemoglobin 7.5 g/dL (12.0-15.0); Immature Granulocyte Absolute 0.18 K/mm3 (0.00-0.031); Immature Platelet Fraction Pct 3.9 % (0.9-11.2); Lymphocytes Percent Auto 7.2 % (18.3-44.2); Mean Corpuscular Hemoglobin 26.6 pg (26-34); Mean Corpuscular Volume 91.8 fl (80-100); Mean Platelet Volume 10.5 fl (7.4-10.4); Monocytes Absolute Auto 1.4 K/mm3 (0.1-0.6); Neutrophils Absolute Auto 14.8 K/mm3 (1.3-6.7); Neutrophils Percent Auto 82.4 % (45.5-73.1); Platelet Count Result 382 k/mm3 (150-375); Red Blood Count 2.82 M/mm3 (4.2-5.4); Red Cell Distribution Width 18.7 % (11.5-14.5)
[2024-01-29 05:24] LABS: Alanine Aminotransferase 13 U/L (6-35); Albumin Level 2.4 g/dL (3.5-5.1); Alkaline Phosphatase 174 U/L (38-126); Anion Gap 6 mmol/L (4-12); Aspartate Amino Transferase 16 U/L (14-36); Bilirubin,Total 0.4 mg/dL (0.2-1.3); Blood Urea Nitrogen 18 mg/dL (7-17); Calcium 7.4 mg/dL (8.4-10.2); Carbon Dioxide 23 mmol/L (22-30); Chloride 110 mmol/L (98-107); Estimated CRCL calculation 93 ml/min; Estimated Glomerular Filt Rate > 60; Glucose 120 mg/dL (65-110); Sodium 139 mmol/L (137-145)
[2024-01-29] MEDS: LEVOTHYROXINE SODIUM 75 MCG TABLET PO (05:54)
[2024-01-29] MEDS: CLINDAMYCIN 900 MG/D5W 50 ML 900 MG/50 ML PIGGYBACK 50 MG IVPB ×3 (05:59→22:14)
--- NOTE | 2024-01-29 08:16 | PM.IMPN ---
Progress Note: A&P Assessment and Plan (1) Osteomyelitis of symphysis pubis: Code(s): M86.9 - Osteomyelitis, unspecified Status: Acute (2) Osteomyelitis of sacrum: Code(s): M46.28 - Osteomyelitis of vertebra, sacral and sacrococcygeal region Status: Acute Plan This is a 73-year-old female senior care resident, past medical history significant for atrial fibrillation, osteomyelitis of the pubis, chronic decubitus ulcer, DVT, dementia, seizure disorder. patient was brought to the emergency room for evaluation due to brief episode of unresponsiveness. Patient is unable to give any meaningful history. Has been placed in observation for further evaluation management and treatment. Osteomyelitis of sacrum: Code(s): M46.28 - Osteomyelitis of vertebra, sacral and sacrococcygeal region Status: Acute Assessment and Plan: Patient has a chronic, known sacral pressure ulcer. CT abdomen and pelvis show erosions of the pubic symphysis, likely osteomyelitis and myositis involving the left hip and abductor muscles; chronic osteomyelitis involving the sacrum, coccyx, and bilateral ischia. Wound care consulted for local wound care, recs appreciated Continue with turning and repositioning every 2 hours, offloading bony prominences Osteomyelitis of symphysis pubis, and .myositis involving the left hip adductor muscles. Code(s): M86.9 - Osteomyelitis, unspecified Status: Acute Assessment and Plan: CT imaging indicates a more acute osteomyelitis of symphysis pubis compared to her chronic sacral osteo. She does have a leukocytosis on arrival of 13.5, normal lactic 1.1. Blood pressures are soft but not hypotensive, no tachycardia, afebrile. Add ESR and CRP Started on Cefepime, Flagyl, and Vancomycin Blood cultures pending Tylenol as needed for fever greater than 101.4 Calcium 8.2, Phosphorus 2.2 Wound consulted. Tiffany consulted Dr. Gonzalez with General surgery regarding chronic osteomyelitis of sacrum. Sacral wounds do not appear acutely infected. In regard to her erosion of the pubic symphysis (likely osteomyelitis) and myositis involving the left hip adductor muscle, Tiffany consulted Dr. Hogue with orthopedics who feels that this could warrant aspiration (although no fluid collection noted on CT) and possible ID consult as outside facility. Tiffany also shared decision making will be discussed with the patient's daughter as she is not a great candidate for surgery. they agress with abx managements leukocytosis is trending up, patient is afebrile over the night, blood pressure stable, c/w with vancomycin, cefepime IV, switch from Flagyl p.o. to clindamycin IV 900 mg q.8 hour 01/27 01/28 white blood cell is trending up, patient is afebrile, c/w the abx f/u CRP, consulted the general surgeon and also orthopedic surgeon, follow recommendation regarding sacral osteomyelitis anddecubital ulcer and mass ascites of left hip abductor muscle and pubic safe is osteomyelitis. may need bone biopsy for culture to guide antibiotics selection bacteremia 1 of the 2 tubes of blood culture on January 25 grows Gram-positive cocci, pending report repeated blood culture 01/27 pending result multiple chronic ulcers involving sacral, bilateral buttock, right back, toes of right foot may change the abx based on the culture consult wound care UTI (urinary tract infection): Code(s): N39.0 - Urinary tract infection, site not specified Status: Acute Assessment and Plan: Patient with chronic Manzanares catheter given her sacral wounds and immobility. U/A on admission is concerning for infection. Ensure Manzanares catheter was exchanged in the ED Urine culture: Mixed genital khoi isolated abx see above dehydration elevated BUN creatinine ratio 32/0.4, continue normal saline IV 100 mL/hour follow-up BMP Complex partial seizures: Code(s): G40.209 - Localization
[2024-01-29 09:27] LABS: CRP 14.7 mg/dL (<1.0)
[2024-01-29] MEDS: SODIUM CHLORIDE 0.9% IV 1,000 ML 100 ML IV CONT (10:14)
[2024-01-29] MEDS: AMIODARONE HCL 200 MG TABLET PO (10:14)
[2024-01-29] MEDS: CHOLECALCIFEROL 400 UNITS TABLET (VIT D) 800 UNITS FEED TUBE (10:15)
[2024-01-29] MEDS: FERROUS SULFATE 325 MG TABLET DR XX ×2 (10:15→17:23)
[2024-01-29] MEDS: levETIRAcetam ORAL SOL 500 MG/5 ML UDC 1250 MG FEED TUBE ×2 (10:15→21:39)
[2024-01-29] MEDS: CEFEPIME 2 GM/NS 50 ML 2 GM/50 ML BAG IVPB ×2 (10:15→21:38)
[2024-01-29] MEDS: VANCOMYCIN 1,500 MG/NS 500 ML 1,500 MG/500 ML BAG 250 MG IVPB (12:10)
--- NOTE | 2024-01-29 17:47 | PM.CNOR ---
Assessment and Plan Assessment and plan (1) History of partial replacement of left hip joint using bipolar prosthesis: Code(s): Z96.642 - Presence of left artificial hip joint Status: Acute (2) Osteomyelitis of symphysis pubis: Code(s): M86.9 - Osteomyelitis, unspecified Status: Acute (3) Osteomyelitis of sacrum: Code(s): M46.28 - Osteomyelitis of vertebra, sacral and sacrococcygeal region Status: Acute (4) Sacral decubitus ulcer, stage IV: Code(s): L89.154 - Pressure ulcer of sacral region, stage 4 Status: Acute History of Present Illness HPI Consult date: 01/29/24 Chief complaint: Osteomyelitis of pubic symphsis Narrative: I am asked to see this patient for evaluation of osteomyelitis of the sacrum associated with stage IV chronic ulceration, osteomyelitis of the ischial tuberosities which appears more chronic and now there is erosive change at the symphysis pubis suggesting continue was infection in that location. They did a CT scan on 01/26/2024 abdomen pelvis and there is a cemented bipolar hemiarthroplasty left hip present and evidence of probable infection in the abductor muscle of the left hip The adductor would be contiguous with the ischial tuberosity prominent lytic lesion suggesting rather advanced osteomyelitis at that location. The hairmasters manager film of the CT scan shows this well and there is evidence of fracture of the inferior and superior pubic rami on the left. There is severe osteopenia of the inferior pubic ramus on the right that is more nonspecific. Gin Inspector film shows a cemented bipolar hemiarthroplasty. She appears to have severe osteopenia which limits detection of more subtle periprosthetic bone lesions. She was admitted on 01/26 2024 and [place] [address]. The next day she had sedimentation rate greater than 140 and C-reactive protein of 14.7, normal is less than 1. She had 4+ bacteria in urine but I believe she has an indwelling catheter and they are only 6-10 white cells per high-power field. Other laboratory abnormalities included an elevated alkaline phosphatase 174 but normal AST and ALT. This may be from the bone. . TSH markedly elevated at 35 T4 low at 2.68. Also her hemoglobin was 7.3. On 10/26 her hemoglobin was 6.6. I suspect she received 1 unit of packed red blood cells at that time as the on 10/27 her hemoglobin was 8.5 and today her hemoglobin is 7.5 she may have ongoing blood loss from bleeding of unknown source. She is not on any blood thinner currently. She does have atrial fibrillation but she developed a 7 dural bleed exacerbate a pitts in November. She had had chronic evidence of subdural bleed but it was larger in November and the enlargement was thought to be between 1 in several weeks duration so with a diagnosis calf DVTs at that time a vena cava filter was placed in November rather than starting her on anticoagulation. Blood cultures from 01/26/2024 are growing Gram-positive cocci in clusters. Statistically this would most likely be Staph aureus. ID of the bacteria Is still pending. [place] [address] today. She has evidence of spinal instrumentation posteriorly at approximately T9 through T11. She is at risk for hematogenous seeding of this hardware as well. She has been started on antibiotics and is currently on cefepime, clindamycin, and vancomycin. She also tested positive for coronavirus on day of admission 01/26/2024. Assessment and plan: Patient has CT scan evidence of osteomyelitis of the sacrum and bilateral ischial tuberosities and probable osteomyelitis of symphysis pubis. The myositis in the abductor musculature immediately adjacent to the bipolar left hip prosthesis is extremely worrisome for contiguous infection into the implant space. If that were the case, surgical explantation would be a consideration as she would be considered a poor or post for antibiotic suppression with a debridem
--- NOTE | 2024-01-29 19:05 | PC.NURSE ---
attempted to call patient's daughter Gena to obtain consent for CT. no answer. left name and call back number
[2024-01-29] MEDS: MIRTAZAPINE 15 MG TABLET PO (21:40)
[2024-01-30] VITALS (15 sets, daily range): BP systolic 116–147; BP diastolic 49–65; PULSE 75–91; RESP 14–16; TEMP 35.8–36.6; O2SAT 95–100
[2024-01-30 00:25] LABS: Glucose Point of Care 123 mg/dl (65-105)
[2024-01-30] MEDS: SODIUM CHLORIDE 0.9% IV 1,000 ML 100 ML IV CONT ×3 (01:45→20:29)
[2024-01-30 04:24] LABS: Basophils Percent Auto 0.2 % (0.2-1.2); Eosinophils Absolute Auto 0.5 K/mm3 (0-0.3); Eosinophils Percent Auto 2.6 % (0-4.4); Hematocrit 21.9 % (37.0-47.0); Immature Granulocyte Absolute 0.27 K/mm3 (0.00-0.031); Immature Granulocyte Percent A 1.5 % (0-0.5); Lymphocytes Absolute Auto 1.47 K/mm3 (0.9-3.2); Lymphocytes Percent Auto 7.9 % (18.3-44.2); Mean Corpuscular Hemoglobin 27.5 pg (26-34); Mean Corpuscular Volume 85.9 fl (80-100); Monocytes Absolute Auto 0.9 K/mm3 (0.1-0.6); Monocytes Percent Auto 5.1 % (2.6-8.5); Neutrophils Absolute Auto 15.4 K/mm3 (1.3-6.7); Neutrophils Percent Auto 82.7 % (45.5-73.1); Platelet Count Result 378 k/mm3 (150-375); Red Blood Count 2.55 M/mm3 (4.2-5.4); Red Cell Distribution Width 18.2 % (11.5-14.5); White Blood Count 18.6 K/mm3 (4.5-10.0)
[2024-01-30 04:36] LABS: Alanine Aminotransferase 12 U/L (6-35); Albumin Level 2.3 g/dL (3.5-5.1); Alkaline Phosphatase 149 U/L (38-126); Anion Gap 5 mmol/L (4-12); Aspartate Amino Transferase 17 U/L (14-36); Bilirubin,Total 0.4 mg/dL (0.2-1.3); Blood Urea Nitrogen 17 mg/dL (7-17); Calcium 7.2 mg/dL (8.4-10.2); Carbon Dioxide 20 mmol/L (22-30); Chloride 111 mmol/L (98-107); Estimated CRCL calculation 93 ml/min; Estimated Glomerular Filt Rate > 60; Glucose 136 mg/dL (65-110); Potassium 3.8 mmol/L (3.4-5.0); Sodium 136 mmol/L (137-145)
[2024-01-30 04:53] LABS: Vancomycin Trough 15.4 ug/mL (10.0-20.0)
[2024-01-30] MEDS: CLINDAMYCIN 900 MG/D5W 50 ML 900 MG/50 ML PIGGYBACK 50 MG IVPB (05:00)
[2024-01-30 05:38] LABS: Glucose Point of Care 125 mg/dl (65-105)
[2024-01-30] MEDS: VANCOMYCIN 1,500 MG/NS 500 ML 1,500 MG/500 ML BAG 250 MG IVPB ×2 (06:08→22:08)
[2024-01-30] MEDS: LEVOTHYROXINE SODIUM 75 MCG TABLET PO (06:16)
[2024-01-30] MEDS: CHOLECALCIFEROL 400 UNITS TABLET (VIT D) 800 UNITS FEED TUBE (09:47)
[2024-01-30] MEDS: AMIODARONE HCL 200 MG TABLET PO (09:47)
[2024-01-30] MEDS: FERROUS SULFATE 325 MG TABLET DR XX ×2 (09:48→17:35)
[2024-01-30] MEDS: levETIRAcetam ORAL SOL 500 MG/5 ML UDC 1250 MG FEED TUBE ×2 (09:48→20:31)
[2024-01-30] MEDS: CEFEPIME 2 GM/NS 50 ML 2 GM/50 ML BAG IVPB ×2 (09:50→20:30)
--- NOTE | 2024-01-30 10:57 | PCNFU ---
Nutrition Follow-Up Complete: Severe Protein Calorie Malnutrition as related to inadequate energy intake with increased protein-energy needs in setting of chronic disease as evidenced by severe subcutaneous fat loss (orbital fat pads) severe muscle wasting (temporalis) and inadequate energy intake for > 1-2 months. Meet estimated nutritional needs. - Meeting goal. Meeting needs with tube feeding as PO intake is minimal. Continue with same goal Goal: Pt current nutrition is PO diet Regular, puree level 4, Moderately thickened liquids Level 2. Per PEG tube: Jevity 1.5 @ 45 ml/h for 1485 kcal, 63 g protein. Jose BID for additional 90 kcal and 2.5 g protein to support wound healing. Thrive nutritional ice cream BID for additional 270 kcal and 9 g protein Nutrition recommendation: No new nutrition recommendations. Continue current diet orders and care plan. Agree with orders. Last recorded weight is 60.2 kg. Bowel Motility: Last BM 01/27/24. May need bowel regimen Labs Reviewed: Hgb 7.0, Hct 21.9, Alb 2.3, Na 136, Cre 0., Glu 136 Meds Noted: Remeron, miralax Skin: Stage III pressure to back; Stage IV ischium; Stage III R leg Additional Notes: Plan to have hip aspirated today. May be transferring. PO intakes are poor. Tolerating tube feeding well. Continue with same orders. Will monitor weight, labs, skin, oral intake, meds, diet orders every Tuesday and Tuesday.
--- NOTE | 2024-01-30 12:36 | PM.CNOR ---
Assessment and Plan Assessment and plan (1) History of partial replacement of left hip joint using bipolar prosthesis: Code(s): Z96.642 - Presence of left artificial hip joint Status: Acute (2) Osteomyelitis of symphysis pubis: Code(s): M86.9 - Osteomyelitis, unspecified Status: Acute (3) Osteomyelitis of sacrum: Code(s): M46.28 - Osteomyelitis of vertebra, sacral and sacrococcygeal region Status: Acute (4) Osteomyelitis of coccyx: Code(s): M86.9 - Osteomyelitis, unspecified Status: Acute (5) Sacral decubitus ulcer, stage IV: Code(s): L89.154 - Pressure ulcer of sacral region, stage 4 Status: Acute History of Present Illness HPI Consult date: 01/30/24 Chief complaint: Osteomyelitis of pubic symphsis Narrative: This was my dictation from last night: I am asked to see this patient for evaluation of osteomyelitis of the sacrum associated with stage IV chronic ulceration, osteomyelitis of the ischial tuberosities which appears more chronic and now there is erosive change at the symphysis pubis suggesting continue was infection in that location. They did a CT scan on 01/26/2024 abdomen pelvis and there is a cemented bipolar hemiarthroplasty left hip present and evidence of probable infection in the abductor muscle of the left hip The adductor would be contiguous with the ischial tuberosity prominent lytic lesion suggesting rather advanced osteomyelitis at that location. The color mixer film of the CT scan shows this well and there is evidence of fracture of the inferior and superior pubic rami on the left. There is severe osteopenia of the inferior pubic ramus on the right that is more nonspecific. Doctor Of Optometry film shows a cemented bipolar hemiarthroplasty. She appears to have severe osteopenia which limits detection of more subtle periprosthetic bone lesions. She was admitted on 01/26 2024 and [place] [address]. The next day she had sedimentation rate greater than 140 and C-reactive protein of 14.7, normal is less than 1. She had 4+ bacteria in urine but I believe she has an indwelling catheter and they are only 6-10 white cells per high-power field. Other laboratory abnormalities included an elevated alkaline phosphatase 174 but normal AST and ALT. This may be from the bone. . TSH markedly elevated at 35 T4 low at 2.68. Also her hemoglobin was 7.3. On 10/26 her hemoglobin was 6.6. I suspect she received 1 unit of packed red blood cells at that time as the on 10/27 her hemoglobin was 8.5 and today her hemoglobin is 7.5 she may have ongoing blood loss from bleeding of unknown source. She is not on any blood thinner currently. She does have atrial fibrillation but she developed a 7 dural bleed exacerbate a pitts in November. She had had chronic evidence of subdural bleed but it was larger in November and the enlargement was thought to be between 1 in several weeks duration so with a diagnosis calf DVTs at that time a vena cava filter was placed in November rather than starting her on anticoagulation. Blood cultures from 01/26/2024 are growing Gram-positive cocci in clusters. Statistically this would most likely be Staph aureus. ID of the bacteria Is still pending. [place] [address] today. She has evidence of spinal instrumentation posteriorly at approximately T9 through T11. She is at risk for hematogenous seeding of this hardware as well. She has been started on antibiotics and is currently on cefepime, clindamycin, and vancomycin. She also tested positive for coronavirus on day of admission 01/26/2024. Assessment and plan: Patient has CT scan evidence of osteomyelitis of the sacrum and bilateral ischial tuberosities and probable osteomyelitis of symphysis pubis. The myositis in the abductor musculature immediately adjacent to the bipolar left hip prosthesis is extremely worrisome for contiguous infection into the implant space. If grabiel
--- NOTE | 2024-01-30 13:44 | PC.NURSE ---
Patient off floor to CT via bed.
--- NOTE | 2024-01-30 14:14 | PM.TDS ---
Transfer Discharge Sum: Prov Provider Date of admission: 01/27/24 13:18 Primary care physician: Andrew Kee, MD Admitting clinician: Kassy Mckeon MD Consults: 01/27/24 Wound/ET Consult Routine Reason for Consult:: Wounds to pubic area, coccyx, sacrum 01/29/24 Consult to Physician Routine Comment: Spoke w/ 01/28 (, ) Consulting Provider: Alban Gonzalez call or contact centre manager/MD group to consult: general surgeon Reason for consultation: sacral osteomyelitis and decubital ulcer Has provider been notified: Yes Consult to Physician Routine Comment: spoke with provider 2300. RONAL, RN Consulting Provider: Chang Hogue call or contact centre manager/MD group to consult: orthopedic surgeon Reason for consultation: pubic symphysis osteomyelitis and abductor muscle myositis Has provider been notified: Yes Discharging clinician: Elizabeth Quispe Anticipated date of transfer: 01/30/24 DS: Admitting Diagnosis Discharge Date 01/30/24 Admitting Diagnosis Altered Mental Status DS: Discharge Diagnosis Discharge Diagnosis (1) History of partial replacement of left hip joint using bipolar prosthesis: Code(s): Z96.642 - Presence of left artificial hip joint Status: Acute (2) Osteomyelitis of symphysis pubis: Code(s): M86.9 - Osteomyelitis, unspecified Status: Acute (3) Osteomyelitis of sacrum: Code(s): M46.28 - Osteomyelitis of vertebra, sacral and sacrococcygeal region Status: Acute (4) Bacteremia: Code(s): R78.81 - Bacteremia Status: Acute Transfer Discharge Sum: Med Medications Active and Home Medications: Home Medications Adults Multivitamin 1 tablet feeding tube DAILY 04/01/22 [History Confirmed 01/26/24] acetaminophen 650 mg tablet 650 mg PO Q6H PRN Fever Or Pain 04/01/22 [History Confirmed 01/26/24] albuterol sulfate 90 mcg/actuation aerosol inhaler 2 puff inhalation Q6H 04/01/22 [History Confirmed 01/26/24] amiodarone 200 mg tablet 200 mg PO DAILY 04/01/22 [History Confirmed 01/26/24] collagenase clostridium histo. 250 unit/gram topical ointment (Santyl) 1 applic topical DAILY 04/01/22 [History Confirmed 01/26/24] ergocalciferol (vitamin D2) 800 units G-tube DAILY 04/01/22 [History Confirmed 01/26/24] mirtazapine 15 mg tablet 15 mg PO HS 04/01/22 [History Confirmed 01/26/24] polyethylene glycol 3350 17 gram/dose oral powder (Miralax) 17 g PO DAILY PRN Constipation 04/01/22 [History Confirmed 01/26/24] levothyroxine 50 mcg capsule 50 mcg PO DAILY 30 days #30 caps 04/05/22 [Rx Confirmed 01/26/24] arginine 7 gram-glutamine 7 gram-calcium HMB 1.5 gram oral powder pack (Jose) 1 ea PO BID 12/16/23 [History Confirmed 01/26/24] ferrous sulfate 325 mg (65 mg iron) tablet 325 mg feeding tube BID 12/16/23 [History Confirmed 01/26/24] sennosides 8.6 mg tablet (senna) 8.6 mg feeding tube BID PRN constipation #10 tabs 12/27/23 [Rx Confirmed 01/26/24] povidone-iodine 10 % vaginal solution 15 ml vaginal DAILY 01/26/24 [History Confirmed 01/26/24] Active Medications Acetaminophen (Acetaminophen 325 Mg Tablet) 650 mg PO Q6H PRN PRN Reason: Mild Pain (1-3) or Fever Albuterol (Albuterol Sulfate (*Sp) Aerosol 1 Puff) 2 puff INHALATION Q6H PRN PRN Reason: Shortness Of Breath Amiodarone HCl (Amiodarone Hcl 200 Mg Tablet) 200 mg PO DAILY@0800 [facility] Last Admin: 01/30/24 09:47 Dose: 200 mg Ferrous Sulfate (Ferrous Sulfate [address]) 325 mg XX BID [facility] Last Admin: 01/30/24 09:48 Dose: 325 mg Cefepime HCl (Maxipime 2 Gm/Ns 50 Ml) 2 gm in 50 mls @ 100 mls/hr IVPB Q12HR [facility] Last Infusion: 01/30/24 10:20 Dose: Infused Vancomycin HCl (Vancomycin 1,500 Mg/Ns 500 Ml) 1,500 mg in 500 mls @ 250 mls/hr IVPB Q18H [facility] Last Admin: 01/30/24 06:08 Dose: 250 mls/hr Sodium Chloride (Normal Saline Iv) 1,000 mls @ 100 mls/hr IV CONT .Q10H [facility] Last Admin: 01/30/24 11:36 Dose: 100 mls/hr Sodium Chloride (Normal Saline Iv) 250 mls @ 30 mls/hr IV CONT .Q8H20M STA Stop: 01/30/24 17:51 Last
[2024-01-30] MEDS: ACETAMINOPHEN ELIXIR 325 MG/10.15 ML UDC 650 MG FEED TUBE ×2 (15:20→20:31)
--- NOTE | 2024-01-30 19:29 | PC.NURSE ---
Provider initiated transfer to [facility] and bed was available. Spoke with patients daughter/POA, Gena, and she does not want patient to go to [place]. Would rather her be transferred to [place] or [facility], so she refused the transfer. She was made aware of the risks of refusing.
--- NOTE | 2024-01-30 19:49 | PM.CNGS ---
Assessment and Plan Assessment and plan (1) Pressure ulcer: Qualifiers: Pressure injury location: unspecified location Pressure injury stage: unspecified pressure injury stage Qualified Code(s): L89.90 - Pressure ulcer of unspecified site, unspecified stage Code(s): L89.90 - Pressure ulcer of unspecified site, unspecified stage Status: Acute Assessment and Plan: This is a bedridden patient with multiple chronic decubitus ulcers. Her sacral and bilateral ischial wounds have been present for at least 2 years and appear to be healing well. CT scan of the abdomen and pelvis show findings of chronic osteomyelitis involving the sacrum, coccyx, and bilateral ischia. The wounds appear stable and are not currently infected. There is no purulent drainage or necrotic tissue that would require surgical debridement. We would recommend to continue local wound care with silver gel dressing changes to her sacral and ischial wounds. Continue frequent turning and she would benefit from a specialty mattress. (2) Osteomyelitis of sacrum: Code(s): M46.28 - Osteomyelitis of vertebra, sacral and sacrococcygeal region Status: Acute Assessment and Plan: Chronic osteomyelitis of sacrum and coccyx. The wounds do not appear infected. No indication for surgical management of these wounds at this time. Continue supportive care. (3) Osteomyelitis of symphysis pubis: Code(s): M86.9 - Osteomyelitis, unspecified Status: Acute Assessment and Plan: New findings of erosion of the pubic symphysis and myositis involving the left hip adductor muscles. Ortho has been consulted and is recommending transfer to a tertiary care facility. (4) Osteomyelitis of coccyx: Code(s): M86.9 - Osteomyelitis, unspecified Status: Acute (5) History of partial replacement of left hip joint using bipolar prosthesis: Code(s): Z96.642 - Presence of left artificial hip joint Status: Acute (6) Bacteremia: Code(s): R78.81 - Bacteremia Status: Acute Assessment and Plan: Blood cx 01/25 growing staph warneri in 1/2 bottles. Repeat blood cx 01/27 pending, NGTD. (7) Anemia: Qualifiers: Anemia type: unspecified type Qualified Code(s): D64.9 - Anemia, unspecified Code(s): D64.9 - Anemia, unspecified Status: Acute (8) Atrial fibrillation: Code(s): I48.91 - Unspecified atrial fibrillation Status: Acute Assessment and Plan: History of atrial fibrillation but no longer on anticoagulation following subdural hematoma last month. IVC filter placed. Plan I have discussed the patient's case and plan of care with Dr. Gonzalez. Thank you for allowing us to see the patient in consultation. History of Present Illness Consult details Consult date: 01/31/24 Reason for consult: other (Sacral osteomyelitis, sacral decubitus ulcer) Requesting physician: Trang Abebe MD Narrative: This is a 73-year-old woman with dementia and PMH of seizures, cerebral aneurysm, atrial fibrillation, and other medical problems, who we have been asked to see in surgical consultation for sacral osteomyelitis and sacral decubitus ulcer. She was admitted and evaluated by our service in March 2022 for the sacral decubitus ulcer and osteomyelitis. She currently resides at a skilled nursing and is a poor historian. She is able to answer simple yes or no questions, but not able to provide history. Her daughter is at the bedside and provides history, which is also gathered by review of the EMR. She was brought into the ED on 01/26/24 for altered mental status. Her daughter reports she was in her typical state of health up until the day she was brought into the ED. She became unresponsive at the skilled nursing and found to be hypotensive. She was brought into the ED. Head CT showed no acute changes. Chest x-ray negative. CT scan abdomen and pelvis showed erosions of the pubic symphysis, likely osteomyelitis,
[2024-01-30] MEDS: MIRTAZAPINE 15 MG TABLET PO (20:32)
[2024-01-30 21:10] LABS: Glucose Point of Care 123 mg/dl (65-105)
[2024-01-31] VITALS (10 sets, daily range): BP systolic 127–154; BP diastolic 60–74; PULSE 61–73; RESP 14–18; TEMP 36.2–36.3; O2SAT 97–100
[2024-01-31 00:47] LABS: Glucose Point of Care 117 mg/dl (65-105)
[2024-01-31] MEDS: LEVOTHYROXINE SODIUM 75 MCG TABLET PO (05:29)
[2024-01-31 06:01] LABS: Glucose Point of Care 122 mg/dl (65-105)
[2024-01-31 06:13] LABS: Basophils Absolute Auto 0.1 K/mm3 (0.0-0.1); Basophils Percent Auto 0.4 % (0.2-1.2); Eosinophils Absolute Auto 0.5 K/mm3 (0-0.3); Eosinophils Percent Auto 4.5 % (0-4.4); Hematocrit 26.8 % (37.0-47.0); Hemoglobin 8.5 g/dL (12.0-15.0); Immature Granulocyte Absolute 0.15 K/mm3 (0.00-0.031); Immature Granulocyte Percent A 1.3 % (0-0.5); Lymphocytes Absolute Auto 1.14 K/mm3 (0.9-3.2); Lymphocytes Percent Auto 9.6 % (18.3-44.2); Mean Corpuscular HGB Conc 31.7 g/dl (32-36); Mean Corpuscular Hemoglobin 27.8 pg (26-34); Mean Corpuscular Volume 87.6 fl (80-100); Mean Platelet Volume 9.6 fl (7.4-10.4); Monocytes Absolute Auto 0.9 K/mm3 (0.1-0.6); Monocytes Percent Auto 7.6 % (2.6-8.5); Neutrophils Absolute Auto 9.1 K/mm3 (1.3-6.7); Neutrophils Percent Auto 76.6 % (45.5-73.1); Platelet Count Result 437 k/mm3 (150-375); Red Blood Count 3.06 M/mm3 (4.2-5.4); White Blood Count 11.9 K/mm3 (4.5-10.0)
[2024-01-31 06:25] LABS: Alanine Aminotransferase 11 U/L (6-35); Albumin Level 2.3 g/dL (3.5-5.1); Alkaline Phosphatase 143 U/L (38-126); Anion Gap 5 mmol/L (4-12); Aspartate Amino Transferase 16 U/L (14-36); Bilirubin,Total 0.3 mg/dL (0.2-1.3); Blood Urea Nitrogen 17 mg/dL (7-17); Calcium 7.5 mg/dL (8.4-10.2); Carbon Dioxide 21 mmol/L (22-30); Chloride 114 mmol/L (98-107); Estimated CRCL calculation 93 ml/min; Estimated Glomerular Filt Rate > 60; Glucose 117 mg/dL (65-110); Potassium 3.5 mmol/L (3.4-5.0); Sodium 140 mmol/L (137-145)
[2024-01-31] MEDS: CHOLECALCIFEROL 400 UNITS TABLET (VIT D) 800 UNITS FEED TUBE (09:03)
[2024-01-31] MEDS: FERROUS SULFATE 325 MG TABLET DR XX ×2 (09:03→17:16)
[2024-01-31] MEDS: AMIODARONE HCL 200 MG TABLET PO (09:04)
[2024-01-31] MEDS: CEFEPIME 2 GM/NS 50 ML 2 GM/50 ML BAG IVPB ×2 (09:04→20:47)
[2024-01-31] MEDS: ACETAMINOPHEN ELIXIR 325 MG/10.15 ML UDC 650 MG FEED TUBE ×2 (09:06→20:52)
[2024-01-31] MEDS: levETIRAcetam ORAL SOL 500 MG/5 ML UDC 1250 MG FEED TUBE ×2 (09:06→20:52)
--- NOTE | 2024-01-31 10:47 | PCNFU ---
Nutrition Follow-Up Complete: Severe Protein Calorie Malnutrition as related to inadequate energy intake with increased protein-energy needs in setting of chronic disease as evidenced by severe subcutaneous fat loss (orbital fat pads) severe muscle wasting (temporalis) and inadequate energy intake for > 1-2 months. Goal: Meet estimated nutritional needs. Patient will continue current goal. Pt current nutrition is Jevity 1.5 at 45 ml/hr with Pureed, Level 4 diet with Mild thick liquids, Level 2 with Jose BID and Thrive BID. Last recorded weight is 60.2 kg. no new weight to report. Recommend new weight. Bowel Motility: +BM reported 01/29 Labs Reviewed:Glu 117, Cr 0.4,Alb 2.3 Meds Noted: Remeron, Miralax, Vitamin D, NS, Keppra Skin: WNL Additional Notes: Patient remains on tube feedings of Jevity 1.5 at 45 ml/hr and tolerating. Tube feedings providing 1485 kcal/63 gm protein. Flush 30 ml q 4hours. NS is running at this time. Jose BID for additional 80 kcal and 2.5 gm protein and Thrive Ice Cream BID providing an additional 300 kcal and 9 gm protein. Surgery consult for left knee aspiration. Will monitor weight, labs, skin, oral intake, meds, diet orders every Tuesday and Tuesday.
[2024-01-31 12:02] LABS: Glucose Point of Care 116 mg/dl (65-105)
[2024-01-31] MEDS: SODIUM CHLORIDE 0.9% IV 1,000 ML 100 ML IV CONT ×2 (12:45→20:49)
--- NOTE | 2024-01-31 13:08 | PM.PNORT ---
Progress Note: A&P Assessment and Plan (1) History of partial replacement of left hip joint using bipolar prosthesis: Code(s): Z96.642 - Presence of left artificial hip joint Status: Acute (2) Osteomyelitis of symphysis pubis: Code(s): M86.9 - Osteomyelitis, unspecified Status: Acute Assessment and Plan: Underwent aspiration under CT guidance of the left abductor muscle abscess yesterday. 22 cc of edwards purulent material were removed and a drain was placed which is still draining serosanguineous fluid today. The culture results already say under anaerobic culture multiple skin khoi bacteria are growing. Aerobic culture is pending. A needle was inserted into the hip joint itself and no fluid could be obtained suggesting that hopefully there is no periprosthetic left hip joint infection. At least there is no infection the can be diagnosed at this time. Clinically, her white count is down today to 11.9. Yesterday was 18.6. On admission it was 13,000. I have discussed these issues with her daughter. Transfer to a tertiary care institution for her multiple areas of osteomyelitis in the pelvis and stage IV sacral decubitus ulcer is being arranged. She was accepted to [facility] last night but her daughter explained to me that her brother and the patient's son want to wait until she could be accepted to [facility] where they feel she is best known since she has been there in the past. I have explained to her that treatment for now is going to be IV antibiotic suppression. Unfortunately antibiotics alone will not cure her areas of osteomyelitis but antibiotics may be able to suppress the infection. Infectious disease specialist may be very helpful in determining the best course of antibiotics to suppress her infections. Her blood culture from Day admission 01/26/2024 grew staphylococcus Werneri which is resistant to methicillin but sensitive to vancomycin, clindamycin, gentamicin and tetracycline. I imagine the bacteria in her abscess is going to prove to be polymicrobial and her osteomyelitis areas I would presume are likely polymicrobial as well. 35 minutes were spent in total care this patient knee (3) Osteomyelitis of sacrum: Code(s): M46.28 - Osteomyelitis of vertebra, sacral and sacrococcygeal region Status: Acute (4) Osteomyelitis of coccyx: Code(s): M86.9 - Osteomyelitis, unspecified Status: Acute Subjective Subjective Date/Time Seen: 01/31/24 13:08 Objective Data Vital Signs Vital Signs: Vital Signs - 24 hr 01/30/24 14:06 01/30/24 14:40 01/30/24 16:00 Temperature 35.9 C L 35.9 C L Pulse Rate 80 80 76 Respiratory Rate 16 16 Blood Pressure 120/56 L 147/58 H Pulse Oximetry 99 99 Oxygen Delivery 01/30/24 22:00 01/30/24 20:00 01/30/24 20:00 Temperature 36.1 C L Pulse Rate 75 75 75 Respiratory Rate 14 14 Blood Pressure 130/50 L Pulse Oximetry 100 100 Oxygen Delivery Room Air 01/31/24 00:00 01/31/24 04:00 01/31/24 06:00 Temperature 36.2 C L Pulse Rate 61 66 73 Respiratory Rate 14 Blood Pressure 127/60 Pulse Oximetry 99 Oxygen Delivery 01/31/24 09:04 01/31/24 09:05 01/31/24 08:00 Temperature Pulse Rate 72 70 Respiratory Rate Blood Pressure Pulse Oximetry Oxygen Delivery Room Air Intake/Output Intake/Output: Intake & Output 01/28/24 01/29/24 01/30/24 01/31/24 23:59 23:59 23:59 23:59 Intake Total 2957 2440 3993.3 50 Output Total 950 1200 1800 1650 Balance 2007 1240 2193.3 -1600 Meds/Results Medications: Active Medications Generic Name Dose Route Start Last Admin Trade Name Freq PRN Reason Stop Dose Admin Acetaminophen 650 mg 01/30/24 15:08 01/31/24 09:06 Acetaminophen Elixir 325 Mg/10.15 Ml Udc FEED TUBE 650 mg Q4H PRN Administration Mild Pain (1-3) or Fever Albuterol 2 puff 01/27/24 01:30 Albuterol Sulfate (*Sp) Aerosol 1 Puff INHALATION
--- NOTE | 2024-01-31 14:46 | WPDPN ---
Progress Note: A&P Assessment and Plan (1) Osteomyelitis of sacrum: Code(s): M46.28 - Osteomyelitis of vertebra, sacral and sacrococcygeal region Status: Acute Assessment and Plan: Patient has clinical osteomyelitis of a sacral decubitus wound. That has been chronic and is slowly healing over time. She has osteomyelitis of the pubis bone as well and appears to have osteomyelitis of the right 2nd toe. Plans are to have the patient transferred to a facility in [place] were a infectious disease consultation can be obtained. No need for surgical management here at [facility]. Patient be transferred arrangements have been made. Subjective Date/time seen: 01/31/24 14:46 Interval history: Patient without acute surgical changes. The sacral decubitus wound continues to heal well. The right foot toe wounds show no evidence of cellulitis at this time although there is bone exposed on the right 2nd toe showing clinical osteomyelitis. There is no erythema around the area now. Apparently patient is be transferred to a facility in [place] where a infectious disease consult can be obtained. Exam Skin: Other: Sacral decubitus ulcer is clean. Granulation tissue was noted the base. It continues to contract and there is no necrotic tissue. No cellulitis. The right 2nd toe has a 1cm wound on the dorsum of the toe with exposed bone underneath. There is no surrounding Objective Data Vital Signs Vital Signs: Vital Signs - 24 hr 01/30/24 16:00 01/30/24 22:00 01/30/24 20:00 Temperature 36.1 C L Pulse Rate 76 75 75 Respiratory Rate 14 Blood Pressure 130/50 L Pulse Oximetry 100 Oxygen Delivery 01/30/24 20:00 01/31/24 00:00 01/31/24 04:00 Temperature Pulse Rate 75 61 66 Respiratory Rate 14 Blood Pressure Pulse Oximetry 100 Oxygen Delivery Room Air 01/31/24 06:00 01/31/24 09:04 01/31/24 09:05 Temperature 36.2 C L Pulse Rate 73 72 Respiratory Rate 14 Blood Pressure 127/60 Pulse Oximetry 99 Oxygen Delivery Room Air 01/31/24 08:00 01/31/24 12:00 01/31/24 14:00 Temperature 36.3 C L Pulse Rate 70 65 71 Respiratory Rate 18 Blood Pressure 144/65 H Pulse Oximetry 97 Oxygen Delivery Intake/Output Intake/Output: Intake & Output 10/05/24 01/29/24 01/30/24 01/31/24 23:59 23:59 23:59 23:59 Intake Total 2957 2440 3993.3 50 Output Total 950 1200 1800 1650 Balance 2007 1240 2193.3 -1600 Meds/Results Medications: Active Medications Generic Name Dose Route Start Last Admin Trade Name Freq PRN Reason Stop Dose Admin Acetaminophen 650 mg 01/30/24 15:08 01/31/24 09:06 Acetaminophen Elixir 325 Mg/10.15 Ml Udc FEED TUBE 650 mg Q4H PRN Administration Mild Pain (1-3) or Fever Albuterol 2 puff 01/27/24 01:30 Albuterol Sulfate (*Sp) Aerosol 1 Puff INHALATION Q6H PRN Shortness Of Breath Amiodarone HCl 200 mg 01/27/24 08:00 01/31/24 09:04 Amiodarone Hcl 200 Mg Tablet PO 200 mg DAILY@0800 RAFAT Administration Ferrous Sulfate 325 mg 01/27/24 09:00 01/31/24 09:03 Ferrous Sulfate [address] XX 325 mg BID RAFAT Administration Cefepime HCl 2 gm in 50 mls @ 100 mls/hr 01/27/24 09:30 01/31/24 09:34 Maxipime 2 Gm/Ns 50 Ml IVPB Infused Q12HR RAFAT Infusion Vancomycin HCl 1,500 mg in 500 mls @ 250 mls/hr 01/28/24 17:00 01/30/24 22:08 Vancomycin 1,500 Mg/Ns 500 Ml IVPB 250 mls/hr Q18H RAFAT Administration Sodium Chloride 1,000 mls @ 100 mls/hr 01/28/24 08:40 01/30/24 20:29 Normal Saline Iv IV CONT 100 mls/hr .Q10H RAFAT Administration Levetiracetam 1,250 mg 01/27/24 21:00 01/31/24 09:06 Levetiracetam Oral Cammy 500 Mg/5 Ml Udc FEED TUBE 1,250 mg Q12HR RAFAT Administration Levothyroxine Sodium 75 mcg 01/28/24 06:30 01/31/24 05:29 Levothyroxine Sodium 75 Mcg Tablet PO 75 mcg DAILY@0630 RAFAT Administration Mirtazapine 15 mg 01/27/24 21:00
--- NOTE | 2024-01-31 15:35 | PM.IMPN ---
Progress Note: A&P Assessment and Plan (1) History of partial replacement of left hip joint using bipolar prosthesis: Code(s): Z96.642 - Presence of left artificial hip joint Status: Acute (2) Osteomyelitis of symphysis pubis: Code(s): M86.9 - Osteomyelitis, unspecified Status: Acute (3) Osteomyelitis of sacrum: Code(s): M46.28 - Osteomyelitis of vertebra, sacral and sacrococcygeal region Status: Acute (4) Bacteremia: Code(s): R78.81 - Bacteremia Status: Acute Plan This is a 73-year-old female longterm resident, past medical history significant for atrial fibrillation, osteomyelitis of the pubis, chronic decubitus ulcer, DVT, dementia, seizure disorder. patient was brought to the emergency room for evaluation due to brief episode of unresponsiveness. Patient is unable to give any meaningful history. Has been placed in observation for further evaluation management and treatment. Osteomyelitis of sacrum: Code(s): M46.28 - Osteomyelitis of vertebra, sacral and sacrococcygeal region Status: Acute Assessment and Plan: Patient has a chronic, known sacral pressure ulcer. CT abdomen and pelvis show erosions of the pubic symphysis, likely osteomyelitis and myositis involving the left hip and abductor muscles; chronic osteomyelitis involving the sacrum, coccyx, and bilateral ischia. Wound care consulted for local wound care, recs appreciated Continue with turning and repositioning every 2 hours, offloading bony prominences Osteomyelitis of symphysis pubis, and .myositis involving the left hip adductor muscles. Code(s): M86.9 - Osteomyelitis, unspecified Status: Acute Assessment and Plan: CT imaging indicates a more acute osteomyelitis of symphysis pubis compared to her chronic sacral osteo. She does have a leukocytosis on arrival of 13.5, normal lactic 1.1. Blood pressures are soft but not hypotensive, no tachycardia, afebrile. Add ESR and CRP Started on Cefepime, Flagyl, and Vancomycin Blood cultures pending Tylenol as needed for fever greater than 101.4 Calcium 8.2, Phosphorus 2.2 Wound consulted. Tiffany consulted Dr. Gonzalez with General surgery regarding chronic osteomyelitis of sacrum. Sacral wounds do not appear acutely infected. In regard to her erosion of the pubic symphysis (likely osteomyelitis) and myositis involving the left hip adductor muscle, Tiffany consulted Dr. Hogue with orthopedics who feels that this could warrant aspiration (although no fluid collection noted on CT) and possible ID consult as outside facility. Tiffany also shared decision making will be discussed with the patient's daughter as she is not a great candidate for surgery. they agress with abx managements leukocytosis is trending up, patient is afebrile over the night, blood pressure stable, c/w with vancomycin, cefepime IV, switch from Flagyl p.o. to clindamycin IV 900 mg q.8 hour 01/27 01/28 white blood cell is trending up, patient is afebrile, c/w the abx f/u CRP, consulted the general surgeon and also orthopedic surgeon, follow recommendation regarding sacral osteomyelitis anddecubital ulcer and mass ascites of left hip abductor muscle and pubic safe is osteomyelitis. may need bone biopsy for culture to guide antibiotics selection bacteremia 1 of the 2 tubes of blood culture on January 25 grows Gram-positive cocci, pending report repeated blood culture 01/27 pending result multiple chronic ulcers involving sacral, bilateral buttock, right back, toes of right foot may change the abx based on the culture consult wound care UTI (urinary tract infection): Code(s): N39.0 - Urinary tract infection, site not specified Status: Acute Assessment and Plan: Patient with chronic Manzanares catheter given her sacral wounds and immobility. U/A on admission is concerning for infection. Ensure Manzanares catheter was exchanged in the ED
[2024-01-31] MEDS: VANCOMYCIN 1,500 MG/NS 500 ML 1,500 MG/500 ML BAG 250 MG IVPB (17:16)
[2024-01-31 18:00] LABS: Glucose Point of Care 115 mg/dl (65-105)
[2024-01-31] MEDS: MIRTAZAPINE 15 MG TABLET PO (20:47)
[2024-01-31 23:58] LABS: Glucose Point of Care 122 mg/dl (65-105)
[2024-02-01] VITALS (9 sets, daily range): BP systolic 124–143; BP diastolic 57–69; PULSE 69–75; RESP 12–18; TEMP 36.6–36.8; O2SAT 97–99
[2024-02-01] MEDS: LEVOTHYROXINE SODIUM 75 MCG TABLET PO (05:11)
[2024-02-01 05:58] LABS: Glucose Point of Care 105 mg/dl (65-105)
[2024-02-01 06:21] LABS: Hematocrit 29.3 % (37.0-47.0); Hemoglobin 9.3 g/dL (12.0-15.0); Mean Corpuscular HGB Conc 31.7 g/dl (32-36); Mean Corpuscular Hemoglobin 27.8 pg (26-34); Mean Corpuscular Volume 87.5 fl (80-100); Mean Platelet Volume 9.7 fl (7.4-10.4); Platelet Count Result 512 k/mm3 (150-375); Red Blood Count 3.35 M/mm3 (4.2-5.4); Red Cell Distribution Width 18.2 % (11.5-14.5); White Blood Count 9.6 K/mm3 (4.5-10.0)
[2024-02-01 06:33] LABS: Alanine Aminotransferase 10 U/L (6-35); Albumin Level 2.5 g/dL (3.5-5.1); Alkaline Phosphatase 140 U/L (38-126); Anion Gap 7 mmol/L (4-12); Aspartate Amino Transferase 15 U/L (14-36); Bilirubin,Total 0.2 mg/dL (0.2-1.3); Blood Urea Nitrogen 22 mg/dL (7-17); Calcium 7.9 mg/dL (8.4-10.2); Carbon Dioxide 20 mmol/L (22-30); Chloride 114 mmol/L (98-107); Estimated CRCL calculation 93 ml/min; Estimated Glomerular Filt Rate > 60; Glucose 104 mg/dL (65-110); Potassium 3.7 mmol/L (3.4-5.0); Sodium 141 mmol/L (137-145)
[2024-02-01] MEDS: CHOLECALCIFEROL 400 UNITS TABLET (VIT D) 800 UNITS FEED TUBE (09:56)
[2024-02-01] MEDS: levETIRAcetam ORAL SOL 500 MG/5 ML UDC 1250 MG FEED TUBE ×2 (09:56→21:12)
[2024-02-01] MEDS: FERROUS SULFATE 325 MG TABLET DR XX (09:57)
[2024-02-01] MEDS: AMIODARONE HCL 200 MG TABLET PO (09:58)
[2024-02-01] MEDS: CEFEPIME 2 GM/NS 50 ML 2 GM/50 ML BAG IVPB ×2 (09:58→21:12)
[2024-02-01] MEDS: ACETAMINOPHEN ELIXIR 325 MG/10.15 ML UDC 650 MG FEED TUBE (10:12)
[2024-02-01 12:16] LABS: Glucose Point of Care 136 mg/dl (65-105)
[2024-02-01] MEDS: VANCOMYCIN 1,500 MG/NS 500 ML 1,500 MG/500 ML BAG 250 MG IVPB (12:23)
--- NOTE | 2024-02-01 13:52 | P.PNIM_ITS ---
Progress Note: A&P Assessment and Plan (1) History of partial replacement of left hip joint using bipolar prosthesis: Code(s): Z96.642 - Presence of left artificial hip joint Status: Acute (2) Osteomyelitis of symphysis pubis: Code(s): M86.9 - Osteomyelitis, unspecified Status: Acute (3) Osteomyelitis of sacrum: Code(s): M46.28 - Osteomyelitis of vertebra, sacral and sacrococcygeal region Status: Acute (4) Bacteremia: Code(s): R78.81 - Bacteremia Status: Acute Plan This is a 73-year-old female group home resident, past medical history significant for atrial fibrillation, osteomyelitis of the pubis, chronic decubitus ulcer, DVT, dementia, seizure disorder. patient was brought to the emergency room for evaluation due to brief episode of unresponsiveness. Patient is unable to give any meaningful history. Has been placed in observation for further evaluation management and treatment. Osteomyelitis of sacrum: Code(s): M46.28 - Osteomyelitis of vertebra, sacral and sacrococcygeal region Status: Acute Assessment and Plan: Called [facility] and accepted by Patient has a chronic, known sacral pressure ulcer. CT abdomen and pelvis show erosions of the pubic symphysis, likely osteomyelitis and myositis involving the left hip and abductor muscles; chronic osteomyelitis involving the sacrum, coccyx, and bilateral ischia. Wound care consulted for local wound care, recs appreciated Continue with turning and repositioning every 2 hours, offloading bony prominences Osteomyelitis of symphysis pubis, and .myositis involving the left hip adductor muscles. Code(s): M86.9 - Osteomyelitis, unspecified Status: Acute Assessment and Plan: CT imaging indicates a more acute osteomyelitis of symphysis pubis compared to her chronic sacral osteo. She does have a leukocytosis on arrival of 13.5, normal lactic 1.1. Blood pressures are soft but not hypotensive, no tachycardia, afebrile. * Add ESR and CRP * Started on Cefepime, Flagyl, and Vancomycin * Blood cultures pending * Tylenol as needed for fever greater than 101.4 * Calcium 8.2, Phosphorus 2.2 * Wound consulted. Tiffany consulted Dr. Gonzalez with General surgery regarding chronic osteomyelitis of sacrum. Sacral wounds do not appear acutely infected. In regard to her erosion of the pubic symphysis (likely osteomyelitis) and myositis involving the left hip adductor muscle, Tiffany consulted Dr. Hogue with orthopedics who feels that this could warrant aspiration (although no fluid collection noted on CT) and possible ID consult as outside facility. Tiffany also shared decision making will be discussed with the patient's daughter as she is not a great candidate for surgery. they agress with abx managements leukocytosis is trending up, patient is afebrile over the night, blood pressure stable, c/w with vancomycin, cefepime IV, switch from Flagyl p.o. to clindamycin IV 900 mg q.8 hour 01/27 01/28 white blood cell is trending up, patient is afebrile, c/w the abx f/u CRP, consulted the general surgeon and also orthopedic surgeon, follow recommendation regarding sacral osteomyelitis anddecubital ulcer and mass ascites of left hip abductor muscle and pubic safe is osteomyelitis. may need bone biopsy for culture to guide antibiotics selection bacteremia 1 of the 2 tubes of blood culture on January 25 grows Gram-positive cocci, pending report repeated blood culture 01/27 pending result multiple chronic ulcers involving sacral, bilateral buttock, right back, toes of right foot may change the abx ba
[2024-02-01] MEDS: FERROUS SULFATE LIQUID 325 MG/7.4 ML ELIXIR FEED TUBE (17:03)
[2024-02-01] MEDS: SODIUM CHLORIDE 0.9% IV 1,000 ML 100 ML IV CONT (17:10)
[2024-02-01 18:02] LABS: Glucose Point of Care 118 mg/dl (65-105)
[2024-02-01] MEDS: MIRTAZAPINE 15 MG TABLET PO (21:12)
[2024-02-02] VITALS (11 sets, daily range): BP systolic 137–150; BP diastolic 60–82; PULSE 74–80; RESP 18–22; TEMP 36.6; O2SAT 97–99
[2024-02-02 00:07] LABS: Glucose Point of Care 92 mg/dl (65-105)
[2024-02-02] MEDS: SODIUM CHLORIDE 0.9% IV 1,000 ML 100 ML IV CONT ×2 (03:11→13:33)
[2024-02-02 04:52] LABS: Estimated CRCL calculation 93 ml/min; Estimated Glomerular Filt Rate > 60
[2024-02-02 04:56] LABS: Vancomycin Trough 25.3 ug/mL (10.0-20.0)
[2024-02-02] MEDS: LEVOTHYROXINE SODIUM 75 MCG TABLET PO (05:54)
[2024-02-02] MEDS: CHOLECALCIFEROL 400 UNITS TABLET (VIT D) 800 UNITS FEED TUBE (08:59)
[2024-02-02] MEDS: FERROUS SULFATE LIQUID 325 MG/7.4 ML ELIXIR FEED TUBE ×2 (08:59→16:41)
[2024-02-02] MEDS: levETIRAcetam ORAL SOL 500 MG/5 ML UDC 1250 MG FEED TUBE ×2 (08:59→20:27)
[2024-02-02] MEDS: AMIODARONE HCL 200 MG TABLET PO (08:59)
[2024-02-02] MEDS: CEFEPIME 2 GM/NS 50 ML 2 GM/50 ML BAG IVPB ×2 (09:00→20:27)
[2024-02-02] MEDS: ACETAMINOPHEN ELIXIR 325 MG/10.15 ML UDC 650 MG FEED TUBE (11:22)
[2024-02-02 12:08] LABS: Glucose Point of Care 116 mg/dl (65-105)
[2024-02-02] MEDS: VANCOMYCIN 1,500 MG/NS 500 ML 1,500 MG/500 ML BAG 250 MG IVPB (16:41)
[2024-02-02 18:44] LABS: Glucose Point of Care 103 mg/dl (65-105)
--- NOTE | 2024-02-02 18:53 | P.PNIM_ITS ---
Progress Note: A&P Assessment and Plan (1) Osteomyelitis of sacrum: Code(s): M46.28 - Osteomyelitis of vertebra, sacral and sacrococcygeal region Status: Acute (2) UTI (urinary tract infection): Code(s): N39.0 - Urinary tract infection, site not specified Status: Acute (3) Altered mental status: Code(s): R41.82 - Altered mental status, unspecified Status: Acute (4) Osteomyelitis of symphysis pubis: Code(s): M86.9 - Osteomyelitis, unspecified Status: Acute (5) Complex partial seizures: Code(s): G40.209 - Localization-related (focal) (partial) symptomatic epilepsy and epileptic syndromes with complex partial seizures, not intractable, without status epilepticus Status: Acute (6) Sacral decubitus ulcer, stage IV: Code(s): L89.154 - Pressure ulcer of sacral region, stage 4 Status: Acute (7) Atrial fibrillation: Code(s): I48.91 - Unspecified atrial fibrillation Status: Acute (8) Dementia: Code(s): F03.90 - Unspecified dementia, unspecified severity, without behavioral disturbance, psychotic disturbance, mood disturbance, and anxiety Status: Acute Plan This is a 73-year-old female [facility] resident, past medical history significant for atrial fibrillation, osteomyelitis of the pubis, chronic decubitus ulcer, DVT, dementia, seizure disorder. patient was brought to the emergency room for evaluation due to brief episode of unresponsiveness. Patient is unable to give any meaningful history. Has been placed in observation for further evaluation management and treatment. Osteomyelitis of sacrum: Code(s): M46.28 - Osteomyelitis of vertebra, sacral and sacrococcygeal region Status: Acute Assessment and Plan: Called [facility] and accepted by Patient has a chronic, known sacral pressure ulcer. CT abdomen and pelvis show erosions of the pubic symphysis, likely osteomyelitis and myositis involving the left hip and abductor muscles; chronic osteomyelitis involving the sacrum, coccyx, and bilateral ischia. Wound care consulted for local wound care, recs appreciated Continue with turning and repositioning every 2 hours, offloading bony prominences Osteomyelitis of symphysis pubis, and .myositis involving the left hip adductor muscles. Code(s): M86.9 - Osteomyelitis, unspecified Status: Acute Assessment and Plan: CT imaging indicates a more acute osteomyelitis of symphysis pubis compared to her chronic sacral osteo. She does have a leukocytosis on arrival of 13.5, normal lactic 1.1. Blood pressures are soft but not hypotensive, no tachycardia, afebrile. * Add ESR and CRP * Started on Cefepime, Flagyl, and Vancomycin * Blood cultures pending * Tylenol as needed for fever greater than 101.4 * Calcium 8.2, Phosphorus 2.2 * Wound consulted. Tiffany consulted Dr. Gonzalez with General surgery regarding chronic osteomyelitis of sacrum. Sacral wounds do not appear acutely infected. In regard to her erosion of the pubic symphysis (likely osteomyelitis) and myositis involving the left hip adductor muscle, Tiffany consulted Dr. Hogue with orthopedics who feels that this could warrant aspiration (although no fluid collection noted on CT) and possible ID consult as outside facility. Tiffany also shared decision making will be discussed with the patient's daughter as she is not a great candidate for surgery. they agress with abx managements leukocytosis is trending up, patient is afebrile over the night, blood pressure stable, c/w with vancomycin, cefepime IV, switch from Flagyl p.o.
[2024-02-02] MEDS: MIRTAZAPINE SOLTAB 15 MG TAB.DISPER FEED TUBE (21:30)
[2024-02-03] VITALS (8 sets, daily range): BP systolic 137–149; BP diastolic 74–77; PULSE 73–84; RESP 12–18; TEMP 36.4–36.6; O2SAT 98–99
[2024-02-03 00:10] LABS: Glucose Point of Care 101 mg/dl (65-105)
[2024-02-03] MEDS: SODIUM CHLORIDE 0.9% IV 1,000 ML 100 ML IV CONT (02:00)
[2024-02-03] MEDS: LEVOTHYROXINE SODIUM 75 MCG TABLET PO (05:35)
[2024-02-03 06:30] LABS: Glucose Point of Care 97 mg/dl (65-105)
[2024-02-03] MEDS: AMIODARONE HCL 200 MG TABLET PO (08:11)
[2024-02-03] MEDS: CHOLECALCIFEROL 400 UNITS TABLET (VIT D) 800 UNITS FEED TUBE (08:11)
[2024-02-03] MEDS: ACETAMINOPHEN ELIXIR 325 MG/10.15 ML UDC 650 MG FEED TUBE ×2 (08:13→17:53)
[2024-02-03] MEDS: CEFEPIME 2 GM/NS 50 ML 2 GM/50 ML BAG IVPB (08:14)
[2024-02-03] MEDS: levETIRAcetam ORAL SOL 500 MG/5 ML UDC 1250 MG FEED TUBE (08:14)
[2024-02-03] MEDS: FERROUS SULFATE LIQUID 325 MG/7.4 ML ELIXIR FEED TUBE ×2 (08:14→17:53)
--- NOTE | 2024-02-03 10:46 | PCNFU ---
Nutrition Follow-Up Complete: Severe Protein Calorie Malnutrition as related to inadequate energy intake with increased protein-energy needs in setting of chronic disease as evidenced by severe subcutaneous fat loss (orbital fat pads) severe muscle wasting (temporalis) and inadequate energy intake for > 1-2 months. Goal: Meet estimated nutritional needs. Patient is not progressing towards goal. We will continue current goal. Pt current nutrition is Jevity 1.5 at 45 ml/hr Pureed, Level 4 diet and Mild Thick, Level 2 diet with Jose BID flush via tube. Nutrition recommendation: increase to 55 ml/hr Last recorded weight is 60.2 kg, no new weight to report. Did discuss weight with nursing today. Bowel Motility:+BM reported 02/02 Labs Reviewed: Glu 117, Cr 0.4, Alb 2.3 Meds Noted: Remeron, Miralax, NS, Keppra Skin: See wound assessment for pressure ulcers. Additional Notes: Patient remains on oral diet as well as supplemental feedings. Spoke with MD today regarding poor po intake. Tube feedings advanced to 55 ml/hr to better meet caloric needs. Tube feedings providing 1815 kcal/73 gm protein/920 ml water. Flush 100 ml q 4hours. Protein Modular of Jose BID being flushed via tube. Tube feedings providing 100% kcal needs at 30 kcal/kg. Agree with diet orders. Will monitor weight, labs, skin, oral intake, meds, diet orders every Tuesday and Tuesday.
--- NOTE | 2024-02-03 11:23 | PM.PNORT ---
Subjective Subjective Date/Time Seen: 02/03/24 11:23 Interval history: Patient is alert. She appears in no distress. The drain from the abductor is still in place. The nurse stated that he milked the drain last night after doing this she had about 40 cc in the drain. Because that I think is reasonable to keep this in a to continue draining any of the pus out. She is on antibiotics. Care coordination is working on getting patient transferred to [place]. Objective Data Vital Signs Vital Signs: Vital Signs - 24 hr 02/02/24 12:00 02/02/24 14:00 02/02/24 16:03 Temperature 97.8 F Pulse Rate 80 76 75 Respiratory Rate 22 H Blood Pressure 143/60 H Pulse Oximetry 99 Oxygen Delivery 02/02/24 22:00 02/02/24 20:00 02/02/24 20:00 Temperature 97.8 F Pulse Rate 77 75 Respiratory Rate 18 Blood Pressure 150/82 H Pulse Oximetry 99 Oxygen Delivery Room Air 02/03/24 00:00 02/03/24 04:00 02/03/24 06:00 Temperature 97.5 F L Pulse Rate 74 73 74 Respiratory Rate 18 Blood Pressure 137/77 Pulse Oximetry 98 Oxygen Delivery 02/03/24 08:11 Temperature Pulse Rate 84 Respiratory Rate Blood Pressure Pulse Oximetry Oxygen Delivery Intake/Output Intake/Output: Intake & Output 01/31/24 02/01/24 02/02/24 02/03/24 23:59 23:59 23:59 23:59 Intake Total 3026.7 1600 3652.0 686.7 Output Total 2450 5950 5150 3240 Balance 576.7 -4350 -1498.0 -2553.3 Meds/Results Medications: Active Medications Generic Name Dose Route Start Last Admin Trade Name Freq PRN Reason Stop Dose Admin Acetaminophen 650 mg 01/30/24 15:08 02/03/24 08:13 Acetaminophen Elixir 325 Mg/10.15 Ml Udc FEED TUBE 650 mg Q4H PRN Administration Mild Pain (1-3) or Fever Albuterol 2 puff 01/27/24 01:30 Albuterol Sulfate (*Sp) Aerosol 1 Puff INHALATION Q6H PRN Shortness Of Breath Amiodarone HCl 200 mg 01/27/24 08:00 02/03/24 08:11 Amiodarone Hcl 200 Mg Tablet PO 200 mg DAILY@0800 RAFAT Administration Ferrous Sulfate 325 mg 02/01/24 17:00 02/03/24 08:14 Ferrous Sulfate Liquid 325 Mg/7.4 Ml Elixir FEED TUBE 325 mg BID RAFAT Administration Cefepime HCl 2 gm in 50 mls @ 100 mls/hr 01/27/24 09:30 02/03/24 08:14 Maxipime 2 Gm/Ns 50 Ml IVPB 100 mls/hr Q12HR RAFAT Administration Sodium Chloride 1,000 mls @ 100 mls/hr 01/28/24 08:40 02/03/24 02:00 Normal Saline Iv IV CONT 100 mls/hr .Q10H RAFAT Administration Vancomycin HCl 1,500 mg in 500 mls @ 250 mls/hr 02/02/24 17:00 02/02/24 18:40 Vancomycin 1,500 Mg/Ns 500 Ml IVPB Infused Q24H RAFAT Infusion Levetiracetam 1,250 mg 01/27/24 21:00 02/03/24 08:14 Levetiracetam Oral Cammy 500 Mg/5 Ml Udc FEED TUBE 1,250 mg Q12HR RAFAT Administration Levothyroxine Sodium 75 mcg 01/28/24 06:30 02/03/24 05:35 Levothyroxine Sodium 75 Mcg Tablet PO 75 mcg DAILY@0630 RAFAT Administration Mirtazapine 15 mg 02/02/24 21:00 02/02/24 21:30 Mirtazapine Soltab 15 Mg Tab.Disper FEED TUBE 15 mg HS RAFAT Administration Polyethylene Glycol 17 gm 01/27/24 01:30 Polyethylene Glycol 3350 17 Gm Powd.Pack PO DAILY PRN Constipation Vitamin D 800 units 01/27/24 09:00 02/03/24 08:11 Cholecalciferol 400 Units Tablet (Vit D) FEED TUBE 800 units QAM RAFAT Administration Radiology Results: ITS Impressions Head CT 01/26/24 15:38 IMPRESSION: 1. Chronic encephalomalacia involving the right frontotemporal region, right insula, right basal ganglia and left frontal lobe which could represent sequela of prior infarct or trauma. No acute intracranial process. 2. Stable chronic bilateral subdural hematomas. 3. Stable size of the ventricles with expected dilation frontal and temporal horns of the ventricle and with unchanged ventricular drainage catheter in the left lateral ventricle. Chest X-Ray 01/26/24 15:41 IMPRESSION: 1. No acute cardiopulmonary disease. Abdomen/Pelvi
[2024-02-03 12:37] LABS: Glucose Point of Care 131 mg/dl (65-105)
[2024-02-03] MEDS: DOXYCYCLINE HYCLATE 100 MG TABLET PO (14:35)
[2024-02-03] MEDS: metroNIDAZOLE 500 MG TABLET PO (14:35)
--- NOTE | 2024-02-03 14:52 | PM.IMPN ---
Progress Note: A&P Assessment and Plan (1) Osteomyelitis of sacrum: Code(s): M46.28 - Osteomyelitis of vertebra, sacral and sacrococcygeal region Status: Acute (2) UTI (urinary tract infection): Code(s): N39.0 - Urinary tract infection, site not specified Status: Acute (3) Altered mental status: Code(s): R41.82 - Altered mental status, unspecified Status: Acute (4) Osteomyelitis of symphysis pubis: Code(s): M86.9 - Osteomyelitis, unspecified Status: Acute (5) Complex partial seizures: Code(s): G40.209 - Localization-related (focal) (partial) symptomatic epilepsy and epileptic syndromes with complex partial seizures, not intractable, without status epilepticus Status: Acute (6) Sacral decubitus ulcer, stage IV: Code(s): L89.154 - Pressure ulcer of sacral region, stage 4 Status: Acute (7) Atrial fibrillation: Code(s): I48.91 - Unspecified atrial fibrillation Status: Acute (8) Dementia: Code(s): F03.90 - Unspecified dementia, unspecified severity, without behavioral disturbance, psychotic disturbance, mood disturbance, and anxiety Status: Acute Plan This is a 73-year-old female skilled nursing resident, past medical history significant for atrial fibrillation, osteomyelitis of the pubis, chronic decubitus ulcer, DVT, dementia, seizure disorder. patient was brought to the emergency room for evaluation due to brief episode of unresponsiveness. Patient is unable to give any meaningful history. Has been placed in observation for further evaluation management and treatment. Osteomyelitis of sacrum: Code(s): M46.28 - Osteomyelitis of vertebra, sacral and sacrococcygeal region Status: Acute Assessment and Plan: Called [facility] and accepted by Patient has a chronic, known sacral pressure ulcer. CT abdomen and pelvis show erosions of the pubic symphysis, likely osteomyelitis and myositis involving the left hip and abductor muscles; chronic osteomyelitis involving the sacrum, coccyx, and bilateral ischia. Wound care consulted for local wound care, recs appreciated Continue with turning and repositioning every 2 hours, offloading bony prominences Osteomyelitis of symphysis pubis, and .myositis involving the left hip adductor muscles. Code(s): M86.9 - Osteomyelitis, unspecified Status: Acute Assessment and Plan: CT imaging indicates a more acute osteomyelitis of symphysis pubis compared to her chronic sacral osteo. She does have a leukocytosis on arrival of 13.5, normal lactic 1.1. Blood pressures are soft but not hypotensive, no tachycardia, afebrile. Add ESR and CRP Started on Cefepime, Flagyl, and Vancomycin Blood cultures pending Tylenol as needed for fever greater than 101.4 Calcium 8.2, Phosphorus 2.2 Wound consulted. Tiffany consulted Dr. Gonzalez with General surgery regarding chronic osteomyelitis of sacrum. Sacral wounds do not appear acutely infected. In regard to her erosion of the pubic symphysis (likely osteomyelitis) and myositis involving the left hip adductor muscle, Tiffany consulted Dr. Hogue with orthopedics who feels that this could warrant aspiration (although no fluid collection noted on CT) and possible ID consult as outside facility. Tiffany also shared decision making will be discussed with the patient's daughter as she is not a great candidate for surgery. they agress with abx managements leukocytosis is trending up, patient is afebrile over the night, blood pressure stable, c/w with vancomycin, cefepime IV, switch from Flagyl p.o. to clindamycin IV 900 mg q.8 hour 10 10/6 white blood cell is trending up, patient is afebrile, c/w the abx f/u CRP, consulted the general surgeon and also orthopedic surgeon, follow recommendation regarding sacral osteomyelitis anddecubital ulcer and mass ascites of left hip abductor muscle and pubic safe is osteomyelitis. may need b
--- NOTE | 2024-02-03 16:42 | PM.TDS ---
Transfer Discharge Sum: Prov Provider Date of admission: 01/27/24 13:18 Primary care physician: Andrew Kee, MD Admitting clinician: Kassy Mckeon MD Consults: 01/27/24 Wound/ET Consult Routine Reason for Consult:: Wounds to pubic area, coccyx, sacrum 01/29/24 Consult to Physician Routine Comment: Spoke w/ 01/28 (, ) Consulting Provider: Alban Gonzalez head automatic sawyer/MD group to consult: general surgeon Reason for consultation: sacral osteomyelitis and decubital ulcer Has provider been notified: Yes Consult to Physician Routine Comment: spoke with provider 2370. RONAL, RN Consulting Provider: Chang Hogue head automatic sawyer/MD group to consult: orthopedic surgeon Reason for consultation: pubic symphysis osteomyelitis and abductor muscle myositis Has provider been notified: Yes DS: Admitting Diagnosis Discharge Date 02/03/2024 Admitting Diagnosis Altered mental status DS: Discharge Diagnosis Discharge Diagnosis (1) Osteomyelitis of sacrum: Code(s): M46.28 - Osteomyelitis of vertebra, sacral and sacrococcygeal region Status: Acute (2) UTI (urinary tract infection): Code(s): N39.0 - Urinary tract infection, site not specified Status: Acute (3) Altered mental status: Code(s): R41.82 - Altered mental status, unspecified Status: Acute (4) Osteomyelitis of symphysis pubis: Code(s): M86.9 - Osteomyelitis, unspecified Status: Acute (5) Complex partial seizures: Code(s): G40.209 - Localization-related (focal) (partial) symptomatic epilepsy and epileptic syndromes with complex partial seizures, not intractable, without status epilepticus Status: Acute (6) Sacral decubitus ulcer, stage IV: Code(s): L89.154 - Pressure ulcer of sacral region, stage 4 Status: Acute (7) Atrial fibrillation: Code(s): I48.91 - Unspecified atrial fibrillation Status: Acute (8) Dementia: Code(s): F03.90 - Unspecified dementia, unspecified severity, without behavioral disturbance, psychotic disturbance, mood disturbance, and anxiety Status: Acute Transfer Discharge Sum: Med Medications Active and Home Medications: Home Medications Adults Multivitamin 1 tablet feeding tube DAILY 04/01/22 [History Confirmed 01/26/24] acetaminophen 650 mg tablet 650 mg PO Q6H PRN Fever Or Pain 04/01/22 [History Confirmed 01/26/24] albuterol sulfate 90 mcg/actuation aerosol inhaler 2 puff inhalation Q6H 04/01/22 [History Confirmed 01/26/24] amiodarone 200 mg tablet 200 mg PO DAILY 04/01/22 [History Confirmed 01/26/24] collagenase clostridium histo. 250 unit/gram topical ointment (Santyl) 1 applic topical DAILY 04/01/22 [History Confirmed 01/26/24] ergocalciferol (vitamin D2) 800 units G-tube DAILY 04/01/22 [History Confirmed 01/26/24] mirtazapine 15 mg tablet 15 mg PO HS 04/01/22 [History Confirmed 01/26/24] polyethylene glycol 3350 17 gram/dose oral powder (Miralax) 17 g PO DAILY PRN Constipation 04/01/22 [History Confirmed 01/26/24] levothyroxine 50 mcg capsule 50 mcg PO DAILY 30 days #30 caps 04/05/22 [Rx Confirmed 01/26/24] arginine 7 gram-glutamine 7 gram-calcium HMB 1.5 gram oral powder pack (Jose) 1 ea PO BID 12/16/23 [History Confirmed 01/26/24] ferrous sulfate 325 mg (65 mg iron) tablet 325 mg feeding tube BID 12/16/23 [History Confirmed 01/26/24] sennosides 8.6 mg tablet (senna) 8.6 mg feeding tube BID PRN constipation #10 tabs 12/27/23 [Rx Confirmed 01/26/24] povidone-iodine 10 % vaginal solution 15 ml vaginal DAILY 01/26/24 [History Confirmed 01/26/24] Active Medications Acetaminophen (Acetaminophen Elixir 325 Mg/10.15 Ml Udc) 650 mg FEED TUBE Q4H PRN PRN Reason: Mild Pain (1-3) or Fever Last Admin: 02/03/24 08:13 Dose: 650 mg Albuterol (Albuterol Sulfate (*Sp) Aerosol 1 Puff) 2 puff INHALATION Q6H PRN PRN Reason: Shortness Of Breath Amiodarone HCl (Amiodarone Hcl 200 Mg Tablet) 200 mg PO DAILY@0800 RAFAT Last Admin: 02/03/24 0
--- NOTE | 2024-02-03 18:54 | PCDIET ---
pt transferred to [facility] via [facility], report called to Maye Lozano RN at [facility], pt going to room 501, daughter made aware of transfer and room number
== END 2024-02-03 18:56 | disposition short-term general hospital (02) | DRG 539 ==
LOC: ANHED 15:22 → ANH2MED 19:05
PROVIDERS: Emergency Medicine; Hospitalist; Nurse Practitioner Acute Care; Student in an Organized Health Care Education/Training Program; Admitting Provider Family Medicine; Emergency Provider Emergency Medicine; PCP Internal Medicine; Visit Provider General Practice
DX: M46.28 Osteomyelitis of vertebra, sacral and sacrococcygeal region (principal); L89.154 Pressure ulcer of sacral region, stage 4; U07.1 COVID-19; G40.209 Localization-related (focal) (partial) symptomatic epilepsy and epileptic syndromes with complex partial seizures, not intractable, without status epilepticus; N39.0 Urinary tract infection, site not specified; R78.81 Bacteremia; E46 Unspecified protein-calorie malnutrition; Z16.11 Resistance to penicillins; M86.18 Other acute osteomyelitis, other site; M60.9 Myositis, unspecified; B95.7 Other staphylococcus as the cause of diseases classified elsewhere; E03.9 Hypothyroidism, unspecified; E86.0 Dehydration; F03.90 Unspecified dementia, unspecified severity, without behavioral disturbance, psychotic disturbance, mood disturbance, and anxiety; G93.89 Other specified disorders of brain; I48.91 Unspecified atrial fibrillation; M86.171 Other acute osteomyelitis, right ankle and foot; M85.88 Other specified disorders of bone density and structure, other site; N83.201 Unspecified ovarian cyst, right side; Z96.642 Presence of left artificial hip joint; Z66 Do not resuscitate; Z86.718 Personal history of other venous thrombosis and embolism; Z98.84 Bariatric surgery status; Z95.828 Presence of other vascular implants and grafts
CPT/HCPCS: 10160; 36415; 36430; 70450; 71045; 73502; 73620; 73701; 74177; 75989; 77012; 80053; 80202; 81001; 82565; 82803; 82948; 83605; 83690; 83735; 83880; 84100; 84436; 84439; 84443; 84480; 84484; 85025; 85027; 85055; 85610; 85652; 85730; 86140; 86850; 86900; 86901; 86923; 87040; 87070; 87075; 87086; 87181; 87186; 87205; 87637; 93005; 96361; 96365; 96366; 96367; 96375; 99285; A9270; C1729; C1769; G0378; J0692; J1836; J3370; J7030; J7050; P9016; Q9967

== ENCOUNTER 2024-08-04 03:16 | Emergency (ER) | payer MEDICARE, SELFPAY ==
--- NOTE | ~2024-08-04 | XR_ITS ---
EXAM/PROCEDURE: XR abdomen gastric tube insert - 08/04/2024 03:35 CDT HISTORY: 73 years old Female with gtube replaced COMPARISON: None available. TECHNIQUE: AP view(s) of the abdomen. FINDINGS/ IMPRESSION: Tip of the gastric tube is in the stomach. No extraluminal extravasation of co ntrast is seen. Multiple dilated loops of bowel are seen. Degenerative changes. IVC filter is seen. No gross bony abn ormalities are seen. Reviewed, dictated and finalized at location A.
[2024-08-04 03:17] VITALS: BP 141/44; PULSE 87; RESP 16; TEMP 36.8; O2SAT 98
--- NOTE | 2024-08-04 03:38 | PC.NURSE ---
ERP replaced patients gtube with same size, 20fr. Patient tolerated well. Xray in room performing xray with for verification.
[2024-08-04 03:45] VITALS: BP 126/52
--- NOTE | 2024-08-04 03:46 | ED.GENADULT ---
HPI - General Adult General Chief complaint: Unspecified Stated complaint: G-Tube ripped at distal end Time Seen by Provider: 08/04/24 03:45 History of Present Illness HPI narrative: Patient is a 73-year-old female who presents emergency department with chief complaint of G-tube rupture. Patient is resident of local nursing facility and the facility was using NG tube and it exploded. Related Data Home Medications ?Medication ?Instructions ?Recorded ?Confirmed ?Last Taken ?Type Adults Multivitamin 1 tablet feeding tube DAILY 04/01/22 01/26/24 Unknown History acetaminophen 650 mg tablet 650 mg PO Q6H PRN Fever Or Pain 04/01/22 01/26/24 Unknown History albuterol sulfate 90 mcg/actuation 2 puff inhalation Q6H 04/01/22 01/26/24 Unknown History aerosol inhaler amiodarone 200 mg tablet 200 mg PO DAILY 04/01/22 01/26/24 Unknown History collagenase clostridium histo. 250 1 applic topical DAILY 04/01/22 01/26/24 Unknown History unit/gram topical ointment (Santyl) ergocalciferol (vitamin D2) 800 units G-tube DAILY 04/01/22 01/26/24 Unknown History mirtazapine 15 mg tablet 15 mg PO HS 04/01/22 01/26/24 Unknown History polyethylene glycol 3350 17 17 g PO DAILY PRN Constipation 04/01/22 01/26/24 Unknown History gram/dose oral powder (Miralax) arginine 7 gram-glutamine 7 1 ea PO BID 12/16/23 01/26/24 Unknown History gram-calcium HMB 1.5 gram oral powder pack (Jose) ferrous sulfate 325 mg (65 mg 325 mg feeding tube BID 12/16/23 01/26/24 Unknown History iron) tablet povidone-iodine 10 % vaginal 15 ml vaginal DAILY 01/26/24 01/26/24 Unknown History solution Allergies Allergy/AdvReac Type Severity Reaction Status Date / Time No Known Allergies Allergy Mild Verified 10/03/23 10:41 Review of Systems Review of Systems: A 10 system review of systems was completed on the patient and is negative except for what is stated in the HPI. Nursing and ancillary documentation was reviewed. [facility] Past Medical History Medical History Complex partial seizures DVT (deep venous thrombosis) Cerebral aneurysm Atrial fibrillation Dementia Hypothyroid Seizure Surgical History Surgical History S/P SENIOR APPLICATIONS ENGINEER shunt H/O gastric bypass History of tonsillectomy and adenoidectomy H/O hand surgery H/O repair of left rotator cuff H/O rectocele repair H/O: hysterectomy H/O Spinal surgery History of bladder surgery Bladder suspension Family History Family History Other Unknown family medical history Social History Social History Social History: The patient is from [facility]. She is listed as a DNR. The patient tells me that she had 3 children and 1 has . She is . 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 She is listed as . Code status DNR Smoking status: Unknown if ever smoked Alcohol intake: never Substance use: never Do You Feel Safe in your Home?: Yes Lack of Transportation: No Lack of Food: Never True Current Housing: I Have Housing Concerned About Future Housing: No Difficulty Paying Gas/Electric Bills: No Difficulty Paying for Meds: No Currently Unemployed: No Education: High School Diploma/GED Difficulty w/ Childcare or Family Care: No Spiritual care concerns: No Exam Narrative: GENERAL: Well-appearing, well-nourished, and in no acute distress. HEAD: Normocephalic, atraumatic. EYES: PERRLA and EOMI. ENT: Nares clear, no rhinorrhea or epistaxis. Mucous membranes moist. NECK: Supple. CHEST: Clear to auscultation. No respiratory distress. HEART: Regular rate and rhythm. No murmur heard. Normal peripheral pulses. ABDOMEN: Soft, nontender, nondistended, normal active bowel sounds. G-tube is malfunction there was tube feeds present in the balloon EXTREMITIES: Normal range of motion. No edema. SKIN: Warm, dry, no rash. NEURO: No focal deficits. Alert and oriented x1. PSYCH: Normal mood and affect. Course Vital Signs Vital signs: Vital Signs Temperature 36.8 C 08/04/24 03:17 Pulse Rate 87 08/04/24 03:17 Respiratory Rate 16 08/04/24 03:17 Blood Pressure 141/44 H 08/04/24 03:17 Pulse Oximetry 98 08/04/24 03:17 Oxygen Delivery Room Air 08/04/24 03:17 Temperature 36.8 C 08/04/24 03:17 Pulse Rate 87 08/04/24 03:17 Respiratory Rate 16 08/04/24 03:17 Blood Pressure 141/44 H 08/04/24 03:17 Pulse Oximetry 98 08/04/24 03:17 Oxygen Delivery Room Air 08/04/24 03:17 Procedures Feeding Tube Replacement Feeding Tube #1: Feeding Tube Placement Date: 08/04/24 Feeding Tube Placement Time: 03:57 Type of Tube: gastrostomy Insertion Site Prior to Procedure: clean Tube Used for Reinsertion: Bard Balloon size (mL): 20 Verification of Placement: KUB and gastrografin injection Tube Secured by: tape/dressing and attachment device Patient Tolerated Procedure: well Medical Decision Making MDM Narrative Medical decision making narrative: Patient was brought in for G-tube malfunction G-tube was exchanged in the emergency department verified with Gastrografin study Vital Signs Vital Signs: Vital Signs Temperature 36.8 C 08/04/24 03:17 Pulse Rate 87 08/04/24 03:17 Respiratory Rate 16 08/04/24 03:17 Blood Pressure 141/44 H 08/04/24 03:17 Pulse Oximetry 98 08/04/24 03:17 Oxygen Delivery Room Air 08/04/24 03:17 Temperature 36.8 C 08/04/24 03:17 Pulse Rate 87 08/04/24 03:17 Respiratory Rate 16 08/04/24 03:17 Blood Pressure 141/44 H 08/04/24 03:17 Pulse Oximetry 98 08/04/24 03:17 Oxygen Delivery Room Air 08/04/24 03:17 Discharge Plan Discharge Clinical Impression: Malfunction of gastrostomy tube Patient Disposition: NH Longterm/Asst Living Condition: Stable Instructions: Antibiotic Form, How to Use and Care for Your PEG Tube (DC), PEG (Percutaneous Endoscopic Gastrostomy) Tube Insertion (DC) Additional Instructions: Please avoid placing G-tube feeding into the balloon Patient Language: [place] Prescriptions: No Action ferrous sulfate 325 mg (65 mg iron) Tablet 325 mg feeding tube BID Jose 7-7-1.5 gram Powder In Packet 1 ea PO BID sennosides [senna] 8.6 mg Tablet 8.6 mg feeding tube BID PRN (Reason: constipation) Qty: 10 0RF povidone-iodine 10 % Solution 15 ml vaginal DAILY Rx Instructions: apply to wound amiodarone 200 mg tablet 200 mg PO DAILY acetaminophen 650 mg Tablet 650 mg PO Q6H PRN (Reason: Fever Or Pain) albuterol sulfate 90 mcg/actuation HFA aerosol inhaler 2 puff INHALATION Q6H Adults Multivitamin 1 tablet feeding tube DAILY mirtazapine 15 mg tablet 15 mg PO HS Santyl 250 unit/gram ointment 1 applic TOPICAL DAILY Rx Instructions: TO RIGHT AND LEFT ISCHIUM polyethylene glycol 3350 [Miralax] 17 gram/dose Powder 17 g PO DAILY PRN (Reason: Constipation) ergocalciferol (vitamin D2) 800 units G-tube DAILY levothyroxine 50 mcg capsule 50 mcg PO DAILY 30 Days Qty: 30 0RF Follow-up/Referrals: Chilango,MD Andrew [Primary Care Provider] - Time of Disposition: 03:59
--- OUTSIDE RECORDS SUMMARY | 2024-08-04 03:55 | XMS_ITS | CONTINUITY OF CARE DOCUMENT ---
Author Name francie marmolejo Address Unknown Organization [facility] Address [address] [place] [address] Phone [phone] Care Team Providers Care Cooling Pan Tender Name Role Phone Dre Angulo MD Unavailable Laya CAMPOS, Derrick Unavailable LIBERTY FAULKNER MD Unavailable [phone] INSURANCE PROVIDERS Payer name Policy type / Coverage type [place] red democrat ID [employer] Medicaid [id number] [facility] [id number]
--- OUTSIDE RECORDS SUMMARY | 2024-08-04 03:55 | XMS_ITS | Encounter Summary ---
Author Organization [employer] Address 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
--- OUTSIDE RECORDS SUMMARY | 2024-08-04 03:55 | XMS_ITS | Encounter Summary ---
Author Organization [employer] Address 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 Gender Identity Not on file Sexual Orientation Not on file documented as of this encounter Plan of Treatment Not on file documented as of this encounter Procedures Procedure Name Priority Date/Time Associated Diagnosis Comments MAMMO SCREENING BILAT Routine 08/02/2007 11:50 AM CDT documented in this encounter Results * MAMMO SCREENING BILAT (08/02/2007 11:50 AM CDT) Anatomical Region Laterality Modality Breast Bilateral Other 08/02/2007 11:5 0 AM CDT Narrative 08/07/2007 2:49 PM CDT [facility] [place], [place] [address] [place], [place] [address] Admit Date: 08/02/2007 IAN FELTON Sex: F Admit Prov: Date: 1950 Primary Care Prov: PCP, UNKNOWN CMRN: [id number] Room: [facility]CLUD[facility] SSN: [id number] IMAGING SERVICES Ordering Prov: DOCTOR, NOT O Accession Number: [id number] Interpretation BILATERAL SCREENING MAMMOGRAM 08/02/07 Findings: The parenchyma is predominantly fatty bilaterally. There is no mass, malignant calcification, lymphadenopathy or other sign of malignancy. No change since 02/2005. Summary: No mammographic evidence of malignancy. Assessment BIRADS: 1-Negative Recommendation: Normal interval follow-up Dictated by: ROD GUO Electronically signed by: ROD GUO 08/07/2007 14:49 Transcribed: 08/07/2007 14:15 AMK Procedure Note Rod Guo MD - 08/07/2007 [facility] [place], [place] [address] [place], [place] [address] Admit Date: 08/02/2007 IAN FELTON Sex: F Admit Prov: Date: 1950 Primary Care Prov: PCP, UNKNOWN CMRN: [id number] Room: [facility]CLUDES [facility] SSN: [id number] IMAGING SERVICES Ordering Prov: DOCTOR, NOT O Interpretation BILATERAL SCREENING MAMMOGRAM 08/02/07 Findings: The parenchyma is predominantly fatty bilaterally. Thereis no mass, malignant calcification, lymphadenopathy or other sign ofmalignancy. No change since 02/2005. Summary: No mammographic evidence of malignancy. Assessment BIRADS: 1-Negative Recommendation: Normal interval follow-up Dictated by: ROD GUO Electronically signed by: ROD GUO 08/07/2007 14:49 Transcribed: 08/07/2007 14:15 AMK us History Conversion MAMMO ORDERABLES Final Result documented in this encounter Visit Diagnoses Diagnosis Other screening mammogram documented in this encounter Care Teams Pizza Maker Relationship Specialty Start Date End Date Derrick Asif MD [address] [facility] [address] [place] [id number] PCP - General Internal Medicine 06/27/14 05/20/22 documented as of this encounter
--- OUTSIDE RECORDS SUMMARY | 2024-08-04 03:55 | XMS_ITS | Encounter Summary ---
Author Organization [employer] Address 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
--- OUTSIDE RECORDS SUMMARY | 2024-08-04 03:55 | XMS_ITS | Clinical Summary ---
Author Organization [facility] Address [address] [place] [address] Phone Care Team Providers Care Cash Poster Name Role Phone Unavailable Primary Care Provider Unavailabl e Allergies No known active allergies Medications gabapentin (NEURONTIN) 800 mg tablet Take 800 mg by mouth 3 times daily. Active VOLTAREN 1 % gel 08/24/2017 Active LUMIGAN 0.01 % solution 10/06/2017 Active uaigpqkf-nbv-ap lic acid-biotin 66.7-1,000 mcg Tablet Take 1 Tablet by mouth. 10/15/2014 Active fludrocortisone (FLORINEF) 0.1 mg tablet Take 2 Tablets (0.2 mg) by mouth daily. 180 Tablet 3 03/14/2018 Active colestipoL (Colestid) 1 gram tablet Take 1 Tablet (1,000 mg) by mouth 2 times daily. 60 Tablet 5 11/26/2019 Active ondansetron (Zofran) 4 mg Tablet Take 1 Tablet (4 mg) by mouth every 8 hours as needed for Nausea/Emesi s. 30 Tablet 2 05/14/2020 Active omeprazole (PriLOSEC) 20 mg Capsule, Delayed Release(E.C.) Take 1 Capsule (20 mg) by mouth daily. 30 Capsule 2 05/14/2020 Active potassium chloride (KLOR-CON) 10 mEq Extended Release tablet 1 tablet on Mondays and Fridays for 4 weeks 8 Tablet 05/26/2020 Active Active Problems Problem Noted Date Diagnosed Date Chest pain 06/24/2020 Ascending aorta dilation 06/24/2020 Atherosclerosis of aorta 01/17/2020 Nausea and vomiting 01/16/2020 Gastroesophageal reflux disease 01/16/2020 Orthostatic hypotension 01/16/2020 Chronic diarrhea 01/16/2020 Elevated parathyroid hormone 01/16/2020 Anxiety and depression - on Rx as per Dr. Camelia Hogan 05/22/2019 S/P gastric bypass 05/22/2019 History of cholecystectomy 05/22/2019 Pulmonary nodule - recheck CT in 6 m 07/06/2018 Cyst of ovary, right 07/06/2018 Fibromyalgia: on Rx - sees Airfield Services Officer - Dr. Hogan 06/17/2017 History of cervical fracture 06/17/2017 Vitamin B12 deficiency (non anemic) 06/17/2017 Acute right ankle pain 01/20/2017 Chronic pain of right knee 01/20/2017 Chronic anemia - advised FU with Dr. Winter 07/31/2014 Palpitations - S/P ILR in place 06/30/2014 Vasodepressor syncope - on Rx - seen Dr. Amisha solis 06/30/2014 Low back pain - S/P stimulat or in place, sees pain management 06/30/2014 History of cervical cancer 06/30/2014 Osteoporosis - advised FU [facility] endocrine - Dr. Wilcox 06/30/2014 History of compression fracture of vertebral col umn 06/28/2011 Resolved Problems Problem Noted Date Diagnosed Date Resolved Date Weight loss 01/16/2020 05/14/2020 LFT elevation 01/16/2020 05/14/2020 Rib pain on right side 01/20/201705/14 Dizziness 02/12/2016 05/14/2020 Immunizations Immunization Administration Dates Next Due (PNEUMOVAX 23)(50 YRS UP) PN EUMOCOCCAL POLYSACCHARIDE (PPV23) 0.5 ML, IM 03/11/2018 (PREVNAR 13)(6 WKS UP) PNEUM OCOCCAL CONJUGATE (PCV13) 0.5 ML, IM 02/07/2015 INFLUENZA VACCINE HIGH DOSE QUADRIVALENT 65 YR UP PF IM 01/16/2020 Influenza Seasonal Unspecifi ed Formulation IM 01/23/2015,01/23/2014 Influenza Vaccine High Dose 65+ Yrs IM 0,03/11/2018 Influenza Vaccine Split 3+ Yrs PF IM 01/23/2017 Influenza Vaccine Tri Split 4+ Im 01/23/2014 Influenza Vaccine Tri Split 4+ Pf Im 01/23/2017, 02/25/2016,02/07/2015 PREVNAR (PCV13) pneumococcal 13-valent conjugate Vaccine 01/23/2015 Pneumococcal Polysaccharide Vacc 23-omi IM SCHIP 03/11/2018 Family History Medical History Relation Name Comments Cancer Brother prostate Drug Abuse Daughter 1 Healthy Daughter 2 Heart Disease Father Other Father COPD Maternal Grandfather Cancer Maternal Grandfather Alzheimer's Disease Maternal Grandmother Breast Cancer Maternal Grandmother Hypertension Mother Other Mother back surgery Emphysema Paternal Grandfather Heart Disease Paternal Grandfather Heart Failure Paternal Grandfather Stroke Paternal Grandmother Diabetes Sister Hypertension Sister Healthy Son Asthma Neg Hx Bronchitis Neg Hx Colon Cancer Neg Hx Lung Cancer Neg Hx Mesothelioma Neg Hx Ovarian Cancer Neg Hx Relation Name Status Comments Brother Alive Daughter 1 Alive Daughter 2 Alive Father Maternal Grandfather Maternal Grandmother Mother Alive Paternal Grandfather Paternal Grandmother Sister Alive Son Alive Social History Tobacco Use Types Packs/Day Years Used Date Smoking Tobacco: Never Smokeless Tobacco: Never Alcohol Use Standard Drinks/Week Comments No 0 (1 standard drink = 0.6 oz pur e alcohol) Comments No Sex and Gender Information Value Date Recorded Sex Assigned at Not on file Legal Sex Female 3:39 AM BURR FILER Gender Identity Not on file Sexual Orientation Not on file Occupation Industry Job Start Date Job End Date disability Not on file Not on file Not on file Last Filed Vital Signs Vital Sign Reading Time Taken Comments Blood Pressure 144/80 07/02/2020 12:20 PM BURR FILER Pulse 83 07/02/2020 12:20 PM BURR FILER Temperature 36.3 C (97.3 F) 06/24/2020 1:45 PM BURR FILER Respiratory Rate 16 05/27/2020 3:27 PM BURR FILER Oxygen Saturation 96% 06/24/2020 1:45 PM BURR FILER Inhaled Oxygen Concentration - - Weight 44.9 kg (99 lb) 07/02/2020 12:20 PM BURR FILER Height 162.6 cm (5' 4 ) 07/02/2020 12:20 PM BURR FILER Body Mass Index 16.99 07/02/2020 12:20 PM BURR FILER Plan of Treatment Health Maintenance Due Date Last Done Comments DTAP/TDAP/TD VACCINES (1 - Tdap) 10/31/1970 FIT-DNA Q 3 years 10/31/1996 FIT/FOBT Q 1 year 10/31/1996 Flex Sig/CT Colonography Q 5 years 10/31/1996 ZOSTER VACCINE (1 of 2) 10/31/2001 RSV VACCINE (60+ or ) (1 - Risk 60-74 years 1-dose series) 2011 BREAST CANCER SCREENING 05/16/2020 05/16/19 20, 02/25/2015, 02/25/2015, Additional history exists OSTEOPOROSIS SCREENING 01/08/2021 0, 06/06/2018, 12/01/2017, Additional history exists INFLUENZA VACCINE (#1) 2023 0, 05/22/2019, 03/11/2018, Additional history exists COLORECTAL SCREENING 06/29/2028 06/29/2018, 07/04/19 15 Colorectal Cancer Screening 06/29/2028 PNEUMOCOCCAL VACCINE 50+ YEARS Completed 1 05/11/2017, 03/11/2018, 02/07/2015, Additional history exists Medical Devices Implanted Type Area Switchboard Operator Receptionist Device Identifier Shelf Expiration Date Model / Serial / Lot Sealant Floseal 10ml [id number] Implanted:Qty: 1 on 06/28/2011 at [facility] Biological [employer] [id number] / / [id number] Description:lot# for thrombi n, #[id number] for calcium chloride Log [id number] - [employer] - 1 - Bone Chips Iam/Canc 30ml [id number] Implanted:Qty: 1 on 06/28/2011 at [facility] Bone [employer] 09/21/2015 [id number] / [id number] / Log [id number] - [employer] - 1 - Accell Evo3 Dbm Putty 10ml Implanted:Qty: 1 on 06/28/2011 at [facility] Putty [employer] 12/25/2011 / / [id number] Cameron Solera 4.[address] [id number] Implanted:Qty: 1 on 06/29/2011 at [facility] Cameron [employer] [id number] / / Screw Solera Ma 6.5x40mm [id number] Implanted:Qty: 2 on 06/29/2011 at [facility] Screw [employer] [id number] / / Screw Solera Ma 6.5x45mm [id number] Implanted:Qty: 4 on 06/29/2011 at [facility] Screw [employer] [id number] / / Description:load#35 3-12-12 Set Screw Solera G5 Breakoff Implanted:Qty: 6 on 06/29/2011 at [facility] Screw [employer] [id number] / / Linq-03/10/ 5 Implanted:02/23 by Julio Gimenez MD (Quantity not on file) VAZATA- Flypaper RHYTHM MGMT 02/06/2016 [id number] / [id number] / Description:MRI compatible Procedures Procedure Name Priority Date/Time Associated Diagnosis Comments MAMMO 3D JUSTIN SCREEN BILAT W OR WO CAD Routine 05/16/2019 1:33 PM BURR FILER Visit for screening mammogram XR DEXA BONE DENSITY AXIAL 1 OR MORE SITES Routine 07/05/2016 10:52 AM CDT Osteoporosis from Last 3 Months or Most Recently Relevant to Health Maintenance Results * MAMMO SCRN BILAT 3D JUSTIN W OR WO CAD (05/16/2019 1:33 PM BURR FILER) Anatomical Region Laterality Modality Breast Bilateral Mammography 05/16/2019 1:34 PM BURR FILER Impressions 05/16/2019 3:47 PM BURR FILER IMPRESSION: No suspicious findings to suggest malignancy in either breast. Annual mammography is recommended. OVERALL FINAL ASSESSMENT: BI-RADS CATEGORY 1 - Negative DICTATION LOCATION: [facility] Narrative 05/16/2019 3:47 PM BURR FILER BILATERAL FULL-FIELD DIGITAL SCREENING MAMMOGRAM WITH CAD WITH 3D TOMOSYNTHESIS DATE: 05/16/2019 1:33 PM HISTORY: Routine screening. TECHNIQUE: Full-field digital craniocaudal and mediolateral oblique projections of both breasts were obtained. Low-dose full-field digital breast tomosynthesis examination was performed with 2D and 3D acquisitions. Examination is read in conjunction with computer aided detection. COMPARISON: Prior mammogram 02/25/2015. BREAST COMPOSITION: Heterogeneously dense, which limits the sensitivity of mammography. FINDINGS: Both breasts are symmetrically smaller in size compared to mammography of 02/25/2015, consistent with provided history of interval weight loss. A leadless cardiac device is located within the posterior upper inner left breast. No suspicious mass, suspicious microcalcifications, or architectural distortion is identified in either breast. In comparison to the prior study, there has been no significant interval change. Computer aided detection was used in the interpretation of this examination. Procedure Note Veronica Lees, DO - 05/16/2019 BILATERAL FULL-FIELD DIGITAL SCREENING MAMMOGRAM WITH CAD WITH 3D TOMOSYNTHESIS DATE: 05/16/2019 1:33 PM HISTORY: Routine screening. TECHNIQUE: Full-field digital craniocaudal and mediolateral oblique projections of both breasts were obtained. Low-dose full-field digital breast tomosynthesis examination was performed with 2D and 3D acquisitions. Examination is read in conjunction with computer aided detection. COMPARISON: Prior mammogram 02/25/2015. BREAST COMPOSITION: Heterogeneously dense, which limits the sensitivity of mammography. FINDINGS: Both breasts are symmetrically smaller in size compared to mammography of 02/25/2015, consistent with provided history of interval weight loss. A leadless cardiac device is located within the posterior upper inner left breast. No suspicious mass, suspicious microcalcifications, or architectural distortion is identified in either breast. In comparison to the prior study, there has been no significant interval change. Computer aided detection was used in the interpretation of this examination. IMPRESSION: No suspicious findings to suggest malignancy in either breast. Annual mammography is recommended. OVERALL FINAL ASSESSMENT: BI-RADS CATEGORY 1 - Negative DICTATION LOCATION: [facility] us Sissy Asif MD MAMMO ORDERABLES Final Re sult * XR DEXA BONE DENSITY AXIAL 1 OR MORE SITES (07/05/2016 10:52 AM CDT) Anatomical Region Laterality Modality Digital Radiogra phy 07/05/2016 10:5 2 AM CDT Impressions 07/05/2016 11:13 AM CDT IMPRESSION: Lumbar Spine T-score: -0.1, Normal BMD. Left femoral neck T-score: -2.5, Osteoporotic BMD. Right femoral neck T-score: -2.9, Osteoporotic BMD. Left Radius 33% T-score: -3.0, Osteoporotic BMD. DEFINITIONS: Normal: T-score above -1.0 Osteopenia T-score less than -1.0 and above -2.5 Osteoporosis: T-score < -2.5 FOLLOW-UP RECOMMENDATIONS: Patients without high risk factors for osteoporosis: T-score -1.0 to -1.5 - Consider repeat BMD in 5-10 years T-score -1.5 to -2.0 - Consider repeat BMD in 3-5 years T-score -2.0 to - 2.5 - Consider repeat BMD every 2 years Patients on treatment for osteoporosis:1-2 years after initiation of treatment and every 2 [address] Tonio Mayes DO DICTATION LOCATION: Location 1 - [facility] 07/05/2016 11:13 AM CDT XR DEXA BONE DENSITY AXIAL 1 OR MORE SITES DATE: 07/05/2016 10:52 AM HISTORY: 65 years old Female with post menopausal symptoms. PROCEDURE: Planar images of the lumbar spine, forearm and hip(s) using a [employer] DEXA scanner for bone mineral density determination (BMD). FINDINGS: Lumbar Spine (L2-L4) 1.185 gm/cm2, T-score: -0.1 Left femoral neck 0.695 gm/cm2, T-score: -2.5 Right femoral neck 0.641 gm/cm2, T-score: -2.9 Left Radius 33% 0.616 gm/cm2, T-score: -3.0 Comments: The L1 vertebral body was excluded from bone mineral density measurements secondary to the presence of orthopedic hardware. Procedure Note Tonio Mayes DO - 07/05/2016 XR DEXA BONE DENSITY AXIAL 1 OR MORE SITES DATE: 07/05/2016 10:52 AM HISTORY: 65 years old Female with post menopausal symptoms. PROCEDURE: Planar images of the lumbar spine, forearm and hip(s) using a [employer] DEXA scanner for bone mineral density determination (BMD). FINDINGS: Lumbar Spine (L2-L4) 1.185 gm/cm2, T-score: -0.1 Left femoral neck 0.695 gm/cm2, T-score: -2.5 Right femoral neck 0.641 gm/cm2, T-score: -2.9 Left Radius 33% 0.616 gm/cm2, T-score: -3.0 Comments: The L1 vertebral body was excluded from bone mineral density measurements secondary to the presence of orthopedic hardware. IMPRESSION IMPRESSION: Lumbar Spine T-score: -0.1, Normal BMD. Left femoral neck T-score: -2.5, Osteoporotic BMD. Right femoral neck T-score: -2.9, Osteoporotic BMD. Left Radius 33% T-score: -3.0, Osteoporotic BMD. DEFINITIONS: Normal: T-score above -1.0 Osteopenia T-score less than -1.0 and above -2.5 Osteoporosis: T-score < -2.5 FOLLOW-UP RECOMMENDATIONS: Patients without high risk factors for osteoporosis: T-score -1.0 to -1.5 - Consider repeat BMD in 5-10 years T-score -1.5 to -2.0 - Consider repeat BMD in 3-5 years T-score -2.0 to - 2.5 - Consider repeat BMD every 2 years Patients on treatment for osteoporosis:1-2 years after initiation of treatment and every 2 years [address] Tonio Mayes, DO DICTATION LOCATION: Location 1 - [facility] Belén Rangel MD DIAGNOSTIC IMAGING ORDERABLES Final Result from Last 3 Months or Most Recently Relevant to Health Maintenance Insurance [facility] LYDIA [place] [id number] [facility] [id number] [facility] Address: [place] [address] MEDICARE PART A AND B [facility] [id number] Advance Directives For more information, please contact: [phone] * Full Code (Latest Code Status on File) Date Activated Date Inactivated Comments 03/10/2015 11:31 AM 03/10/2015 3:32 PM * Full Code Date Activated Date Inactivated Comments 06/28/2011 1:54 PM 07/05/2011 5:05 PM * Full Code Date Activated Date Inactivated Comments 06/28/2011 8:13 AM 06/28/2011 1:54 PM * Full Code Date Activated Date Inactivated Comments 06/28/2011 6:51 AM 06/28/2011 8:13 AM
--- OUTSIDE RECORDS SUMMARY | 2024-08-04 03:55 | XMS_ITS | Encounter Summary ---
Author Organization [facility] Address [address] [place] [address] Care Team Providers Care Oil Dispatcher Name Role Phone Derrick Asif MD Primary Care Provider [phone] Encounter Details Date Type Department Care Team (Late st Contact Info) Description 03/04/2005 Outpatient Historical HIS MAMM Ale Bejarano MD [address] [phone] SCREENING MAMM-MAILG NEOPL NEC (Primary Dx) Social History Tobacco Use Types Packs/Day Years Used Date Smoking Tobacco: Never Assessed Comments Unknown Sex and Gender Information Value Date Recorded Sex Assigned at Not on file Legal Sex Female 3:39 AM POULTRY PROCESSOR Gender Identity Not on file Sexual Orientation Not on file documented as of this encounter Plan of Treatment Not on file documented as of this encounter Visit Diagnoses Diagnosis Other screening mammogram- Primary documented in this encounter Care Teams Oil Dispatcher Relationship Specialty Start Date End Date Derrick sAif MD [address] [facility] [address] [place] [address] PCP - General Internal Medicine 06/27/14 05/20/22 documented as of this encounter
--- OUTSIDE RECORDS SUMMARY | 2024-08-04 03:55 | XMS_ITS | Encounter Summary ---
Author Organization [facility] Address 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
--- NOTE | 2024-08-04 04:38 | PC.NURSE ---
this rn called report to KENIA Whitehead at [phone] to give discharge instructions.
[2024-08-04 04:41] VITALS: BP 114/39
[2024-08-04 05:54] VITALS: BP 128/56
[2024-08-04 08:47] VITALS: BP 118/76
== END 2024-08-04 08:47 ==
PROVIDERS: Emergency Provider Emergency Medicine; PCP Internal Medicine
DX: K94.23 Gastrostomy malfunction (principal); I48.91 Unspecified atrial fibrillation; F03.90 Unspecified dementia, unspecified severity, without behavioral disturbance, psychotic disturbance, mood disturbance, and anxiety; E03.9 Hypothyroidism, unspecified; Z66 Do not resuscitate; Z98.84 Bariatric surgery status; Z98.2 Presence of cerebrospinal fluid drainage device; Z86.718 Personal history of other venous thrombosis and embolism; Z90.710 Acquired absence of both cervix and uterus; Z79.899 Other long term (current) drug therapy
CPT/HCPCS: 43762; 99283

== ENCOUNTER 2024-10-27 15:33 | Emergency (ER) | payer MEDICARE, SELFPAY ==
[2024-10-27 15:29] VITALS: BP 123/63; PULSE 94; RESP 20; TEMP 37.1; O2SAT 97
--- NOTE | 2024-10-27 15:39 | ED_ITS ---
HPI - Abdominal Pain General Chief Complaint: Abdominal Pain Stated Complaint: Gtube not working Source: patient and EMS Mode of arrival: EMS History of Present Illness HPI narrative: 73 YEARS OLD WHITE FEMALE CAME FROM [facility] BY [facility]BULANCE, G-TUBE NOT FLUSHING. PATIENT IS BEDBOUND, ALERT AND ORIENTED TIME 1, NONVERBAL. Related Data Home Medications ?Medication ?Instructions ?Recorded ?Confirmed ?Last Taken ?Type Adults Multivitamin 1 tablet feeding tube DAILY 04/01/22 01/26/24 Unknown History acetaminophen 650 mg tablet 650 mg PO Q6H PRN Fever Or Pain 04/01/22 01/26/24 Unknown History albuterol sulfate 90 mcg/actuation 2 puff inhalation Q6H 04/01/22 01/26/24 Unknown History aerosol inhaler amiodarone 200 mg tablet 200 mg PO DAILY 04/01/22 01/26/24 Unknown History collagenase clostridium histo. 250 1 applic topical DAILY 04/01/22 01/26/24 Unknown History unit/gram topical ointment (Santyl) ergocalciferol (vitamin D2) 800 units G-tube DAILY 04/01/22 01/26/24 Unknown History mirtazapine 15 mg tablet 15 mg PO HS 04/01/22 01/26/24 Unknown History polyethylene glycol 3350 17 17 g PO DAILY PRN Constipation 04/01/22 01/26/24 Unknown History gram/dose oral powder (Miralax) arginine 7 gram-glutamine 7 1 ea PO BID 12/16/23 01/26/24 Unknown History gram-calcium HMB 1.5 gram oral powder pack (Jose) ferrous sulfate 325 mg (65 mg 325 mg feeding tube BID 12/16/23 01/26/24 Unknown History iron) tablet povidone-iodine 10 % vaginal 15 ml vaginal DAILY 01/26/24 01/26/24 Unknown History solution Allergies Allergy/AdvReac Type Severity Reaction Status Date / Time No Known Allergies Allergy Mild Verified 10/27/24 15:41 Review of Systems Review of Systems: ROS unobtainable: Yes unobtainable due to medical condition and unobtainable due to mental status PMFSH Past Medical History Medical History Complex partial seizures DVT (deep venous thrombosis) Cerebral aneurysm Atrial fibrillation Dementia Hypothyroid Seizure Surgical History Surgical History S/P RIP SAWYER shunt H/O gastric bypass History of tonsillectomy and adenoidectomy H/O hand surgery H/O repair of left rotator cuff H/O rectocele repair H/O: hysterectomy H/O Spinal surgery History of bladder surgery Bladder suspension Family History Family History Other Unknown family medical history Social History Social History Social History: The patient is from [facility]. She is listed as a DNR. The patient tells me that she had 3 children and 1 has . She is . 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 She is listed as . Code status DNR Smoking status: Unknown if ever smoked Alcohol intake: never Substance use: never Do You Feel Safe in your Home?: Yes Lack of Transportation: No Lack of Food: Never True Current Housing: I Have Housing Concerned About Future Housing: No Difficulty Paying Gas/Electric Bills: No Difficulty Paying for Meds: No Currently Unemployed: No Education: High School Diploma/GED Difficulty w/ Childcare or Family Care: No Spiritual care concerns: No Exam Narrative: GENERAL APPEARANCE: WELL-DEVELOPED, WELL-NOURISHED SKIN: NORMAL COLOR ABDOMEN: SOFT, NONTENDER, FEEDING TUBE IN PLACE NOT FLUSHING NEUROLOGIC: ALERT, DISORIENTED TIME 4 Procedures Feeding Tube Replacement Feeding Tube #1: Feeding Tube Placement Date: 10/27/24 Feeding Tube Placement Time: 16:58 Type of Tube: G-J Tube Insertion Site Prior to Procedure: clean Setswana Tube Size (F): 16 Balloon size (mL): 20 Verification of Placement: other (GASTRIC CONTENT CAME THROUGH THE TUBE) Tube Secured by: tape/dressing Patient Tolerated Procedure: well Course Vital Signs Vital signs: Vital Signs Temperature 37.1 C 10/27/24 15:29 Pulse Rate 94 10/27/24 15:29 Respiratory Rate 20 10/27/24 15:29 Blood Pressure 123/63 10/27/24 15:29 Pulse Oximetry 97 10/27/24 15:29 Oxygen Delivery Room Air 10/27/24 15:29 Temperature 37.1 C 10/27/24 15:29 Pulse Rate 94 10/27/24 15:29 Respiratory Rate 20 10/27/24 15:29 Blood Pressure 123/63 10/27/24 15:29 Pulse Oximetry 97 10/27/24 15:29 Oxygen Delivery Room Air 10/27/24 15:29 Discharge Plan Discharge Clinical Impression: Clogged feeding tube Patient Disposition: Home Condition: Improved Instructions: How to Use and Care for Your PEG Tube (DC), Tube Feeding (DC) Additional Instructions: RETURN IF SYMPTOMS ARE WORSENING , CALL YOUR FAMILY PHYSICIAN FOR APPOINTMENT, TAKE TYLENOL NEEDED FOR ACHES AND PAIN, CONTINUE HOME MEDICATIONS. Patient Language: Armenian Prescriptions: No Action ferrous sulfate 325 mg (65 mg iron) Tablet 325 mg feeding tube BID Jose 7-7-1.5 gram Powder In Packet 1 ea PO BID sennosides [senna] 8.6 mg Tablet 8.6 mg feeding tube BID PRN (Reason: constipation) Qty: 10 0RF povidone-iodine 10 % Solution 15 ml vaginal DAILY Rx Instructions: apply to wound amiodarone 200 mg tablet 200 mg PO DAILY acetaminophen 650 mg Tablet 650 mg PO Q6H PRN (Reason: Fever Or Pain) albuterol sulfate 90 mcg/actuation HFA aerosol inhaler 2 puff INHALATION Q6H Adults Multivitamin 1 tablet feeding tube DAILY mirtazapine 15 mg tablet 15 mg PO HS Santyl 250 unit/gram ointment 1 applic TOPICAL DAILY Rx Instructions: TO RIGHT AND LEFT ISCHIUM polyethylene glycol 3350 [Miralax] 17 gram/dose Powder 17 g PO DAILY PRN (Reason: Constipation) ergocalciferol (vitamin D2) 800 units G-tube DAILY levothyroxine 50 mcg capsule 50 mcg PO DAILY 30 Days Qty: 30 0RF Follow-up/Referrals: Chilango,MD Andrew [Primary Care Provider] -
--- NOTE | 2024-10-27 15:51 | PC.NURSE ---
pt's G-tube has large visible cut on the side.
--- OUTSIDE RECORDS SUMMARY | 2024-10-27 16:05 | XMS_ITS | Encounter Summary ---
Author Organization [employer] Address [address] [place] [address] Care Team Providers Care Multiple Knife Edge Trimmer Operator Name Role Phone Derrick Asif MD Primary Care Provider [phone] Encounter Details Date Type Department Care Team (Late st Contact Info) Description 04/15/2004 Outpatient Historical HIS MAMM Ale Bejarano MD [address] [phone] SCREENING MAMM-MAILG NEOPL-OTHER (Primary Dx) Social History Tobacco Use Types Packs/Day Years Used Date Smoking Tobacco: Never Assessed Comments Unknown Sex and Gender Information Value Date Recorded Sex Assigned at Not on file Legal 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
--- OUTSIDE RECORDS SUMMARY | 2024-10-27 16:05 | XMS_ITS | Clinical Summary ---
Author Organization [facility] Address [address] [place] [address] Phone Care Team Providers Care Spool Worker Name Role Phone Unavailable Primary Care Provider Unavailabl e Allergies No known active allergies Medications gabapentin (NEURONTIN) 800 mg tablet Take 800 mg by mouth 3 times daily. Active VOLTAREN 1 % gel 08/24/2017 Active LUMIGAN 0.01 % solution 10/06/2017 Active nlchwppo-lca-ns lic acid-biotin 66.7-1,000 mcg Tablet Take 1 [...] right 07/06/2018 Fibromyalgia: on Rx - sees [place] Operator - Dr. Hogan 06/17/2017 History of cervical [...] cervical cancer 06/30/2014 Osteoporosis - advised [facility] endocrine - Dr. Wilcox 06/30/2014 History of [...] on file Legal Sex Female 3:39 AM SHOE PULLER Gender Identity Not on file Sexual Orientation Not on file Occupation Industry Job Start Date Job End Date disability Not on file Not on file Not on file Last Filed Vital Signs Vital Sign Reading Time Taken Comments Blood Pressure 144/80 07/02/2020 12:20 PM SHOE PULLER Pulse 83 07/02/2020 12:20 PM SHOE PULLER Temperature 36.3 C (97.3 F) 06/24/2020 1:45 PM SHOE PULLER Respiratory Rate 16 05/27/2020 3:27 PM SHOE PULLER Oxygen Saturation 96% 06/24/2020 1:45 PM SHOE PULLER Inhaled Oxygen Concentration - - Weight 44.9 kg (99 lb) 07/02/2020 12:20 PM SHOE PULLER Height 162.6 cm (5' 4) 07/02/2020 12:20 PM SHOE PULLER Body Mass Index 16.99 07/02/2020 12:20 PM SHOE PULLER Plan of Treatment Health Maintenance Due Date [...] 12/01/2017, Additional history exists INFLUENZA VACCINE (#1) 2024 0, 05/22/2019, 03/11/2018, Additional history exists COLORECTAL SCREENING 06/29/2028 06/29/2018, 07/04/19 15 Colorectal Cancer Screening 06/29/2028 PNEUMOCOCCAL VACCINE 50+ YEARS Completed 1 05/11/2017, 03/11/2018, 02/07/2015, Additional history exists Medical Devices Implanted Type Area Bicycle Taxi Driver Device Identifier Shelf Expiration Date Model / Serial / Lot Sealant Floseal 10ml [id number] Implanted:Qty: 1 on 06/28/2011 at [facility] Biological [employer] [id number] / / [id number] Description:lot# for thrombi n, #[id number] for calcium chloride Log [id number] - [employer] - 1 - Bone Chips Iam/Canc 30ml [id number] Implanted:Qty: 1 on 06/28/2011 at [facility] Bone [employer] 09/21/2015 [id number] / [id number] / Log [id number] - [employer] - 1 - Accell Evo3 Dbm Putty 10ml Implanted:Qty: 1 on 06/28/2011 at [facility] Putty [employer] 12/25/2011 / / [id number] Cameron Solera [address] [id number] Implanted:Qty: 1 on 06/29/2011 at [facility] Cameron [employer] [id number] / / Screw Solera Ma 6.5x40mm [id number] Implanted:Qty: 2 on 06/29/2011 at [facility] Screw [employer] [id number] / / Screw Solera Ma 6.5x45mm [id number] Implanted:Qty: 4 on 06/29/2011 at [facility] Screw [employer] [id number] / / Description:load#35 3-12-12 Set Screw Solera G5 Breakoff Implanted:Qty: 6 on 06/29/2011 at [facility] Screw [employer] [id number] / / Linq-03/10/ 5 Implanted:02/23 by Julio Gimenez MD (Quantity not on file) [employer]- Blaze DFM RHYTHM MGMT 02/06/2016 [id number] / [id number] / Description:MRI compatible Procedures Procedure Name Priority Date/Time Associated Diagnosis Comments MAMMO 3D JUSTIN SCREEN BILAT W OR WO CAD Routine 05/16/2019 1:33 PM SHOE PULLER Visit for screening mammogram XR DEXA BONE DENSITY AXIAL 1 OR MORE SITES Routine 07/05/2016 10:52 AM CDT Osteoporosis from Last 3 Months or Most Recently Relevant to Health Maintenance Results * MAMMO SCRN BILAT 3D JUSTIN W OR WO CAD (05/16/2019 1:33 PM SHOE PULLER) Anatomical Region Laterality Modality Breast Bilateral Mammography 05/16/2019 1:34 PM SHOE PULLER Impressions 05/16/2019 3:47 PM SHOE PULLER IMPRESSION: No suspicious findings to suggest malignancy in either breast. Annual mammography is recommended. OVERALL FINAL ASSESSMENT: BI-RADS CATEGORY 1 - Negative DICTATION LOCATION: [facility] Narrative 05/16/2019 3:47 PM SHOE PULLER BILATERAL FULL-FIELD DIGITAL SCREENING MAMMOGRAM WITH CAD [...] BI-RADS CATEGORY 1 - Negative DICTATION LOCATION: [facility] us Sissy Asif MD MAMMO ORDERABLES Final [...] Mayes DO DICTATION LOCATION: Location 1 - [facility] 07/05/2016 11:13 AM CDT XR DEXA BONE DENSITY AXIAL 1 OR MORE SITES DATE: 07/05/2016 10:52 AM HISTORY: 65 years old Female with post menopausal symptoms. PROCEDURE: Planar images of the lumbar spine, forearm and hip(s) using a [employer] DEXA scanner for bone mineral density determination [...] lumbar spine, forearm and hip(s) using a [employer] DEXA scanner for bone mineral density determination [...] Mayes, DO DICTATION LOCATION: Location 1 - [facility] Belén Rangel MD DIAGNOSTIC IMAGING ORDERABLES Final Result from Last 3 Months or Most Recently Relevant to Health Maintenance Insurance [facility] LYDIA TRAVIS [place] [id number] [facility] [id number] MEDICARE PART A AND B [facility] [id number] Advance Directives For more information, please contact: [phone] * Full Code (Latest Code Status on [...]
--- OUTSIDE RECORDS SUMMARY | 2024-10-27 16:05 | XMS_ITS | Encounter Summary ---
Author Organization [employer] Address 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 There is no mass, malignant calcification, lymphadenopathy or other sign of malignancy. No change since 02/2005. Summary: No mammographic evidence of malignancy. Assessment BIRADS: 1-Negative Recommendation: Normal interval follow-up Dictated by: ROD GUO Electronically signed by: ROD GUO 08/07/2007 14:49 Transcribed: 08/07/2007 14:15 AMK Procedure Note Rod Guo MD - 08/07/2007 [facility] [address] [place] [place], [place] [address] Admit Date: 08/02/2007 IAN FELTON Sex: F Admit Prov: Date: 1950 Primary Care Prov: PCP, UNKNOWN CMRN: [id number] Room: [facility] SSN: [id number] IMAGING SERVICES Ordering Prov: DOCTOR, NOT O [...] mammogram documented in this encounter Care Teams Chicle Grinder Feeder Relationship Specialty Start Date End Date Derrick Asif MD [address] [facility] [address] [facility] [place] [address] PCP - General Internal Medicine 06/27/14 05/20/22 documented as of this encounter
--- OUTSIDE RECORDS SUMMARY | 2024-10-27 16:05 | XMS_ITS | Encounter Summary ---
Author Organization [employer] Address 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
--- OUTSIDE RECORDS SUMMARY | 2024-10-27 16:05 | XMS_ITS | Encounter Summary ---
Author Organization [employer] Address 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
--- OUTSIDE RECORDS SUMMARY | 2024-10-27 16:05 | XMS_ITS | Encounter Summary ---
Author Organization [employer] Address 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
--- NOTE | 2024-10-27 16:41 | PC.NURSE ---
G-tube replaced by EDP with same size 20Fr, gastric fl in return, and flashes good without difficulty.
[2024-10-27 18:54] VITALS: BP 128/66; PULSE 100; RESP 20; O2SAT 97
--- NOTE | 2024-10-27 19:14 | PC.NURSE ---
Assumed care of patient after receiving bedside report from ART Martinez @ [phone]
[2024-10-27 19:18] VITALS: BP 148/66; PULSE 103; O2SAT 97
== END 2024-10-27 21:07 ==
PROVIDERS: Emergency Provider Emergency Medicine; PCP Internal Medicine
DX: K94.23 Gastrostomy malfunction (principal); I48.91 Unspecified atrial fibrillation; F03.90 Unspecified dementia, unspecified severity, without behavioral disturbance, psychotic disturbance, mood disturbance, and anxiety; E03.9 Hypothyroidism, unspecified; Z74.01 Bed confinement status; Z66 Do not resuscitate; Z98.84 Bariatric surgery status; Z98.2 Presence of cerebrospinal fluid drainage device; Z96.0 Presence of urogenital implants; Z86.718 Personal history of other venous thrombosis and embolism; Z90.710 Acquired absence of both cervix and uterus; Z79.899 Other long term (current) drug therapy; Y83.3 Surgical operation with formation of external stoma as the cause of abnormal reaction of the patient, or of later complication, without mention of misadventure at the time of the procedure
CPT/HCPCS: 43762; 99282